=== PATIENT | female | born 1970 | race Caucasian/White ===

== ENCOUNTER 2019-05-13 21:41 | Observation (INO) ==
--- NOTE | 2019-05-13 21:49 | Emergency Department Note ---
ED Disposition Clinical Impression: Pneumonia, Community acquired pneumonia, Sepsis, COPD exacerbation Disposition: Admitted As Inpatient Condition on Discharge: Good Referrals: Darion Rehman MD [Primary Care Provider] - Time of Disposition: 22:55 - Critical Care Critical Care Time: No Attestation: On , the high probability of a clinically significant, sudden or life thr eatening deterioration of the following system(s) required my full and direct attention, intervention and personal management. The time I documented below is in addition to time spent performing reported procedures but includes the following listed in this critical care notation. Medical Decision Making - Medical Records Medical records reviewed: Yes: I reviewed the patient's medical records. - Jose Inquiry Pt receiving controlled substance: No Jose was queried for this patient: No Vital Signs: 05/13/19 21:54 05/13/19 22:26 05/13/19 22:47 Temperature 101.9 F H Temperature Source Oral Pulse Rate 115 H Pulse Rate [Right Radial] 119 H 105 H Respiratory Rate 20 20 Blood Pressure [Right Arm] 98/49 L 125/62 Blood Pressure Mean [Right Arm] 65 83 Blood Pressure Source [Right Arm] Automatic Cuff Blood Pressure Position [Right Arm] Sitting 02 Sat by Pulse Oximetry 87 L 88 L Oxygen Delivery Method Room Air Room Air - Lab Data Lab results reviewed: Yes: I reviewed the patient's lab results. Lab Results 05/13/19 20:10: WBC 12.0 H, RBC 4.49, Hgb 13.2, Hct 39.7, MCV 88.4, MCH 29.4, MCHC 33.2, RDW 12.0, Plt Count 312, MPV 7.0 L, Neut % (Auto) 76.7, Lymph % (Auto) 14.4, [place] % (Auto) 6.9, Eos % (Auto) 1.7, Baso % (Auto) 0.3, Neut # (Auto) 9.2 H, Lymph # (Auto) 1.7, [place] # (Auto) 0.8, Eos # (Auto) 0.2, Baso # (Auto) 0.0 05/13/19 20:10: Sodium 134 L, Potassium 4.1, Chloride 97 L, Carbon Dioxide 25, Anion Gap 16.1 H, BUN 6 L, Creatinine 0.71, Estimated Creat Clear 117, Estimated GFR 87, Est GFR ( Amer) 106, Glucose 130 H, Calcium 8.8, Total Bilirubin 0.8, AST 10 L, ALT 16, Alkaline Phosphatase 116, Total Protein 7.8, Albumin 3.5, Globulin 4.3 H, Albumin/Globulin Ratio 0.8 L 05/13/19 20:10: Lactate 0.6 05/13/19 20:10: Influenza Type A Ag Negative, Influenza Type B Ag Negative 05/13/19 21:59: ABG pH 7.40 05/13/19 22:15: Urine Color Yellow, Urine Appearance Clear, Urine pH 6.0, Ur S pecific [place] <= 1.005, Urine Protein Negative, Urine Glucose (UA) Negative, Urine Ketones Negative, Urine Blood Negative, Urine Nitrate Negative, Urine Bilirubin Negative, Urine Urobilinogen 0.2, Ur Leukocyte Esterase Negative, Urine WBC 3-5, Ur Squamous Epith Cells 5-10, Urine Bacteria 1+ Result diagrams: 05/13/19 20:10 05/13/19 20:10 Orders (Tests/Meds): ED MEDICATIONS Generic Name Dose Route Start Last Admin Trade Name Freq PRN Reason Stop Dose Admin Sodium Chloride 1,000 mls @ 999 mls/hr 05/13/19 22:00 05/13/19 22:06 Sod Chlor 0.9% 1000ml Bag IV 05/13/19 23:00 999 mls/hr .Q1H1M JODIE Administration Levofloxacin/Dextrose 750 mg in 150 mls @ 100 mls/hr 05/13/19 22:30 05/13/19 22:21 Levofloxacin 750mg/150ml Premix IV 05/27/19 22:29 100 mls/hr Q24H JODIE Administration Protocol Discontinued Medications Generic Name Dose Route Start Last Admin Trade Name Freq PRN Reason Stop Dose Admin Acetaminophen 1,000 mg 05/13/19 21:59 05/13/19 22:05 Tylenol 500mg Tablet PO 05/13/19 22:00 1,000 mg ONCE ONE Administration Albuterol/Ipratropium 3 ml 05/13/19 21:59 05/13/19 22:45 Duoneb 3ml Neb IH 05/13/19 22:00 3 ml ONCE ONE Administration Ketorolac Tromethamine 30 mg 05/13/19 21:59 05/13/19 22:05 Toradol 30mg/Ml Vial IV 05/13/19 22:00 30 mg ONCE ONE Administration Methylprednisolone Sodium Succinate 125 mg 05/13/19 21:59 05/13/19 22:06 Solu-Medrol 125mg/2ml Vial IV 05/13/19 22:00 125 mg ONCE ONE Administration ORDERS Category Date Time Status XR chest 2V Stat Exams 05/13/19 21:58 Taken Blood Culture Stat Micro 05/13/19 22:08 Received General Adult HPI - General Stated complaint: Sick Time Seen by Provider: 05/13/19 22:09 Mode of Arrival: Ambulatory Source of Information: Patient Limitations: No Limitations - History of Present Illness HPI narrative: bronchitis symptoms, but with high fever/chills - Related Data Home Medications Medication Instructions Recorded Confirmed Cyclobenzaprine HCl [Flexeril 10mg 10 mg PO TID 12/08/17 07/16/18 tablet] Gabapentin [Gabapentin 300mg Cap] 900 mg PO QID 12/08/17 07/16/18 Oxycodone HCl/Acetaminophen 1 tab PO DAILY 12/08/17 07/16/18 [Percocet 7.5/325mg tablet] meloxicam 15 mg tablet 15 mg PO ONCE PRN 30 Days tab 07/16/18 07/16/18 Previous Rx's Medication Instructions Recorded albuterol sulfate HFA 90 2 puff INHALATION Q4-6H PRN #1 inh 07/16/18 mcg/actuation aerosol inhaler fluticasone furoate 100 1 inh INHALATION DAILY 90 Days #90 11/02/18 mcg-vilanterol 25 mcg/dose each inhalation powder estradiol 1 mg tablet 1 mg PO DAILY #90 tab 01/17/19 fluticasone propionate 50 2 spray INTRANASAL DAILY #9.9 g 02/13/19 mcg/actuation nasal spray,suspension Allergies Allergy/AdvReac Type Severity Reaction Status Date / Time Sulfa (Sulfonamide Allergy Unknown I-RASH Verified 05/13/19 21:57 Antibiotics) [SULFA (SULFONAMIDE ANTIBIOTICS)] [facility] History - Hepatitis A Screen Attestation statement:: This patient has been screened for Hepatitis A risk factors. Medical History: Denies:: Diabetes Mellitus Type 1, Diabetes Mellitus Type 2, Hypertension Other Medical History: Reports: Other Other Surgeries: Yes: Other Amputation: No Fractures: No - Social History Smoking Status: Current every day smoker Tobacco Type: cigarettes Alcohol Intake: never Substance Use Type: denies use Family Hx:: Cancer, Hypertension ROS Obtained: Yes All systems reviewed & no additional complaints - Constitutional Constitutional: Reports fever(s), Reports lethargy - ENT Ears, Nose, Mouth, and Throat: Reports nasal obstruction, Denies nasal trauma, Reports sinus pressure - Cardiovascular Cardiovascular: Denies chest pain - Respiratory Respiratory: Yes chest congestion, Yes cough, No pain on inspiration, Yes wheezing - Musculoskeletal Musculoskeletal: Denies joint pain, Denies joint stiffness, Denies joint swelling - Integumentary/Breasts Skin/Breast: Denies rash, Denies skin pain - Neurologic Neurologic: Denies headache(s), Denies numbness, Denies tingling/numbness/burning sensations, Denies seizure-like activity Physical Exam - General General appearance: alert, in no apparent distress - Head Head exam: atraumatic, normocephalic, normal inspection - Eye Eye exam: Present: normal appearance, PERRL, EOMI - ENT ENT exam: Present: normal exam - Neck Neck exam: Present: normal inspection, full ROM, trachea midline. Absent: meningismus, lymphadenopathy - Chest Chest inspection: Present: normal inspection, symmetric chest wall rise. Absent: tenderness - Respiratory Respiratory exam: Present: wheezes. Absent: normal lung sounds bilaterally, respiratory distress - Cardiovascular Cardiovascular exam: Present: regular rate, normal rhythm. Absent: JVD - Abdominal Exam Abdominal exam: Present: soft, normal bowel sounds. Absent: distention, tenderness, guarding - Extremities Exam Extremities exam: Present: normal inspection, full ROM, normal capillary refill. Absent: calf tenderness - Back Exam Back exam: Present: normal inspection. Absent: tenderness - Neurological Exam Neurological exam: Present: alert, oriented X3 - Psychiatric Psychiatric exam: Present: normal affect, normal mood - Skin Skin exam: Present: warm, dry, intact, normal color
[2019-05-13 22:19] LABS: Microscopic, Urine URINE MICROSCOPIC (MICROSCOPIC)
[2019-05-13 22:22] LABS: Basophils % 0.3 % (0.1-2.0); Eosinophils # 0.2 K/mm3 (0.0-0.4); Eosinophils % 1.7 % (0.1-12.0); Hematocrit 39.7 % (37.0-47.0); Hemoglobin 13.2 g/dL (12.2-16.2); Lymphocytes # 1.7 K/mm3 (0.7-4.5); Lymphocytes % 14.4 % (10-50); Mean Corpuscular HGB Conc 33.2 g/dL (31.8-35.4); Mean Corpuscular Volume 88.4 fl (81-99); Monocytes # 0.8 K/mm3 (0.1-1.0); Monocytes % 6.9 % (1.7-9.3); Neutrophils # 9.2 K/mm3 (1.8-7.8); Neutrophils % 76.7 % (37.0-80.0); Platelet Count 312 K/mm3 (142-424); Red Blood Count 4.49 M/mm3 (4.20-5.40)
[2019-05-13 22:22] LABS: Appearance,Urine CLEAR (Clear); Bilirubin,Urine Negative (Negative); Blood, Urine Negative (Negative); Color,Urine YELLOW (Yellow); Glucose,Urine (UA) Negative (Negative); Ketones,Urine Negative (Negative); Leukocyte Esterase,Urine Negative (Negative); Protein,Urine Negative (Negative); Specific Gravity, Urine <= 1.005 (1.005-1.030); Urobilinogen,Urine 0.2 EU/dl (0.2)
[2019-05-13 22:29] LABS: Bacteria,Urine 1+ /lpf
[2019-05-13 22:31] LABS: Albumin Level 3.5 gm/dL (3.4-5.0); Albumin/Globulin Ratio 0.8 (1.1-1.8); Anion Gap 16.1 mEq/L (5-15); Bilirubin,Total 0.8 mg/dL (0.2-1.0); Calcium 8.8 mg/dL (8.5-10.1); Globulin 4.3 gm/dl (1.3-3.2); Total Protein,Serum 7.8 gm/dL (6.4-8.2)
[2019-05-14 06:45] LABS: Anion Gap 15.6 mEq/L (5-15); Calcium 8.7 mg/dL (8.5-10.1)
[2019-05-14 06:50] LABS: Basophils % 0.1 % (0.1-2.0); Eosinophils % 0.1 % (0.1-12.0); Hematocrit 39.4 % (37.0-47.0); Hemoglobin 12.7 g/dL (12.2-16.2); Lymphocytes # 0.7 K/mm3 (0.7-4.5); Lymphocytes % 9.3 % (10-50); Mean Corpuscular HGB Conc 32.2 g/dL (31.8-35.4); Mean Corpuscular Volume 89.5 fl (81-99); Mean Platelet Volume 7.1 fl (7.4-10.4); Monocytes # 0.2 K/mm3 (0.1-1.0); Neutrophils # 6.5 K/mm3 (1.8-7.8); Neutrophils % 88.5 % (37.0-80.0); Platelet Count 240 K/mm3 (142-424); Red Cell Distribution Width 11.9 % (11.5-17.5); White Blood Count 7.4 K/mm3 (4.8-10.8)
--- NOTE | 2019-05-14 07:10 | History & Physical Report ---
*Admission Date: 05/13/19 [facility] History Medical History: Denies:: Cancer, Diabetes Mellitus Type 1, Diabetes Mellitus Type 2, Hypertension, MRSA *Have you ever received a pneumonia vaccine?: No *Have you received a flu vaccine this season?: No Other Medical History: Reports: Other Laterality Cases: Bilateral: Tonsillectomy Other Surgeries: Yes: Cholecystectomy, Hysterectomy-Total, Other Amputation: No Fractures: No - *Social History Educational Level: Attended College Smoking Status: Former smoker Tobacco Type: cigarettes Smoking End Date: 01/26/2019 Alcohol Intake: never Substance Use Type: denies use *Occupational Status:: disabled Housing: apartment Household Members: none *Travel in the last 8 weeks: None Family Hx:: Cancer, Diabetes, Heart Attack, Hypertension Review of Systems - *Neurologic Denies headache(s), Denies numbness, Denies tingling/numbness/burning sensations, Denies seizure-like activity Meds Home Medications Medication Instructions Recorded Confirmed Type Cyclobenzaprine HCl [Flexeril 10mg 10 mg PO TID 12/08/17 05/14/19 History tablet] Gabapentin [Gabapentin 300mg Cap] 900 mg PO QID 12/08/17 05/14/19 History albuterol sulfate HFA 90 2 puff INHALATION Q4-6H PRN #1 inh 07/16/18 05/14/19 Rx mcg/actuation aerosol inhaler Estradiol 1 mg PO DAILY 05/14/19 05/14/19 History Oxycodone HCl/Acetaminophen 1 tab PO Q6H PRN 05/14/19 05/14/19 History [Percocet 10-325 mg Tablet] Allergies Allergy/AdvReac Type Severity Reaction Status Date / Time Sulfa (Sulfonamide Allergy Unknown I-RASH Verified 05/13/19 21:57 Antibiotics) [SULFA (SULFONAMIDE ANTIBIOTICS)] Exam Vital signs and Labs for Last 24 Hours: Temp Pulse Resp BP Pulse Ox 97.6 F 84 18 115/55 L 96 05/14/19 04:00 05/14/19 05:39 05/14/19 04:23 05/14/19 04:00 05/14/19 05:39 Laboratory Results - last 24 hr 05/13/19 20:10: WBC 12.0 H, RBC 4.49, Hgb 13.2, Hct 39.7, MCV 88.4, MCH 29.4, MCHC 33.2, RDW 12.0, Plt Count 312, MPV 7.0 L, Neut % (Auto) 76.7, Lymph % (Auto) 14.4, [place] % (Auto) 6.9, Eos % (Auto) 1.7, Baso % (Auto) 0.3, Neut # (Auto) 9.2 H, Lymph # (Auto) 1.7, [place] # (Auto) 0.8, Eos # (Auto) 0.2, Baso # (Auto) 0.0 05/13/19 20:10: Sodium 134 L, Potassium 4.1, Chloride 97 L, Carbon Dioxide 25, Anion Gap 16.1 H, BUN 6 L, Creatinine 0.71, Estimated Creat Clear 117, Estimated GFR 87, Est GFR ( Amer) 106, Glucose 130 H, Calcium 8.8, Total Bilirubin 0.8, AST 10 L, ALT 16, Alkaline Phosphatase 116, Total Protein 7.8, Albumin 3.5, Globulin 4.3 H, Albumin/Globulin Ratio 0.8 L 05/13/19 20:10: Lactate 0.6 05/13/19 20:10: Influenza Type A Ag Negative, Influenza Type B Ag Negative 05/13/19 21:59: ABG pH 7.40 05/13/19 22:15: Urine Color Yellow, Urine Appearance Clear, Urine pH 6.0, Ur Specific [place] <= 1.005, Urine Protein Negative, Urine Glucose (UA) Negative, Urine Ketones Negative, Urine Blood Negative, Urine Nitrate Negative, Urine Bilirubin Negative, Urine Urobilinogen 0.2, Ur Leukocyte Esterase Negative, Urine WBC 3-5, Ur Squamous Epith Cells 5-10, Urine Bacteria 1+ 05/14/19 06:12: WBC 7.4 D, RBC 4.40, Hgb 12.7, Hct 39.4, MCV 89.5, MCH 28.8, MCHC 32.2, RDW 11.9, Plt Count 240, MPV 7.1 L, Neut % (Auto) 88.5 H, Lymph % (Auto) 9.3 L, [place] % (Auto) 2.0, Eos % (Auto) 0.1, Baso % (Auto) 0.1, Neut # (Auto) 6.5, Lymph # (Auto) 0.7, [place] # (Auto) 0.2, Eos # (Auto) 0.0, Baso # (Auto) 0.0 I & O for Last 24 hours: Intake & Output 05/11/19 05/12/19 05/13/19 05/14/19 23:59 23:59 23:59 23:59 Intake Total 1150 / 1150 842 / 842 Output Total 1100 / 1100 Balance 1150 / 1150 -258 / -258 Weight 76.912 kg Microbiology Reports for the Last 24 Hours: Microbiology 05/14/19 00:18 Sputum - Expectorated Sputum Gram Stain - Final
--- NOTE | 2019-05-14 07:37 | Pharmacy Consult Notes ---
[facility] Pharmacy VTE Monitoring - Patient Demographics Admission date: 05/13/19 Report Date: 05/14/19 Time: 07:37 Allergies/Adverse Reactions: Patient Allergies Sulfa (Sulfonamide Antibiotics) [SULFA (SULFONAMIDE ANTIBIOTICS)] Allergy (Unknown, Verified 05/13/19 21:57) I-RASH Height: 1.6 m Weight: 76.912 kg Patient Problems: Current Active Problems COPD exacerbation (Acute) Pneumonia (Acute) Community acquired pneumonia (Acute) Sepsis (Acute) Sepsis with acute hypoxic respiratory failure (Acute) - VTE Risk Labs: VTE Related Lab Results Hgb 12.7 g/dL (12.2-16.2) 05/14/19 06:12 Hct 39.4 % (37.0-47.0) 05/14/19 06:12 Plt Count 240 K/mm3 (142-424) 05/14/19 06:12 BUN 8 mg/dL (7-18) D 05/14/19 06:12 Creatinine 0.75 mg/dL (0.55-1.02) 05/14/19 06:12 Estimated Creat Clear 110 mL/min (50-200) 05/14/19 06:12 Was VTE Risk Assessment Performed: Yes VTE Score: 3 VTE Risk Level: Low Risk - Prophylaxis VTE Prophylaxis Ordered?: Yes Types of VTE Prophylaxis: TEDS Knee High Location of Applied Device: Bilateral Lower Extremeties - VTE Diagnosis Confirmed Treatment or plan recommended: Continue Current Treatment
[2019-05-14 08:54] LABS: Lymphocytes % 10 % (10-50); Monocytes % 1 % (2-9); Neutrophils % 89 % (42-76); RBC Morphology Normal; Total Cells Counted 100
--- NOTE | 2019-05-14 09:29 | H&P/Discharge Summary ---
<Ender Casas - Last Filed: 05/14/19 09:39> General - General Admission date:: 05/13/19 Discharge date: 05/14/19 *Admission Date: 05/13/19 *Chief complaint: Sinus congestion, CARTER *History of present illness: 49-year-old female patient presents to the ED with complaints of increased shortness of air, tired, and congestion "feels like a truck is sitting on my head" for 2 days. She does report she quit smoking January 26 and has not smoked since. Denies fever This morning she is sitting up in bed respirations easy even, denies any needs or concerns at present. She is questioning when she can go home. She will be discharged home this morning, she is agreeable to this and will follow-up in the office in 1 to 2 weeks [facility] History Medical History: Denies:: Cancer, Diabetes Mellitus Type 1, Diabetes Mellitus Type 2, Hypertension, MRSA *Have you ever received a pneumonia vaccine?: No *Have you received a flu vaccine this season?: No Other Medical History: Reports: Other Laterality Cases: Bilateral: Tonsillectomy Other Surgeries: Yes: Cholecystectomy, Hysterectomy-Total, Other Amputation: No Fractures: No - *Social History Educational Level: Attended College Smoking Status: Former smoker Tobacco Type: cigarettes Smoking End Date: 01/26/2019 Alcohol Intake: never Substance Use Type: denies use *Occupational Status:: disabled Housing: apartment Household Members: none *Travel in the last 8 weeks: None Family Hx:: Cancer, Diabetes, Heart Attack, Hypertension Review of Systems - Review of Systems Review of systems:: pertinent systems reviewed and negative unless documented below - Constitutional Reports fatigue, Reports headache(s), Denies fever(s) - Eyes Denies blurry vision, Denies change in vision - ENT Reports headache(s), Reports nasal congestion - *Cardiovascular Reports shortness of breath, Denies chest pain, Denies radiating jaw, neck or arm pain, Denies fast heart rate - *Respiratory Reports cough, Reports shortness of breath, Denies chest congestion - *Gastrointestinal Denies abdominal pain, Denies bloating - *Musculoskeletal Denies joint pain, Denies neck pain - *Neurologic Denies headache(s), Denies numbness, Denies tingling/numbness/burning sensations, Denies seizure-like activity - Psychiatric Denies hearing things others do not hear, Denies thoughts of hurting/killing others, Denies thoughts of hurting/killing yourself - Endocrine Denies rapid, pounding, or irregular heartbeat, Denies increased urination - Hematologic/Lymphatic Denies easy bleeding, Denies easy bruising - Allergic/Immunologic Denies GI upset with certain foods, Denies tongue swelling Exam Vital signs and Labs for Last 24 Hours: Temp Pulse Resp BP Pulse Ox 97.9 F 92 H 18 112/60 93 L 05/14/19 08:00 05/14/19 09:20 05/14/19 08:00 05/14/19 08:00 05/14/19 08:00 Laboratory Results - last 24 hr 05/13/19 20:10: WBC 12.0 H, RBC 4.49, Hgb 13.2, Hct 39.7, MCV 88.4, MCH 29.4, MCHC 33.2, RDW 12.0, Plt Count 312, MPV 7.0 L, Neut % (Auto) 76.7, Lymph % (Auto) 14.4, [place] % (Auto) 6.9, Eos % (Auto) 1.7, Baso % (Auto) 0.3, Neut # (Auto) 9.2 H, Lymph # (Auto) 1.7, [place] # (Auto) 0.8, Eos # (Auto) 0.2, Baso # (Auto) 0.0 05/13/19 20:10: Sodium 134 L, Potassium 4.1, Chloride 97 L, Carbon Dioxide 25, Anion Gap 16.1 H, BUN 6 L, Creatinine 0.71, Estimated Creat Clear 117, Estimated GFR 87, Est GFR ( Amer) 106, Glucose 130 H, Calcium 8.8, Total Bilirubin 0.8, AST 10 L, ALT 16, Alkaline Phosphatase 116, Total Protein 7.8, Albumin 3.5, Globulin 4.3 H, Albumin/Globulin Ratio 0.8 L 05/13/19 20:10: Lactate 0.6 05/13/19 20:10: Influenza Type A Ag Negative, Influenza Type B Ag Negative 05/13/19 21:59: ABG pH 7.40 05/13/19 22:15: Urine Color Yellow, Urine Appearance Clear, Urine pH 6.0, Ur Specific [place] <= 1.005, Urine Protein Negative, Urine Glucose (UA) Negative, Urine Ketones Negative, Urine Blood Negative, Urine Nitrate Negative, Urine Bilirubin Negative, Urine Urobilinogen 0.2, Ur Leukocyte Esterase Negative, Urine WBC 3-5, Ur Squamous Epith Cells 5-10, Urine Bacteria 1+ 05/14/19 06:12: WBC 7.4 D, RBC 4.40, Hgb 12.7, Hct 39.4, MCV 89.5, MCH 28.8, MCHC 32.2, RDW 11.9, Plt Count 240, MPV 7.1 L, Neut % (Auto) 88.5 H, Lymph % (Auto) 9.3 L, [place] % (Auto) 2.0, Eos % (Auto) 0.1, Baso % (Auto) 0.1, Neut # (Auto) 6.5, Lymph # (Auto) 0.7, [place] # (Auto) 0.2, Eos # (Auto) 0.0, Baso # (Auto) 0.0, Total Counted 100, Neutrophils % (Manual) 89 H, Lymphocytes % (Manual) 10, Monocytes % (Manual) 1 L, Platelet Estimate Normal, RBC Morphology Normal 05/14/19 06:12: Sodium 139, Potassium 3.6, Chloride 103, Carbon Dioxide 24, Anion Gap 15.6 H, BUN 8 D, Creatinine 0.75, Estimated Creat Clear 110, Estimated GFR 82, Est GFR ( Amer) 99, Glucose 206 H D, Calcium 8.7 I & O for Last 24 hours: Intake & Output 05/11/19 05/12/19 05/13/19 05/14/19 23:59 23:59 23:59 23:59 Intake Total 1150 / 1150 962 / 962 Output Total 1100 / 1100 Balance 1150 / 1150 -138 / -138 Weight 169 lb 9 oz Microbiology Reports for the Last 24 Hours: Microbiology 05/14/19 00:18 Sputum - Expectorated Sputum Gram Stain - Final - Constitutional no acute distress - *Routine HEENT Exam Head: Present: normocephalic, atraumatic. Absent: tenderness of temporal artery Eye: Present: EOMI, PERRL, normal accommodation. Absent: conjunctival icterus, periorbital swelling ENT: Present: mucous membranes moist, sinus tenderness. Absent: septal deviation - *Routine Neck Exam Present: supple, full ROM, trachea midline. Absent: JVD, tracheal deviation - *Routine Respiratory Exam Present: CTA bilaterally. Absent: accessory muscle use - *Routine Cardiovascular Exam Present: RRR. Absent: murmur, irregular rhythm - *Routine Abdominal Exam Present: soft, normoactive bowel sounds. Absent: tenderness, firm - *Routine Extremities Exam Present: full ROM, pulses intact. Absent: cyanosis, calf tenderness - Routine Back/Spine/Pelvis Exam Back/Spine: Present: full ROM. Absent: CVA tenderness, pain with flexion - *Routine Skin Exam Present: intact, normal turgor. Absent: cyanosis, ecchymosis - *Routine Neurological Exam Present: alert, oriented X3, CN II-XII intact. Absent: pronator drift, altered mental status - Routine Psychiatric Exam Present: normal affect, normal thought process. Absent: suicidal ideation, homicidal ideation Hospital Course Hospital Course: 49-year-old female patient presents to the ED with complaints of increased shortness of air, tired, and congestion "feels like a truck is sitting on my head" for 2 days. She does report she quit smoking January 26 and has not smoked since. Denies fever. In the ED she received levofloxacin 750 mg per IV, breathing treatments, and IV fluids. 05/13/2019 CXR : Right lower lobe pneumonia. Recommend following to clear (Per Granda) This morning she is sitting up in bed reports she is feeling a lot better, decrease head congestion. Room air sats are 96%, she denies any shortness of breath chest pain or any other concerns at the present. She will be discharged home on Levaquin 750 mg p.o. for 6 days. She will follow-up in office in 1 to 2 weeks and will order PFT Results Labs on day of discharge: Labs from last 24 hours 05/14/19 05/14/19 05/13/19 06:12 06:12 22:15 WBC 7.4 D RBC 4.40 Hgb 12.7 Hct 39.4 MCV 89.5 MCH 28.8 MCHC 32.2 RDW 11.9 Plt Count 240 MPV 7.1 L Neut % (Auto) 88.5 H Lymph % (Auto) 9.3 L [place] % (Auto) 2.0 Eos % (Auto) 0.1 Baso % (Auto) 0.1 Neut # (Auto) 6.5 Lymph # (Auto) 0.7 [place] # (Auto) 0.2 Eos # (Auto) 0.0 Baso # (Auto) 0.0 Total Counted 100 Neutrophils % (Manual) 89 H Lymphocytes % (Manual) 10 Monocytes % (Manual) 1 L Platelet Estimate Normal RBC Morphology Normal ABG pH Sodium 139 Potassium 3.6 Chloride 103 Carbon Dioxide 24 Anion Gap 15.6 H BUN 8 D Creatinine 0.75 Estimated Creat Clear 110 Estimated GFR 82 Est GFR ( Amer) 99 Glucose 206 H D Lactate Calcium 8.7 Total Bilirubin AST ALT Alkaline Phosphatase Total Protein Albumin Globulin Albumin/Globulin Ratio Urine Color Yellow Urine Appearance Clear Urine pH 6.0 Ur Specific [place] <= 1.005 Urine Protein Negative Urine Glucose (UA) Negative Urine Ketones Negative Urine Blood Negative Urine Nitrate Negative Urine Bilirubin Negative Urine Urobilinogen 0.2 Ur Leukocyte Esterase Negative Urine WBC 3-5 Ur Squamous Epith Cells 5-10 Urine Bacteria 1+ Influenza Type A Ag Influenza Type B Ag 05/13/19 05/13/19 05/13/19 21:59 20:10 20:10 WBC RBC Hgb Hct MCV MCH MCHC RDW Plt Count MPV Neut % (Auto) Lymph % (Auto) [place] % (Auto) Eos % (Auto) Baso % (Auto) Neut # (Auto) Lymph # (Auto) [place] # (Auto) Eos # (Auto) Baso # (Auto) Total Counted Neutrophils % (Manual) Lymphocytes % (Manual) Monocytes % (Manual) Platelet Estimate RBC Morphology ABG pH 7.40 Sodium Potassium Chloride Carbon Dioxide Anion Gap BUN Creatinine Estimated Creat Clear Estimated GFR Est GFR ( Amer) Glucose Lactate 0.6 Calcium Total Bilirubin AST ALT Alkaline Phosphatase Total Protein Albumin Globulin Albumin/Globulin Ratio Urine Color Urine Appearance Urine pH Ur Specific [place] Urine Protein Urine Glucose (UA) Urine Ketones Urine Blood Urine Nitrate Urine Bilirubin Urine Urobilinogen Ur Leukocyte Esterase Urine WBC Ur Squamous Epith Cells Urine Bacteria Influenza Type A Ag Negative Influenza Type B Ag Negative 05/13/19 05/13/19 20:10 20:10 WBC 12.0 H RBC 4.49 Hgb 13.2 Hct 39.7 MCV 88.4 MCH 29.4 MCHC 33.2 RDW 12.0 Plt Count 312 MPV 7.0 L Neut % (Auto) 76.7 Lymph % (Auto) 14.4 [place] % (Auto) 6.9 Eos % (Auto) 1.7 Baso % (Auto) 0.3 Neut # (Auto) 9.2 H Lymph # (Auto) 1.7 [place] # (Auto) 0.8 Eos # (Auto) 0.2 Baso # (Auto) 0.0 Total Counted Neutrophils % (Manual) Lymphocytes % (Manual) Monocytes % (Manual) Platelet Estimate RBC Morphology ABG pH Sodium 134 L Potassium 4.1 Chloride 97 L Carbon Dioxide 25 Anion Gap 16.1 H BUN 6 L Creatinine 0.71 Estimated Creat Clear 117 Estimated GFR 87 Est GFR ( Amer) 106 Glucose 130 H Lactate Calcium 8.8 Total Bilirubin 0.8 AST 10 L ALT 16 Alkaline Phosphatase 116 Total Protein 7.8 Albumin 3.5 Globulin 4.3 H Albumin/Globulin Ratio 0.8 L Urine Color Urine Appearance Urine pH Ur Specific [place] Urine Protein Urine Glucose (UA) Urine Ketones Urine Blood Urine Nitrate Urine Bilirubin Urine Urobilinogen Ur Leukocyte Esterase Urine WBC Ur Squamous Epith Cells Urine Bacteria Influenza Type A Ag Influenza Type B Ag - Additional Comments Rounded with Dr. Lozano, all orders per Dr. Lozano. 1. Levaquin 750 mg p.o. daily x6 days 2. Will start Spiriva and give sample 3. Follow-up in office 1 to 2 weeks, schedule PFT DS: Diagnosis - Discharge Diagnosis (1) Pneumonia Status: Acute (2) Sepsis Status: Acute (3) COPD exacerbation Status: Acute Discharge Plan - Patient Discharge Instructions ACTIVITY: Continue current activity DIET: continue same diet Patient Instructions: Pneumonia-Adult, Chronic Obstructive Pulmonary Disease, Pneumococcal Vaccine, DI for Chronic Obstructive Pulmonary Disease, DI for Pneumonia -- Adult, DI for Sepsis -- Adult - Follow up Plan Follow up with: Ender Casas APRN [Nurse Practitioner] - 1 week Disposition: Home, Self-Detention Medications: Home Medications Medication Instructions Recorded Confirmed Type Cyclobenzaprine HCl [Flexeril 10mg 10 mg PO TID 12/08/17 05/14/19 History tablet] Gabapentin [Gabapentin 300mg Cap] 900 mg PO QID 12/08/17 05/14/19 History albuterol sulfate HFA 90 2 puff INHALATION Q4-6H PRN #1 inh 07/16/18 05/14/19 Rx mcg/actuation aerosol inhaler Estradiol 1 mg PO DAILY 05/14/19 05/14/19 History Oxycodone HCl/Acetaminophen 1 tab PO Q6H PRN 05/14/19 05/14/19 History [Percocet 10-325 mg Tablet] Tiotropium [place] [Spiriva 2 puffs IH DAILY 30 Days #1 05/14/19 Rx Respimat] mist.inhal levoFLOXacin [Levofloxacin 750MG 750 mg PO DAILY 6 Days #6 tab 05/14/19 Rx Tablet] Prescriptions/Medication Reconciliation: New Tiotropium [place] [Spiriva Respimat] 2 puffs IH DAILY 30 Days #1 mist.inhal levoFLOXacin [Levofloxacin 750MG Tablet] 750 mg PO DAILY 6 Days #6 tab Continued albuterol sulfate HFA 90 mcg/actuation aerosol inhaler 2 puff INHALATION Q4- 6H PRN #1 inh PRN Reason: Shortness Of Breath Or Wheezing Gabapentin [Gabapentin 300mg Cap] 900 mg PO QID Cyclobenzaprine HCl [Flexeril 10mg tablet] 10 mg PO TID Estradiol 1 mg PO DAILY Oxycodone HCl/Acetaminophen [Percocet 10-325 mg Tablet] 1 tab PO Q6H PRN PRN Reason: PAIN - Problem Reconciliation Problems Reviewed?: Yes <Ramon Lozano - Last Filed: 05/14/19 14:10> General - General Admission date:: 05/13/19 Exam Vital signs and Labs for Last 24 Hours: Temp Pulse Resp BP Pulse Ox 97.9 F 92 H 18 112/60 93 L 05/14/19 08:00 05/14/19 09:20 05/14/19 08:00 05/14/19 08:00 05/14/19 08:00 Laboratory Results - last 24 hr 05/13/19 20:10: WBC 12.0 H, RBC 4.49, Hgb 13.2, Hct 39.7, MCV 88.4, MCH 29.4, MCHC 33.2, RDW 12.0, Plt Count 312, MPV 7.0 L, Neut % (Auto) 76.7, Lymph % (Auto) 14.4, [place] % (Auto) 6.9, Eos % (Auto) 1.7, Baso % (Auto) 0.3, Neut # (Auto) 9.2 H, Lymph # (Auto) 1.7, [place] # (Auto) 0.8, Eos # (Auto) 0.2, Baso # (Auto) 0.0 05/13/19 20:10: Sodium 134 L, Potassium 4.1, Chloride 97 L, Carbon Dioxide 25, Anion Gap 16.1 H, BUN 6 L, Creatinine 0.71, Estimated Creat Clear 117, Estimated GFR 87, Est GFR ( Amer) 106, Glucose 130 H, Calcium 8.8, Total Bilirubin 0.8, AST 10 L, ALT 16, Alkaline Phosphatase 116, Total Protein 7.8, Albumin 3.5, Globulin 4.3 H, Albumin/Globulin Ratio 0.8 L 05/13/19 20:10: Lactate 0.6 05/13/19 20:10: Influenza Type A Ag Negative, Influenza Type B Ag Negative 05/13/19 21:59: ABG pH 7.40 05/13/19 22:15: Urine Color Yellow, Urine Appearance Clear, Urine pH 6.0, Ur Specific [place] <= 1.005, Urine Protein Negative, Urine Glucose (UA) Negative, Urine Ketones Negative, Urine Blood Negative, Urine Nitrate Negative, Urine Bilirubin Negative, Urine Urobilinogen 0.2, Ur Leukocyte Esterase Negative, Urine WBC 3-5, Ur Squamous Epith Cells 5-10, Urine Bacteria 1+ 05/14/19 06:12: WBC 7.4 D, RBC 4.40, Hgb 12.7, Hct 39.4, MCV 89.5, MCH 28.8, MCHC 32.2, RDW 11.9, Plt Count 240, MPV 7.1 L, Neut % (Auto) 88.5 H, Lymph % (Auto) 9.3 L, [place] % (Auto) 2.0, Eos % (Auto) 0.1, Baso % (Auto) 0.1, Neut # (A uto) 6.5, Lymph # (Auto) 0.7, [place] # (Auto) 0.2, Eos # (Auto) 0.0, Baso # (Auto) 0.0, Total Counted 100, Neutrophils % (Manual) 89 H, Lymphocytes % (Manual) 10, Monocytes % (Manual) 1 L, Platelet Estimate Normal, RBC Morphology Normal 05/14/19 06:12: Sodium 139, Potassium 3.6, Chloride 103, Carbon Dioxide 24, A nion Gap 15.6 H, BUN 8 D, Creatinine 0.75, Estimated Creat Clear 110, Estimated GFR 82, Est GFR ( Amer) 99, Glucose 206 H D, Calcium 8.7 I & O for Last 24 hours: Intake & Output 05/11/19 05/12/19 05/13/19 05/14/19 23:59 23:59 23:59 23:59 Intake Total 1150 / 1150 1420 / 1420 Output Total 1100 / 1100 Balance 1150 / 1150 320 / 320 Weight 76.912 kg Microbiology Reports for the Last 24 Hours: Microbiology 05/14/19 00:18 Sputum - Expectorated Sputum Gram Stain - Final Hospital Course Hospital Course: Rounded with nurse practitioner. Agree with exam findings and care plan as documented. Results Labs on day of discharge: Labs from last 24 hours 05/14/19 05/14/19 05/13/19 06:12 06:12 22:15 WBC 7.4 D RBC 4.40 Hgb 12.7 Hct 39.4 MCV 89.5 MCH 28.8 MCHC 32.2 RDW 11.9 Plt Count 240 MPV 7.1 L Neut % (Auto) 88.5 H Lymph % (Auto) 9.3 L [place] % (Auto) 2.0 Eos % (Auto) 0.1 Baso % (Auto) 0.1 Neut # (Auto) 6.5 Lymph # (Auto) 0.7 [place] # (Auto) 0.2 Eos # (Auto) 0.0 Baso # (Auto) 0.0 Total Counted 100 Neutrophils % (Manual) 89 H Lymphocytes % (Manual) 10 Monocytes % (Manual) 1 L Platelet Estimate Normal RBC Morphology Normal ABG pH Sodium 139 Potassium 3.6 Chloride 103 Carbon Dioxide 24 Anion Gap 15.6 H BUN 8 D Creatinine 0.75 Estimated Creat Clear 110 Estimated GFR 82 Est GFR ( Amer) 99 Glucose 206 H D Lactate Calcium 8.7 Total Bilirubin AST ALT Alkaline Phosphatase Total Protein Albumin Globulin Albumin/Globulin Ratio Urine Color Yellow Urine Appearance Clear Urine pH 6.0 Ur Specific [place] <= 1.005 Urine Protein Negative Urine Glucose (UA) Negative Urine Ketones Negative Urine Blood Negative Urine Nitrate Negative Urine Bilirubin Negative Urine Urobilinogen 0.2 Ur Leukocyte Esterase Negative Urine WBC 3-5 Ur Squamous Epith Cells 5-10 Urine Bacteria 1+ Influenza Type A Ag Influenza Type B Ag 05/13/19 05/13/19 05/13/19 21:59 20:10 20:10 WBC RBC Hgb Hct MCV MCH MCHC RDW Plt Count MPV Neut % (Auto) Lymph % (Auto) [place] % (Auto) Eos % (Auto) Baso % (Auto) Neut # (Auto) Lymph # (Auto) [place] # (Auto) Eos # (Auto) Baso # (Auto) Total Counted Neutrophils % (Manual) Lymphocytes % (Manual) Monocytes % (Manual) Platelet Estimate RBC Morphology ABG pH 7.40 Sodium Potassium Chloride Carbon Dioxide Anion Gap BUN Creatinine Estimated Creat Clear Estimated GFR Est GFR ( Amer) Glucose Lactate 0.6 Calcium Total Bilirubin AST ALT Alkaline Phosphatase Total Protein Albumin Globulin Albumin/Globulin Ratio Urine Color Urine Appearance Urine pH Ur Specific [place] Urine Protein Urine Glucose (UA) Urine Ketones Urine Blood Urine Nitrate Urine Bilirubin Urine Urobilinogen Ur Leukocyte Esterase Urine WBC Ur Squamous Epith Cells Urine Bacteria Influenza Type A Ag Negative Influenza Type B Ag Negative 05/13/19 05/13/19 20:10 20:10 WBC 12.0 H RBC 4.49 Hgb 13.2 Hct 39.7 MCV 88.4 MCH 29.4 MCHC 33.2 RDW 12.0 Plt Count 312 MPV 7.0 L Neut % (Auto) 76.7 Lymph % (Auto) 14.4 [place] % (Auto) 6.9 Eos % (Auto) 1.7 Baso % (Auto) 0.3 Neut # (Auto) 9.2 H Lymph # (Auto) 1.7 [place] # (Auto) 0.8 Eos # (Auto) 0.2 Baso # (Auto) 0.0 Total Counted Neutrophils % (Manual) Lymphocytes % (Manual) Monocytes % (Manual) Platelet Estimate RBC Morphology ABG pH Sodium 134 L Potassium 4.1 Chloride 97 L Carbon Dioxide 25 Anion Gap 16.1 H BUN 6 L Creatinine 0.71 Estimated Creat Clear 117 Estimated GFR 87 Est GFR ( Amer) 106 Glucose 130 H Lactate Calcium 8.8 Total Bilirubin 0.8 AST 10 L ALT 16 Alkaline Phosphatase 116 Total Protein 7.8 Albumin 3.5 Globulin 4.3 H Albumin/Globulin Ratio 0.8 L Urine Color Urine Appearance Urine pH Ur Specific [place] Urine Protein Urine Glucose (UA) Urine Ketones Urine Blood Urine Nitrate Urine Bilirubin Urine Urobilinogen Ur Leukocyte Esterase Urine WBC Ur Squamous Epith Cells Urine Bacteria Influenza Type A Ag Influenza Type B Ag DS: Diagnosis - Discharge Diagnosis (1) Pneumonia Status: Acute (2) Sepsis Status: Acute (3) COPD exacerbation Status: Acute Discharge Plan - Patient Discharge Instructions ACTIVITY: Continue current activity DIET: continue same diet - Problem Reconciliation Problems Reviewed?: Yes
== END 2019-05-14 11:15 | disposition home or self-care (01) ==
LOC: ER 21:41 → 2ND 22:57 → INTOOBSV 23:40 → 2ND 23:41
PROVIDERS: ADMIT Internal Medicine Adolescent Medicine; ATTEND Internal Medicine Adolescent Medicine
DX: J18.9 Pneumonia, unspecified organism
CPT/HCPCS: 36415; 71020; 71046; 80048; 80053; 81001; 83605; 85007; 85025; 87040; 87070; 87205; 87275; 87276; 94640; 94761; 96365; 96367; 96375; 99284; G0378; J1956

== ENCOUNTER → 2020-01-02 13:48 | Outpatient (CLI) | payer MEDICARE, MEDICAID, SELFPAY ==
[2020-01-02 14:14] LABS: Basophils # 0.1 K/mm3 (0-0.2); Basophils % 1.7 % (0.1-2.0); Eosinophils # 0.1 K/mm3 (0.0-0.4); Hematocrit 41.5 % (37.0-47.0); Hemoglobin 13.5 g/dL (12.2-16.2); Lymphocytes # 1.5 K/mm3 (0.7-4.5); Lymphocytes % 20.8 % (10-50); Mean Corpuscular HGB Conc 32.6 g/dL (31.8-35.4); Mean Platelet Volume 7.8 fl (7.4-10.4); Monocytes # 0.4 K/mm3 (0.1-1.0); Monocytes % 5.9 % (1.7-9.3); Neutrophils # 5.1 K/mm3 (1.8-7.8); Neutrophils % 69.6 % (37.0-80.0); Platelet Count 420 K/mm3 (142-424); Red Blood Count 4.67 M/mm3 (4.20-5.40); White Blood Count 7.4 K/mm3 (4.8-10.8)
[2020-01-02 14:45] LABS: Alanine Aminotransferase 13 U/L (12-78); Albumin Level 4.3 g/dl (3.5-5.0); Albumin/Globulin Ratio 1.4 (1.1-1.8); Alkaline Phosphatase 107 U/L (38-126); Anion Gap 9.1 mEq/L (5-15); Aspartate Amino Transferase 19 U/L (14-36); Bilirubin,Total 0.3 mg/dl (0.2-1.3); Blood Urea Nitrogen 7 mg/dl (7-17); Calcium 9.5 mg/dl (8.4-10.2); Carbon Dioxide 29 mmol/L (22.0-30.0); Chloride 103 mmol/L (98-107); Chol/HDL Ratio 2.8 (1-3.5); Cholesterol 162 mg/dl (140-200); Estimated Glomerular Filt Rate 131 ml/min (>60); GFR (African American) 159 ML/MIN (>60); Globulin 3.1 g/dL (1.3-3.2); Glucose 100 mg/dl (74-100); HDL Cholesterol 57 mg/dl (40-60); Potassium 4.1 mmoL/L (3.5-5.1); Sodium 137 mmol/L (136-145); Total Protein,Serum 7.4 g/dl (6.3-8.2); Triglycerides 133 mg/dl (30-150); VLDL Cholesterol 27 mg/dL (0-40)
[2020-01-02 14:57] LABS: Direct LDL Cholesterol 99.95 mg/dL (100-129)
[2020-01-02 15:03] LABS: T4 (Thyroxine) 13.2 ug/dl (5.53-11.0)
[2020-01-02 15:16] LABS: Thyroid Stimulating Hormone 1.77 uIU/mL (0.465-4.68)
[2020-01-03 11:21] LABS: Vitamin D 25 Hydroxy 48.6 ng/mL (30.0-100.0)
== END ==
PROVIDERS: Visit Provider Nurse Practitioner Family
DX: E03.9 Hypothyroidism, unspecified (principal)
CPT/HCPCS: 80053; 80061; 82652; 84436; 84443; 85025

== ENCOUNTER → 2020-09-08 16:28 | Outpatient (CLI) | payer MEDICARE, MEDICAID, SELFPAY ==
[2020-09-10 11:41] LABS: Covid-19 Nasal PCR Sendout P&C NEGATIVE
== END ==
PROVIDERS: PCP Physician Assistant; Visit Provider Physician Assistant
DX: Z11.52 Encounter for screening for COVID-19 (principal)
CPT/HCPCS: U0004

== ENCOUNTER → 2020-10-16 13:21 | Outpatient (CLI) | payer MEDICARE, MEDICAID, SELFPAY ==
--- NOTE | 2020-10-16 13:26 | XR_ITS ---
PROCEDURE: XR FOOT WT BEARING LT 3V CLINICAL INDICATION: L Foot pain COMPARISON: No exams were available for comparison FINDINGS: There is no fracture or dislocation. There is a sclerotic appearance of the 1st metatarsal phalangeal sesamoid bones which could indicate degenerative change. Small inferior calcaneal spur. Incidentally noted distal tibial bone island. There is decreased calcaneal pitch consistent with pes planus. IMPRESSION: Pes planus. Possible sesamoid bone degenerative change. Dictated by: Hyun Chatman MD 10/16/2020 13:54 Hyun Chatman MD in [place] 10/16/2020 13:54
== END ==
PROVIDERS: PCP Nurse Practitioner Family; Visit Provider Nurse Practitioner Family
DX: M79.672 Pain in left foot (principal)
CPT/HCPCS: 73630

== ENCOUNTER → 2020-12-01 11:29 | Outpatient (CLI) | payer MEDICARE, MEDICAID, SELFPAY ==
--- NOTE | 2020-12-01 11:48 | XR_ITS ---
PROCEDURE: XR HAND LT MIN 3V CLINICAL INDICATION: XR LT hand- carpal tunnel Pain COMPARISON: CR XR WRIST LT MIN 3V from 12/01/2020 FINDINGS: No fracture or dislocation. No lytic or blastic change. There is normal mineralization. There are hypertrophic changes involving the distal and ulnar aspect of the trapezium. There is mild lateral subluxation of the 1st metacarpal. Mild osteoarthritic changes are present at the 1st metacarpal-carpal junction small cystic areas present within the scaphoid distally measuring 5 mm. Other findings:None. IMPRESSION: Hypertrophic change of the trapezium distally and ulnarly with mild lateral subluxation of the 1st metacarpal with osteoarthritic change of the 1st metacarpal-carpal junction Benign-appearing cystic lesion of the scaphoid Dictated by: Greg Granda MD 12/01/2020 12:33 Greg Granda MD in [facility] 12/01/2020 12:33
--- NOTE | 2020-12-01 12:16 | XR_ITS ---
PROCEDURE: XR HAND RT MIN 3V CLINICAL INDICATION: XR RT hand- carpal tunnel Pain COMPARISON: CR XR WRIST RT MIN 3V from 12/01/2020 FINDINGS: No fracture or dislocation. No lytic or blastic change. There is normal mineralization. There are osteoarthritic changes at the 1st metacarpal-carpal joint. There is mild lateral subluxation at the base of the 1st metacarpal. There is a prominent area of bony exostosis involving the ulnar aspect of the trapezium distally which may be leading to the some slight subluxation of the 1st metacarpal. Mild periarticular calcification present at the 1st metacarpal-carpal joint laterally. Other findings:None. IMPRESSION: Degenerative changes 1st metacarpal-carpal joint the Dictated by: Greg Granda MD 12/01/2020 12:31 Greg Granda MD in [facility] 12/01/2020 12:31
[2020-12-01 12:45] LABS: Coronavirus 19 IgG Antibody Negative (Negative); Coronavirus 19 IgM Antibody Negative (Negative)
== END ==
PROVIDERS: Surgery; PCP Emergency Medicine; Visit Provider Orthopaedic Surgery
DX: M25.532 Pain in left wrist (principal); G56.00 Carpal tunnel syndrome, unspecified upper limb; Z01.84 Encounter for antibody response examination
CPT/HCPCS: 36415; 73110; 73130; 86328

== ENCOUNTER 2020-12-04 14:46 | Outpatient (RCR) | payer MEDICARE, MEDICAID, SELFPAY | END 2020-12-04 15:10 | disposition home or self-care (01) | LOC: OT 14:46 | PROVIDERS: Visit Provider Orthopaedic Surgery | DX: M18.10 Unilateral primary osteoarthritis of first carpometacarpal joint, unspecified hand (principal); G56.02 Carpal tunnel syndrome, left upper limb | CPT/HCPCS: 97763 ==

== ENCOUNTER → 2020-12-29 11:16 | Outpatient (CLI) | payer MEDICARE, MEDICAID, SELFPAY ==
--- NOTE | 2020-12-29 11:18 | US_ITS ---
APPROVED REPORT Exam Type: Lower Extremity Segmental Pressures Exercise Manager: Cheyanne Wright RVT Indications Claudication: Bilaterally Rest Pain: Bilaterally History of Smoking COLD FEET Risk Factors History of Smoking Pressures/Indices Right Indices Left Indices Brachial 130.00 mmHg Brachial 139.00 mmHg Low Thigh 131.00 mmHg 0.94 Low Thigh 117.00 mmHg 0.84 Calf 125.00 mmHg 0.90 Calf 123.00 mmHg 0.88 Ankle(PT) 146.00 mmHg 1.05 Ankle(PT) 117.00 mmHg 0.84 Ankle(DP) 125.00 mmHg 0.90 Ankle(DP) 127.00 mmHg 0.91 Digit 151.00 mmHg 1.09 Digit 121.00 mmHg 0.87 Findings RT AIME:1.05 LT AIME:0.91 RT TBI:1.09 LT TBI:0.87 NORMAL PULSES BILATERAL DAMPANED WAVEFORMS LT THIGH AND ANKLE Conclusion RT AIME:1.05 LT AIME:0.91 RT TBI:1.09 LT TBI:0.87 NORMAL PULSES BILATERAL DAMPANED WAVEFORMS LT THIGH AND ANKLE Normal appearing resting noninvasive lower extremity arterial study. Electronically signed by : Greg Granda MD 12/29/2020 17:29:36
== END ==
PROVIDERS: PCP Emergency Medicine; Visit Provider Podiatrist
DX: R09.89 Other specified symptoms and signs involving the circulatory and respiratory systems (principal)
CPT/HCPCS: 93923

== ENCOUNTER → 2021-01-06 15:33 | Outpatient (CLI) | payer MEDICARE, MEDICAID, SELFPAY | DX: Z20.822 Contact with and (suspected) exposure to COVID-19 (principal) | CPT/HCPCS: U0003 ==

== ENCOUNTER 2021-01-06 16:17 | Emergency (ER) | payer MEDICARE, MEDICAID, SELFPAY ==
[2021-01-06 16:22] VITALS: BP 125/85; PULSE 91; RESP 20; TEMP 37; O2SAT 98; BMI 33.0
--- NOTE | 2021-01-06 16:28 | XR_ITS ---
PROCEDURE INFORMATION: Exam: XR Left Foot Exam date and time: 01/06/2021 4:28 PM Age: 50 years old Clinical indication: Foot; Left; Patient HX: Fall a few days ago---. Pain/bruising at 4th phalanx; Additional info: Hit pinky toe TECHNIQUE: Imaging protocol: XR Left foot. Views: 3 or more views. COMPARISON: CR XR FOOT WT BEARING LT 3V 10/16/2020 1:32 PM FINDINGS: Bones/joints: Moderate plantar calcaneal spur. No fracture or subluxation. Soft tissues: Normal. IMPRESSION: No fracture or subluxation.
[2021-01-06 16:32] VITALS: BP 125/85; PULSE 91; RESP 20; TEMP 37; O2SAT 98
--- NOTE | 2021-01-06 17:04 | HMH.EDUTC ---
[facility] [place] Clinical Impression: Left foot pain Contusion of left foot Qualifiers: Encounter type: initial encounter Qualified Code(s): S90.32XA - Contusion of left foot, initial encounter Disposition: Home, Self-Care Condition on Discharge: Good Instructions: DI for Foot Pain Additional Instructions: Rest the extremity, apply ice for 15 minutes as tolerated three or four times per day, Elevate the extremity as tolerated while you are resting. Take ibuprofen for pain. Follow up with Dr. Davis (podiatry). Sometimes there can be fractures that don't show up well on the first set of x-rays. So, you should follow up if you continue to have symptoms. I put in a referral but you need to call her office and schedule an appointment. Follow up with your regular doctor. GO TO THE ER FOR ANY WORSENING SYMPTOMS Referrals: Darion Rehman MD [Primary Care Provider] - Winsome Davis DPM [Staff Physician] - Time of Disposition: 17:23 Medical Decision Making - Medical Records Medical records reviewed: No: I reviewed the patient's medical records. - Jose Inquiry Pt receiving controlled substance: No Vital Signs: 01/06/21 16:22 01/06/21 16:32 Temperature 98.6 F 98.6 F Temperature Source Oral Pulse Rate 91 H Pulse Rate [Left] 91 H Respiratory Rate 20 20 Blood Pressure 125/85 Blood Pressure [Right Arm] 125/85 Blood Pressure Mean [Right Arm] 98 02 Sat by Pulse Oximetry 98 Oxygen Delivery Method Room Air - Radiology Data #1 Image(s): Foot/Toes Image Reviewed: Yes I reviewed the patient's radiology image, Yes I have reviewed radiologist's interpretation Preliminary Findings: Normal/NAD PROCEDURE INFORMATION: Exam: XR Left Foot Exam date and time: 01/06/2021 4:28 PM Age: 50 years old Clinical indication: Foot; Left; Patient HX: Fall a few days ago---. Pain/bruising at 4th phalanx; Additional info: Hit pinky toe TECHNIQUE: Imaging protocol: XR Left foot. Views: 3 or more views. COMPARISON: CR XR FOOT WT BEARING LT 3V 10/16/2020 1:32 PM FINDINGS: Bones/joints: Moderate plantar calcaneal spur. No fracture or subluxation. Soft tissues: Normal. IMPRESSION: No fracture or subluxation. [facility] [place] - General Stated complaint: [id number] injured L Toe Time Seen by Provider: 01/06/21 17:06 Mode of Arrival: Ambulatory Source of Information: Patient Limitations: No Limitations Description of Symptoms (Recalled from Triage Doc. by RN): left 4th digit injury HEENT Symptoms (Recalled from RN notes): No Resp Symptoms (Recalled from RN notes): No Skin Symptoms (Recalled from RN notes): No MS Symptoms (Recalled from RN notes): Yes Functional Status (Recalled from RN notes): wl - History of Present Illness Provider Complaint: She states that last night she bumper her foot in her shower. She is having pain of the 3 and 4th toe on that foot. - Related Data Home Medications Medication Instructions Recorded Confirmed Gabapentin [Gabapentin 300mg Cap] 900 mg PO QID 12/08/17 12/04/20 Oxycodone HCl/Acetaminophen 10 mg PO Q6H PRN 05/14/19 12/04/20 [Percocet 10-325 mg Tablet] Cyclobenzaprine HCl [Flexeril 10mg 10 mg PO BID PRN 11/12/20 12/04/20 tablet] Albuterol Sulfate [Albuterol 2 applic IH NEEDED PRN 11/27/20 12/04/20 Sulfate Hfa] Previous Rx's Medication Instructions Recorded estradiol 1 mg tablet See Rx Instructions .ROUTE 12/09/20 .COMPLEX #90 tab cetirizine 10 mg tablet See Rx Instructions .ROUTE 01/07/21 .COMPLEX #30 tab fluticasone propionate 50 See Rx Instructions .ROUTE 01/07/21 mcg/actuation nasal .COMPLEX #16 gram spray,suspension Allergies Allergy/AdvReac Type Severity Reaction Status Date / Time baclofen Allergy Intermediate Verified 01/06/21 16:32 Sulfa (Sulfonamide Allergy Unknown I-RASH Verified 01/06/21 16:32 Antibiotics) [SULFA
== END 2021-01-06 17:34 | disposition home or self-care (01) ==
PROVIDERS: Emergency Provider Nurse Practitioner Family; PCP Emergency Medicine
DX: S90.822A Blister (nonthermal), left foot, initial encounter (principal); W18.2XXA Fall in (into) shower or empty bathtub, initial encounter; Y92.019 Unspecified place in single-family (private) house as the place of occurrence of the external cause; J44.9 Chronic obstructive pulmonary disease, unspecified; K21.9 Gastro-esophageal reflux disease without esophagitis; I10 Essential (primary) hypertension; Z20.822 Contact with and (suspected) exposure to COVID-19
CPT/HCPCS: 29515; G0463; 73630; 99202; U0003

== ENCOUNTER → 2021-01-19 16:23 | Outpatient (CLI) | payer MEDICARE, MEDICAID, SELFPAY | PROVIDERS: Visit Provider Plastic Surgery | DX: Z01.812 Encounter for preprocedural laboratory examination (principal); Z20.822 Contact with and (suspected) exposure to COVID-19; M25.539 Pain in unspecified wrist | CPT/HCPCS: U0003 ==

== ENCOUNTER → 2021-02-27 11:13 | Outpatient (CLI) | payer MEDICARE, SELFPAY | PROVIDERS: Visit Provider Pain Medicine Interventional Pain Medicine | DX: Z01.812 Encounter for preprocedural laboratory examination (principal); Z11.52 Encounter for screening for COVID-19 | CPT/HCPCS: U0003 ==

== ENCOUNTER → 2021-04-07 10:00 | Outpatient (CLI) | payer MEDICARE, MEDICAID, SELFPAY | PROVIDERS: PCP Nurse Practitioner Family; Visit Provider Emergency Medicine | DX: Z20.822 Contact with and (suspected) exposure to COVID-19 (principal); U07.1 COVID-19 | CPT/HCPCS: U0003 ==

== ENCOUNTER → 2021-05-18 18:10 | Outpatient (CLI) | payer MEDICARE, MEDICAID, SELFPAY ==
[2021-05-18 18:57] LABS: Basophils % 0.7 % (0.1-2.0); Eosinophils # 0.4 K/mm3 (0.0-0.4); Eosinophils % 5.8 % (0.1-12.0); Hematocrit 40.4 % (37.0-47.0); Hemoglobin 13.1 g/dL (12.2-16.2); Lymphocytes # 1.8 K/mm3 (0.7-4.5); Lymphocytes % 29.2 % (10-50); Mean Corpuscular HGB Conc 32.4 g/dL (31.8-35.4); Mean Corpuscular Hemoglobin 29.2 pg (27.0-31.2); Mean Corpuscular Volume 90.2 fl (81-99); Mean Platelet Volume 9.4 fl (7.4-10.4); Monocytes # 0.5 K/mm3 (0.1-1.0); Monocytes % 7.9 % (1.7-9.3); Neutrophils # 3.5 K/mm3 (1.8-7.8); Neutrophils % 56.4 % (37.0-80.0); Platelet Count 320 K/mm3 (142-424); Red Blood Count 4.48 M/mm3 (4.20-5.40); Red Cell Distribution Width 13.3 % (11.5-17.5); White Blood Count 6.2 K/mm3 (4.8-10.8)
[2021-05-18 19:48] LABS: Alanine Aminotransferase 12 U/L (12-78); Albumin/Globulin Ratio 1.3 (1.1-1.8); Alkaline Phosphatase 104 U/L (38-126); Anion Gap 14.4 mEq/L (5-15); Aspartate Amino Transferase 20 U/L (14-36); Bilirubin,Total 0.5 mg/dl (0.2-1.3); Blood Urea Nitrogen 8 mg/dl (7-17); Calcium 8.8 mg/dl (8.4-10.2); Carbon Dioxide 26 mmol/L (22.0-30.0); Chloride 102 mmol/L (98-107); Cholesterol 214 mg/dl (140-200); Estimated Glomerular Filt Rate 130 ml/min (>60); GFR (African American) 157 ML/MIN (>60); Globulin 3.1 g/dL (1.3-3.2); Glucose 89 mg/dl (74-100); HDL Cholesterol 53 mg/dl (40-60); Potassium 4.4 mmoL/L (3.5-5.1); Sodium 138 mmol/L (136-145); Total Protein,Serum 7.1 g/dl (6.3-8.2); Triglycerides 189 mg/dl (30-150); VLDL Cholesterol 38 mg/dL (0-40)
[2021-05-18 19:59] LABS: Direct LDL Cholesterol 122.96 mg/dL (100-129)
[2021-05-18 20:03] LABS: Hemoglobin A1C 5.9 % (4.0-6.0)
[2021-05-18 20:05] LABS: T4 (Thyroxine) 9.8 ug/dl (5.53-11.0)
[2021-05-18 20:06] LABS: 25-OH Vitamin D, Total 22.4 ng/mL (30-100)
[2021-05-18 20:18] LABS: Thyroid Stimulating Hormone 1.28 uIU/mL (0.465-4.68)
== END ==
PROVIDERS: Visit Provider Nurse Practitioner Family
DX: R53.81 Other malaise (principal); R53.83 Other fatigue; E11.9 Type 2 diabetes mellitus without complications; E66.9 Obesity, unspecified; E55.9 Vitamin D deficiency, unspecified; Z68.33 Body mass index [BMI] 33.0-33.9, adult
CPT/HCPCS: 80053; 80061; 82306; 83036; 84436; 84443; 85025

== ENCOUNTER → 2021-07-15 12:28 | Outpatient (CLI) | payer MEDICARE, MEDICAID, SELFPAY | PROVIDERS: Visit Provider Pain Medicine Interventional Pain Medicine | DX: Z01.812 Encounter for preprocedural laboratory examination (principal); Z11.52 Encounter for screening for COVID-19 | CPT/HCPCS: C9803; U0003; U0005 ==

== ENCOUNTER 2022-02-09 16:00 | Emergency (ER) | payer MEDICARE, MEDICAID, SELFPAY ==
[2022-02-09 17:22] VITALS: BP 0/0; PULSE 0; RESP 0; TEMP -17.7; TEMP 0
== END 2022-02-09 17:25 | disposition left against medical advice (07) ==
LOC: UTC 16:06
PROVIDERS: Emergency Provider Nurse Practitioner; PCP Emergency Medicine
DX: Z53.21 Procedure and treatment not carried out due to patient leaving prior to being seen by health care provider (principal)

== ENCOUNTER 2022-06-03 18:41 | Emergency (ER) | payer MEDICARE, MEDICAID, SELFPAY ==
[2022-06-03 19:41] VITALS: BP 145/84; PULSE 75; RESP 18; TEMP 37.1; O2SAT 96; BMI 34.0
--- NOTE | 2022-06-03 19:41 | EXP.UTC ---
Discharge Plan Disposition Patient Disposition: Home, Self-Care Condition: Good Prescriptions Prescriptions: New amoxicillin [amoxicillin] 875 mg tablet 875 mg PO Q12H Qty: 20 0RF benzonatate [benzonatate] 100 mg capsule 100 mg PO TIDP PRN (Reason: Cough) Qty: 30 0RF prednisone 10 mg tablet 10 mg PO BID 3 Days Qty: 6 0RF No Action gentamicin 0.3 % drops 1 drp OPHTHALMIC Q4H 7 Days Qty: 5 0RF Rx Instructions: to rt eye meloxicam 7.5 mg tablet 7.5 mg PO DAILY 30 Days Qty: 30 2RF Breo Ellipta 100-25 mcg/dose blister with device See Rx Instructions .ROUTE .COMPLEX Qty: 60 3RF Dose Instruction: INHALE 1 PUFF BY MOUTH ONCE A DAY DIRECTED Rx Instructions: INHALE 1 PUFF BY MOUTH ONCE A DAY DIRECTED cholecalciferol (vitamin D3) 1,250 mcg (50,000 unit) capsule See Rx Instructions .ROUTE .COMPLEX Qty: 4 0RF Dose Instruction: TAKE ONE CAPSULE BY MOUTH EVERY WEEK Rx Instructions: TAKE ONE CAPSULE BY MOUTH EVERY WEEK cholecalciferol (vitamin D3) 50 mcg (2,000 unit) capsule See Rx Instructions .ROUTE .COMPLEX Qty: 30 0RF Dose Instruction: TAKE ONE CAPSULE BY MOUTH ONCE A DAY Rx Instructions: TAKE ONE CAPSULE BY MOUTH ONCE A DAY estradiol 1 mg tablet See Rx Instructions .ROUTE .COMPLEX Qty: 90 3RF Dose Instruction: TAKE ONE TABLET BY MOUTH ONCE A DAY FOR HORMONE Rx Instructions: TAKE ONE TABLET BY MOUTH ONCE A DAY FOR HORMONE albuterol sulfate [ProAir HFA] 90 mcg/actuation HFA aerosol inhaler See Rx Instructions .ROUTE .COMPLEX Qty: 8.5 12RF Dose Instruction: INHALE 2 PUFFS BY MOUTH EVERY 4 TO 6 HOURS NEEDED FOR SHORTNESS OF BREATH OR WHEEZING Rx Instructions: INHALE 2 PUFFS BY MOUTH EVERY 4 TO 6 HOURS NEEDED FOR SHORTNESS OF BREATH OR WHEEZING cetirizine 10 mg tablet See Rx Instructions .ROUTE .COMPLEX Qty: 90 3RF Dose Instruction: TAKE ONE TABLET BY MOUTH ONCE A DAY NEEDED FOR ALLERGY SYMPTOMS Rx Instructions: TAKE ONE TABLET BY MOUTH ONCE A DAY NEEDED FOR ALLERGY SYMPTOMS fluticasone propionate 50 mcg/actuation spray,suspension See Rx Instructions .ROUTE .COMPLEX Qty: 16 3RF Dose Instruction: USE 2 SPRAYS INTO EACH NOSTRIL ONCE A DAY NEEDED FOR ALLERGY SYMPTOMS Rx Instructions: USE 2 SPRAYS INTO EACH NOSTRIL ONCE A DAY NEEDED FOR ALLERGY SYMPTOMS gabapentin 300 capsule 900 mg PO QID Label Comments: cyclobenzaprine 10 MG tablet 10 mg PO BID PRN (Reason: muscle spasms) oxycodone-acetaminophen 1 EACH tablet 10 mg PO Q6H PRN (Reason: PAIN) Referrals Follow up/Referrals: Darion Rehman MD [Primary Care Provider] - See instructions Activity Restrictions/Add. Instructions Additional Instructions/Restrictions: Drink plenty of fluids. Take tylenol or ibuprofen for pain or fever. Take the medications as directed. Follow up with your regular doctor. GO TO THE ER FOR ANY WORSENING SYMPTOMS Throw your tooth brush away and get a new one. Clinical Impressions Clinical Impression: Pharyngitis Instructions Patient Instructions: Strep Throat, DI for Strep Throat Discharge ED Provider: Ramon Pradhan [facility] General Stated complaint: strep test Time Seen by Provider: 06/03/22 19:41 History of Present Illness Provider Complaint: She c/o sore throat and a dry cough for the past 2 days. Related Data Home Medications Medication Instructions Recorded Confirmed gabapentin 300 mg capsule 900 mg PO QID Pain 12/08/17 07/28/21 oxycodone-acetaminophen 10 mg-325 10 mg PO Q6H PRN PAIN 05/14/19 07/28/21 mg tablet cyclobenzaprine 10 mg tablet 10 mg PO BID PRN muscle spasms 11/12/20 07/28/21 Previous Rx's Medication Instructions Recorded meloxicam 7.5 mg tablet 7.5 mg PO DAILY pain 30 days #30 03/29/21 tabs fluticasone furoate 100 See Rx Instructions .Route 06/03/21 mcg-vilanterol 25 mc
[2022-06-03 19:53] LABS: UTC Strep Screen (Rapid) Negative (Negative)
[2022-06-03 20:07] VITALS: BP 145/84; PULSE 75; RESP 18; TEMP 37.1
== END 2022-06-03 20:08 | disposition home or self-care (01) ==
PROVIDERS: Emergency Provider Nurse Practitioner Family; PCP Emergency Medicine
DX: J02.9 Acute pharyngitis, unspecified (principal)
CPT/HCPCS: 87880; 99212; G0463

== ENCOUNTER 2023-03-15 16:15 | Emergency (ER) | payer MEDICARE, MEDICAID, SELFPAY ==
[2023-03-15 16:16] VITALS: BP 139/103; PULSE 94; RESP 18; TEMP 36.8; O2SAT 95; BMI 34.2
--- NOTE | 2023-03-15 16:32 | XR_ITS ---
PROCEDURE INFORMATION: Exam: XR Chest Exam date and time: 03/15/2023 4:29 PM Age: 53 years old Clinical indication: Shortness of breath; Patient HX: Patient refused to raise arms for lateral view of chest due to prior neck surgery. ; Additional info: SOA TECHNIQUE: Imaging protocol: Radiologic exam of the chest. Views: 2 views. COMPARISON: CR XR CHEST 2V 05/13/2019 10:02 PM FINDINGS: Lungs: Central opacities with peribronchial cuffing, seen to advantage on the lateral chest radiograph suggest viral process versus reactive airways without convincing consolidation. Pleural spaces: Unremarkable. No pleural effusion. No pneumothorax. Heart/Mediastinum: Unremarkable. No cardiomegaly. Bones/joints: Spinal fusion hardware at the upper end of collimation. IMPRESSION: Central opacities with peribronchial cuffing, seen to advantage on the lateral chest radiograph suggest viral process versus reactive airways without convincing consolidation.
--- NOTE | 2023-03-15 16:37 | EXP.UTC ---
Discharge Plan Disposition Patient Disposition: Home, Self-Care Condition: Good Prescriptions Prescriptions: New benzonatate [benzonatate] 100 mg capsule 100 mg PO TIDP PRN (Reason: Cough) Qty: 30 0RF methylprednisolone 4 mg Tablets,Dose Pack 4 mg PO DIRECTED Qty: 21 0RF amoxicillin-pot clavulanate 875-125 mg Tablet 1 tab PO Q12H Qty: 20 0RF No Action gentamicin 0.3 % drops 1 drp OPHTHALMIC Q4H 7 Days Qty: 5 0RF Rx Instructions: to rt eye meloxicam 7.5 mg tablet 7.5 mg PO DAILY 30 Days Qty: 30 2RF Breo Ellipta 100-25 mcg/dose blister with device See Rx Instructions .ROUTE .COMPLEX Qty: 60 3RF Dose Instruction: INHALE 1 PUFF BY MOUTH ONCE A DAY DIRECTED Rx Instructions: INHALE 1 PUFF BY MOUTH ONCE A DAY DIRECTED cholecalciferol (vitamin D3) 1,250 mcg (50,000 unit) capsule See Rx Instructions .ROUTE .COMPLEX Qty: 4 0RF Dose Instruction: TAKE ONE CAPSULE BY MOUTH EVERY WEEK Rx Instructions: TAKE ONE CAPSULE BY MOUTH EVERY WEEK cholecalciferol (vitamin D3) 50 mcg (2,000 unit) capsule See Rx Instructions .ROUTE .COMPLEX Qty: 30 0RF Dose Instruction: TAKE ONE CAPSULE BY MOUTH ONCE A DAY Rx Instructions: TAKE ONE CAPSULE BY MOUTH ONCE A DAY estradiol 1 mg tablet See Rx Instructions .ROUTE .COMPLEX Qty: 90 3RF Dose Instruction: TAKE ONE TABLET BY MOUTH ONCE A DAY FOR HORMONE Rx Instructions: TAKE ONE TABLET BY MOUTH ONCE A DAY FOR HORMONE albuterol sulfate [ProAir HFA] 90 mcg/actuation HFA aerosol inhaler See Rx Instructions .ROUTE .COMPLEX Qty: 8.5 12RF Dose Instruction: INHALE 2 PUFFS BY MOUTH EVERY 4 TO 6 HOURS NEEDED FOR SHORTNESS OF BREATH OR WHEEZING Rx Instructions: INHALE 2 PUFFS BY MOUTH EVERY 4 TO 6 HOURS NEEDED FOR SHORTNESS OF BREATH OR WHEEZING cetirizine 10 mg tablet See Rx Instructions .ROUTE .COMPLEX Qty: 90 3RF Dose Instruction: TAKE ONE TABLET BY MOUTH ONCE A DAY NEEDED FOR ALLERGY SYMPTOMS Rx Instructions: TAKE ONE TABLET BY MOUTH ONCE A DAY NEEDED FOR ALLERGY SYMPTOMS fluticasone propionate 50 mcg/actuation spray,suspension See Rx Instructions .ROUTE .COMPLEX Qty: 16 12RF Dose Instruction: USE 2 SPRAYS INTO EACH NOSTRIL ONCE A DAY NEEDED FOR ALLERGY SYMPTOMS Rx Instructions: USE 2 SPRAYS INTO EACH NOSTRIL ONCE A DAY NEEDED FOR ALLERGY SYMPTOMS gabapentin 300 capsule 900 mg PO QID Patient Comments: cyclobenzaprine 10 MG tablet 10 mg PO BID PRN (Reason: muscle spasms) amoxicillin [amoxicillin] 875 mg tablet 875 mg PO Q12H Qty: 20 0RF benzonatate [benzonatate] 100 mg capsule 100 mg PO TIDP PRN (Reason: Cough) Qty: 30 0RF prednisone 10 mg tablet 10 mg PO BID 3 Days Qty: 6 0RF oxycodone-acetaminophen 1 EACH tablet 10 mg PO Q6H PRN (Reason: PAIN) Referrals Follow up/Referrals: Darion Rehman MD [Primary Care Provider] - See instructions Activity Restrictions/Add. Instructions Additional Instructions/Restrictions: Drink plenty of fluids. Take tylenol or ibuprofen for pain or fever. Take the medications as directed. Follow up with your regular doctor. GO TO THE ER FOR ANY WORSENING SYMPTOMS Clinical Impressions Clinical Impression: COPD exacerbation, Bronchitis Instructions Patient Instructions: DI for Chronic Obstructive Pulmonary Disease Discharge ED Provider: Ramon Pradhan [facility] General Stated complaint: headache,trouble eating Time Seen by Provider: 03/15/23 16:36 History of Present Illness Provider Complaint: She states that for the past 5 days she has had chest congestion, malaise, and poor appetite. Related Data Home Medications Medication Instructions Recorded Confirmed gabapentin 300 mg capsule 900 mg PO QID Pain 12/08/17 07/28/21 oxycodone-acetaminophen 10 mg-325 10 mg PO Q6H PRN PAIN 05/14/19 07/28/21 mg tablet cyclobe
[2023-03-15 17:34] VITALS: BP 139/103; PULSE 94; RESP 18; TEMP 36.8; O2SAT 95
== END 2023-03-15 17:36 | disposition home or self-care (01) ==
PROVIDERS: Emergency Provider Nurse Practitioner Family; PCP Emergency Medicine
DX: J44.1 Chronic obstructive pulmonary disease with (acute) exacerbation (principal); J20.9 Acute bronchitis, unspecified; R53.81 Other malaise; Z87.891 Personal history of nicotine dependence
CPT/HCPCS: 71046; 99212; 99214; G0463

== ENCOUNTER → 2023-04-13 16:27 | Outpatient (CLI) | payer MEDICARE, MEDICAID, SELFPAY ==
[2023-04-13 12:45] LABS: Alanine Aminotransferase 30 U/L (12-78); Albumin Level 3.7 g/dl (3.5-5.0); Albumin/Globulin Ratio 1.4 (1.1-1.8); Alkaline Phosphatase 84 U/L (38-126); Aspartate Amino Transferase 30 U/L (14-36); Basophils % 0.6 % (0.1-2.0); Bilirubin,Total 0.4 mg/dl (0.2-1.3); Blood Urea Nitrogen 9 mg/dl (7-17); Calcium 8.8 mg/dl (8.4-10.2); Carbon Dioxide 26 mmol/L (22.0-30.0); Chloride 101 mmol/L (98-107); Chol/HDL Ratio 3.8 (1-3.5); Cholesterol 173 mg/dl (140-200); Eosinophils # 0.3 K/mm3 (0.0-0.4); Eosinophils % 5.7 % (0.1-12.0); Estimated Glomerular Filt Rate 105 ml/min (>60); GFR (African American) 127 ML/MIN (>60); Globulin 2.6 g/dL (1.3-3.2); Glucose 129 mg/dl (74-100); HDL Cholesterol 45 mg/dl (40-60); Hematocrit 40.9 % (37.0-47.0); Hemoglobin 13.5 g/dL (12.2-16.2); Lymphocytes # 1.6 K/mm3 (0.7-4.5); Lymphocytes % 30.6 % (10-50); Mean Corpuscular HGB Conc 33.1 g/dL (31.8-35.4); Mean Corpuscular Hemoglobin 28.6 pg (27.0-31.2); Mean Corpuscular Volume 86.4 fl (81-99); Mean Platelet Volume 8.2 fl (7.4-10.4); Monocytes # 0.4 K/mm3 (0.1-1.0); Monocytes % 8.1 % (1.7-9.3); Neutrophils # 2.9 K/mm3 (1.8-7.8); Neutrophils % 54.9 % (37.0-80.0); Platelet Count 260 K/mm3 (142-424); Red Blood Count 4.73 M/mm3 (4.20-5.40); Sodium 138 mmol/L (136-145); Total Protein,Serum 6.3 g/dl (6.3-8.2); Triglycerides 216 mg/dl (30-150); VLDL Cholesterol 43 mg/dL (0-40); White Blood Count 5.3 K/mm3 (4.8-10.8)
[2023-04-13 12:56] LABS: Direct LDL Cholesterol 100.07 mg/dL (100-129)
[2023-04-13 13:04] LABS: 25-OH Vitamin D, Total 30.2 ng/mL (30-100)
[2023-04-13 13:17] LABS: Thyroid Stimulating Hormone 2.52 uIU/mL (0.465-4.68)
[2023-04-13 18:21] LABS: Hemoglobin A1C 5.9 % (4.0-6.0)
== END ==
PROVIDERS: PCP Nurse Practitioner Family; Visit Provider Nurse Practitioner Family
DX: G62.9 Polyneuropathy, unspecified (principal); E66.9 Obesity, unspecified; R09.89 Other specified symptoms and signs involving the circulatory and respiratory systems; E55.9 Vitamin D deficiency, unspecified; J44.1 Chronic obstructive pulmonary disease with (acute) exacerbation; Z68.35 Body mass index [BMI] 35.0-35.9, adult; Z79.899 Other long term (current) drug therapy
CPT/HCPCS: 80053; 80061; 82306; 83036; 84443; 85025

== ENCOUNTER → 2023-04-20 12:35 | Outpatient (CLI) | payer MEDICARE, MEDICAID, SELFPAY ==
--- NOTE | 2023-04-20 12:47 | MR_ITS ---
PROCEDURE INFORMATION: Exam: MR Lumbar Spine Without Contrast Exam date and time: 04/20/2023 1:03 PM Age: 53 years old Clinical indication: Low back pain; Prior surgery; Surgery date: 6+ months; Surgery type: Back surgery; Additional info: Lumbosacral radiculopathy. HX back surgery 2015. Bilateral leg pain, numbness and tingling TECHNIQUE: Imaging protocol: Magnetic resonance imaging of the lumbar spine without contrast. COMPARISON: No relevant prior studies available. FINDINGS: Bones/joints: Multilevel lumbar spondylosis is noted with disc bulging, facet arthropathy and ligamentous thickening. At L4-L5 there is a broad-based disc bulge with ligamentous thickening and facet arthropathy causing moderate canal narrowing and moderate to severe left neural foraminal narrowing. Spinal cord: Visualized cord, conus medullaris and cauda equina are unremarkable without compression. L1-L2: No significant disc bulge or herniation. No severe spinal canal stenosis. No significant neural foraminal narrowing. L2-L3: At L2-L3 there is a broad-based disc bulge with facet arthropathy causing minor canal narrowing and moderate left neural foraminal narrowing. L3-L4: At L3-L4 there is a broad-based disc bulge with facet arthropathy causing mild canal narrowing. L4-L5: There is a 3 mm grade 1 L4-L5 spondylolisthesis. Vertebral body heights are preserved. Endplate changes are noted. L5-S1: At L5-S1 there is a broad-based disc bulge with a tiny central protrusion superimposed facet arthropathy causing mild canal narrowing. There is a small amount epidural fluid along the posterior right canal probably synovial. There is severe right neural foraminal. Soft tissues: Unremarkable. IMPRESSION: Lumbar spondylosis as described. Grade 1 L4-L5 spondylolisthesis.
== END ==
PROVIDERS: PCP Nurse Practitioner Family; Visit Provider Registered Nurse
DX: M54.17 Radiculopathy, lumbosacral region (principal)
CPT/HCPCS: 72148; 76376

== ENCOUNTER → 2023-04-25 17:18 | Outpatient (CLI) | payer MEDICARE, MEDICAID, SELFPAY ==
--- NOTE | 2023-04-25 16:00 | PC.NURSE ---
RESPIRATORY CARE NOTE: PT UNABLE TO DO SIX MINUTE WALK TEST DUE TO PAIN FROM NECK ALL THE WAY DOWN. STATED SHE WAS IN A LOT OF PAIN AND WOULD BE UNABLE TO COMPLETE THIS TEST AT THIS TIME.
--- NOTE | 2023-05-04 13:38 | PC.NURSE ---
Have been unable to reach patient about a HST. Have left message.
== END ==
LOC: RT 17:19
PROVIDERS: PCP Nurse Practitioner Family; Visit Provider Nurse Practitioner Family
DX: R06.02 Shortness of breath (principal)
CPT/HCPCS: 94060; 94640; 94727; 94729

== ENCOUNTER → 2023-06-01 14:29 | Outpatient (CLI) | payer MEDICARE, MEDICAID, SELFPAY ==
[2023-06-01 16:24] LABS: Basophils % 0.4 % (0.1-2.0); Eosinophils # 0.1 K/mm3 (0.0-0.4); Eosinophils % 2.5 % (0.1-12.0); Hemoglobin 13.1 g/dL (12.2-16.2); Lymphocytes # 1.4 K/mm3 (0.7-4.5); Lymphocytes % 24.5 % (10-50); Mean Corpuscular HGB Conc 32.7 g/dL (31.8-35.4); Mean Corpuscular Hemoglobin 28.6 pg (27.0-31.2); Mean Corpuscular Volume 87.6 fl (81-99); Mean Platelet Volume 8.2 fl (7.4-10.4); Monocytes # 0.6 K/mm3 (0.1-1.0); Neutrophils # 3.6 K/mm3 (1.8-7.8); Neutrophils % 62.6 % (37.0-80.0); Platelet Count 250 K/mm3 (142-424); Red Blood Count 4.57 M/mm3 (4.20-5.40); Red Cell Distribution Width 13.1 % (11.5-17.5); White Blood Count 5.8 K/mm3 (4.8-10.8)
[2023-06-07 06:12] LABS: D001-IgE D pteronyssinus <0.10 kU/L (Class 0); D002-IgE D farinae <0.10 kU/L (Class 0); E001-IgE Cat Dander <0.10 kU/L (Class 0); E005-IgE Dog Dander <0.10 kU/L (Class 0); E072-IgE Mouse Urine <0.10 kU/L (Class 0); G002-IgE Bermuda Grass <0.10 kU/L (Class 0); G006-IgE Timothy Grass <0.10 kU/L (Class 0); I006-IgE Cockroach, German <0.10 kU/L (Class 0); Immunoglobulin E, Total 45 IU/mL (6-495); M001-IgE Penicillium chrysogen <0.10 kU/L (Class 0); M002-IgE Cladosporium herbarum <0.10 kU/L (Class 0); M003-IgE Aspergillus fumigatus <0.10 kU/L (Class 0); M006-IgE Alternaria alternata <0.10 kU/L (Class 0); T001-IgE Maple/Box Elder <0.10 kU/L (Class 0); T003-IgE Common Silver Birch <0.10 kU/L (Class 0); T006-IgE Cedar, Mountain <0.10 kU/L (Class 0); T007-IgE Oak, White <0.10 kU/L (Class 0); T008-IgE Elm, American <0.10 kU/L (Class 0); T010-IgE Walnut <0.10 kU/L (Class 0); T011-IgE Maple Leaf Sycamore <0.10 kU/L (Class 0); T014-IgE Cottonwood <0.10 kU/L (Class 0); T015-IgE Ash, White <0.10 kU/L (Class 0); T022-IgE Pecan, Hickory <0.10 kU/L (Class 0); T070-IgE White Mulberry <0.10 kU/L (Class 0); W001-IgE Ragweed, Short <0.10 kU/L (Class 0); W011-IgE Thistle, Russian <0.10 kU/L (Class 0); W014-IgE Pigweed, Common <0.10 kU/L (Class 0); W018-IgE Sheep Sorrel <0.10 kU/L (Class 0)
[2023-06-09 16:14] LABS: Alpha-1-Antitrypsin 172 mg/dL (101-187); Phenotype (PI) MS (.)
== END ==
PROVIDERS: PCP Nurse Practitioner Family; Visit Provider Internal Medicine Pulmonary Disease
DX: J45.909 Unspecified asthma, uncomplicated (principal); J44.9 Chronic obstructive pulmonary disease, unspecified
CPT/HCPCS: 36415; 82103; 82104; 82785; 85025; 86003

== ENCOUNTER → 2023-06-19 13:57 | Outpatient (CLI) | payer MEDICARE, MEDICAID, SELFPAY ==
--- NOTE | 2023-06-19 14:08 | CA_ITS ---
APPROVED REPORT EXAM: Comprehensive 2D, Doppler, and color-flow Echocardiogram Assistant Guest Services Manager: Meaghan Bhakta RDCS Ht: 5 ft 3 in Wt: 201lbs BSA: 1.94 BP: 130/84 mmHg Indications: COPD SOA ARAGON 2D Dimensions LVOT 1.81 cm (M/F) 1.5-2.5 M-Mode Dimensions RVDd 1.99 cm (0.9-2.6) LA Diam 3.30 cm (1.9-4.0) LVDd 4.23 cm (3.5-5.7) Ao Diam 3.48 cm (2.0-3.7) LVDs 3.31 cm (3.5-5.7) IVSd 0.72 cm (0.6-1.1) PWd 0.82 cm (0.6-1.1) EF (Teich) 44.30% FS 21.70% EDV (Teich) 79.90 mL TAPSE 2.44 (<1.7) ESV (Teich) 44.50 mL LV Diastology E Decel Time 157.00 (160-240 msec) E/A Ratio 1.1 MED E' 10.00 (< 7 cm/sec) E'/MED E' Ratio 9.15 (>14) LAT E' 12.30 (<10 cm/sec) E/LAT E' Ratio 7.44 (>14) Mitral Valve MV E Max Terrance. 91.00 (40-130 cm/s) MV A Velocity 82.00 (40-130 cm/s) E/A Ratio 1.11 MV Decel. Time 157.00 (160-240 ms) MV PHT 46.00 ms Left Ventricle The left ventricle is normal size. The left ventricular systolic function is low-normal. There is normal left ventricular septal wall thickness. There is borderline global hypokinesis. The left ventricular diastolic function is normal. There is possibly increased apical wall thickness (vs. papillary muscle prominance at the LV apex). LVEF is 50%. Right Ventricle The right ventricle is normal size. The right ventricular systolic function is normal. There is increased RV wall thickness. Atria The left atrium size is normal. The right atrium size is normal. Aortic Valve The aortic valve opens well. There is no aortic valvular stenosis. Trace aortic regurgitation. Mitral Valve The mitral valve is normal in structure. No evidence of mitral valve stenosis. Trace mitral regurgitation. Tricuspid Valve The tricuspid valve leaflets are thin and pliable. Trace tricuspid regurgitation. There is insufficient TR jet to estimate RVSP. Pulmonic Valve The pulmonary valve is normal in structure. Trace pulmonic regurgitation. Great Vessels The aortic root is normal in size. The ascending aorta is not well visualized. IVC is normal in size and collapses >50% with inspiration. Pericardium There is no pericardial effusion. Other Information Study Quality: Fair Conclusion Low normal LV systolic function. The left ventricular diastolic function is normal. There is possibly increased apical wall thickness (vs. papillary muscle prominance at the LV apex). No significant valvular stenosis or regurgitation. Further evaluation for the increased apical LV wall thickness is recommended with cardiac MRI (HCM protocol) to rule out apical HCM. Electronically signed by : Gabriella Machado MD 06/19/2023 22:27:48
== END ==
PROVIDERS: PCP Nurse Practitioner Family; Visit Provider Nurse Practitioner Family
DX: R06.09 Other forms of dyspnea (principal)
CPT/HCPCS: 93306

== ENCOUNTER → 2023-07-06 10:45 | Outpatient (CLI) | payer MEDICARE, MEDICAID, SELFPAY ==
[2023-07-06 22:00] LABS: Blood Urea Nitrogen 10 mg/dl (7-17); Estimated Glomerular Filt Rate 88 ml/min (>60); GFR (African American) 106 ML/MIN (>60)
== END ==
PROVIDERS: Nurse Practitioner Family; PCP Emergency Medicine; Visit Provider Nurse Practitioner
DX: R06.09 Other forms of dyspnea; R42 Dizziness and giddiness; R94.31 Abnormal electrocardiogram [ECG] [EKG]; Z82.49 Family history of ischemic heart disease and other diseases of the circulatory system; Z87.891 Personal history of nicotine dependence
CPT/HCPCS: 82565; 84520; 93270

== ENCOUNTER → 2023-07-06 23:54 | Outpatient (CLI) | payer MEDICARE, MEDICAID, SELFPAY | PROVIDERS: PCP Nurse Practitioner Family; Visit Provider Nurse Practitioner Family | DX: R06.09 Other forms of dyspnea (principal) ==

== ENCOUNTER → 2023-07-12 12:16 | Outpatient (CLI) | payer MEDICARE, MEDICAID, SELFPAY | PROVIDERS: PCP Nurse Practitioner Family; Visit Provider Nurse Practitioner | DX: R06.09 Other forms of dyspnea (principal) ==

== ENCOUNTER 2023-07-19 10:53 | Emergency (ER) | payer MEDICARE, MEDICAID, SELFPAY ==
[2023-07-19 10:54] VITALS: BP 130/53; PULSE 83; RESP 18; TEMP 36.8; O2SAT 89; BMI 34.3
--- NOTE | 2023-07-19 11:09 | XR_ITS ---
FINAL REPORT CLINICAL HISTORY: sob, smoker COMPARISON: 05/13/2019 FINDINGS: TWO-VIEW CHEST The heart size is normal. The mediastinum is normal. There is improved aeration in the right lung. There are mild areas of presumed scarring. Postoperative changes are seen in the lumbar spine. There is no pneumothorax. IMPRESSION: Improved aeration in the right lung. Reviewed, Interpreted and Dictated by Rex Soler III, MD Transcribed by Marta Rodriguez Authenticated and [facility]
--- NOTE | 2023-07-19 11:10 | PC.NURSE ---
pt oxygen at rest on RA was 88-87. Provider notifie, duoneb and steroid order.
--- NOTE | 2023-07-19 11:12 | EXP.UTC ---
Discharge Plan Disposition Patient Disposition: Home, Self-Care Condition: Good Prescriptions Prescriptions: New prednisone 10 mg tablet 10 mg PO DIRECTED 9 Days Qty: 21 0RF Rx Instructions: Take 4 tablets daily for 3 days, then take 2 tablets daily for 3 days, then take 1 tablet daily for 3 days, then stop. benzonatate [benzonatate] 100 mg capsule 100 mg PO TIDP PRN (Reason: Cough) Qty: 30 0RF amoxicillin-pot clavulanate 875-125 mg Tablet 1 tab PO Q12H Qty: 20 0RF No Action diclofenac sodium 1 % gel 2 g topical QID Rx Instructions: apply to single elbow, wrist or hand; for hand includes palm/fingers/back of hand Stiolto Respimat 2.5-2.5 mcg/actuation mist 2 puff inhalation DAILY 90 Days Qty: 4 2RF ipratropium-albuterol 0.5 mg-3 mg(2.5 mg base)/3 mL solution for nebulization 3 ml inhalation QID PRN (Reason: shortness of breath or wheezing) 90 Days Qty: 270 3RF oxycodone 10 mg tablet 10 mg PO Q6H PRN bisoprolol fumarate 5 mg tablet 5 mg PO .at bedtime 30 Days Qty: 30 11RF fluticasone propionate 50 mcg/actuation spray,suspension See Rx Instructions .ROUTE .COMPLEX Qty: 16 12RF Dose Instruction: USE 2 SPRAYS INTO EACH NOSTRIL ONCE A DAY NEEDED FOR ALLERGY SYMPTOMS Rx Instructions: USE 2 SPRAYS INTO EACH NOSTRIL ONCE A DAY NEEDED FOR ALLERGY SYMPTOMS estradiol 1 mg tablet See Rx Instructions .ROUTE .COMPLEX Qty: 30 2RF Dose Instruction: TAKE ONE TABLET BY MOUTH ONCE A DAY FOR HORMONE Rx Instructions: TAKE ONE TABLET BY MOUTH ONCE A DAY FOR HORMONE cetirizine 10 mg tablet See Rx Instructions .ROUTE .COMPLEX Qty: 30 2RF Dose Instruction: TAKE ONE TABLET BY MOUTH ONCE A DAY NEEDED FOR ALLERGY SYMPTOMS Rx Instructions: TAKE ONE TABLET BY MOUTH ONCE A DAY NEEDED FOR ALLERGY SYMPTOMS albuterol sulfate 90 mcg/actuation HFA aerosol inhaler See Rx Instructions .ROUTE .COMPLEX Qty: 8.5 0RF Dose Instruction: INHALE 2 PUFFS BY MOUTH EVERY 4 TO 6 HOURS NEEDED FOR SHORTNESS OF BREATH OR WHEEZING Rx Instructions: INHALE 2 PUFFS BY MOUTH EVERY 4 TO 6 HOURS NEEDED FOR SHORTNESS OF BREATH OR WHEEZING gabapentin 300 capsule 900 mg PO QID Patient Comments: cyclobenzaprine 10 MG tablet 10 mg PO BID PRN (Reason: muscle spasms) Referrals Follow up/Referrals: Ender Casas APRN [Primary Care Provider] - See instructions Activity Restrictions/Add. Instructions Additional Instructions/Restrictions: Drink plenty of fluids. Take tylenol or ibuprofen for pain or fever. Take the medications as directed. Follow up with your regular doctor. GO TO THE ER FOR ANY WORSENING SYMPTOMS Don't start the oral steroids until tomorrow, since you had the shot here today. Clinical Impressions Clinical Impression: Bronchitis Instructions Patient Instructions: Acute Bronchitis, DI for Acute Bronchitis Discharge ED Provider: Ramon Pradhan [facility] General Stated complaint: POSSIBLE COVID Mode of Arrival: Ambulatory Source of Information: Patient Limitations: No Limitations Time Seen by Provider: 07/19/23 11:12 Description of Symptoms (Recalled from Triage Doc. 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 covid/rsv exposure on Monday HEENT Symptoms (Recalled from RN notes): Yes Resp Symptoms (Recalled from RN notes): Yes Skin Symptoms (Recalled from RN notes): No MS Symptoms (Recalled from RN notes): No Functional Status (Recalled from RN notes): wnl History of Present Illness Provider Complaint: She states that for the past 2 days she has had worsening shortness of breath, chest congestion, sinus congestion and malaise. Related Data Home Medications Medication Instructions Recorded Confirmed gabapentin 300 mg capsule 900 mg PO QID Pain 12/08/17 07/06/23 cyclobenzaprine 10 mg tablet 10 mg PO BID PRN muscle spasms 11/12/20 07/06/23 diclofenac sodium 1 % topical gel
[2023-07-19 11:15] LABS: Adenovirus,PCR Not Detected (NotDetected); Coronavirus 19, PCR Not Detected (NotDetected); Coronavirus 229E Not Detected (NotDetected); Coronavirus NL63 Not Detected (NotDetected); Coronavirus OC43 Not Detected (NotDetected); Coronovirus HKU1,PCR Not Detected (NotDetected); Human Metapneumovirus Not Detected (NotDetected); Influenza A, PCR Not Detected (NotDetected); Influenza AH1, 2009 Not Detected (NotDetected); Influenza AH1, PCR Not Detected (NotDetected); Influenza AH3,PCR Not Detected (NotDetected); Influenza B, PCR Not Detected (NotDetected); Parainfluenza 1, PCR Not Detected (NotDetected); Parainfluenza 2, PCR Not Detected (NotDetected); Parainfluenza 3, PCR Not Detected (NotDetected); Parainfluenza 4, PCR Not Detected (NotDetected); Respiratory Syncytial Virus Not Detected (NotDetected); Rhinovirus/Enterovirus Not Detected (NotDetected)
[2023-07-19 12:25] VITALS: BP 130/53; PULSE 83; RESP 18; TEMP 36.8; O2SAT 89
== END 2023-07-19 12:26 | disposition home or self-care (01) ==
PROVIDERS: Emergency Provider Nurse Practitioner Family; PCP Nurse Practitioner Family
DX: J20.9 Acute bronchitis, unspecified (principal); R06.02 Shortness of breath; R09.89 Other specified symptoms and signs involving the circulatory and respiratory systems; R09.81 Nasal congestion; R53.81 Other malaise; R51.9 Headache, unspecified; R42 Dizziness and giddiness; J44.9 Chronic obstructive pulmonary disease, unspecified; Z87.891 Personal history of nicotine dependence; Z20.822 Contact with and (suspected) exposure to COVID-19
CPT/HCPCS: 71046; 87632; 87635; 96372; 99212; 99214; G0463

== ENCOUNTER → 2023-07-21 12:28 | Outpatient (CLI) | payer MEDICARE, MEDICAID, SELFPAY ==
--- NOTE | 2023-07-21 12:37 | CT_ITS ---
FINAL REPORT CLINICAL HISTORY: Shortness of breath, dizziness, abnormal ECG, former smoker COMPARISON: None FINDINGS: Thin section axial CT images of the chest were obtained with contrast. 3D reformatted images were also obtained. This study was performed with techniques to keep radiation doses as low as reasonably achievable (ALARA). Individualized dose reduction techniques using automated exposure control or adjustment of mA and/or kV according to the patient's size were employed. There is no evidence of pulmonary embolism. There is no evidence of thoracic aortic aneurysm or dissection. There are multiple mildly enlarged mediastinal nodes which are likely reactive. There is mild peripheral scarring/fibrosis, greatest in the lateral left upper lobe. There are numerous small nodules, most numerous in the right upper lobe. These are likely inflammatory but recommend follow-up CT in 6 months. Limited images of the upper abdomen are unremarkable. Postcholecystectomy. IMPRESSION: No evidence of pulmonary embolism. Multiple mildly enlarged mediastinal nodes, likely reactive. Numerous small nodules are likely inflammatory, but recommend follow-up chest CT in 6 months. Reviewed, Interpreted and Dictated by Rex Soler III, MD Transcribed by Jennifer Shultz Authenticated and [facility]
--- NOTE | 2023-07-21 12:38 | US_ITS ---
FINAL REPORT CLINICAL HISTORY: claudication, cold extremities, previous smoker, bilateral rest pain. COMPARISON: None FINDINGS: ANKLE-BRACHIAL PRESSURE INDICES Pressure indices are as follows: RIGHT LOWER EXTREMITY: Ankle-brachial pressure index: 1.0 Comments: Normal LEFT LOWER EXTREMITY: Ankle-brachial pressure index: 0.8 Comments: Mild vascular disease IMPRESSION: No evidence of significant obstructive peripheral vascular disease of the right lower extremity with mild vascular disease on the left. Reviewed, Interpreted and Dictated by Rex Soler III, MD Transcribed by Jennifer Shultz Authenticated and [facility]
--- NOTE | 2023-07-21 12:40 | XR_ITS ---
FINAL REPORT CLINICAL HISTORY: S/P LT HAND SURGERY IN PAST,LT HAND PAIN COMPARISON: 12/01/2020 FINDINGS: LEFT WRIST Three views demonstrate no acute fracture or dislocation. There are interval postoperative changes from resection of the trapezium. There is proximal displacement of the first metacarpal. There is mild degenerative change. The soft tissues are unremarkable. IMPRESSION: Postoperative and degenerative change without acute bony abnormality. Reviewed, Interpreted and Dictated by Rex Soler III, MD Transcribed by Jennifer Shultz Authenticated and [facility]
--- NOTE | 2023-07-21 12:40 | XR_ITS ---
FINAL REPORT CLINICAL HISTORY: RT HAND PAIN,S/P RT HAND SURGERY IN THE PAST COMPARISON: 12/01/2020 FINDINGS: RIGHT WRIST Three views demonstrate no acute fracture or dislocation. There are interval postoperative changes from resection of the trapezium. There is proximal displacement of the first metacarpal. There is mild degenerative change. The soft tissues are unremarkable. IMPRESSION: Postoperative and degenerative change without acute bony abnormality. Reviewed, Interpreted and Dictated by Rex Soler III, MD Transcribed by Jennifer Shultz Authenticated and [facility]
== END ==
LOC: RAD 12:30
PROVIDERS: PCP Nurse Practitioner Family; Visit Provider Nurse Practitioner
DX: I73.9 Peripheral vascular disease, unspecified (principal); R06.09 Other forms of dyspnea; R09.89 Other specified symptoms and signs involving the circulatory and respiratory systems; R20.9 Unspecified disturbances of skin sensation; R42 Dizziness and giddiness; R94.31 Abnormal electrocardiogram [ECG] [EKG]; J44.9 Chronic obstructive pulmonary disease, unspecified; Z82.49 Family history of ischemic heart disease and other diseases of the circulatory system; Z87.891 Personal history of nicotine dependence; M25.531 Pain in right wrist; M25.532 Pain in left wrist
CPT/HCPCS: 71275; 73110; 93923; Q9967

== ENCOUNTER → 2023-07-28 12:51 | Outpatient (CLI) | payer MEDICARE, MEDICAID, SELFPAY | PROVIDERS: PCP Nurse Practitioner Family; Visit Provider Nurse Practitioner Family | DX: R06.09 Other forms of dyspnea (principal) ==

== ENCOUNTER → 2023-08-04 14:42 | Outpatient (CLI) | payer MEDICARE, MEDICAID, SELFPAY ==
--- NOTE | 2023-08-04 14:43 | CT_ITS ---
FINAL REPORT TECHNIQUE: Axial images were obtained from the lung apex to the mid abdomen by computed tomography. This study was performed with techniques to keep radiation doses as low as reasonably achievable (ALARA). Individualized dose reduction techniques using automated exposure control or adjustment of mA and/or kV according to the patient's size were employed. CLINICAL HISTORY: lung cancer screening former smoker, quit 4 yrs ago 1/ ppd x 34 yrs COMPARISON: 07/21/2023 FINDINGS: CHEST CT LOW DOSE CTDI vol (mGy): 2.90 DLP (mGy-cm): 99.51 There is no axillary adenopathy. Multiple mildly enlarged mediastinal nodes are again identified, stable. The heart is normal in size. There is no pericardial or pleural effusion. There is mild emphysema. There is diffuse bronchial wall thickening. Mild scarring is identified. Numerous small pulmonary nodules are again identified, not significantly changed from prior. There are postoperative changes in the lower cervical spine. Limited images of the upper abdomen are unremarkable. IMPRESSION: Small bilateral pulmonary nodules. Diffuse bronchial wall thickening. Lung RADS category 0. Recommend 3 month follow-up low-dose chest CT. Reviewed, Interpreted and Dictated by Rex Soler III, MD Transcribed by Marta Rodriguez Authenticated and [facility]
== END ==
PROVIDERS: PCP Nurse Practitioner Family; Visit Provider Internal Medicine Pulmonary Disease
DX: F17.210 Nicotine dependence, cigarettes, uncomplicated (principal)
CPT/HCPCS: 71271

== ENCOUNTER → 2023-08-17 11:15 | Outpatient (CLI) | payer MEDICARE, MEDICAID, SELFPAY ==
[2023-08-17 12:29] LABS: Erythrocyte Sedimentation Rate 31 mm/hr (0-30)
[2023-08-17 13:02] LABS: Lactate Dehydrogenase 130 U/L (313-618); Uric Acid 6.1 mg/dl (2.5-6.2)
[2023-08-18 05:16] LABS: RA Latex Turbid. <10.0 IU/mL (<14.0)
[2023-08-18 12:10] LABS: Angiotensin Converting Enzyme 46 U/L (14-82)
[2023-08-18 15:17] LABS: Antinuclear Antibodies, IFA Negative (.)
[2023-08-22 15:23] LABS: Antinuclear Antibodies (ANA) Negative
== END ==
LOC: LAB 11:17
PROVIDERS: PCP Nurse Practitioner Family; Visit Provider Internal Medicine Pulmonary Disease
DX: R06.09 Other forms of dyspnea (principal); J90 Pleural effusion, not elsewhere classified; J84.9 Interstitial pulmonary disease, unspecified
CPT/HCPCS: 36415; 82164; 83615; 84550; 85651; 86038; 86140; 86225; 86235; 86431

== ENCOUNTER 2023-09-19 11:10 | Outpatient (CLI) | payer MEDICARE, MEDICAID, SELFPAY ==
--- NOTE | 2023-09-19 11:16 | NM_ITS ---
APPROVED REPORT Exam: Nuclear Stress Test Indication: SOB, HTN, Family history Patient Location: Outpatient Stress Tech: Tawanna Mills [place] Tech:Oksana Wang, ARRT, RT (R)(N) Ht: 5 ft 3 in Wt: 195 lbs Bra Size: B HR: 60 bpm BP: 116/59 mmHg BSA: 1.91 m2 TID: 1.13 BMI: 34.5 History: SOB, HTN, Family history Procedure: Patient received 0.4 mg of intravenous Lexiscan, resting heart rate 60 bpm, resting blood pressure 116/59 mmHg, with Lexiscan maximum heart rate achieved was 74 bpm which is % of the maximum predicted heart rate and blood pressure was 125/74 mmHg. With Lexiscan, patient denied any complaint of chest pain. Cardiac Stress and Resting SPECT Images: Cardiac Stress and Resting SPECT images were obtained using technetium 99m Myoview 32.8 mCi stress and 10.61 mCi at rest. The patient was unable to lie on her abdomen. Therefore, prone stress imaging could not be performed. This may affect the diagnostic interpretation of the study findings. Resting and stress imaging in supine position demonstrate no evidence of fixed or reversible perfusion defects. Gated imaging demonstrates normal global and regional LV systolic function. LVEF is calculated at 59%. Conclusion: No evidence of fixed or reversible perfusion defects. Gated imaging demonstrates normal global and regional LV systolic function. LVEF is calculated at 59%. Electronically signed by : Gabriella Machado MD 09/20/2023 12:42:41
[2023-09-19] MEDS: ISOTOPE MYOVIEW (PER STUDY) 1 DOSE IV (12:41)
[2023-09-19] MEDS: SODIUM CHLORIDE 0.9% 10ML SYR (RAD ONLY) 10 ML IV ×2 (12:41)
[2023-09-19] MEDS: REGADENOSON 0.4MG/5ML SYRINGE 0.400000000000000022 MG IV (12:41)
--- NOTE | 2023-09-19 13:38 | CA_ITS ---
APPROVED REPORT Exam: Pharmacologic Technologist: Tawanna Martinez, Ht: 5 ft 3 in Wt: 190 lbs BSA: 1.89 m2 HR: 62 bpm BP: 116/59 mmHg Rhythm: NSR Medical History Medications: Gabapentin,,,,, Flonase,,,,, Albuterol,,,,, Estradiol,,,,, OxYCODONE,,,,, BenzONATATE,,,,, Cyclobenzaprine,,,,, Diclofenac Sodium,,,,, Trelegy Ellipta,,,,, BisOPROLOL Fumarte,,,,, CetItizine,,,,, Stress Test Details Test: Juan R Reason for pharmacologic stress test: physical limitation. HR Resting HR: 60 bpm Max Heart Rate (APMHR): 167 bpm Max HR Achieved: 74 bpm Target HR (85% APMHR): 142 bpm % of APMHR: 44 Recovery HR: 68 bpm BP Resting BP: 116.0/59.0 mmHg Max BP: 125.0/74.0 mmHg Recovery BP: 124.0/74.0 mmHg ECG Resting ECG: SR Stress ECG: No significant ST changes Arrhythmia: Occasional PVCs Clinical Exercise duration: 04:02 min Highest Stage Achieved: Exercise capacity: 1.0 METs Stress ECG Conclusion Symptoms: Dyspnea, headache Arrhythmias/Ectopy: PVC ST-T Changes: No significant ST changes. Conclusion: EKG unremarkable dur to Lexiscan infusion. Myoview images reported separately. Test Summary REST . . . . . . . Resting REST 02:08 0.0 0.0 60 . 116/ 59 . . Stage 1 . . . . . . . Myoview Injected Stage 1 01:00 10.0 0.0 68 . . . . Stage 1 02:00 10.0 0.0 71 . 104/ 65 . . Stage 1 03:00 10.0 0.0 68 . 104/ 65 . . Stage 2 01:00 12.0 0.0 67 . 119/ 62 . . Stage 2 01:02 12.0 0.0 67 . 119/ 62 . Stop exercise at 04:02 RECOVERY 01:00 0.0 0.0 68 . . . . RECOVERY 02:00 0.0 0.0 69 . 124/ 70 . . RECOVERY 02:51 0.0 0.0 68 . 125/ 74 . . Electronically signed by : Gabriella Machado MD 09/20/2023 12:41:17
== END 2023-09-19 23:59 ==
LOC: RAD 11:11
PROVIDERS: PCP Nurse Practitioner Family; Visit Provider Physician Assistant
DX: I73.9 Peripheral vascular disease, unspecified (principal); J44.9 Chronic obstructive pulmonary disease, unspecified; R06.09 Other forms of dyspnea; R20.9 Unspecified disturbances of skin sensation; R42 Dizziness and giddiness; R94.31 Abnormal electrocardiogram [ECG] [EKG]; Z82.49 Family history of ischemic heart disease and other diseases of the circulatory system; Z87.891 Personal history of nicotine dependence
CPT/HCPCS: 78452; 93017; 93018; A9502; J2785

== ENCOUNTER 2023-11-03 07:18 | Outpatient (CLI) | payer MEDICARE, MEDICAID, SELFPAY ==
--- NOTE | 2023-11-03 07:25 | CT_ITS ---
FINAL REPORT CLINICAL HISTORY: interstitial lung disease COMPARISON: Low-dose chest CT dated 08/04/2023 FINDINGS: CT CHEST HIGH RESOLUTION 1.[address] axial slices were performed through the chest at 10 mm intervals utilizing high-resolution protocol. Supine inspiration and expiration and prone inspiration high-resolution CT images were obtained.Coronal reformatted images were submitted. This study was performed with techniques to keep radiation doses as low as reasonably achievable (ALARA). Individualized dose reduction techniques using automated exposure control or adjustment of mA and/or kV according to the patient's size were employed. There is no axillary adenopathy. Borderline mediastinal nodes are stable. Heart size is normal. There is no pericardial or pleural effusion. There is mild emphysema. Multiple small pulmonary nodules are stable. There is no new mass or nodule. There is partial improvement in diffuse bronchial wall thickening. There is localized fibrosis/scarring in the anterior lateral left upper lobe which is stable. There is mild peripheral interstitial fibrosis, greatest in the lung apices. There is no evidence of bronchiectasis. There is no evidence of air trapping. Limited images of the upper abdomen demonstrate postoperative changes from cholecystectomy.. IMPRESSION: Localized fibrosis/scarring in the anterior lateral left upper lobe, stable. Mild peripheral interstitial fibrosis greatest in the upper lobes, stable. Partially improved bronchial wall thickening. Stable small multiple pulmonary nodules. Follow-up chest CT is recommended in 6 months. Reviewed, Interpreted and Dictated by Rex Soler III, MD Transcribed by Darcy Manuel Authenticated and . [facility]
== END 2023-11-03 23:59 ==
LOC: RAD 07:19
PROVIDERS: PCP Nurse Practitioner Family; Visit Provider Internal Medicine Pulmonary Disease
DX: J84.9 Interstitial pulmonary disease, unspecified (principal)
CPT/HCPCS: 71250

== ENCOUNTER 2023-12-29 13:28 | Outpatient (CLI) | payer MEDICARE, MEDICAID, SELFPAY ==
[2023-12-29 13:59] LABS: Basophils % 0.6 % (0.1-2.0); Eosinophils # 0.3 K/mm3 (0.0-0.4); Eosinophils % 4.4 % (0.1-12.0); Hemoglobin 12.6 g/dL (12.2-16.2); Lymphocytes # 1.6 K/mm3 (0.7-4.5); Lymphocytes % 27.1 % (10-50); Mean Corpuscular Hemoglobin 29.8 pg (27.0-31.2); Mean Corpuscular Volume 90.2 fl (81-99); Mean Platelet Volume 7.6 fl (7.4-10.4); Monocytes # 0.3 K/mm3 (0.1-1.0); Monocytes % 5.5 % (1.7-9.3); Neutrophils # 3.8 K/mm3 (1.8-7.8); Neutrophils % 62.4 % (37.0-80.0); Platelet Count 264 K/mm3 (142-424); Red Blood Count 4.21 M/mm3 (4.20-5.40); Red Cell Distribution Width 12.8 % (11.5-17.5)
[2023-12-29 14:24] LABS: Alanine Aminotransferase 18 U/L (12-78); Albumin Level 3.9 g/dl (3.5-5.0); Albumin/Globulin Ratio 1.6 (1.1-1.8); Alkaline Phosphatase 81 U/L (38-126); Anion Gap 6.5 mEq/L (5-15); Aspartate Amino Transferase 19 U/L (14-36); Bilirubin,Total 0.4 mg/dl (0.2-1.3); Blood Urea Nitrogen 16 mg/dl (7-17); Calcium 9.5 mg/dl (8.4-10.2); Carbon Dioxide 34 mmol/L (22.0-30.0); Chloride 102 mmol/L (98-107); Chol/HDL Ratio 2.8 (1-3.5); Cholesterol 204 mg/dl (140-200); Estimated Glomerular Filt Rate 105 ml/min (>60); GFR (African American) 127 ML/MIN (>60); Globulin 2.5 g/dL (1.3-3.2); Glucose 136 mg/dl (74-100); HDL Cholesterol 72 mg/dl (40-60); Potassium 4.5 mmoL/L (3.5-5.1); Sodium 138 mmol/L (136-145); Total Protein,Serum 6.4 g/dl (6.3-8.2); Triglycerides 236 mg/dl (30-150); VLDL Cholesterol 47 mg/dL (0-40)
[2023-12-29 14:35] LABS: Direct LDL Cholesterol 115.87 mg/dL (100-129)
[2023-12-29 14:44] LABS: 25-OH Vitamin D, Total 26.1 ng/mL (30-100)
[2023-12-29 14:57] LABS: Thyroid Stimulating Hormone 1.66 uIU/mL (0.465-4.68)
== END 2023-12-29 23:59 | disposition home or self-care (01) ==
LOC: LAB 13:29
PROVIDERS: PCP Nurse Practitioner Family; Visit Provider Nurse Practitioner Family
DX: R53.83 Other fatigue (principal); E78.5 Hyperlipidemia, unspecified; E55.9 Vitamin D deficiency, unspecified; E66.01 Morbid (severe) obesity due to excess calories; Z68.35 Body mass index [BMI] 35.0-35.9, adult
CPT/HCPCS: 36415; 80053; 80061; 82306; 84443; 85025

== ENCOUNTER 2024-05-04 14:44 | Inpatient (IN) | payer MEDICARE, MEDICAID, SELFPAY ==
[2024-05-04] VITALS (12 sets, daily range): BP systolic 81–146; BP diastolic 53–77; PULSE 89–140; RESP 16–30; TEMP 37.1–38.7; O2SAT 85–99; BMI 35.5; BMI 34.7
--- NOTE | 2024-05-04 14:48 | ECG_ITS ---
APPROVED REPORT Exam: Resting ECG HR:140 bpm ECG Measurements Heart Rate 140 AXES CO 141 P 71 QRSd 95 QRS 37 QT 306 T 63 QTc 388 Conclusion SINUS TACHYCARDIA INDETERMINATE AXIS ABNORMAL RHYTHM ECG Electronically signed by : MAXX ZIMMER, 05/04/2024 23:38:49
--- NOTE | 2024-05-04 14:50 | CT_ITS ---
PROCEDURE INFORMATION: Exam: CT Head Without Contrast Exam date and time: 05/04/2024 3:56 PM Age: 54 years old Clinical indication: Injury or trauma; Fall; Additional info: Fall, head trauma, od TECHNIQUE: Imaging protocol: Computed tomography of the head without contrast. Radiation optimization: All CT scans at this facility use at least one of these dose optimization techniques: automated exposure control; mA and/or kV adjustment per patient size (includes targeted exams where dose is matched to clinical indication); or iterative reconstruction. COMPARISON: No relevant prior studies available. FINDINGS: Brain: Normal. No hemorrhage. Unremarkable white matter. No mass effect. Cerebral ventricles: No ventriculomegaly. Paranasal sinuses: Visualized sinuses are unremarkable. No fluid levels. Mastoid air cells: Visualized mastoid air cells are well aerated. Bones: Unremarkable. No acute fracture. Soft tissues: Unremarkable. IMPRESSION: No acute intracranial abnormality.
--- NOTE | 2024-05-04 14:50 | CT_ITS ---
PROCEDURE INFORMATION: Exam: CTA Chest With Contrast Exam date and time: 05/04/2024 3:59 PM Age: 54 years old Clinical indication: Other: AMS, syncope TECHNIQUE: Imaging protocol: Computed tomographic angiography of the chest with contrast. Exam focused on the arteries. 3D rendering (Not supervised by radiologist): MIP and/or 3D reconstructed images were created by the technologist. Radiation optimization: All CT scans at this facility use at least one of these dose optimization techniques: automated exposure control; mA and/or kV adjustment per patient size (includes targeted exams where dose is matched to clinical indication); or iterative reconstruction. Contrast material: ISOVUE 370; Contrast volume: 80 ml; Contrast route: INTRAVENOUS (IV); COMPARISON: CT ANGIO CHEST 05/04/2024 3:59 PM FINDINGS: Pulmonary arteries: Normal. No pulmonary emboli. Aorta: Mild atherosclerotic changes are seen within the thoracic aorta without evidence of aneurysm. No dissection. Lungs: Dense consolidation in the right upper lobe. Pleural spaces: Unremarkable. No pneumothorax. No pleural effusion. Heart: Unremarkable. No cardiomegaly. No pericardial effusion. Lymph nodes: Mediastinal lymphadenopathy, the largest lymph node measuring 1.9 cm in short axis diameter in the right paratracheal region. Bones/joints: Unremarkable. No acute fracture. Soft tissues: Unremarkable. IMPRESSION: Right upper lobe pneumonia with reactive mediastinal lymphadenopathy.
--- NOTE | 2024-05-04 14:51 | CT_ITS ---
PROCEDURE INFORMATION: Exam: CTA Abdomen and Pelvis With Contrast Exam date and time: 05/04/2024 3:59 PM Age: 54 years old Clinical indication: Other: AMS, syncope TECHNIQUE: Imaging protocol: Computed tomographic angiography of the abdomen and pelvis with contrast. Exam focused on the arteries. 3D rendering (Not supervised by radiologist): MIP and/or 3D reconstructed images were created by the technologist. Radiation optimization: All CT scans at this facility use at least one of these dose optimization techniques: automated exposure control; mA and/or kV adjustment per patient size (includes targeted exams where dose is matched to clinical indication); or iterative reconstruction. Contrast material: ISOVUE 370; Contrast volume: 80 ml; Contrast route: INTRAVENOUS (IV); COMPARISON: CT ANGIO CHEST 05/04/2024 3:59 PM FINDINGS: Aorta: No aortic aneurysm. No aortic dissection. Mild atherosclerotic changes. Celiac trunk and mesenteric arteries: No occlusion or significant stenosis. Renal arteries: No occlusion or significant stenosis. Right iliac arteries: No occlusion or significant stenosis. Mild atherosclerotic changes. Left iliac arteries: 50% stenosis at the origin of the left common iliac artery. Mild atherosclerotic changes. Liver: No mass. Gallbladder and biliary ducts: Cholecystectomy. Pancreas: Unremarkable. No mass. No ductal dilation. Spleen: Unremarkable. No splenomegaly. Adrenal glands: Unremarkable. No mass. Kidneys and ureters: Unremarkable. No solid mass. No hydronephrosis. Stomach and bowel: Unremarkable. No obstruction. No mucosal thickening. Appendix: No evidence of appendicitis. Intraperitoneal space: Unremarkable. No free air. No significant fluid collection. Lymph nodes: Unremarkable. No enlarged lymph nodes. Urinary bladder: Unremarkable. No mass. Reproductive: Hysterectomy. Bones/joints: No acute fracture. Soft tissues: Unremarkable. IMPRESSION: Atherosclerotic changes with 50% stenosis at the origin of the left common iliac artery.
[2024-05-04 15:08] LABS: Albumin Level 3.8 g/dl (3.5-5.0); Basophils # 0.1 K/mm3 (0-0.2); Basophils % 0.2 % (0.1-2.0); Chloride 97 mmol/L (98-107); Eosinophils % 0.1 % (0.1-12.0); Hematocrit 38.1 % (37.0-47.0); Hemoglobin 12.3 g/dL (12.2-16.2); Lymphocytes % 4.9 % (10-50); Mean Corpuscular HGB Conc 32.2 g/dL (31.8-35.4); Mean Corpuscular Hemoglobin 29.5 pg (27.0-31.2); Mean Corpuscular Volume 91.4 fl (81-99); Mean Platelet Volume 8.8 fl (7.4-10.4); Monocytes # 0.7 K/mm3 (0.1-1.0); Monocytes % 3.5 % (1.7-9.3); Neutrophils % 91.2 % (37.0-80.0); Platelet Count 261 K/mm3 (142-424); Red Blood Count 4.17 M/mm3 (4.20-5.40); White Blood Count 20.8 K/mm3 (4.8-10.8)
[2024-05-04 15:09] LABS: Potassium 3.8 mmoL/L (3.5-5.1); Sodium 131 mmol/L (136-145)
[2024-05-04 15:11] LABS: Alanine Aminotransferase 31 U/L (12-78); Anion Gap 13.8 mEq/L (5-15); Aspartate Amino Transferase 39 U/L (14-36); Blood Urea Nitrogen 30 mg/dl (7-17); Carbon Dioxide 24 mmol/L (22.0-30.0); Estimated Glomerular Filt Rate 43 ml/min (>60); GFR (African American) 52 ML/MIN (>60)
[2024-05-04] MEDS: ASPIRIN 81MG CHEWABLE TABLET 324 MG PO (15:11)
[2024-05-04 15:12] LABS: Albumin/Globulin Ratio 1.2 (1.1-1.8); Alkaline Phosphatase 134 U/L (38-126); Bilirubin,Total 1.1 mg/dl (0.2-1.3); Globulin 3.3 g/dL (1.3-3.2); Glucose 155 mg/dl (74-100); Lipase 23 U/L (23-300); Total Protein,Serum 7.1 g/dl (6.3-8.2)
[2024-05-04] MEDS: LACTATED RINGERS 1000ML 1,000 ML 999 ML IV ×2 (15:12→16:31)
--- NOTE | 2024-05-04 15:15 | ED_ITS ---
Discharge Plan Disposition Patient Disposition: Admitted Clinical Impressions Clinical Impression: Acute and chronic respiratory failure, Sepsis due to pneumonia, Non-ST elevation OH (NSTEMI), Opiate overdose, DANDRE (acute kidney injury) Discharge ED Provider: Mery Canseco General Adult HPI <Aj Ramirez MD - Last Filed: 05/04/24 15:20> General Chief complaint: Shortness of Breath/Dyspnea Stated complaint: Possible OD Time Seen by Provider: 05/04/24 14:45 History of Present Illness HPI narrative: Please note that above description of symptoms, in this electronic medical record under categorization of recalled from ER triage doctor by RN are reflective of an initial nursing assessment, however, is not reflective of my full history and physical exam that was personally taken and clarified. Consequentially, this preceding description of symptoms, which may include the patient's categorized chief complaint in the EMR, do not reflect my personal clinical impression, and the ultimate description of history of present illness and patient stated complaints should be deferred to this section of the note. Unless stated otherwise or congruent with this section of the note, additional signs, symptoms, or incongruence should be interpreted as inaccurate with my clinical impression. Related Data Home Medications ?Medication ?Instructions ?Recorded ?Confirmed gabapentin 300 mg capsule 900 mg PO QID Pain 12/08/17 04/15/24 cyclobenzaprine 10 mg tablet 10 mg PO BID PRN muscle spasms 11/12/20 04/15/24 diclofenac sodium 1 % topical gel 2 g topical QID 06/01/23 04/15/24 oxycodone 10 mg tablet mg PO 12/28/23 04/15/24 Previous Rx's ?Medication ?Instructions ?Recorded bisoprolol fumarate 5 mg tablet 2.5 mg (1/2 x 5 mg) PO .at bedtime 09/21/23 #30 tabs albuterol sulfate 90 mcg/actuation See Rx Instructions .Route 05/01/24 aerosol inhaler .COMPLEX #8.5 grams cetirizine 10 mg tablet See Rx Instructions .Route 05/01/24 .COMPLEX #30 tabs estradiol 1 mg tablet See Rx Instructions .Route 05/01/24 .COMPLEX #30 tabs fluticasone fur. 100 mcg-umeclid See Rx Instructions .Route 05/01/24 62.5 mcg-vilant 25 mcg .COMPLEX #60 blisters inhalat.powder (Trelegy Ellipta) fluticasone propionate 50 See Rx Instructions .Route 05/01/24 mcg/actuation nasal .COMPLEX #16 grams spray,suspension ipratropium 0.5 mg-albuterol 3 mg See Rx Instructions .Route 05/01/24 (2.5 mg base)/3 mL nebulization .COMPLEX #360 mL soln Allergies Allergy/AdvReac Type Severity Reaction Status Date / Time baclofen Allergy Intermediate Verified 04/15/24 13:10 mold Allergy Intermediate Verified 04/15/24 13:10 Sulfa (Sulfonamide Allergy Unknown I-RASH Verified 04/15/24 13:10 Antibiotics) [SULFA (SULFONAMIDE ANTIBIOTICS)] sulfamethoxazole Allergy Verified 04/15/24 13:10 [From Bactrim] trimethoprim [From Bactrim] Allergy Verified 04/15/24 13:10 meloxicam AdvReac Unknown Verified 04/15/24 13:10 PFSH <Aj Ramirez MD - Last Filed: 05/04/24 15:20> PFS Disclaimer: The information contained in this section may have been updated after the patient was seen, as this information can be updated by other users. Medical History Chronic respiratory failure with hypoxia ILD (interstitial lung disease) Multiple lung nodules on CT Mediastinal lymphadenopathy Dizziness Family history of coronary artery disease Abnormal ECG Encounter for screening for malignant neoplasm of lung History of smoking 30 or more pack years COPD mixed type Surgical History History of cervical spinal surgery History of lumbar surgery History of cholecystectomy History of hysterectomy History of tonsillectomy Family History Other Asthma Cancer Diabetes Heart attack Stroke Social History Smoking Status: Former smoker tobacco type: cigarettes packs per day: 0 second hand exposure: No alcohol intake: never substance use type: denies use current occupational status: other Travel in the last 8 weeks: None household members: none housing: house current occupational exposures/hazards: No caffeine: Yes <Aj Ramirez MD - Last Filed: 05/04/24 15:20> ROS Obtained: Yes All systems reviewed & no additional complaints except as documented Physical Exam <Aj Ramirez MD - Last Filed: 05/04/24 15:20> General General appearance: alert and obese Head Head exam: atraumatic and normocephalic Eye Eye exam: Present normal appearance, PERRL and EOMI Neck Neck exam: Present normal inspection, full ROM and trachea midline Respiratory Respiratory exam: Present wheezes (Bilateral wheezing, right greater than left); Absent respiratory distress, stridor, accessory muscle use or prolonged expiratory phase Cardiovascular Cardiovascular exam: Present normal rhythm, tachycardia and other (Pulses equal symmetric in upper and lower extremities) Abdominal Exam Abdominal exam: Present soft; Absent distention, tenderness or pulsatile mass Extremities Exam Extremities exam: Absent edema Neurological Exam Neurological exam: Present alert, oriented X3 and CN II-XII intact; Absent motor sensory deficit Skin Skin exam: Present warm, dry, diaphoresis and pallor; Absent erythema Medical Decision Making <Aj Ramirez MD - Last Filed: 05/04/24 15:20> Medical Records Medical records reviewed: Yes I reviewed the patient's medical records. Jose Inquiry Pt receiving controlled substance: No Jose was queried for this patient: No Vital Signs: 05/04/24 14:44 05/04/24 15:00 05/04/24 16:59 Temperature 99.4 F 99.0 F Temperature Source Axillary Oral Pulse Rate 137 H 125 H Pulse Rate [Right Radial] 140 H Respiratory Rate 30 H 20 26 H Blood Pressure 146/70 H 96/69 L Blood Pressure [Right Arm] 146/70 H Blood Pressure Mean [Right Arm] 95 02 Sat by Pulse Oximetry 90 L 89 L Oxygen Delivery Method Nasal Cannula Nasal Cannula Oxygen Flow Rate (LPM) 4 4 Lab Data Lab Results 05/04/24 14:40: WBC 20.8 H*, RBC 4.17 L, Hgb 12.3, Hct 38.1, MCV 91.4, MCH 29.5, MCHC 32.2, RDW 13.0, Plt Count 261, MPV 8.8, Neut % (Auto) 91.2 H, Lymph % (Auto) 4.9 L, Power % (Auto) 3.5, Eos % (Auto) 0.1, Baso % (Auto) 0.2, Neut # (Auto) 19.0 H, Lymph # (Auto) 1.0, Power # (Auto) 0.7, Eos # (Auto) 0.0, Baso # (Auto) 0.1, Total Counted 100, Neutrophils % (Manual) 90 H, Lymphocytes % (Manual) 7 L, Monocytes % (Manual) 2, Eosinophils % (Manual) 1, Platelet Estimate Normal, Polychromasia 1+, Laura Cells 1+, Sodium 131 L, Potassium 3.8, C hloride 97 L, Carbon Dioxide 24, Anion Gap 13.8, BUN 30 H, Creatinine 1.30 H, Estimated Creat Clear 73, Estimated GFR 43 L, Est GFR ( Amer) 52 L, G lucose 155 H, Calcium 8.0 L, Total Bilirubin 1.1, AST 39 H, ALT 31, Alkaline Phosphatase 134 H, Troponin I 1.33 H, NT-Pro-B Natriuret Pep 2270 H, Total Protein 7.1, Albumin 3.8, Globulin 3.3 H, Albumin/Globulin Ratio 1.2, Lipase 23, TSH 0.68, Thyroxine (T4) 7.4, Salicylates < 1.0 L, Acetaminophen < 10 L, Plasma/Serum Alcohol < 10 05/04/24 14:50: Lactate 2.0 05/04/24 15:00: SARS-CoV-2 (PCR) Not detected, Influenza A Untype (PCR) Not detected, Influenza Type B (PCR) Not detected 05/04/24 15:21: VBG pH 7.39, VBG pCO2 33.1 L, VBG pO2 186.8 H, VBG HCO3 19.4 L, VBG Total CO2 20.4 L, VBG O2 Saturation 99.4 H, VBG Base Excess -5.6 L, VBG Lactic Acid 3.6 H 05/04/24 14:40 05/04/24 14:40 Orders (Tests/Meds): ED MEDICATIONS Generic Name Dose Route Start Last Admin Trade Name Freq PRN Reason Stop Dose Admin Vancomycin HCl 2,250 mg/ 250 mls @ 125 mls/hr 05/04/24 15:30 05/04/24 16:31 Sodium Chloride IV 05/04/24 17:29 125 mls/hr ONCE ONE Administration Miscellaneous 1 each 05/04/24 15:30 05/04/24 15:55 Vancomycin Consult Request NOTAPPLIC 06/03/24 15:29 1 each CONSULT PHARMACY JODIE Administration Discontinued Medications Generic Name Dose Route Start Last Admin Trade Name César PRN Reason Stop Dose Admin Albuterol/Ipratropium 3 ml 05/04/24 15:27 05/04/24 15:33 Ipratropium/Albuterol 3 Ml Neb IH 05/04/24 15:28 3 ml ONCE ONE Administration Aspirin 324 mg 05/04/24 14:50 05/04/24 15:11 Aspirin 81mg Chewable Tablet PO 05/04/24 14:51 324 mg ONCE ONE Administration Lactated Ringer's 1,000 mls @ 999 mls/hr 05/04/24 14:50 05/04/24 15:12 Lactated Ringer's 1000 Ml Bag IV 05/04/24 15:50 999 mls/hr .Q1H1M ONE Administration Cefepime HCl 2 gm/ Sodium 100 mls @ 200 mls/hr 05/04/24 15:18 05/04/24 15:34 Chloride IV 05/04/24 15:47 200 mls/hr ONCE ONE Administration Lactated Ringer's 1,000 mls @ 999 mls/hr 05/04/24 15:18 05/04/24 16:31 Lactated Ringer's 1000 Ml Bag IV 05/04/24 16:18 999 mls/hr .Q1H1M ONE Administration Iopamidol 80 ml 05/04/24 15:54 05/04/24 15:57 Iopamidol-370 (76%);100ml Bottle IV 05/04/24 15:55 80 ml ONCE ONE Administration Sodium Chloride 10 ml 05/04/24 15:54 05/04/24 15:57 Sodium Chloride 0.9% 10ml Syr (Rad Only) IV 05/04/24 15:55 10 ml ONCE ONE Administration Sodium Chloride 50 ml 05/04/24 15:54 05/04/24 15:57 0.9 % Sodium Chloride 50 Ml Vial IV 05/04/24 15:55 50 ml ONCE ONE Administration ORDERS Category Date Time Status CT angio abdomen pelvis Stat Cat Scan 05/04/24 14:[address] head/brain wo con Stat Cat Scan 05/04/24 14:50 Completed CTA Chest [CT angio chest - dissection] Stat Cat Scan 05/04/24 14:50 Completed CXR --portable [XR chest portable] Stat Exams 05/04/24 15:26 Completed Acetaminophen Stat Lab 05/04/24 14:40 Completed CBC w/Auto Diff [Complete Blood Count Auto Diff] Stat Lab 05/04/24 14:40 Completed CRP [C-Reactive Protein] Stat Lab 05/04/24 16:32 Ordered Comprehensive Metabolic Panel Stat Lab 05/04/24 14:40 Completed Ethyl Alcohol Stat Lab 05/04/24 14:40 Completed Lactic Acid Stat Lab 05/04/24 14:50 Completed Lipase Stat Lab 05/04/24 14:40 Completed NT Pro Brain Natriuretic Pep. Stat Lab 05/04/24 14:40 Completed Procalcitonin Stat Lab 05/04/24 16:32 Ordered Rapid PCR Covid and Flu A/B Stat Lab 05/04/24 15:00 Completed Salicylate Stat Lab 05/04/24 14:40 Completed T4 (Thyroxine) Stat Lab 05/04/24 14:40 Completed TSH [Thyroid Stimulating Hormone] Stat Lab 05/04/24 14:40 Completed Troponin I Q3H Lab 05/04/24 21:00 Ordered Troponin I Stat Lab 05/04/24 14:40 Completed UDS [Drug Screen,Urine] Stat Lab 05/04/24 15:18 Ordered Urinalysis and Microscopic Stat Lab 05/04/24 14:52 Ordered Blood Culture Stat Micro 05/04/24 16:32 Ordered VBG [Venous Blood Gas] Stat RT 05/04/24 15:21 Completed Medical Decision Narrative: 54-year-old female history of interstitial lung disease, chronic abdominal and back/other pain currently on opiate maintenance therapy, presenting is being found down. Patient was found down by family just prior to arrival. EMS was called. On EMS arrival, patient was pale, perioral cyanosis, unresponsive with pinpoint pupils. IV was obtained, 2 mg Narcan were given with improvement in mental status. Patient agitated shortly thereafter. Brought to the emergency department. Glucose 166 just prior to arrival with EMS. On arrival, patient pale, diaphoretic, hypoxemic. Tachycardic. Looks acutely ill. Bilateral diffuse wheezes, right greater than left. Tachycardic without murmurs gallops rubs. No lower extremity edema. Patient is alert and oriented, agitated. Pupils are 3 mm and reactive bilaterally. Neurologically intact without focal deficit. Differential includes PE, dissection, ACS, OH, pneumothorax, pneumonia, among others. Patient given 2 L fluid, vancomycin, cefepime, 324 mg aspirin, for symptomatic management and prophylaxis for potential sepsis. 4 L nasal cannula placed for patient to saturate in the lower 90s. Prior to results of workup, care handed off to oncoming physician. Ammonia Still Operator disclaimer Much of this encounter note is an electronic excel specialist spoken language to printed text. Electronic excel specialist of the spoken language may permit errors. Although I have reviewed the note, some errors may still exist. <Mery Canseco, DO - Last Filed: 05/04/24 17:20> Vital Signs: 05/04/24 14:44 05/04/24 15:00 05/04/24 16:59 Temperature 99.4 F 99.0 F Temperature Source Axillary Oral Pulse Rate 137 H 125 H Pulse Rate [Right Radial] 140 H Respiratory Rate 30 H 20 26 H Blood Pressure 146/70 H 96/69 L Blood Pressure [Right Arm] 146/70 H Blood Pressure Mean [Right Arm] 95 02 Sat by Pulse Oximetry 90 L 89 L Oxygen Delivery Method Nasal Cannula Nasal Cannula Oxygen Flow Rate (LPM) 4 4 Lab Data Lab Results 05/04/24 14:40: WBC 20.8 H*, RBC 4.17 L, Hgb 12.3, Hct 38.1, MCV 91.4, MCH 29.5, MCHC 32.2, RDW 13.0, Plt Count 261, MPV 8.8, Neut % (Auto) 91.2 H, Lymph % (Auto) 4.9 L, Power % (Auto) 3.5, Eos % (Auto) 0.1, Baso % (Auto) 0.2, Neut # (Auto) 19.0 H, Lymph # (Auto) 1.0, Power # (Auto) 0.7, Eos # (Auto) 0.0, Baso # (Auto) 0.1, Total Counted 100, Neutrophils % (Manual) 90 H, Lymphocytes % (Manual) 7 L, Monocytes % (Manual) 2, Eosinophils % (Manual) 1, Platelet Estimate Normal, Polychromasia 1+, [place] Cells 1+, Sodium 131 L, Potassium 3.8, C hloride 97 L, Carbon Dioxide 24, Anion Gap 13.8, BUN 30 H, Creatinine 1.30 H, Estimated Creat Clear 73, Estimated GFR 43 L, Est GFR ( Amer) 52 L, G lucose 155 H, Calcium 8.0 L, Total Bilirubin 1.1, AST 39 H, ALT 31, Alkaline Phosphatase 134 H, Troponin I 1.33 H, NT-Pro-B Natriuret Pep 2270 H, Total Protein 7.1, Albumin 3.8, Globulin 3.3 H, Albumin/Globulin Ratio 1.2, Lipase 23, TSH 0.68, Thyroxine (T4) 7.4, Salicylates < 1.0 L, Acetaminophen < 10 L, Plasma/Serum Alcohol < 10 05/04/24 14:50: Lactate 2.0 05/04/24 15:00: SARS-CoV-2 (PCR) Not detected, Influenza A Untype (PCR) Not detected, Influenza Type B (PCR) Not detected 05/04/24 15:21: VBG pH 7.39, VBG pCO2 33.1 L, VBG pO2 186.8 H, VBG HCO3 19.4 L, VBG Total CO2 20.4 L, VBG O2 Saturation 99.4 H, VBG Base Excess -5.6 L, VBG Lactic Acid 3.6 H Orders (Tests/Meds): ED MEDICATIONS Generic Name Dose Route Start Last Admin Trade Name Freq PRN Reason Stop Dose Admin Vancomycin HCl 2,250 mg/ 250 mls @ 125 mls/hr 05/04/24 15:30 05/04/24 16:31 Sodium Chloride IV 05/04/24 17:29 125 mls/hr ONCE ONE Administration Miscellaneous 1 each 05/04/24 15:30 05/04/24 15:55 Vancomycin Consult Request NOTAPPLIC 06/03/24 15:29 1 each CONSULT PHARMACY JODIE Administration Discontinued Medications Generic Name Dose Route Start Last Admin Trade Name Freq PRN Reason Stop Dose Admin Albuterol/Ipratropium 3 ml 05/04/24 15:27 05/04/24 15:33 Ipratropium/Albuterol 3 Ml Neb IH 05/04/24 15:28 3 ml ONCE ONE Administration Aspirin 324 mg 05/04/24 14:50 05/04/24 15:11 Aspirin 81mg Chewable Tablet PO 05/04/24 14:51 324 mg ONCE ONE Administration Lactated Ringer's 1,000 mls @ 999 mls/hr 05/04/24 14:50 05/04/24 15:12 Lactated Ringer's 1000 Ml Bag IV 05/04/24 15:50 999 mls/hr .Q1H1M ONE Administration Cefepime HCl 2 gm/ Sodium 100 mls @ 200 mls/hr 05/04/24 15:18 05/04/24 15:34 Chloride IV 05/04/24 15:47 200 mls/hr ONCE ONE Administration Lactated Ringer's 1,000 mls @ 999 mls/hr 05/04/24 15:18 05/04/24 16:31 Lactated Ringer's 1000 Ml Bag IV 05/04/24 16:18 999 mls/hr .Q1H1M ONE Administration Iopamidol 80 ml 05/04/24 15:54 05/04/24 15:57 Iopamidol-370 (76%);100ml Bottle IV 05/04/24 15:55 80 ml ONCE ONE Administration Sodium Chloride 10 ml 05/04/24 15:54 05/04/24 15:57 Sodium Chloride 0.9% 10ml Syr (Rad Only) IV 05/04/24 15:55 10 ml ONCE ONE Administration Sodium Chloride 50 ml 05/04/24 15:54 05/04/24 15:57 0.9 % Sodium Chloride 50 Ml Vial IV 05/04/24 15:55 50 ml ONCE ONE Administration ORDERS Category Date Time Status CT angio abdomen pelvis Stat Cat Scan 05/04/24 14:[address] head/brain wo con Stat Cat Scan 05/04/24 14:50 Completed CTA Chest [CT angio chest - dissection] Stat Cat Scan 05/04/24 14:50 Completed CXR --portable [XR chest portable] Stat Exams 05/04/24 15:26 Completed Acetaminophen Stat Lab 05/04/24 14:40 Completed CBC w/Auto Diff [Complete Blood Count Auto Diff] Stat Lab 05/04/24 14:40 Completed CRP [C-Reactive Protein] Stat Lab 05/04/24 16:32 Ordered Comprehensive Metabolic Panel Stat Lab 05/04/24 14:40 Completed Ethyl Alcohol Stat Lab 05/04/24 14:40 Completed Lactic Acid Stat Lab 05/04/24 14:50 Completed Lipase Stat Lab 05/04/24 14:40 Completed NT Pro Brain Natriuretic Pep. Stat Lab 05/04/24 14:40 Completed Procalcitonin Stat Lab 05/04/24 16:32 Ordered Rapid PCR Covid and Flu A/B Stat Lab 05/04/24 15:00 Completed Salicylate Stat Lab 05/04/24 14:40 Completed T4 (Thyroxine) Stat Lab 05/04/24 14:40 Completed TSH [Thyroid Stimulating Hormone] Stat Lab 05/04/24 14:40 Completed Troponin I Q3H Lab 05/04/24 21:00 Ordered Troponin I Stat Lab 05/04/24 14:40 Completed UDS [Drug Screen,Urine] Stat Lab 05/04/24 15:18 Ordered Urinalysis and Microscopic Stat Lab 05/04/24 14:52 Ordered Blood Culture Stat Micro 05/04/24 16:32 Ordered VBG [Venous Blood Gas] Stat RT 05/04/24 15:21 Completed Medical Decision Narrative: 54-year-old female history of interstitial lung disease, chronic abdominal and back/other pain currently on opiate maintenance therapy, presenting is being found down. Patient was found down by family just prior to arrival. EMS was called. On EMS arrival, patient was pale, perioral cyanosis, unresponsive with pinpoint pupils. IV was obtained, 2 mg Narcan were given with improvement in mental status. Patient agitated shortly thereafter. Brought to the emergency department. Glucose 166 just prior to arrival with EMS. On arrival, patient pale, diaphoretic, hypoxemic. Tachycardic. Looks acutely ill. Bilateral diffuse wheezes, right greater than left. Tachycardic without murmurs gallops rubs. No lower extremity edema. Patient is alert and oriented, agitated. Pupils are 3 mm and reactive bilaterally. Neurologically intact without focal deficit. Differential includes PE, dissection, ACS, OH, pneumothorax, pneumonia, among others. Patient given 2 L fluid, vancomycin, cefepime, 324 mg aspirin, for symptomatic management and prophylaxis for potential sepsis. 4 L nasal cannula placed for patient to saturate in the lower 90s. Prior to results of workup, care handed off to oncoming physician. Ammonia Still Operator disclaimer Much of this encounter note is an electronic excel specialist spoken language to printed text. Electronic excel specialist of the spoken language may permit errors. Although I have reviewed the note, some errors may still exist. DO Ajith: I assumed care of the patient at 1500. On my assessment, she is alert, oriented, and conversational, however she was hypoxic on her home 2 L nasal cannula requiring increased to 4 L nasal cannula. I independently interpreted CT scans prior to radiology read and noted to concern for significant pneumonia. Please see radiology read for final interpretation. She also has a leukocytosis, DANDRE, elevated troponin. Given her leukocytosis and vital sign abnormalities, patient meets sepsis criteria in the setting of pneumonia. She received sepsis bolus and was placed on broad-spectrum antibiotics. She was given a DuoNeb given wheezing noted. She had some improvement in her heart rate after administration of fluids. EKG is nonischemic despite elevated troponin. She has no chest pain on my assessment. Ultimately given her sepsis secondary to pneumonia, acute on chronic respiratory failure, DANDRE, and NSTEMI I feel she would benefit from admission for continued monitoring. I had an interactive discussion with the hospitalist to admit the patient for further evaluation and management Critical Care <Aj Ramirez MD - Last Filed: 05/04/24 15:20> Critical Care Time Critical Care Time: Yes (respiratory) Attestation: On 05/04/24, the high probability of a clinically significant, sudden or life threatening deterioration of the following system(s) required my full and direct attention, intervention and personal management. The time I documented below is in addition to time spent performing reported procedures but includes the following listed in this critical care notation. Total Time Total Critical Care Time: 35
[2024-05-04 15:22] LABS: NT Pro Brain Natriuretic Pep. 2270 pg/mL (0-125)
[2024-05-04 15:23] LABS: Creatinine Clearance Estimated 73 mL/min (50-200); Salicylate < 1.0 mg/dL (2.0-20.0)
--- NOTE | 2024-05-04 15:26 | XR_ITS ---
PROCEDURE INFORMATION: Exam: XR Chest Exam date and time: 05/04/2024 3:58 PM Age: 54 years old Clinical indication: Shortness of breath; Additional info: SOA TECHNIQUE: Imaging protocol: Radiologic exam of the chest. Views: 1 view. COMPARISON: CT HR CHEST X3 11/03/2023 7:29 AM FINDINGS: Lungs: Right upper lobe consolidation. Pleural spaces: Unremarkable. No pleural effusion. No pneumothorax. Heart/Mediastinum: Unremarkable. No cardiomegaly. Bones/joints: Unremarkable. IMPRESSION: Right upper lobe pneumonia.
[2024-05-04 15:27] LABS: MANUAL DIFFERENTIAL MANUAL DIFFERENTIAL (MANUAL DIFF)
[2024-05-04 15:29] LABS: T4 (Thyroxine) 7.4 ug/dl (5.53-11.0)
[2024-05-04 15:31] LABS: VBG Base Excess -5.6 mmol/L (-2.4-2.3); VBG HCO3 19.4 mmol/L (23-30); VBG Oxygen Saturation 99.4 % (50-70); VBG PCO2 33.1 mmol/L (35-51); VBG PH 7.39 mmol/L (7.31-7.41); VBG PO2 186.8 mmol/L (28-40); VBG Total CO2 20.4 mmol/L (23-27)
[2024-05-04 15:32] LABS: Lactate Venous 3.6 mmol/L (0.4-2.0)
[2024-05-04 15:33] LABS: Coronavirus 19, PCR Not Detected (NotDetected); Influenza A, PCR Not Detected (NotDetected); Influenza B, PCR Not Detected (NotDetected)
[2024-05-04] MEDS: IPRATROPIUM/ALBUTEROL 3 ML NEB IH ×2 (15:33→23:10)
--- NOTE | 2024-05-04 15:33 | PC.NURSE ---
Notified Dr. Canseco of troponin of 1.33.
[2024-05-04 15:34] LABS: Troponin I 1.33 ng/ml (0.00-0.034)
[2024-05-04] MEDS: CEFEPIME HCL 2 GM in 0.9 % SODIUM CHLORIDE 100 ML IV (15:34)
[2024-05-04 15:43] LABS: Thyroid Stimulating Hormone 0.68 uIU/mL (0.465-4.68)
--- NOTE | 2024-05-04 15:44 | PC.NURSE ---
pt to rad
[2024-05-04] MEDS: VANCOMYCIN CONSULT REQUEST 1 EACH NOTAPPLIC (15:55)
[2024-05-04 15:57] LABS: Eosinophils % 1 % (0-3); Lymphocytes % 7 % (10-50); Monocytes % 2 % (2-9); Neutrophils % 90 % (42-76); Platelet Estimate Normal; Total Cells Counted 100
[2024-05-04] MEDS: 0.9 % SODIUM CHLORIDE 50 ML VIAL IV (15:57)
[2024-05-04] MEDS: SODIUM CHLORIDE 0.9% 10ML SYR (RAD ONLY) 10 ML IV (15:57)
[2024-05-04] MEDS: IOPAMIDOL-370 (76%);100ML BOTTLE 80 ML IV (15:57)
[2024-05-04 15:58] LABS: Burr Cells 1+; Polychromasia 1+
--- NOTE | 2024-05-04 16:04 | PC.NURSE ---
PT RETURNED FROM CT
--- NOTE | 2024-05-04 16:30 | PC.NURSE ---
DR ZIMMER SPEAKING WITH HOSPITALIST
[2024-05-04] MEDS: VANCOMYCIN HCL 2,250 MG in 0.9 % SODIUM CHLORIDE 250 ML 125 MG IV (16:31)
--- NOTE | 2024-05-04 16:34 | PC.NURSE ---
[employer]ORED [employer]HICLE OFFICER NOTIFIED OF ADMISSION
[2024-05-04 16:44] LABS: Acetaminophen < 10 ug/ml (10-30); Ethyl Alcohol < 10 mg/dl (0-10)
--- NOTE | 2024-05-04 16:49 | PC.NURSE ---
called report to michaelle alaniz on 2nd floor and answered questions
--- NOTE | 2024-05-04 17:02 | PC.NURSE ---
pt being transported to bed
[2024-05-04 17:27] LABS: Microscopic, Urine URINE MICROSCOPIC (MICROSCOPIC)
[2024-05-04 17:29] LABS: Appearance,Urine CLEAR (Clear); Blood, Urine 2+ (Negative); Color,Urine YELLOW (Yellow); Glucose,Urine (UA) Negative (Negative); Ketones,Urine 2+ (Negative); Leukocyte Esterase,Urine Negative (Negative); Nitrate,Urine Negative (Negative); Protein,Urine 2+ (Negative); Specific Gravity, Urine 1.015 (1.005-1.030); Urobilinogen,Urine 0.2 EU/dl (0.2)
[2024-05-04 17:31] LABS: Bilirubin,Urine 1+ (Negative)
[2024-05-04 17:41] LABS: Amphetamine/Metha Screen,Urine Negative ng/ml (<1000)
[2024-05-04 17:42] LABS: Bacteria,Urine 3+ /lpf; Barbiturates Screen,Urine Negative ng/ml (<200); Squamous Epithelial Cell,Urine 20-50 #/hpf (0-5)
[2024-05-04 17:43] LABS: Benzodiazepines Screen,Urine Negative ng/ml (<200)
[2024-05-04 17:44] LABS: Cannabinoid Screen,Urine Negative ng/ml (<50); Cocaine Screen,Urine Negative ng/ml (<300)
[2024-05-04 17:45] LABS: Methadone Screen,Urine Negative ng/ml (<300); Opiate Screen,Urine Positive ng/ml (<300)
[2024-05-04 17:46] LABS: Phencyclidine Screen,Urine Negative ng/ml (<25)
--- NOTE | 2024-05-04 17:50 | PC.NURSE ---
PT ALERT TO NAME, PLACE AND BIRTHDAY, UNAWARE OF THE DATE. PATIENT APPEARS VERY SLEEPY/LETHARGIC. SLOW TO ANSWER QUESTIONS. CURRENTLY ON 4LNC. NORMALLY WEARS 2L AT HOME WHILE SITTING. PT C/O GENERALIZED PAIN SPECIFICALLY IN HER BACK. HOME MEDICATIONS RECONCILED. PATIENT STATES SHE HAS FALLEN AT HOME MULTIPLE TIMES RECENTLY. FALL PREVENTION IN PLACE. PT PLACED ON CONTINUOUS PULSE OX. EATING DINNER NOW, NO OTHER NEEDS OR C/O THUS FAR. VSS.
[2024-05-04 18:00] LABS: C-Reactive Protein 397.1 mg/L (0-4); Procalcitonin 28.8 ng/mL (0.0-2.0)
[2024-05-04 18:49] LABS: Troponin I 2.26 ng/ml (0.00-0.034)
--- NOTE | 2024-05-04 19:05 | EXP.HP ---
History of Present Illness *Admission Date: 05/04/24 *Reason for visit:: Altered mental status *History of present illness: This is a 54-year-old female who presents to [facility] ED for evaluation of altered mental status, dyspnea and concerns with opioid use disorder. She was found down by family prior to arrival. EMS administered Narcan with improvement in mental status. They identified agitation. In the ED she was diaphoretic and hypoxemic with tachycardia. The patient reports a history of chronic opioid prescriptions and chronic hypoxic respiratory failure with recent pulmonology outpatient evaluation 04/15/2024. She reports that she is feeling better from her ED presentation. She denies associated retrosternal chest pain, palpitations or persistent confusion. She reports no associated headaches, visual disturbances or acute loss of motor or sensory experience. In the ED she met sepsis criteria and imaging identified right upper lobe infiltrate. She denies history of dysphagia, trouble swallowing food or coughing with food. Her initial troponin came back elevated. Her ECG identified sinus tachycardia with QTc 388 MS. PFSH PFS Medical History Chronic respiratory failure with hypoxia ILD (interstitial lung disease) Multiple lung nodules on CT Mediastinal lymphadenopathy Dizziness Family history of coronary artery disease Abnormal ECG Encounter for screening for malignant neoplasm of lung History of smoking 30 or more pack years COPD mixed type Surgical History History of cervical spinal surgery History of lumbar surgery History of cholecystectomy History of hysterectomy History of tonsillectomy Family History Other Asthma Cancer Diabetes Heart attack Stroke Social History Smoking Status: Former smoker tobacco type: cigarettes packs per day: 0 second hand exposure: No alcohol intake: never substance use type: denies use current occupational status: other Travel in the last 8 weeks: None household members: none housing: house current occupational exposures/hazards: No caffeine: Yes Review of Systems Review of Systems Review of systems:: pertinent systems reviewed and negative unless documented below Meds Home Medications and Allergies Home Medications ?Medication ?Instructions ?Recorded ?Confirmed ?Type gabapentin 300 mg capsule 900 mg PO QID Pain 12/08/17 05/04/24 History cyclobenzaprine 10 mg tablet 10 mg PO TID PRN muscle spasms 11/12/20 05/04/24 History diclofenac sodium 1 % topical gel 2 g topical QID 06/01/23 05/04/24 History bisoprolol fumarate 5 mg tablet 2.5 mg (1/2 x 5 mg) PO .at bedtime 09/21/23 05/04/24 Rx #30 tabs oxycodone 10 mg tablet 10 mg PO QID PRN Pain (Scale Score 12/28/23 05/04/24 History 4-6) albuterol sulfate 90 mcg/actuation See Rx Instructions .Route 05/01/24 05/04/24 Rx aerosol inhaler .COMPLEX #8.5 grams cetirizine 10 mg tablet See Rx Instructions .Route 05/01/24 05/04/24 Rx .COMPLEX #30 tabs estradiol 1 mg tablet See Rx Instructions .Route 05/01/24 05/04/24 Rx .COMPLEX #30 tabs fluticasone fur. 100 mcg-umeclid See Rx Instructions .Route 05/01/24 05/04/24 Rx 62.5 mcg-vilant 25 mcg .COMPLEX #60 blisters inhalat.powder (Trelegy Ellipta) fluticasone propionate 50 See Rx Instructions .Route 05/01/24 05/04/24 Rx mcg/actuation nasal .COMPLEX #16 grams spray,suspension ipratropium 0.5 mg-albuterol 3 mg See Rx Instructions .Route 05/01/24 05/04/24 Rx (2.5 mg base)/3 mL nebulization .COMPLEX #360 mL soln New Prescriptions to Start Prescriptions: Allergies Allergy/AdvReac Type Severity Reaction Status Date / Time baclofen Allergy Intermediate Verified 04/15/24 13:10 mold Allergy Intermediate Verified 04/15/24 13:10 Sulfa (Sulfonamide Allergy Unknown I-RASH Verified 04/15/24 13:10 Antibiotics) [SULFA (SULFONAMIDE ANTIBIOTICS)] sulfamethoxazole Allergy Verified 04/15/24 13:10 [From Bactrim] trimethoprim [From Bactrim] Allergy Verified 04/15/24 13:10 meloxicam AdvReac Unknown Verified 04/15/24 13:10 Exam Data for Last 24 hours Vital signs and Labs for Last 24 Hours: Temp Pulse Resp BP Pulse Ox O2 Del Method O2 Flow Rate 98.9 F 127 H 20 96/69 L 98 Nasal Cannula 4 05/04/24 17:05 05/04/24 17:05 05/04/24 17:05 05/04/24 17:05 05/04/24 17:05 05/04/24 18:32 05/04/24 18:32 Laboratory Results - last 24 hr 05/04/24 14:00: C-Reactive Protein 397.1 H, Procalcitonin 28.8 H 05/04/24 14:40: WBC 20.8 H*, RBC 4.17 L, Hgb 12.3, Hct 38.1, MCV 91.4, MCH 29.5, MCHC 32.2, RDW 13.0, Plt Count 261, MPV 8.8, Neut % (Auto) 91.2 H, Lymph % (Auto) 4.9 L, [place] % (Auto) 3.5, Eos % (Auto) 0.1, Baso % (Auto) 0.2, Neut # (Auto) 19.0 H, Lymph # (Auto) 1.0, [place] # (Auto) 0.7, Eos # (Auto) 0.0, Baso # (Auto) 0.1, Total Counted 100, Neutrophils % (Manual) 90 H, Lymphocytes % (Manual) 7 L, Monocytes % (Manual) 2, Eosinophils % (Manual) 1, Platelet Estimate Normal, Polychromasia 1+, [place] Cells 1+, Sodium 131 L, Potassium 3.8, Chloride 97 L, Carbon Dioxide 24, Anion Gap 13.8, BUN 30 H, Creatinine 1.30 H, Estimated Creat Clear 73, Estimated GFR 43 L, Est GFR ( Amer) 52 L, Glucose 155 H, Calcium 8.0 L, Total Bilirubin 1.1, AST 39 H, ALT 31, Alkaline Phosphatase 134 H, Troponin I 1.33 H, NT-Pro-B Natriuret Pep 2270 H, Total Protein 7.1, Albumin 3.8, Globulin 3.3 H, Albumin/Globulin Ratio 1.2, Lipase 23, TSH 0.68, Thyroxine (T4) 7.4, Salicylates < 1.0 L, Acetaminophen < 10 L, Plasma/Serum Alcohol < 10 05/04/24 14:50: Lactate 2.0 05/04/24 15:00: SARS-CoV-2 (PCR) Not detected, Influenza A Untype (PCR) Not detected, Influenza Type B (PCR) Not detected 05/04/24 15:21: VBG pH 7.39, VBG pCO2 33.1 L, VBG pO2 186.8 H, VBG HCO3 19.4 L, VBG Total CO2 20.4 L, VBG O2 Saturation 99.4 H, VBG Base Excess -5.6 L, VBG Lactic Acid 3.6 H 05/04/24 17:02: Urine Color Yellow, Urine Appearance Clear, Urine pH 6.0, Ur Specific [place] 1.015, Urine Protein 2+ A, Urine Glucose (UA) Negative, Urine Ketones 2+, Urine Blood 2+ A, Urine Nitrate Negative, Urine Bilirubin 1+ A, Urine Urobilinogen 0.2, Ur Leukocyte Esterase Negative, Urine RBC 5-10, Urine WBC 10-20, Ur Squamous Epith Cells 20-50, Urine Bacteria 3+, Urine Opiates Screen Positive H, Urine Methadone Screen Negative, Ur Barbituates Screen Negative, Ur Phencyclidine Scrn Negative, Ur Amphetamines Screen Negative, U Benzodiazepines Scrn Negative, Urine Cocaine Screen Negative, U Marijuana (THC) Screen Negative 05/04/24 18:00: Troponin I 2.26 H I & O for Last 24 hours: Intake & Output 05/01/24 05/02/24 05/03/24 05/04/24 23:59 23:59 23:59 23:59 Weight 92.221 kg Constitutional Constitutional: no acute distress, morbidly obese, chronically ill appearing, disheveled and cooperative *Routine HEENT Exam Head: Present normocephalic and atraumatic Eye: Present EOMI and PERRL ENT: Present mucous membranes moist *Routine Neck Exam Neck: Present trachea midline; Absent JVD or lymphadenopathy *Routine Respiratory Exam Respiratory: Present rhonchi, wheezes, crackles, normal respiratory effort and symmetric chest movement; Absent respiratory distress *Routine Cardiovascular Exam Cardiovascular: Present tachycardia *Routine Abdominal Exam Abdominal: Present soft and normoactive bowel sounds; Absent tenderness *Routine Rectal Exam Rectal:: deferred *Routine Genitalia Exam Genitalia:: deferred *Routine Extremities Exam Extremities: Present full ROM, pulses intact and normal capillary refill; Absent edema *Routine Skin Exam Skin: Present warm; Absent rash *Routine Neurological Exam Neurological: Present alert, oriented X3, moving all extremities, vision grossly intact, hearing grossly intact and normal speech; Absent sensory deficit or motor deficit Routine Psychiatric Exam Psychiatric: Present normal affect, normal thought process and cooperative Assessment and Plan *Assessment and plan (1) Severe sepsis: Status: Acute Category: Medical Code(s): A41.9 - Sepsis, unspecified organism; R65.20 - Severe sepsis without septic shock (2) Bacterial pneumonia: Status: Acute Category: Medical Code(s): J15.9 - Unspecified bacterial pneumonia (3) Acute on chronic hypoxic respiratory failure: Status: Acute Category: Medical Code(s): J96.21 - Acute and chronic respiratory failure with hypoxia (4) Tobacco dependence in remission: Status: Acute Category: Medical Code(s): F17.201 - Nicotine dependence, unspecified, in remission (5) Chronic, continuous use of opioids: Status: Acute Category: Medical Code(s): F11.90 - Opioid use, unspecified, uncomplicated (6) Opiate overdose: Status: Acute Category: Medical Code(s): T40.601A - Poisoning by unspecified narcotics, accidental (unintentional), initial encounter (7) DANDRE (acute kidney injury): Status: Acute Category: Medical Code(s): N17.9 - Acute kidney failure, unspecified (8) ILD (interstitial lung disease): Status: Acute Category: Medical Code(s): J84.9 - Interstitial pulmonary disease, unspecified (9) Multiple lung nodules on CT: Status: Acute Category: Medical Code(s): R91.8 - Other nonspecific abnormal finding of lung field (10) Non-ST elevation [place] (NSTEMI): Status: Acute Category: Medical Code(s): I21.4 - Non-ST elevation (NSTEMI) myocardial infarction (11) Peripheral vascular disease: Status: Acute Category: Medical Code(s): I73.9 - Peripheral vascular disease, unspecified Plan This is a 54-year-old female with COPD stage III/interstitial lung disease/tobacco dependence in remission on chronic opioid therapy who presents with concerns of opioid overdose, respiratory distress and concerns for aspiration pneumonia. Her troponin is elevated and she meets severe sepsis criteria. Problems addressed as follows: Severe sepsis, present on admission Tachypnea, tachycardia, leukocytosis, lactic acidosis, source on imaging IV fluid resuscitation with follow-up lactic acid Blood cultures pending Urine cultures pending COVID-19 negative Trending labs and inflammatory markers IV antibiotic therapy Acute on chronic hypoxic respiratory failure Bacterial pneumonia Concerns for aspiration Tobacco dependence in remission Pulmonary nodules Interstitial lung disease Stage III COPD Pulse oximetry monitoring Oxygen therapy to maintain appropriate oxygen saturations Currently requiring 4 L via NC (home O2 requirement 2 L) Pulmonology consult Chest x-ray reviewed with right upper lobe consolidation CTA chest: No PE, right upper lobe consolidation Trending labs and inflammatory markers Raine/Kayleigh inhalation therapy ICS therapy IV cefepime IV vancomycin Drug therapy requiring intensive monitoring for toxicity Routine peak and trough NSTEMI Peripheral vascular disease Telemetry monitoring Troponin trend upward ECG with sinus tach and no acute ST-T changes Cardiology consultation Echocardiogram ordered CTA A/P: Left common iliac artery 50% Aspirin 81 mg daily High-dose statin therapy P2Y12 inhibitor therapy Beta-cely therapy ARB therapy IV heparin therapy Drug therapy work on intensive monitoring for toxicity Routine PTT NTG as needed Parenterally administered controlled substance for comfort care Chronic opioid therapy Acute toxic encephalopathy resolved with Narcan administration Concerns for opioid use disorder Routine nursing interaction Benzodiazepine therapy Pharmacy assisting with dispense/fill rates Aspiration precautions Seizure precautions The length of stay for this patient will be 2 midnights or greater due to above diagnoses.
[2024-05-04 19:32] LABS: Reflex Lactic Add Lactic Reflex
[2024-05-04 19:50] LABS: PTT Heparin (inpatient only) 30.5 Seconds (50-75)
[2024-05-04] MEDS: 0.9 % SODIUM CHLORIDE 1000ML 1,000 ML 100 ML IV (20:19)
[2024-05-04] MEDS: CLOPIDOGREL 75MG TAB 75 MG PO (20:21)
[2024-05-04] MEDS: BISOPROLOL 5MG TABLET 2.5 MG PO (20:22)
[2024-05-04] MEDS: ATORVASTATIN 40MG TABLET 80 MG PO (20:23)
[2024-05-04] MEDS: HEPARIN SODIUM 5,000 UNIT/ML VIAL 4000 UNIT IV (20:23)
[2024-05-04] MEDS: HEPARIN SODIUM,PORCINE/D5W 500 ML 20 UNIT IV (20:33)
--- NOTE | 2024-05-04 21:05 | PC.NURSE ---
Ricki Cook APRN contacted at this time for possible reaction to medications given approx 2029. Pt presents with fever of 101.7, red face and skin hot to the touch, pt sweating and is SOB. New orders for Benadryl 25mg IV obtained, orders to monitor vitals and pt condition. Pt vitals obtained [id number], and tylenol given for fever.
[2024-05-04] MEDS: diphenhydrAMINE 50MG/ML VIAL 25 MG IV (21:13)
[2024-05-04] MEDS: ACETAMINOPHEN 325MG TAB 1000 MG PO (21:17)
[2024-05-04 21:39] LABS: Basophils % 0.1 % (0.1-2.0); Eosinophils # 0.1 K/mm3 (0.0-0.4); Eosinophils % 0.5 % (0.1-12.0); Hematocrit 28.4 % (37.0-47.0); Lymphocytes # 0.9 K/mm3 (0.7-4.5); Lymphocytes % 5.3 % (10-50); Mean Corpuscular HGB Conc 32.3 g/dL (31.8-35.4); Mean Corpuscular Hemoglobin 29.6 pg (27.0-31.2); Mean Corpuscular Volume 91.6 fl (81-99); Mean Platelet Volume 9.1 fl (7.4-10.4); Monocytes # 0.5 K/mm3 (0.1-1.0); Monocytes % 2.9 % (1.7-9.3); Neutrophils # 16.1 K/mm3 (1.8-7.8); Neutrophils % 91.2 % (37.0-80.0); Platelet Count 182 K/mm3 (142-424); Red Cell Distribution Width 12.9 % (11.5-17.5); White Blood Count 17.6 K/mm3 (4.8-10.8)
[2024-05-04 21:42] LABS: Alanine Aminotransferase 18 U/L (12-78); Albumin Level 3.2 g/dl (3.5-5.0); Alkaline Phosphatase 128 U/L (38-126); Anion Gap 10.4 mEq/L (5-15); Aspartate Amino Transferase 37 U/L (14-36); Bilirubin,Total 0.8 mg/dl (0.2-1.3); Blood Urea Nitrogen 23 mg/dl (7-17); Calcium 7.9 mg/dl (8.4-10.2); Carbon Dioxide 21 mmol/L (22.0-30.0); Chloride 102 mmol/L (98-107); Creatinine Clearance Estimated 94 mL/min (50-200); Estimated Glomerular Filt Rate 58 ml/min (>60); GFR (African American) 70 ML/MIN (>60); Globulin 3.3 g/dL (1.3-3.2); Glucose 146 mg/dl (74-100); Potassium 3.4 mmoL/L (3.5-5.1); Sodium 130 mmol/L (136-145); Total Protein,Serum 6.5 g/dl (6.3-8.2)
[2024-05-04 21:51] LABS: Hemoglobin 9.2 g/dL (12.2-16.2)
[2024-05-04 21:53] LABS: Troponin I 1.54 ng/ml (0.00-0.034)
[2024-05-04 22:22] LABS: Basophils # 0.1 K/mm3 (0-0.2); Basophils % 0.2 % (0.1-2.0); Eosinophils # 0.1 K/mm3 (0.0-0.4); Eosinophils % 0.2 % (0.1-12.0); Hematocrit 36.5 % (37.0-47.0); Lymphocytes # 1.3 K/mm3 (0.7-4.5); Lymphocytes % 5.3 % (10-50); Mean Corpuscular HGB Conc 32.5 g/dL (31.8-35.4); Mean Corpuscular Hemoglobin 30.3 pg (27.0-31.2); Mean Corpuscular Volume 93.3 fl (81-99); Mean Platelet Volume 9.2 fl (7.4-10.4); Monocytes # 0.8 K/mm3 (0.1-1.0); Monocytes % 3.3 % (1.7-9.3); Neutrophils # 22.8 K/mm3 (1.8-7.8); Neutrophils % 90.9 % (37.0-80.0); Platelet Count 223 K/mm3 (142-424); Red Blood Count 3.91 M/mm3 (4.20-5.40); Red Cell Distribution Width 12.8 % (11.5-17.5)
[2024-05-04 22:45] LABS: Hemoglobin 11.9 g/dL (12.2-16.2)
[2024-05-05] VITALS (12 sets, daily range): BP systolic 96–118; BP diastolic 54–70; PULSE 80–100; RESP 16–20; TEMP 36.4–36.9; O2SAT 89–100; BMI 35.9
[2024-05-05] MEDS: MORPHINE 2MG/ML SYRINGE 2 MG IV ×5 (00:50→20:49)
--- NOTE | 2024-05-05 04:42 | PC.NURSE ---
Pt is alert and oriented x4 and currently tolerating 3LNC and sating in mid to high 90s. At the beginning of this shift the pt was lethargic. Pt heparin bolus and heparin drip was started approx @ 2030 and this nurse noticed a reaction approx @ 2100,(see previous note), pt was treated per MAR. Pt has sweated profusely during this shift but states this is normal for her that she frequently has night sweats. Pt c/o of lower back pain this shift that she claims is from multiple surgeries, pt was treated per OCT. Pt denies needs and admits to feeling much better at this time.
[2024-05-05] MEDS: BUDESONIDE 0.5MG/2ML NEB 0.5 MG IH ×2 (06:24→18:19)
[2024-05-05] MEDS: IPRATROPIUM/ALBUTEROL 3 ML NEB IH ×4 (06:24→23:25)
--- NOTE | 2024-05-05 07:06 | EXP.EVENT.NO ---
Patient has started IV continuous heparin therapy for non-STEMI, along with the dual antiplatelet treatments. I was called by nurse at bedside concerned about anaphylactic reaction to the heparin. Patient seen and evaluated at bedside. Noted erythema on her face, high-grade fever, tachycardia. Heparin infusion was immediately stopped. Performed the 4T's score for estimating the pretest probability of heparin-induced thrombocytopenia. Platelet count dropped 30 to 50%, patient is core 4, resulting intermediate probability approximately 10%. Heparin antibody sent. Cardiac continuous vital sign monitoring. CBC every 4h, watch for platelets. Consulted with the on-call MD for alternative anticoagulation therapy. Lovenox full dose was initiated. 25 mg IV push Benadryl given. Patient improved symptoms Normalized vital signs and temperature
[2024-05-05 07:56] LABS: Basophils % 0.1 % (0.1-2.0); Eosinophils % 0.1 % (0.1-12.0); Hematocrit 32.5 % (37.0-47.0); Lymphocytes % 5.9 % (10-50); Mean Corpuscular HGB Conc 31.9 g/dL (31.8-35.4); Mean Corpuscular Hemoglobin 29.2 pg (27.0-31.2); Mean Corpuscular Volume 91.4 fl (81-99); Mean Platelet Volume 8.7 fl (7.4-10.4); Monocytes # 0.8 K/mm3 (0.1-1.0); Monocytes % 4.7 % (1.7-9.3); Neutrophils # 15.3 K/mm3 (1.8-7.8); Neutrophils % 89.2 % (37.0-80.0); Platelet Count 210 K/mm3 (142-424); Red Blood Count 3.56 M/mm3 (4.20-5.40); Red Cell Distribution Width 13.2 % (11.5-17.5); White Blood Count 17.1 K/mm3 (4.8-10.8)
[2024-05-05 08:01] LABS: Anion Gap 7.2 mEq/L (5-15); Blood Urea Nitrogen 21 mg/dl (7-17); Calcium 7.7 mg/dl (8.4-10.2); Carbon Dioxide 27 mmol/L (22.0-30.0); Chloride 105 mmol/L (98-107); Creatinine Clearance Estimated 121 mL/min (50-200); Estimated Glomerular Filt Rate 75 ml/min (>60); GFR (African American) 90 ML/MIN (>60); Glucose 131 mg/dl (74-100); Magnesium 2.6 mg/dl (1.6-2.3); Potassium 3.2 mmoL/L (3.5-5.1); Sodium 136 mmol/L (136-145)
[2024-05-05 08:06] LABS: Hemoglobin 10.4 g/dL (12.2-16.2)
[2024-05-05 08:07] LABS: MANUAL DIFFERENTIAL MANUAL DIFFERENTIAL (MANUAL DIFF)
--- NOTE | 2024-05-05 08:26 | P.PN_ITS ---
Subjective *Date: 05/05/24 *Time: 12:53 Interval history: The patient is seen and evaluated at bedside today. I am accompanied by nursing staff today (Eloy). Nursing staff report that she remains afebrile with stable vital signs and saturating appropriately on 2 L of oxygen via nasal cannula. The patient reports skin changes after starting IV heparin last evening. The pharmacy resource tech identified a HIT= 3 score to account for skin changes and sepsis presentation. Her platelet count dropped by~30%. Her heparin therapy was discontinued and she was started on Lovenox. Morning labs identified improved leukocytoses and normal creatinine. Echocardiogram is pending and cardiology is due to see the patient. She continues on IV antibiotic therapy. Her renal function has improved. And her leukocytosis is downward trending. Exam Data for Last 24 hours Vital signs and Labs for Last 24 Hours: Temp Pulse Resp BP Pulse Ox O2 Del Method O2 Flow Rate 97.8 F 84 16 118/61 98 Nasal Cannula 2 05/05/24 04:00 05/05/24 06:24 05/05/24 04:00 05/05/24 04:00 05/05/24 06:24 05/05/24 06:51 05/05/24 06:51 FiO2 36 05/04/24 23:50 Laboratory Results - last 24 hr 05/04/24 14:00: C-Reactive Protein 397.1 H, Procalcitonin 28.8 H 05/04/24 14:40: WBC 20.8 H*, RBC 4.17 L, Hgb 12.3, Hct 38.1, MCV 91.4, MCH 29.5, MCHC 32.2, RDW 13.0, Plt Count 261, MPV 8.8, Neut % (Auto) 91.2 H, Lymph % (Auto) 4.9 L, [place] % (Auto) 3.5, Eos % (Auto) 0.1, Baso % (Auto) 0.2, Neut # (Auto) 19.0 H, Lymph # (Auto) 1.0, [place] # (Auto) 0.7, Eos # (Auto) 0.0, Baso # (Auto) 0.1, Total Counted 100, Neutrophils % (Manual) 90 H, Lymphocytes % (Manual) 7 L, Monocytes % (Manual) 2, Eosinophils % (Manual) 1, Platelet Estimate Normal, Polychromasia 1+, [place] Cells 1+, Sodium 131 L, Potassium 3.8, Chloride 97 L, Carbon Dioxide 24, Anion Gap 13.8, BUN 30 H, Creatinine 1.30 H, Estimated Creat Clear 73, Estimated GFR 43 L, Est GFR ( Amer) 52 L, Glucose 155 H, Calcium 8.0 L, Total Bilirubin 1.1, AST 39 H, ALT 31, Alkaline Phosphatase 134 H, Troponin I 1.33 H, NT-Pro-B Natriuret Pep 2270 H, Total Protein 7.1, Albumin 3.8, Globulin 3.3 H, Albumin/Globulin Ratio 1.2, Lipase 23, TSH 0.68, Thyroxine (T4) 7.4, Salicylates < 1.0 L, Acetaminophen < 10 L, Plasma/Serum Alcohol < 10 05/04/24 14:50: Lactate 2.0 05/04/24 15:00: SARS-CoV-2 (PCR) Not detected, Influenza A Untype (PCR) Not detected, Influenza Type B (PCR) Not detected 05/04/24 15:21: VBG pH 7.39, VBG pCO2 33.1 L, VBG pO2 186.8 H, VBG HCO3 19.4 L, VBG Total CO2 20.4 L, VBG O2 Saturation 99.4 H, VBG Base Excess -5.6 L, VBG Lactic Acid 3.6 H 05/04/24 17:02: Urine Color Yellow, Urine Appearance Clear, Urine pH 6.0, Ur Specific [place] 1.015, Urine Protein 2+ A, Urine Glucose (UA) Negative, Urine Ketones 2+, Urine Blood 2+ A, Urine Nitrate Negative, Urine Bilirubin 1+ A, Urine Urobilinogen 0.2, Ur Leukocyte Esterase Negative, Urine RBC 5-10, Urine WBC 10-20, Ur Squamous Epith Cells 20-50, Urine Bacteria 3+, Urine Opiates Screen Positive H, Urine Methadone Screen Negative, Ur Barbituates Screen Negative, Ur Phencyclidine Scrn Negative, Ur Amphetamines Screen Negative, U Benzodiazepines Scrn Negative, Urine Cocaine Screen Negative, U Marijuana (THC) Screen Negative 05/04/24 17:53: Lactate 2.0 05/04/24 18:00: Troponin I 2.26 H 05/04/24 19:30: APTT 30.5 L 05/04/24 21:15: Sodium 130 L, Potassium 3.4 L, Chloride 102, Carbon Dioxide 21 L , Anion Gap 10.4, BUN 23 H, Creatinine 1.00 D, Estimated Creat Clear 94, Estimated GFR 58 L, Est GFR ( Amer) 70 D, Glucose 146 H, Calcium 7.9 L, Total Bilirubin 0.8, AST 37 H, ALT 18 D, Alkaline Phosphatase 128 H, Troponin I 1.54 H, Total Protein 6.5, Albumin 3.2 L D, Globulin 3.3 H, Albumin/Globulin Ratio 1.0 L 05/04/24 21:30: WBC 17.6 H, RBC 3.10 L D, Hgb 9.2 L D, Hct 28.4 L, MCV 91.6, MCH 29.6, MCHC 32.3, RDW 12.9, Plt Count 182 D, MPV 9.1, Neut % (Auto) 91.2 H, Lymph % (Auto) 5.3 L, [place] % (Auto) 2.9, Eos % (Auto) 0.5, Baso % (Auto) 0.1, Neut # (Auto) 16.1 H, Lymph # (Auto) 0.9, [place] # (Auto) 0.5, Eos # (Auto) 0.1, Baso # (Auto) 0.0 05/04/24 22:15: WBC 25.0 H* D, RBC 3.91 L D, Hgb 11.9 L D, Hct 36.5 L, MCV 93.3, MCH 30.3, MCHC 32.5, RDW 12.8, Plt Count 223, MPV 9.2, Neut % (Auto) 90.9 H, Lymph % (Auto) 5.3 L, [place] % (Auto) 3.3, Eos % (Auto) 0.2, Baso % (Auto) 0.2, Neut # (Auto) 22.8 H, Lymph # (Auto) 1.3, [place] # (Auto) 0.8, Eos # (Auto) 0.1, Baso # (Auto) 0.1 05/05/24 07:15: WBC 17.1 H D, RBC 3.56 L, Hgb 10.4 L D, Hct 32.5 L, MCV 91.4, MCH 29.2, MCHC 31.9, RDW 13.2, Plt Count 210, MPV 8.7, Neut % (Auto) 89.2 H, Lymph % (Auto) 5.9 L, [place] % (Auto) 4.7, Eos % (Auto) 0.1, Baso % (Auto) 0.1, Neut # (Auto) 15.3 H, Lymph # (Auto) 1.0, [place] # (Auto) 0.8, Eos # (Auto) 0.0, Baso # (Auto) 0.0, Sodium 136, Potassium 3.2 L, Chloride 105, Carbon Dioxide 27, Anion Gap 7.2, BUN 21 H, Creatinine 0.80, Estimated Creat Clear 121, Estimated GFR 75, Est GFR ( Amer) 90 D, Glucose 131 H, Calcium 7.7 L, Magnesium 2.6 H I & O for Last 24 hours: Intake & Output 05/02/24 05/03/24 05/04/24 05/05/24 23:59 23:59 23:59 23:59 Intake Total 880 / 880 Balance 880 / 880 Weight 92.221 kg 95.617 kg Constitutional Constitutional: no acute distress, morbidly obese, chronically ill appearing, disheveled and cooperative *Routine HEENT Exam Head: Present normocephalic and atraumatic Eye: Present EOMI and PERRL ENT: Present mucous membranes moist *Routine Neck Exam Neck: Present trachea midline; Absent JVD or lymphadenopathy *Routine Respiratory Exam Respiratory: Present rhonchi, normal respiratory effort and symmetric chest movement; Absent respiratory distress *Routine Cardiovascular Exam Cardiovascular: Present RRR; Absent murmur *Routine Abdominal Exam Abdominal: Present soft and normoactive bowel sounds; Absent tenderness *Routine Extremities Exam Extremities: Present full ROM, pulses intact and normal capillary refill; Absent edema *Routine Skin Exam Skin: Present dry and warm; Absent urticaria or rash *Routine Neurological Exam Neurological: Present alert, oriented X3, moving all extremities, vision grossly intact, hearing grossly intact and normal speech; Absent sensory deficit or motor deficit Routine Psychiatric Exam Psychiatric: Present normal affect, normal thought process and cooperative Assessment and Plan *Assessment and plan (1) Severe sepsis: Status: Acute Category: Medical Code(s): A41.9 - Sepsis, unspecified organism; R65.20 - Severe sepsis without septic shock (2) Bacterial pneumonia: Status: Acute Category: Medical Code(s): J15.9 - Unspecified bacterial pneumonia (3) Acute on chronic hypoxic respiratory failure: Status: Acute Category: Medical Code(s): J96.21 - Acute and chronic respiratory failure with hypoxia (4) Tobacco dependence in remission: Status: Acute Category: Medical Code(s): F17.201 - Nicotine dependence, unspecified, in remission (5) Chronic, continuous use of opioids: Status: Acute Category: Medical Code(s): F11.90 - Opioid use, unspecified, uncomplicated (6) Opiate overdose: Status: Acute Category: Medical Code(s): T40.601A - Poisoning by unspecified narcotics, accidental (unintentional), initial encounter (7) DANDRE (acute kidney injury): Status: Acute Category: Medical Code(s): N17.9 - Acute kidney failure, unspecified (8) ILD (interstitial lung disease): Status: Acute Category: Medical Code(s): J84.9 - Interstitial pulmonary disease, unspecified (9) Multiple lung nodules on CT: Status: Acute Category: Medical Code(s): R91.8 - Other nonspecific abnormal finding of lung field (10) Non-ST elevation [place] (NSTEMI): Status: Acute Category: Medical Code(s): I21.4 - Non-ST elevation (NSTEMI) myocardial infarction (11) Peripheral vascular disease: Status: Acute Category: Medical Code(s): I73.9 - Peripheral vascular disease, unspecified Plan This is a 54-year-old female with COPD stage III/interstitial lung disease/tobacco dependence in remission on chronic opioid therapy who presents with concerns of opioid overdose, respiratory distress and concerns for aspiration pneumonia. Her troponin is elevated and she meets severe sepsis criteria. Problems addressed as follows: Severe sepsis, present on admission Tachypnea, tachycardia, leukocytosis, lactic acidosis, source on imaging IV fluid resuscitation with follow-up lactic acid 2.0 Blood cultures pending Urine cultures pending COVID-19 negative Trending labs and inflammatory markers IV antibiotic therapy Acute on chronic hypoxic respiratory failure Bacterial pneumonia Concerns for aspiration Tobacco dependence in remission Pulmonary nodules Interstitial lung disease Stage III COPD Pulse oximetry monitoring Oxygen therapy to maintain appropriate oxygen saturations Currently requiring 2 L via [place] (home O2 requirement 2 L) Pulmonology consult Chest x-ray reviewed with right upper lobe consolidation CTA chest: No PE, right upper lobe consolidation Trending labs and inflammatory markers Raine/Akyleigh inhalation therapy ICS therapy IV cefepime IV vancomycin Drug therapy requiring intensive monitoring for toxicity Routine peak and trough NSTEMI Peripheral vascular disease Telemetry monitoring Troponin trend downward ECG with sinus tach and no acute ST-T changes Cardiology consultation Echocardiogram ordered CTA A/P: Left common iliac artery 50% Aspirin 81 mg daily High-dose statin therapy P2Y12 inhibitor therapy Beta-cely therapy ARB therapy Lovenox 1 mg/kg every 12 Avoiding heparin therapy with HIT=3 NTG as needed Parenterally administered controlled substance for comfort care Acute kidney injury-resolved Baseline creatinine 0.7 Trending electrolytes and creatinine Fluid resuscitation Avoiding NSAIDs Chronic opioid therapy Acute toxic encephalopathy resolved with Narcan administration Concerns for opioid use disorder Routine nursing interaction Benzodiazepine therapy Pharmacy assisting with dispense/fill rates Aspiration precautions Seizure precautions Case management consult for counseling and resources The patient is hospitalized day 1 with above diagnoses complicated by her opioid use disorder. We appreciate pre owned sales consultant evaluations and recommendations. Case management is assisting with discharge planning. Barriers to discharge currently include pre owned sales consultant recommendations and anticipated procedural intervention. Expected day of discharge cannot be determined at present time.
[2024-05-05 08:31] LABS: Eosinophils % 1 % (0-3); Lymphocytes % 6 % (10-50); Monocytes % 4 % (2-9); Neutrophils % 89 % (42-76); Platelet Estimate Normal; RBC Morphology Normal; Total Cells Counted 100
--- NOTE | 2024-05-05 08:35 | P.CONPHA_ITS ---
Pharmacy Consult Date: 05/05/24 Time: 08:36 Referring provider: DR. DAMON Reason for Consult:: VANCOMYCIN DOSING Allergies Allergy/AdvReac Type Severity Reaction Status Date / Time baclofen Allergy Intermediate Verified 04/15/24 13:10 mold Allergy Intermediate Verified 04/15/24 13:10 Sulfa (Sulfonamide Allergy Unknown I-RASH Verified 04/15/24 13:10 Antibiotics) [SULFA (SULFONAMIDE ANTIBIOTICS)] sulfamethoxazole Allergy Verified 04/15/24 13:10 [From Bactrim] trimethoprim [From Bactrim] Allergy Verified 04/15/24 13:10 meloxicam AdvReac Unknown Verified 04/15/24 13:10 Home Medications ?Medication ?Instructions ?Recorded ?Confirmed ?Type gabapentin 300 mg capsule 900 mg PO QID Pain 12/08/17 05/04/24 History cyclobenzaprine 10 mg tablet 10 mg PO TID PRN muscle spasms 11/12/20 05/04/24 History diclofenac sodium 1 % topical gel 2 g topical QID 06/01/23 05/04/24 History bisoprolol fumarate 5 mg tablet 2.5 mg (1/2 x 5 mg) PO .at bedtime 09/21/23 05/04/24 Rx #30 tabs oxycodone 10 mg tablet 10 mg PO QID PRN Pain (Scale Score 12/28/23 05/04/24 History 4-6) albuterol sulfate 90 mcg/actuation See Rx Instructions .Route 05/01/24 05/04/24 Rx aerosol inhaler .COMPLEX #8.5 grams cetirizine 10 mg tablet See Rx Instructions .Route 05/01/24 05/04/24 Rx .COMPLEX #30 tabs estradiol 1 mg tablet See Rx Instructions .Route 05/01/24 05/04/24 Rx .COMPLEX #30 tabs fluticasone fur. 100 mcg-umeclid See Rx Instructions .Route 05/01/24 05/04/24 Rx 62.5 mcg-vilant 25 mcg .COMPLEX #60 blisters inhalat.powder (Trelegy Ellipta) fluticasone propionate 50 See Rx Instructions .Route 05/01/24 05/04/24 Rx mcg/actuation nasal .COMPLEX #16 grams spray,suspension ipratropium 0.5 mg-albuterol 3 mg See Rx Instructions .Route 05/01/24 05/04/24 Rx (2.5 mg base)/3 mL nebulization .COMPLEX #360 mL soln New Prescriptions to Start Prescriptions: Height: 1.63 m Weight: 95.617 kg Laboratory Results:: Laboratory Results - last 24 hr 05/04/24 14:00: C-Reactive Protein 397.1 H, Procalcitonin 28.8 H 05/04/24 14:40: WBC 20.8 H*, RBC 4.17 L, Hgb 12.3, Hct 38.1, MCV 91.4, MCH 29.5, MCHC 32.2, RDW 13.0, Plt Count 261, MPV 8.8, Neut % (Auto) 91.2 H, Lymph % (Auto) 4.9 L, Walker % (Auto) 3.5, Eos % (Auto) 0.1, Baso % (Auto) 0.2, Neut # (Auto) 19.0 H, Lymph # (Auto) 1.0, Walker # (Auto) 0.7, Eos # (Auto) 0.0, Baso # (Auto) 0.1, Total Counted 100, Neutrophils % (Manual) 90 H, Lymphocytes % (Manual) 7 L, Monocytes % (Manual) 2, Eosinophils % (Manual) 1, Platelet Estimate Normal, Polychromasia 1+, Laura Cells 1+, Sodium 131 L, Potassium 3.8, Chloride 97 L, Carbon Dioxide 24, Anion Gap 13.8, BUN 30 H, Creatinine 1.30 H, Estimated Creat Clear 73, Estimated GFR 43 L, Est GFR ( Amer) 52 L, Glucose 155 H, Calcium 8.0 L, Total Bilirubin 1.1, AST 39 H, ALT 31, Alkaline Phosphatase 134 H, Troponin I 1.33 H, NT-Pro-B Natriuret Pep 2270 H, Total Pro tein 7.1, Albumin 3.8, Globulin 3.3 H, Albumin/Globulin Ratio 1.2, Lipase 23, TSH 0.68, Thyroxine (T4) 7.4, Salicylates < 1.0 L, Acetaminophen < 10 L, Plasma/Serum Alcohol < 10 05/04/24 14:50: Lactate 2.0 05/04/24 15:00: SARS-CoV-2 (PCR) Not detected, Influenza A Untype (PCR) Not dete cted, Influenza Type B (PCR) Not detected 05/04/24 15:21: VBG pH 7.39, VBG pCO2 33.1 L, VBG pO2 186.8 H, VBG HCO3 19.4 L, VBG Total CO2 20.4 L, VBG O2 Saturation 99.4 H, VBG Base Excess -5.6 L, VBG Lactic Acid 3.6 H 05/04/24 17:02: Urine Color Yellow, Urine Appearance Clear, Urine pH 6.0, Ur Specific [place] 1.015, Urine Protein 2+ A, Urine Glucose (UA) Negative, Urine Ketones 2+, Urine Blood 2+ A, Urine Nitrate Negative, Urine Bilirubin 1+ A, Urine Urobilinogen 0.2, Ur Leukocyte Esterase Negative, Urine RBC 5-10, Urine WBC 10-20, Ur Squamous Epith Cells 20-50, Urine Bacteria 3+, Urine Opiates Screen Positive H, Urine Methadone Screen Negative, Ur Barbituates Screen Negative, Ur Phencyclidine Scrn Negative, Ur Amphetamines Screen Negative, U Benzodiazepines Scrn Negative, Urine Cocaine Screen Negative, U Marijuana (THC) Screen Negative 05/04/24 17:53: Lactate 2.0 05/04/24 18:00: Troponin I 2.26 H 05/04/24 19:30: APTT 30.5 L 05/04/24 21:15: Sodium 130 L, Potassium 3.4 L, Chloride 102, Carbon Dioxide 21 L , Anion Gap 10.4, BUN 23 H, Creatinine 1.00 D, Estimated Creat Clear 94, Estimated GFR 58 L, Est GFR ( Amer) 70 D, Glucose 146 H, Calcium 7.9 L, Total Bilirubin 0.8, AST 37 H, ALT 18 D, Alkaline Phosphatase 128 H, Troponin I 1.54 H, Total Protein 6.5, Albumin 3.2 L D, Globulin 3.3 H, Albumin/Globulin Ratio 1.0 L 05/04/24 21:30: WBC 17.6 H, RBC 3.10 L D, Hgb 9.2 L D, Hct 28.4 L, MCV 91.6, MCH 29.6, MCHC 32.3, RDW 12.9, Plt Count 182 D, MPV 9.1, Neut % (Auto) 91.2 H, Lymph % (Auto) 5.3 L, Walker % (Auto) 2.9, Eos % (Auto) 0.5, Baso % (Auto) 0.1, Neut # (Auto) 16.1 H, Lymph # (Auto) 0.9, Walker # (Auto) 0.5, Eos # (Auto) 0.1, Baso # (Auto) 0.0 05/04/24 22:15: WBC 25.0 H* D, RBC 3.91 L D, Hgb 11.9 L D, Hct 36.5 L, MCV 93.3, MCH 30.3, MCHC 32.5, RDW 12.8, Plt Count 223, MPV 9.2, Neut % (Auto) 90.9 H, Lymph % (Auto) 5.3 L, Walker % (Auto) 3.3, Eos % (Auto) 0.2, Baso % (Auto) 0.2, Neut # (Auto) 22.8 H, Lymph # (Auto) 1.3, Walker # (Auto) 0.8, Eos # (Auto) 0.1, Baso # (Auto) 0.1 05/05/24 07:15: WBC 17.1 H D, RBC 3.56 L, Hgb 10.4 L D, Hct 32.5 L, MCV 91.4, MCH 29.2, MCHC 31.9, RDW 13.2, Plt Count 210, MPV 8.7, Neut % (Auto) 89.2 H, Lymph % (Auto) 5.9 L, Walker % (Auto) 4.7, Eos % (Auto) 0.1, Baso % (Auto) 0.1, Neut # (Auto) 15.3 H, Lymph # (Auto) 1.0, Walker # (Auto) 0.8, Eos # (Auto) 0.0, Baso # (Auto) 0.0, Total Counted 100, Neutrophils % (Manual) 89 H, Lymphocytes % (Manual) 6 L, Monocytes % (Manual) 4, Eosinophils % (Manual) 1, Platelet Estimate Normal, RBC Morphology Normal, Sodium 136, Potassium 3.2 L, Chloride 105, Carbon Dioxide 27, Anion Gap 7.2, BUN 21 H, Creatinine 0.80, Estimated Creat Clear 121, Estimated GFR 75, Est GFR ( Amer) 90 D, Glucose 131 H, Calcium 7.7 L, Magnesium 2.6 H Medical History: Medical History (Updated 05/04/24 @ 19:14 by Cachorro Damon MD) Chronic respiratory failure with hypoxia ILD (interstitial lung disease) Multiple lung nodules on CT Mediastinal lymphadenopathy Dizziness Family history of coronary artery disease Abnormal ECG Encounter for screening for malignant neoplasm of lung History of smoking 30 or more pack years COPD mixed type Assessment and Plan Assessment and plan all Dx Assessment and Plan for all problems:: Pharmacokinetic dosing service Objective: Patient: Floor: Age: 54 yo Serum creatinine: 0.80 mg/dL Height: 64.2 Inches Weight (kg): 95.6 Assessment: IBW (kg): 55.16 Dosing wt(kg): 95.6 Estimated Creatinine clearance (ml/min): 70.0 CRCL method: Cockcroft and Gault using ibw(default). Drug selected: Vancomycin Loading dose (mg): Vd (liters): 76.5 (factor used: 0.8 L/kg) Mickey (hr-1): 0.062 Half life (hrs): 11.18 CLvanco=?? 4.743 L/hr Recommended dose: 2000 mg Interval: 18 hrs Infusion time (hrs): 2.0 Predicted peak (mcg/mL): 36.6 Predicted trough (mcg/mL): 13.57 Total body weight is being used for vancomycin dosing. Recommendations: Give Vancomycin 2000 mg q 18 hrs with an expected Cpeak of 36.6 mcg/ml and an expected Ctrough of 13.57 mcg/ml AUC 0-24 /SOPHY Data: SOPHY 0.5 mcg/mL:?? AUC/SOPHY:? 1124.5 SOPHY 1.0 mcg/mL:?? AUC/SOPHY:? 562.2 --------- SOPHY 1.5 mcg/mL:?? AUC/SOPHY:? 374.8 SOPHY 2.0 mcg/mL:?? AUC/SOPHY:? 281.1 Thank you for the consult, will continue to follow. -GERMAN BERNARDO, KILOD
[2024-05-05] MEDS: ENOXAPARIN 100MG/ML SYRINGE 95 MG SQ ×2 (08:46→20:49)
[2024-05-05] MEDS: CLOPIDOGREL 75MG TAB 75 MG PO (08:46)
[2024-05-05] MEDS: ASPIRIN EC 81MG TABLET 81 MG PO (08:46)
[2024-05-05] MEDS: DOCUSATE SODIUM 100 MG CAPSULE PO (08:46)
[2024-05-05] MEDS: PANTOPRAZOLE 40MG TABLET 40 MG PO (08:46)
[2024-05-05] MEDS: 0.9 % SODIUM CHLORIDE 1000ML 1,000 ML 100 ML IV ×2 (08:50→23:29)
--- NOTE | 2024-05-05 08:50 | HMH.PHAINT1 ---
Pharmacy Intervention Comments: MEDICATION RECONCILIATION COMPLETED ON PATIENT USING EXTERNAL FILL HISTORY FROM PHARMACY AND LIST FROM CARDIOLOGY OFFICE. -GERMAN BERNARDO, KILOD
[2024-05-05] MEDS: BISOPROLOL 5MG TABLET 2.5 MG PO (08:55)
[2024-05-05] MEDS: IRBESARTAN 75MG TABLET 75 MG PO (08:55)
[2024-05-05] MEDS: CALCIUM CARB + VIT D 500MG TAB 500 MG PO ×2 (08:56→20:49)
[2024-05-05] MEDS: POTASSIUM CHLORIDE 20MEQ TAB 40 MEQ PO ×2 (08:57→20:49)
[2024-05-05] MEDS: VANCOMYCIN HCL 2,000 MG in 0.9 % SODIUM CHLORIDE 250 ML 125 MG IV (10:55)
[2024-05-05 12:06] LABS: Adenovirus F 40/41, stool Not Detected (NotDetected); Astrovirus Not Detected (NotDetected); Campylobacter Not Detected (NotDetected); Clostridium Difficile A/B, PCR Not Detected (NotDetected); Cryptosporidium Not Detected (NotDetected); Cyclospora Cayetanesis Not Detected (NotDetected); Entamoeba histolytica Not Detected (NotDetected); Enteroaggregative E coli Not Detected (NotDetected); Enteropathogenic E coli Not Detected (NotDetected); Enterotoxigenic E coli Not Detected (NotDetected); Giardia lamblia Not Detected (NotDetected); Norovirus Not Detected (NotDetected); Plesimonas Shigalloides, PCR Not Detected (NotDetected); Rotavirus A Not Detected (NotDetected); Salmonella, PCR Not Detected (NotDetected); Sapovirus Not Detected (NotDetected); Shiga-like toxin E coli Not Detected (NotDetected); Shigella Enterovasive E coli Not Detected (NotDetected); Vibrio Cholerae Not Detected (NotDetected); Vibrio, PCR Not Detected (NotDetected); Yersinia Entercolitica, PCR Not Detected (NotDetected)
[2024-05-05] MEDS: CEFEPIME HCL 2 GM in 0.9 % SODIUM CHLORIDE 100 ML IV ×2 (13:37→17:51)
--- NOTE | 2024-05-05 17:42 | PC.NURSE ---
A&OX4. TOLERATING 1 LNC WELL AT THIS TIME. PATIENT HAS SLEPT MAJORITY OF SHIFT. IS AMBULATORY TO THE BATHROOM WITH X1 ASSIST. PATIENT HAS C/O INTERMITTENT BACK PAIN, TX PER OCT. EFFECTIVENESS NOTED. PT STATES THAT SHE JUST DOESN'T FEEL GOOD, BUT DOES FEEL BETTER THAN YESTERDAY. HAS HAD MULTIPLE EPISODES OF DIARRHEA, STOOL SAMPLE COLLECTED AND SENT, CAME BACK NEGATIVE. HAS NO OTHER NEEDS OR C/O THUS FAR THIS SHIFT. VSS.
[2024-05-05] MEDS: ATORVASTATIN 40MG TABLET 80 MG PO (20:49)
[2024-05-05] MEDS: OXAZEPAM 10 MG CAPSULE PO (23:30)
[2024-05-05] MEDS: OXYCODONE 5MG IMMEDIATE RELEASE TABLET 5 MG PO (23:30)
--- NOTE | 2024-05-05 23:39 | PC.NURSE ---
Pt presents with anxiety and severe pain rating pain 10/10, pt treated per OCT.
[2024-05-06] VITALS (13 sets, daily range): BP systolic 103–135; BP diastolic 58–78; PULSE 77–100; RESP 16–18; TEMP 36.6–37.2; O2SAT 96–99; BMI 36.7
[2024-05-06] MEDS: CEFEPIME HCL 2 GM in 0.9 % SODIUM CHLORIDE 100 ML IV ×3 (02:25→17:34)
[2024-05-06] MEDS: VANCOMYCIN HCL 2,000 MG in 0.9 % SODIUM CHLORIDE 250 ML 125 MG IV (03:55)
--- NOTE | 2024-05-06 05:18 | PC.NURSE ---
Pt is alert and oriented x4 and currently tolerating 1L of O2 well. Pt has c/o pain this shift and presented with restlessness and anxiety pt was treated per MAR. Pt denies pain and needs at this time and has had no other acute changes to note this shift
[2024-05-06] MEDS: BUDESONIDE 0.5MG/2ML NEB 0.5 MG IH (05:57)
[2024-05-06] MEDS: IPRATROPIUM/ALBUTEROL 3 ML NEB IH ×3 (05:57→21:20)
[2024-05-06] MEDS: SODIUM CHLORIDE 3% 15ML NEB 3 ML IH (05:57)
[2024-05-06] MEDS: OXYCODONE 5MG IMMEDIATE RELEASE TABLET 5 MG PO ×3 (06:46→20:42)
--- NOTE | 2024-05-06 08:12 | P.PN_ITS ---
Subjective *Date: 05/06/24 *Time: 15:44 Interval history: The patient is seen and examined at bedside today. I am accompanied by her nurse Priscilla. Nursing staff report that she remains afebrile with stable vital signs and saturating appropriately on 1 L of oxygen via nasal cannula. Pb ford continues to tolerate her antibiotic therapy with no adverse events. Cardiology has evaluated the patient and has recommended a nonprocedural/interventional course. Pulmonology has evaluated the patient and is recommended de-escalating antibiotic coverage. The patient is inquiring about discharge home. Exam Data for Last 24 hours Vital signs and Labs for Last 24 Hours: Temp Pulse Resp BP Pulse Ox O2 Del Method O2 Flow Rate 98.1 F 82 16 103/70 L 96 Nasal Cannula 1 05/06/24 04:00 05/06/24 06:56 05/06/24 04:00 05/06/24 04:00 05/06/24 06:00 05/06/24 07:00 05/06/24 07:00 FiO2 28 05/05/24 18:49 Laboratory Results - last 24 hr 05/05/24 07:15: Total Counted 100, Neutrophils % (Manual) 89 H, Lymphocytes % (Manual) 6 L, Monocytes % (Manual) 4, Eosinophils % (Manual) 1, Platelet Estimate Normal, RBC Morphology Normal 05/05/24 11:43: Stl Aeromonas (PCR) Not detected, Stl C. cayetanensis PCR Not detected, Stool Rotavirus (PCR) Not detected, Stl Adenov F 40/41 PCR Not detected, Stool Astrovirus (PCR) Not detected, Stool Campylobacter PCR Not detected, Stl C.difficile Tox PCR Not detected, Stool Cryptosporidium PCR Not d etected, Stl E.coli Shiga Tox PCR Not detected, Stool E coli O157 PCR Not detected, Stl Enterotoxigenic E PCR Not detected, Stool EPEC (PCR) Not detected, Stool EAEC (PCR) Not detected, Stl E. histolytica PCR Not detected, Stool Giardia Lamblia PCR Not detected, Stool Salmonella PCR Not detected, Stool Sapovirus (PCR) Not detected, Stl P. shigelloides PCR Not detected, Stl Shigella/EIEC PCR Not detected, St Y.enterocolitica PCR Not detected, Stool Vibrio (PCR) Not detected, Stl Vibrio cholerae PCR Not detected, Stl Norovirus GI/GII PCR Not detected I & O for Last 24 hours: Intake & Output 05/03/24 05/04/24 05/05/24 05/06/24 23:59 23:59 23:59 23:59 Intake Total 2099 Output Total 0 / 0 0 / 0 Balance 2099 0 / 0 Weight 92.221 kg 95.617 kg 97.568 kg Microbiology Reports for the Last 24 Hours: Microbiology 05/04/24 17:02 Urine,Clean Catch Urine Culture - Final 05/04/24 18:10 Blood Blood Culture - Preliminary NO GROWTH AFTER 24 HOURS 05/04/24 18:00 Blood Blood Culture - Preliminary NO GROWTH AFTER 24 HOURS Constitutional Constitutional: no acute distress, morbidly obese, chronically ill appearing, disheveled and cooperative *Routine HEENT Exam Head: Present normocephalic and atraumatic Eye: Present EOMI and PERRL ENT: Present mucous membranes moist *Routine Neck Exam Neck: Present trachea midline; Absent JVD or lymphadenopathy *Routine Respiratory Exam Respiratory: Present rhonchi, normal respiratory effort and symmetric chest movement; Absent respiratory distress *Routine Cardiovascular Exam Cardiovascular: Present RRR; Absent murmur *Routine Abdominal Exam Abdominal: Present soft and normoactive bowel sounds; Absent tenderness *Routine Extremities Exam Extremities: Present full ROM, pulses intact and normal capillary refill; Absent edema *Routine Skin Exam Skin: Present dry and warm; Absent urticaria or rash *Routine Neurological Exam Neurological: Present alert, oriented X3, moving all extremities, vision grossly intact, hearing grossly intact and normal speech; Absent sensory deficit or motor deficit Routine Psychiatric Exam Psychiatric: Present normal affect, normal thought process and cooperative Assessment and Plan *Assessment and plan (1) Severe sepsis: Status: Acute Category: Medical Code(s): A41.9 - Sepsis, unspecified organism; R65.20 - Severe sepsis without septic shock (2) Bacterial pneumonia: Status: Acute Category: Medical Code(s): J15.9 - Unspecified bacterial pneumonia (3) Acute on chronic hypoxic respiratory failure: Status: Acute Category: Medical Code(s): J96.21 - Acute and chronic respiratory failure with hypoxia (4) Tobacco dependence in remission: Status: Acute Category: Medical Code(s): F17.201 - Nicotine dependence, unspecified, in remission (5) Chronic, continuous use of opioids: Status: Acute Category: Medical Code(s): F11.90 - Opioid use, unspecified, uncomplicated (6) Opiate overdose: Status: Acute Category: Medical Code(s): T40.601A - Poisoning by unspecified narcotics, accidental (unintentional), initial encounter (7) DANDRE (acute kidney injury): Status: Acute Category: Medical Code(s): N17.9 - Acute kidney failure, unspecified (8) ILD (interstitial lung disease): Status: Acute Category: Medical Code(s): J84.9 - Interstitial pulmonary disease, unspecified (9) Multiple lung nodules on CT: Status: Acute Category: Medical Code(s): R91.8 - Other nonspecific abnormal finding of lung field (10) Non-ST elevation [place] (NSTEMI): Status: Acute Category: Medical Code(s): I21.4 - Non-ST elevation (NSTEMI) myocardial infarction (11) Peripheral vascular disease: Status: Acute Category: Medical Code(s): I73.9 - Peripheral vascular disease, unspecified Plan This is a 54-year-old female with COPD stage III/interstitial lung disease/tobacco dependence in remission on chronic opioid therapy who presents with concerns of opioid overdose, respiratory distress and concerns for aspiration pneumonia. Her troponin is elevated and she meets severe sepsis criteria. Problems addressed as follows: Severe sepsis, present on admission Tachypnea, tachycardia, leukocytosis, lactic acidosis, source on imaging IV fluid resuscitation with follow-up lactic acid 2.0 Blood cultures no growth to date Urine cultures no growth to date COVID-19 negative Trending labs and inflammatory markers IV antibiotic therapy Acute on chronic hypoxic respiratory failure Bacterial pneumonia Concerns for aspiration Tobacco dependence in remission Pulmonary nodules Interstitial lung disease Stage III COPD Pulse oximetry monitoring Oxygen therapy to maintain appropriate oxygen saturations Currently requiring 1 L via NC (home O2 requirement 2 L) Pulmonology consult reviewed Chest x-ray reviewed with right upper lobe consolidation CTA chest: No PE, right upper lobe consolidation Trending labs and inflammatory markers with leukocytoses resolved Raine/Kayleigh inhalation therapy ICS therapy IV cefepime day 3 NSTEMI Peripheral vascular disease Telemetry monitoring Troponin trend downward ECG with sinus tach and no acute ST-T changes Cardiology consultation reviewed with nonprocedural approach recommended Echo: EF 50%, MR, PI, LV wall thickness at apex CTA A/P: Left common iliac artery 50% Aspirin 81 mg daily High-dose statin therapy P2Y12 inhibitor therapy Beta-cely therapy ARB therapy Lovenox 1 mg/kg every 12 de-escalated to VTE prophylaxis Avoiding heparin therapy with HIT=3 NTG as needed Parenterally administered controlled substance for comfort care Acute kidney injury-resolved Baseline creatinine 0.7 Trending electrolytes and creatinine Fluid resuscitation Avoiding NSAIDs Chronic opioid therapy Acute toxic encephalopathy resolved with Narcan administration Concerns for opioid use disorder Routine nursing interaction Benzodiazepine therapy Pharmacy assisting with dispense/fill rates Aspiration precautions Seizure precautions Case management consult for counseling and resources VTE prophylaxis: Lovenox CODE STATUS: Full code The patient is hospitalized day 2 with above diagnoses complicated by her opioid use disorder. We appreciate professional employer consultant evaluations and recommendations. Case management is assisting with discharge planning. Barriers to discharge currently include professional employer consultant recommendations and IV antibiotic therapy. Expected day of discharge May 07, 2024.
[2024-05-06] MEDS: BISOPROLOL 5MG TABLET 2.5 MG PO (08:18)
[2024-05-06] MEDS: PANTOPRAZOLE 40MG TABLET 40 MG PO (08:18)
[2024-05-06] MEDS: IRBESARTAN 75MG TABLET 75 MG PO (08:18)
[2024-05-06] MEDS: ASPIRIN EC 81MG TABLET 81 MG PO (08:18)
[2024-05-06] MEDS: CALCIUM CARB + VIT D 500MG TAB 500 MG PO ×2 (08:18→20:37)
[2024-05-06] MEDS: CLOPIDOGREL 75MG TAB 75 MG PO (08:18)
[2024-05-06] MEDS: DOCUSATE SODIUM 100 MG CAPSULE PO (08:18)
[2024-05-06] MEDS: ENOXAPARIN 100MG/ML SYRINGE 95 MG SQ (08:19)
[2024-05-06 09:04] LABS: Chloride 110 mmol/L (98-107); Potassium 3.7 mmoL/L (3.5-5.1); Sodium 135 mmol/L (136-145)
[2024-05-06 09:07] LABS: Anion Gap 7.7 mEq/L (5-15); Blood Urea Nitrogen 14 mg/dl (7-17); Calcium 7.5 mg/dl (8.4-10.2); Carbon Dioxide 21 mmol/L (22.0-30.0); Creatinine Clearance Estimated 124 mL/min (50-200); Estimated Glomerular Filt Rate 75 ml/min (>60); GFR (African American) 90 ML/MIN (>60); Glucose 137 mg/dl (74-100)
[2024-05-06 09:15] LABS: Basophils % 0.3 % (0.1-2.0); Eosinophils # 0.1 K/mm3 (0.0-0.4); Eosinophils % 1.3 % (0.1-12.0); Hematocrit 28.2 % (37.0-47.0); Hemoglobin 8.8 g/dL (12.2-16.2); Lymphocytes # 0.9 K/mm3 (0.7-4.5); Lymphocytes % 8.4 % (10-50); Mean Corpuscular HGB Conc 31.2 g/dL (31.8-35.4); Mean Corpuscular Hemoglobin 29.5 pg (27.0-31.2); Mean Corpuscular Volume 94.7 fl (81-99); Mean Platelet Volume 8.5 fl (7.4-10.4); Monocytes # 0.6 K/mm3 (0.1-1.0); Monocytes % 6.2 % (1.7-9.3); Neutrophils # 8.5 K/mm3 (1.8-7.8); Neutrophils % 83.8 % (37.0-80.0); Platelet Count 187 K/mm3 (142-424); Red Blood Count 2.98 M/mm3 (4.20-5.40); Red Cell Distribution Width 13.2 % (11.5-17.5); White Blood Count 10.1 K/mm3 (4.8-10.8)
--- NOTE | 2024-05-06 09:41 | EXP.PULM.CON ---
History of Present Illness History of present illness: Ms. Gordillo is a 54-year-old female greater than [id number] smoking history prior smoker severe COPD with FEV1 and 46% predicted, lung nodules lymphadenopathy interstitial lung disease, chronic hypoxic respiratory failure at baseline 2 L nasal cannula oxygen supplementation presented with worsening respiratory distress tachycardia and was admitted for further evaluation and management. Patient admits worsening respiratory's along with cough and productive phlegm 3 to 4 days prior to hospital admission. Patient was found altered/unresponsive needing Narcan upon admission. Concerning for aspiration pneumonia component. [facility] Disclaimer: The information contained in this section may have been updated after the patient was seen, as this information can be updated by other users. Medical History Chronic respiratory failure with hypoxia ILD (interstitial lung disease) Multiple lung nodules on CT Mediastinal lymphadenopathy Dizziness Family history of coronary artery disease Abnormal ECG Encounter for screening for malignant neoplasm of lung History of smoking 30 or more pack years COPD mixed type Surgical History History of cervical spinal surgery History of lumbar surgery History of cholecystectomy History of hysterectomy History of tonsillectomy Family History Other Asthma Cancer Diabetes Heart attack Stroke Social History Smoking Status: Former smoker tobacco type: cigarettes packs per day: 0 second hand exposure: No alcohol intake: never substance use type: denies use current occupational status: other Travel in the last 8 weeks: None household members: none housing: house current occupational exposures/hazards: No caffeine: Yes Review of Systems Constitutional Constitutional: Reports anorexia, Reports body ache(s) and Reports fatigue Eyes Eyes: Denies eye discharge, Denies dry eyes, Denies irritation and Denies itchy eyes ENT Ears, Nose, Mouth, and Throat: Denies epistaxis, Denies facial pain, Denies lip swelling and Denies throat swelling *Cardiovascular Cardiovascular: Reports dyspnea and Reports dyspnea on exertion *Respiratory Respiratory: Reports change in phlegm color, Reports chest congestion, Reports cough, Reports dyspnea, Reports dyspnea on exertion, Reports excessive phlegm production and Reports wheezing *Gastrointestinal Gastrointestinal: Denies abdominal pain, Denies belching and Denies cramping *Musculoskeletal Musculoskeletal: Reports back pain, Reports myalgias and Reports other (No small joint swelling or Pain) Psychiatric Psychiatric: Denies homicidal ideation and Denies suicidal ideation Endocrine Endocrine: Reports fatigue and Denies heat intolerance Hematologic/Lymphatic Hematologic/Lymphatic: Denies easy bleeding and Denies lymphadenopathy Allergic/Immunologic Allergic/Immunologic: Denies itchy eyes, Denies lip swelling, Denies throat swelling and Reports wheezing Pulmonology Exam Inpatient Vital signs and Labs for Last 24 Hours: Temp Pulse Resp BP Pulse Ox O2 Del Method O2 Flow Rate 98.5 F 93 H 18 103/58 L 97 Nasal Cannula 1 05/06/24 08:00 05/06/24 08:00 05/06/24 08:00 05/06/24 08:00 05/06/24 08:00 05/06/24 09:00 05/06/24 09:00 FiO2 28 05/05/24 18:49 Laboratory Results - last 24 hr 05/05/24 11:43: Stl Aeromonas (PCR) Not detected, Stl C. cayetanensis PCR Not detected, Stool Rotavirus (PCR) Not detected, Stl Adenov F 40/41 PCR Not detected, Stool Astrovirus (PCR) Not detected, Stool Campylobacter PCR Not detected, Stl C.difficile Tox PCR Not detected, Stool Cryptosporidium PCR Not detected, Stl E.coli Shiga Tox PCR Not detected, Stool E coli O157 PCR Not detected, Stl Enterotoxigenic E PCR Not detected, Stool EPEC (PCR) Not detected, Stool EAEC (PCR) Not detected, Stl E. histolytica PCR Not detected, Stool Giardia Lamblia PCR Not detected, Stool Salmonella PCR Not detected, Stool Sapovirus (PCR) Not detected, Stl P. shigelloides PCR Not detected, Stl Shigella/EIEC PCR Not detected, St Y.enterocolitica PCR Not detected, Stool Vibrio (PCR) Not detected, Stl Vibrio cholerae PCR Not detected, Stl Norovirus GI/GII PCR Not detected 05/06/24 08:23: WBC 10.1 D, RBC 2.98 L, Hgb 8.8 L, Hct 28.2 L, MCV 94.7, MCH 29.5, MCHC 31.2 L, RDW 13.2, Plt Count 187, MPV 8.5, Neut % (Auto) 83.8 H, Lymph % (Auto) 8.4 L, [place] % (Auto) 6.2, Eos % (Auto) 1.3, Baso % (Auto) 0.3, Neut # (Auto) 8.5 H, Lymph # (Auto) 0.9, [place] # (Auto) 0.6, Eos # (Auto) 0.1, Baso # (Auto) 0.0, Sodium 135 L, Potassium 3.7, Chloride 110 H, Carbon Dioxide 21 L, Anion Gap 7.7, BUN 14 D, Creatinine 0.80, Estimated Creat Clear 124, Estimated GFR 75, Est GFR ( Amer) 90, Glucose 137 H, Calcium 7.5 L I & O for Labs for Last 24 Hours: Intake & Output 05/03/24 05/04/24 05/05/24 05/06/24 23:59 23:59 23:59 23:59 Intake Total 2099 300 / 300 Output Total 0 / 0 0 / 0 Balance 2099 300 / 300 Weight 203 lb 5 oz 210 lb 12.8 oz 215 lb 1.6 oz Microbiology Reports for the Last 24 Hours: Microbiology 05/04/24 17:02 Urine,Clean Catch Urine Culture - Final 05/04/24 18:10 Blood Blood Culture - Preliminary NO GROWTH AFTER 24 HOURS 05/04/24 18:00 Blood Blood Culture - Preliminary NO GROWTH AFTER 24 HOURS Constitutional: Present moderate distress Head: Present normocephalic and atraumatic ENT: Present normal exam, normal oropharynx and mucous membranes moist Neck: Present normal inspection and full ROM Respiratory: Present respiratory distress, rhonchi and able to speak in complete sentences; Absent wheezes Cardiac: Present S1/S2, Tachycardia and radial pulses present GI: Present soft and distention; Absent tenderness or guarding Rectal (female): Present deferred (female): Present deferred Skin: Present intact; Absent cyanosis or jaundice Neuro: Present alert, awake and oriented x 3 Extremities: Present normal inspection; Absent clubbing or cyanosis Psychiatric: Present normal affect and cooperative Meds Home Medications and Allergies Home Medications ?Medication ?Instructions ?Recorded ?Confirmed ?Type gabapentin 300 mg capsule 900 mg PO QID 12/08/17 05/04/24 History cyclobenzaprine 10 mg tablet 10 mg PO TIDP PRN muscle spasms 11/12/20 05/05/24 History diclofenac sodium 1 % topical gel 1 ea topical QID 06/01/23 05/05/24 History oxycodone 10 mg tablet 10 mg PO QIDP PRN Moderate Pain 12/28/23 05/05/24 History (Scale Score 5-6) albuterol sulfate 90 mcg/actuation 2 puff inhalation Q4HP PRN 05/05/24 05/05/24 History aerosol inhaler Shortness Of Breath Or Wheezing bisoprolol fumarate 5 mg tablet 2.5 mg PO HS 05/05/24 05/05/24 History cetirizine 10 mg tablet 10 mg PO DAILY 05/05/24 05/05/24 History estradiol 1 mg tablet 1 mg PO DAILY 05/05/24 05/05/24 History fluticasone fur. 100 mcg-umeclid 1 inh inhalation DAILY 05/05/24 05/05/24 History 62.5 mcg-vilant 25 mcg inhalat.powder (Trelegy Ellipta) fluticasone propionate 50 2 spray intranasal DAILYP PRN 05/05/24 05/05/24 History mcg/actuation nasal Allergy Symptoms spray,suspension ipratropium 0.5 mg-albuterol 3 mg 3 ml inhalation QIDP PRN Shortness 05/05/24 05/05/24 History (2.5 mg base)/3 mL nebulization Of Breath Or Wheezing soln New Prescriptions to Start Prescriptions: Allergies Allergy/AdvReac Type Severity Reaction Status Date / Time baclofen Allergy Intermediate Verified 04/15/24 13:10 mold Allergy Intermediate Verified 04/15/24 13:10 Sulfa (Sulfonamide Allergy Unknown I-RASH Verified 04/15/24 13:10 Antibiotics) [SULFA (SULFONAMIDE ANTIBIOTICS)] sulfamethoxazole Allergy Verified 04/15/24 13:10 [From Bactrim] trimethoprim [From Bactrim] Allergy Verified 04/15/24 13:10 meloxicam AdvReac Unknown Verified 04/15/24 13:10 Results Laboratory Findings 05/06/24 08:23 05/06/24 08:23 Abnormal lab findings: Abnormal Labs 05/04/24 05/04/24 05/04/24 14:00 14:40 15:21 WBC 20.8 H* RBC 4.17 L Hgb Hct MCHC Neut % (Auto) 91.2 H Lymph % (Auto) 4.9 L Neut # (Auto) 19.0 H Neutrophils % (Manual) 90 H Lymphocytes % (Manual) 7 L APTT VBG pCO2 33.1 L VBG pO2 186.8 H VBG HCO3 19.4 L VBG Total CO2 20.4 L VBG O2 Saturation 99.4 H VBG Base Excess -5.6 L VBG Lactic Acid 3.6 H Sodium 131 L Potassium Chloride 97 L Carbon Dioxide BUN 30 H Creatinine 1.30 H Estimated GFR 43 L Est GFR ( Amer) 52 L Glucose 155 H Calcium 8.0 L Magnesium AST 39 H Alkaline Phosphatase 134 H Troponin I 1.33 H C-Reactive Protein 397.1 H NT-Pro-B Natriuret Pep 2270 H Albumin Globulin 3.3 H Albumin/Globulin Ratio Procalcitonin 28.8 H Urine Protein Urine Blood Urine Bilirubin Salicylates < 1.0 L Urine Opiates Screen Acetaminophen < 10 L 05/04/24 05/04/24 05/04/24 17:02 18:00 19:30 WBC RBC Hgb Hct MCHC Neut % (Auto) Lymph % (Auto) Neut # (Auto) Neutrophils % (Manual) Lymphocytes % (Manual) APTT 30.5 L VBG pCO2 VBG pO2 VBG HCO3 VBG Total CO2 VBG O2 Saturation VBG Base Excess VBG Lactic Acid Sodium Potassium Chloride Carbon Dioxide BUN Creatinine Estimated GFR Est GFR ( Amer) Glucose Calcium Magnesium AST Alkaline Phosphatase Troponin I 2.26 H C-Reactive Protein NT-Pro-B Natriuret Pep Albumin Globulin Albumin/Globulin Ratio Procalcitonin Urine Protein 2+ A Urine Blood 2+ A Urine Bilirubin 1+ A Salicylates Urine Opiates Screen Positive H Acetaminophen 05/04/24 05/04/24 05/04/24 21:15 21:30 22:15 WBC 17.6 H 25.0 H* D RBC 3.10 L D 3.91 L D Hgb 9.2 L D 11.9 L D Hct 28.4 L 36.5 L MCHC Neut % (Auto) 91.2 H 90.9 H Lymph % (Auto) 5.3 L 5.3 L Neut # (Auto) 16.1 H 22.8 H Neutrophils % (Manual) Lymphocytes % (Manual) APTT VBG pCO2 VBG pO2 VBG HCO3 VBG Total CO2 VBG O2 Saturation VBG Base Excess VBG Lactic Acid Sodium 130 L Potassium 3.4 L Chloride Carbon Dioxide 21 L BUN 23 H Creatinine Estimated GFR 58 L Est GFR ( Amer) Glucose 146 H Calcium 7.9 L Magnesium AST 37 H Alkaline Phosphatase 128 H Troponin I 1.54 H C-Reactive Protein NT-Pro-B Natriuret Pep Albumin 3.2 L D Globulin 3.3 H Albumin/Globulin Ratio 1.0 L Procalcitonin Urine Protein Urine Blood Urine Bilirubin Salicylates Urine Opiates Screen Acetaminophen 05/05/24 05/06/24 07:15 08:23 WBC 17.1 H D RBC 3.56 L 2.98 L Hgb 10.4 L D 8.8 L Hct 32.5 L 28.2 L MCHC 31.2 L Neut % (Auto) 89.2 H 83.8 H Lymph % (Auto) 5.9 L 8.4 L Neut # (Auto) 15.3 H 8.5 H Neutrophils % (Manual) 89 H Lymphocytes % (Manual) 6 L APTT VBG pCO2 VBG pO2 VBG HCO3 VBG Total CO2 VBG O2 Saturation VBG Base Excess VBG Lactic Acid Sodium 135 L Potassium 3.2 L Chloride 110 H Carbon Dioxide 21 L BUN 21 H Creatinine Estimated GFR Est GFR ( Amer) Glucose 131 H 137 H Calcium 7.7 L 7.5 L Magnesium 2.6 H AST Alkaline Phosphatase Troponin I C-Reactive Protein NT-Pro-B Natriuret Pep Albumin Globulin Albumin/Globulin Ratio Procalcitonin Urine Protein Urine Blood Urine Bilirubin Salicylates Urine Opiates Screen Acetaminophen Assessment and Plan *Assessment and plan (1) Pneumonia: Status: Acute Qualifiers: Laterality: right Lung location: lower lobe of lung Pneumonia type: due to unspecified organism Qualified Code(s): J18.1 - Lobar pneumonia, unspecified organism Category: Medical Code(s): J18.9 - Pneumonia, unspecified organism (2) Acute on chronic hypoxic respiratory failure: Status: Acute Category: Medical Code(s): J96.21 - Acute and chronic respiratory failure with hypoxia Plan Ms. Gordillo is a 54-year-old female greater than [id number] smoking history prior smoker severe COPD with FEV1 and 46% predicted, lung nodules lymphadenopathy interstitial lung disease, chronic hypoxic respiratory failure at baseline 2 L nasal cannula oxygen supplementation presented with worsening respiratory distress tachycardia and was admitted for further evaluation and management. Patient admits worsening respiratory's along with cough and productive phlegm 3 to 4 days prior to hospital admission. Patient was found altered/unresponsive needing Narcan upon admission. Concerning for aspiration pneumonia component. Febrile upon admission at 101.7. Hemodynamically stable. Neutrophilic predominant leukocytosis. ABG upon admission did not show any evidence of hypoxic/hypercarbic respiratory failure. CTA upon admission evidence of pulmonary embolism. Dense consolidative changes/lobar pneumonia in right upper lobe. Patient was initiated on vancomycin and cefepime upon admission. Sputum cultures not available for review. Blood cultures no growth 24 hours. COVID-19 and flu PCR panel negative. Nasal MRSA PCR pending. She is currently receiving vancomycin and cefepime. Plan: Follow-up with sputum culture results and MRSA screen Vancomycin can be discontinued from pulmonary standpoint. Continue cefepime pending culture results Continue oxygen supplementation to maintain O2 saturation goal of 90 to 95% Continue Trelegy 100 inhaler along with DuoNebs every 6 hours PRN Activity as tolerted # Thank you for involving pulmonary in this patient care. Will continue to follow
[2024-05-06 10:47] LABS: Iron 34 ug/dL (37-170)
[2024-05-06 10:57] LABS: Total Iron Binding Capacity 225 ug/dL (265-497)
[2024-05-06] MEDS: MORPHINE 2MG/ML SYRINGE 2 MG IV (11:30)
[2024-05-06] MEDS: GABAPENTIN 400MG CAPSULE 400 MG PO ×2 (12:24→20:37)
--- NOTE | 2024-05-06 13:57 | P.CONCA_ITS ---
History of Present Illness History of Present Illness Consult date: 05/06/24 Requesting physician: Cachorro Richardson Chief complaint: NSTEMI Additional Medical History:: 1. COPD A. Former smoker, [id number] history B. Chest CTA, 06/2023, no PE. Multiple mildly enlarged mediastinal nodes, likely reactive. Numerous small nodes likely inflammatory. Follow-up CT in 6 months recommended. C. Chest CTA, 05/04/2024, right upper lobe pneumonia with reactive mediastinal lymphadenopathy. 2. Strong family history of coronary artery disease in mother and father A. Lexiscan Myoview, 08/2023, no fixed or reversible defects. EF 59%. 3. Hyperlipidemia A. Echocardiogram, 05/06/2024, low normal EF at 50%. Increased LV wall thickness towards the apex, possibly representing papillary muscle thickness versus apical wall thickness. Mild MR/PI 4. Hypertension A. Echocardiogram, 05/2023, EF 50%, possible increased apical wall thickness 5. History of SVT on radiation monitor, 07/2020 6. Claudication symptoms, 06/2023 A. AIME normal, 06/2023 B. Abdominal/pelvic CTA, 05/04/2024, atherosclerotic changes with 50% stenosis at the origin of the left common iliac artery. 7. Altered mental status, felt secondary to opioids, 04/[address], 05/04/2024, no acute intracranial abnormality. 8. Right upper lobe pneumonia, 05/04/2024, chest x-ray History of present illness: This is a 54-year-old female who presents to [facility] ED for evaluation of altered mental status, dyspnea and concerns with opioid use disorder. She was found down by family prior to arrival. EMS administered Narcan with improvement in mental status. They identified agitation. In the ED she was diaphoretic and hypoxemic with tachycardia. The patient reports a history of chronic opioid prescriptions and chronic hypoxic respiratory failure with recent pulmonology outpatient evaluation 04/15/2024. She reports that she is feeling better from her ED presentation. She denies associated retrosternal chest pain, palpitations or persistent confusion. She reports no associated headaches, visual disturbances or acute loss of motor or sensory experience. In the ED she met sepsis criteria and imaging identified right upper lobe infiltrate. She denies history of dysphagia, trouble swallowing food or coughing with food. Her initial troponin came back elevated. Her ECG identified sinus tachycardia with QTc 388 MS. The above per Dr. Richardson Patient events as noted above confirmed with the patient. Discussed results of troponins and echocardiogram with patient. In light of acute on chronic pulmonary issues would recommend waiting to proceed with coronary CTA as an outpatient when patient is able to lie flat without feeling short of breath or coughing. Recent stress test earlier this year showed no evidence of ischemia. [facility] Disclaimer: The information contained in this section may have been updated after the patient was seen, as this information can be updated by other users. Medical History Chronic respiratory failure with hypoxia ILD (interstitial lung disease) Multiple lung nodules on CT Mediastinal lymphadenopathy Dizziness Family history of coronary artery disease Abnormal ECG Encounter for screening for malignant neoplasm of lung History of smoking 30 or more pack years COPD mixed type Surgical History History of cervical spinal surgery History of lumbar surgery History of cholecystectomy History of hysterectomy History of tonsillectomy Family History Other Asthma Cancer Diabetes Heart attack Stroke Social History Smoking Status: Former smoker tobacco type: cigarettes packs per day: 0 second hand exposure: No alcohol intake: never substance use type: denies use current occupational status: other Travel in the last 8 weeks: None household members: none housing: house current occupational exposures/hazards: No caffeine: Yes Review of Systems Review of Systems Review of systems:: pertinent systems reviewed and negative unless documented below Exam Data for Last 24 hours Vital signs and Labs for Last 24 Hours: Temp Pulse Resp BP Pulse Ox O2 Del Method O2 Flow Rate 98.5 F 77 18 103/58 L 97 Nasal Cannula 1 05/06/24 08:00 05/06/24 12:32 05/06/24 08:00 05/06/24 08:00 05/06/24 08:00 05/06/24 13:00 05/06/24 13:00 FiO2 28 05/05/24 18:49 Laboratory Results - last 24 hr 05/05/24 11:43: Stl Aeromonas (PCR) Not detected, Stl C. cayetanensis PCR Not detected, Stool Rotavirus (PCR) Not detected, Stl Adenov F 40/41 PCR Not detected, Stool Astrovirus (PCR) Not detected, Stool Campylobacter PCR Not detected, Stl C.difficile Tox PCR Not detected, Stool Cryptosporidium PCR Not detected, Stl E.coli Shiga Tox PCR Not detected, Stool E coli O157 PCR Not detected, Stl Enterotoxigenic E PCR Not detected, Stool EPEC (PCR) Not detected, Stool EAEC (PCR) Not detected, Stl E. histolytica PCR Not detected, Stool Giardia Lamblia PCR Not detected, Stool Salmonella PCR Not detected, Stool Sapovirus (PCR) Not detected, Stl P. shigelloides PCR Not detected, Stl Shigella/EIEC PCR Not detected, St Y.enterocolitica PCR Not detected, Stool Vibrio (PCR) Not detected, Stl Vibrio cholerae PCR Not detected, Stl Norovirus GI/GII PCR Not detected 05/06/24 08:23: WBC 10.1 D, RBC 2.98 L, Hgb 8.8 L, Hct 28.2 L, MCV 94.7, MCH 29.5, MCHC 31.2 L, RDW 13.2, Plt Count 187, MPV 8.5, Neut % (Auto) 83.8 H, Lymph % (Auto) 8.4 L, [place] % (Auto) 6.2, Eos % (Auto) 1.3, Baso % (Auto) 0.3, Neut # (Auto) 8.5 H, Lymph # (Auto) 0.9, [place] # (Auto) 0.6, Eos # (Auto) 0.1, Baso # (Auto) 0.0, Sodium 135 L, Potassium 3.7, Chloride 110 H, Carbon Dioxide 21 L, Anion Gap 7.7, BUN 14 D, Creatinine 0.80, Estimated Creat Clear 124, Estimated GFR 75, Est GFR ( Amer) 90, Glucose 137 H, Calcium 7.5 L, Iron 34 L, TIBC 225 L, Iron Saturation 15.76011 I & O for Last 24 hours: Intake & Output 05/04/24 05/05/24 05/06/24 05/07/24 11:59 11:59 11:59 11:59 Intake Total 1879 Output Total 0 / 0 0 / 0 Balance 1879 Weight 210 lb 12.8 oz 215 lb 1.6 oz Microbiology Reports for the Last 24 Hours: Microbiology 05/04/24 17:02 Urine,Clean Catch Urine Culture - Final 05/04/24 18:10 Blood Blood Culture - Preliminary NO GROWTH AFTER 24 HOURS 05/04/24 18:00 Blood Blood Culture - Preliminary NO GROWTH AFTER 24 HOURS Constitutional Constitutional: mild distress *Routine Respiratory Exam Respiratory: Present decreased breath sounds; Absent rhonchi or wheezes *Routine Cardiovascular Exam Cardiovascular: Present RRR; Absent murmur, gallop or rubs *Routine Extremities Exam Extremities: Absent edema *Routine Neurological Exam Neurological: Present alert, oriented X3 and CN II-XII intact Meds Home Medications and Allergies Home Medications ?Medication ?Instructions ?Recorded ?Confirmed ?Type gabapentin 300 mg capsule 900 mg PO QID 12/08/17 05/04/24 History cyclobenzaprine 10 mg tablet 10 mg PO TIDP PRN muscle spasms 11/12/20 05/05/24 History diclofenac sodium 1 % topical gel 1 ea topical QID 06/01/23 05/05/24 History oxycodone 10 mg tablet 10 mg PO QIDP PRN Moderate Pain 12/28/23 05/05/24 History (Scale Score 5-6) albuterol sulfate 90 mcg/actuation 2 puff inhalation Q4HP PRN 05/05/24 05/05/24 History aerosol inhaler Shortness Of Breath Or Wheezing bisoprolol fumarate 5 mg tablet 2.5 mg PO HS 05/05/24 05/05/24 History cetirizine 10 mg tablet 10 mg PO DAILY 05/05/24 05/05/24 History estradiol 1 mg tablet 1 mg PO DAILY 05/05/24 05/05/24 History fluticasone fur. 100 mcg-umeclid 1 inh inhalation DAILY 05/05/24 05/05/24 History 62.5 mcg-vilant 25 mcg inhalat.powder (Trelegy Ellipta) fluticasone propionate 50 2 spray intranasal DAILYP PRN 05/05/24 05/05/24 History mcg/actuation nasal Allergy Symptoms spray,suspension ipratropium 0.5 mg-albuterol 3 mg 3 ml inhalation QIDP PRN Shortness 05/05/24 05/05/24 History (2.5 mg base)/3 mL nebulization Of Breath Or Wheezing soln New Prescriptions to Start Prescriptions: Allergies Allergy/AdvReac Type Severity Reaction Status Date / Time baclofen Allergy Intermediate Verified 04/15/24 13:10 mold Allergy Intermediate Verified 04/15/24 13:10 Sulfa (Sulfonamide Allergy Unknown I-RASH Verified 04/15/24 13:10 Antibiotics) [SULFA (SULFONAMIDE ANTIBIOTICS)] sulfamethoxazole Allergy Verified 04/15/24 13:10 [From Bactrim] trimethoprim [From Bactrim] Allergy Verified 04/15/24 13:10 meloxicam AdvReac Unknown Verified 04/15/24 13:10 Assessment and Plan *Assessment and plan (1) Acute on chronic hypoxic respiratory failure: Status: Acute Category: Medical Code(s): J96.21 - Acute and chronic respiratory failure with hypoxia (2) Bacterial pneumonia: Status: Acute Category: Medical Code(s): J15.9 - Unspecified bacterial pneumonia (3) Severe sepsis: Status: Acute Category: Medical Code(s): A41.9 - Sepsis, unspecified organism; R65.20 - Severe sepsis without septic shock (4) Non-ST elevation NH (NSTEMI): Status: Acute Category: Medical Code(s): I21.4 - Non-ST elevation (NSTEMI) myocardial infarction (5) ILD (interstitial lung disease): Status: Acute Category: Medical Code(s): J84.9 - Interstitial pulmonary disease, unspecified (6) Tobacco abuse: Status: Acute Category: Medical Code(s): Z72.0 - Tobacco use Plan 1. Bacterial pneumonia with sepsis -Antibiotics per pulmonary and hospitalist 2. Acute on chronic hypoxic respiratory failure -Managed by pulmonary 3. Elevated troponin consistent with non-STEMI secondary to above pulmonary disease in setting of sepsis -Patient is on DAPT with aspirin and Plavix -Echocardiogram this admission shows preserved ejection fraction consistent with echocardiogram in May 2023 -No plans for invasive procedure at this time -Will consider outpatient cardiac CTA once patient has recovered from pulmonary issues 4. History of tobacco use 5. History of interstitial lung disease 6. Chronic opioid use 7. Anemia with hemoglobin down from 11.9 to 8.8 after hydration/IV fluids per sepsis protocol -Baseline hemoglobin around 12-13 -Mild low iron at 34, TIBC 225, normal iron saturation of 15.11 8. Hypokalemia, resolved 9. Elevated NT proBNP at 2270 -No chest x-ray evidence of CHF No plans for cardiac procedures this admission Anticipate proceeding with coronary CTA as an outpatient once pulmonary status improved. Continue aspirin, Plavix and Toprol therapy along with addition of Avapro and Lipitor.
[2024-05-06] MEDS: 0.9 % SODIUM CHLORIDE 1000ML 1,000 ML 100 ML IV (15:46)
--- NOTE | 2024-05-06 18:21 | PC.NURSE ---
Pt is alert and oriented x4 and currently tolerating 1L of O2 well. Pt has c/o pain this shift and has been treated per MAR. Pt has been complaining of the IV burning, but refuses to have another placed. IV site has no signs of infiltration and flushes appropriately. pt has been asleep majority of the shift and has not been eating. pt has not had any diarrhea this shift. pt ambulates independently and tolerates well. call light within reach.
--- NOTE | 2024-05-06 19:01 | PC.NURSE ---
RESP CARE NOTE: Pt SpO2 99% on 2LNC. Pt placed on room air and did not drop below 93%. Pt was persistent on need for 2LNC as she stated that is what she wears at home. I tried to explain to the Pt that her SpO2 was good on room air but she insisted on using the 2LNC. Pt placed on 2LNC at this time.
--- NOTE | 2024-05-06 19:21 | CA_ITS ---
APPROVED REPORT EXAM: Comprehensive 2D, Doppler, and color-flow Echocardiogram Air Route Controller: Meaghan Bhakta RDCS Ht: 5 ft 4 in Wt: 203lbs BSA: 1.97 BP: 96/69 mmHg Indications: SEPSIS,COPD,SOA,HOME O2 TDS 2D Dimensions Left Atrium 3.35 cm F: 2.7 - 3.8 LVOT 1.75 cm (M/F) 1.5-2.5 M-Mode Dimensions RVDd 1.83 cm (0.9-2.6) LVDd 4.65 cm (3.5-5.7) Ao Diam 3.24 cm (2.0-3.7) LVDs 3.28 cm (3.5-5.7) IVSd 1.03 cm (0.6-1.1) PWd 1.14 cm (0.6-1.1) EF (Teich) 56.40% FS 29.50% EDV (Teich) 99.80 mL ESV (Teich) 43.50 mL LV Diastology E Decel Time 192 (160-240 msec) E/A Ratio 1.2 MED E' 10.7 (>= 7 cm/sec) E'/MED E' Ratio 9.88 (<= 14) LAT E' 13.9 (>= 10 cm/sec) E/LAT E' Ratio 7.60 (<= 14) Mitral Valve MV E Max Terrance. 106.0 (40-130 cm/s) MV A Velocity 90.0 (40-130 cm/s) E/A Ratio 1.17 MV Decel. Time 192 (160-240 ms) Left Ventricle The left ventricle is normal size. The left ventricular systolic function is low normal. There is normal left ventricular wall thickness. There is increased LV wall thickness towards the apex, which possibly represents papillary muscle thickness but cannot rule out true increase in LV apical wall thickness. There is normal LV segmental wall motion. The left ventricular diastolic function is normal. LVEF is 50%. Right Ventricle The right ventricle is normal size. The right ventricular systolic function is normal. Atria The left atrium size is normal. The right atrium size is normal. There is no Doppler evidence of interatrial shunt. Aortic Valve Aortic valve is mildly thickened. There is no aortic valvular stenosis. No aortic regurgitation is present. Mitral Valve The mitral valve leaflets are mildly thickened. No evidence of mitral valve stenosis. Mild mitral regurgitation. Tricuspid Valve The tricuspid valve leaflets are thin and pliable. Trace tricuspid regurgitation. There is insufficient TR jet to estimate RVSP. Pulmonic Valve The pulmonary valve is normal in structure. Mild pulmonic regurgitation. Great Vessels The aortic root is normal in size. The ascending aorta is not well-visualized. IVC is normal in size and collapses >50% with inspiration. Pericardium There is no pericardial effusion. Other Information Study Quality: Fair Conclusion Low normal LV systolic function (LVEF 50%). Increased LV wall thickness towards the apex, which possibly represents papillary muscle thickness but cannot rule out true increase in LV apical wall thickness. Mild MR, mild PI. Electronically signed by : Gabriella Machado MD 05/06/2024 10:33:36
[2024-05-06] MEDS: ATORVASTATIN 40MG TABLET 80 MG PO (20:37)
--- NOTE | 2024-05-06 21:15 | PC.NURSE ---
Addendum entered by Tiffanie Salvador RN 05/06/24 21:47: Patient was placed back onto 2 L of oxygen via nasal cannula after conclusion of breathing treatment. Original Note: Entered patient's room to check on her. She stated that she could not breathe very well and was having a hard time. Patient appeared drowsy and fatigued; some audible wheezing could be heard. Patient was offered a breathing treatment option, patient stated that they do help and that it would be a good idea. Respiratory was paged at this time.
[2024-05-07] VITALS: BP 124/74; PULSE 80; PULSE 89; RESP 16; TEMP 36.6; O2SAT 100
[2024-05-07] MEDS: 0.9 % SODIUM CHLORIDE 1000ML 1,000 ML 100 ML IV (02:06)
[2024-05-07] MEDS: CEFEPIME HCL 2 GM in 0.9 % SODIUM CHLORIDE 100 ML IV ×2 (02:07→09:34)
[2024-05-07] MEDS: MORPHINE 2MG/ML SYRINGE 2 MG IV (02:17)
[2024-05-07] MEDS: ACETAMINOPHEN 500MG TAB 1000 MG PO (03:03)
[2024-05-07 03:21] LABS: Vancomycin,Peak 11.9 ug/ml (11-39)
[2024-05-07 04:00] VITALS: BP 133/69; PULSE 89; PULSE 90; RESP 16; TEMP 36.4; O2SAT 97; BMI 37.8
--- NOTE | 2024-05-07 05:40 | PC.NURSE ---
Patient is alert and oriented x4. Patient stated that she feels worse [this shift] than when she [was first admitted] got here. She was observed to have eyes closed, respirations even, and no apparent distress intermittently through the night. Patient has consistently complained of a headache and pain in the right side of her chest this shift. Patient was medicated per MAR with oxycodone, Tylenol, and morphine. Patient stated that the morphine did not help her at all; the other medications given for her pain appeared to have better effects and allowed her to rest. Patient also requested for a breathing treatment once this shift (see prior note). Her oxygen saturations have remained within the upper 90s to 100% on 2 L of oxygen via nasal cannula throughout the shift. Patient also received her scheduled medications per OCT and currently has normal saline 0.9% running at 100 mL/hr. She has been running normal sinus on telemetry this shift. Upon auscultation of her lungs this shift, crackles were heard more so on the right side of her chest; the left lobe was clear. Wheezing could also be heard. Patient has been ambulating to the bathroom on her own to void this shift and tolerates it fairly,with occasional audible wheezing afterwards. Her respirations become mildly labored after exertion. A sputum sample has not been collected this shift; patient reports that she has been trying to cough up some sputum throughout the night but has not had any results thus far. Patient refused to use her incentive spirometer for the night. At this time, patient is currently resting supine in bed. Call light within reach.
[2024-05-07 06:15] LABS: Basophils % 0.3 % (0.1-2.0); Eosinophils # 0.1 K/mm3 (0.0-0.4); Eosinophils % 1.8 % (0.1-12.0); Hematocrit 29.8 % (37.0-47.0); Hemoglobin 9.3 g/dL (12.2-16.2); Lymphocytes % 11.8 % (10-50); Mean Corpuscular HGB Conc 31.1 g/dL (31.8-35.4); Mean Corpuscular Hemoglobin 28.9 pg (27.0-31.2); Mean Platelet Volume 8.8 fl (7.4-10.4); Monocytes # 0.7 K/mm3 (0.1-1.0); Monocytes % 8.5 % (1.7-9.3); Neutrophils # 6.2 K/mm3 (1.8-7.8); Neutrophils % 77.6 % (37.0-80.0); Platelet Count 218 K/mm3 (142-424); Red Cell Distribution Width 13.5 % (11.5-17.5)
[2024-05-07 06:20] LABS: Anion Gap 6.6 mEq/L (5-15); Blood Urea Nitrogen 9 mg/dl (7-17); Calcium 8.2 mg/dl (8.4-10.2); Carbon Dioxide 25 mmol/L (22.0-30.0); Chloride 110 mmol/L (98-107); Creatinine Clearance Estimated 146 mL/min (50-200); Estimated Glomerular Filt Rate 87 ml/min (>60); GFR (African American) 106 ML/MIN (>60); Glucose 103 mg/dl (74-100); Potassium 3.6 mmoL/L (3.5-5.1); Sodium 138 mmol/L (136-145)
[2024-05-07 07:38] VITALS: BP 168/97; PULSE 90; RESP 20; TEMP 36.4; O2SAT 98
[2024-05-07 08:00] VITALS: PULSE 90
--- NOTE | 2024-05-07 08:04 | EXP.CARD.PN ---
Subjective Subjective Date: 05/07/24 Time: 08:16 Principal diagnosis: Pneumonia, NSTEMI type 2 Interval history: 54-year-old white female sitting at bedside in no acute distress. Patient relates some chest discomfort with breathing or coughing. Continues to be on oxygen at 2 L/min which is consistent with her home usage. Exam Data for Last 24 hours Vital signs and Labs for Last 24 Hours: Temp Pulse Resp BP Pulse Ox O2 Del Method O2 Flow Rate 97.5 F L 90 20 168/97 H 98 Nasal Cannula 2 05/07/24 07:38 05/07/24 07:38 05/07/24 07:38 05/07/24 07:38 05/07/24 07:38 05/07/24 07:38 05/07/24 07:38 FiO2 28 05/05/24 18:49 Laboratory Results - last 24 hr 05/06/24 08:23: WBC 10.1 D, RBC 2.98 L, Hgb 8.8 L, Hct 28.2 L, MCV 94.7, MCH 29.5, MCHC 31.2 L, RDW 13.2, Plt Count 187, MPV 8.5, Neut % (Auto) 83.8 H, Lymph % (Auto) 8.4 L, [place] % (Auto) 6.2, Eos % (Auto) 1.3, Baso % (Auto) 0.3, Neut # (Auto) 8.5 H, Lymph # (Auto) 0.9, [place] # (Auto) 0.6, Eos # (Auto) 0.1, Baso # (Auto) 0.0, Sodium 135 L, Potassium 3.7, Chloride 110 H, Carbon Dioxide 21 L, Anion Gap 7.7, BUN 14 D, Creatinine 0.80, Estimated Creat Clear 124, Estimated GFR 75, Est GFR ( Amer) 90, Glucose 137 H, Calcium 7.5 L, Iron 34 L, TIBC 225 L, Iron Saturation [id number] 05/06/24 21:15: Vancomycin Trough 15.0 H 05/07/24 02:45: Vancomycin Peak 11.9 05/07/24 05:57: WBC 8.0, RBC 3.20 L, Hgb 9.3 L, Hct 29.8 L, MCV 93.0, MCH 28.9, MCHC 31.1 L, RDW 13.5, Plt Count 218, MPV 8.8, Neut % (Auto) 77.6, Lymph % (Auto) 11.8, [place] % (Auto) 8.5, Eos % (Auto) 1.8, Baso % (Auto) 0.3, Neut # (Auto) 6.2, Lymph # (Auto) 1.0, [place] # (Auto) 0.7, Eos # (Auto) 0.1, Baso # (Auto) 0.0, Sodium 138, Potassium 3.6, Chloride 110 H, Carbon Dioxide 25, Anion Gap 6.6, BUN 9 D, Creatinine 0.70, Estimated Creat Clear 146, Estimated GFR 87, Est GFR ( Amer) 106, Glucose 103 H D, Calcium 8.2 L I & O for Last 24 hours: Intake & Output 05/04/24 05/05/24 05/06/24 05/07/24 11:59 11:59 11:59 11:59 Intake Total 880 / 880 1880 / 1880 1311 / 1311 Output Total 0 / 0 0 / 0 0 / 0 Balance 880 / 880 1880 / 1880 1311 / 1311 Weight 210 lb 12.8 oz 215 lb 1.6 oz 221 lb 9 oz Microbiology Reports for the Last 24 Hours: Microbiology 05/04/24 18:00 Blood Blood Culture - Preliminary NO GROWTH AFTER 48 HOURS 05/04/24 18:10 Blood Blood Culture - Preliminary NO GROWTH AFTER 48 HOURS 05/04/24 17:02 Urine,Clean Catch Urine Culture - Final Constitutional Constitutional: no acute distress *Routine Respiratory Exam Respiratory: Present rhonchi and diminished air movement; Absent wheezes *Routine Cardiovascular Exam Cardiovascular: Present RRR *Routine Neurological Exam Neurological: Present alert, oriented X3 and CN II-XII intact Progress Note: A&P Assessment and plan (1) Severe sepsis: Status: Acute (2) Bacterial pneumonia: Status: Acute (3) Acute on chronic hypoxic respiratory failure: Status: Acute (4) Tobacco dependence in remission: Status: Acute (5) Chronic, continuous use of opioids: Status: Acute (6) Opiate overdose: Status: Acute (7) DANDRE (acute kidney injury): Status: Acute (8) ILD (interstitial lung disease): Status: Acute (9) Multiple lung nodules on CT: Status: Acute (10) Non-ST elevation DE (NSTEMI): Status: Acute (11) Peripheral vascular disease: Status: Acute Assessment and Plan Assessment and Plan for All Diagnoses:: 1. Bacterial pneumonia with sepsis -Antibiotics per pulmonary and hospitalist 2. Acute on chronic hypoxic respiratory failure -Managed by pulmonary 3. Elevated troponin consistent with non-STEMI secondary to above pulmonary disease in setting of sepsis -Patient is on DAPT with aspirin and Plavix -Echocardiogram this admission shows preserved ejection fraction consistent with echocardiogram in May 2023 -No plans for invasive procedure at this time -Will consider outpatient cardiac CTA once patient has recovered from pulmonary issues 4. History of tobacco use 5. History of interstitial lung disease 6. Chronic opioid use 7. Anemia with hemoglobin down from 11.9 to 8.8 then up to 9.3 today after hydration/IV fluids per sepsis protocol -Baseline hemoglobin around 12-13 -Mild low iron at 34, TIBC 225, normal iron saturation of 15.11 8. Hypokalemia, resolved 9. Elevated NT proBNP at 2270 -No chest x-ray evidence of CHF Stable from cardiac standpoint. Home medication recommendations: Aspirin 81 mg daily Plavix 75 mg daily Bisoprolol 2.5 mg daily Irbesartan 75 mg daily Lipitor 80 mg daily Follow-up in our office in 1 to 2 weeks with plans to proceed with coronary CTA.
[2024-05-07] MEDS: CALCIUM CARB + VIT D 500MG TAB 500 MG PO (08:10)
[2024-05-07] MEDS: IRBESARTAN 75MG TABLET 75 MG PO (08:10)
[2024-05-07] MEDS: BISOPROLOL 5MG TABLET 2.5 MG PO (08:10)
[2024-05-07] MEDS: GABAPENTIN 400MG CAPSULE 400 MG PO (08:10)
[2024-05-07] MEDS: PANTOPRAZOLE 40MG TABLET 40 MG PO (08:10)
[2024-05-07] MEDS: CLOPIDOGREL 75MG TAB 75 MG PO (08:10)
[2024-05-07] MEDS: ASPIRIN EC 81MG TABLET 81 MG PO (08:10)
[2024-05-07] MEDS: ENOXAPARIN 40MG/0.4ML SYRINGE 40 MG SQ (08:11)
--- NOTE | 2024-05-07 09:26 | P.PN_ITS ---
Subjective *Date: 05/07/24 *Time: 10:48 Interval history: No acute respiratory events overnight. She denies any new respiratory complaints. Pulmonology Exam Inpatient Vital signs and Labs for Last 24 Hours: Temp Pulse Resp BP Pulse Ox O2 Del Method O2 Flow Rate 97.5 F L 90 20 168/97 H 98 Nasal Cannula 2 05/07/24 07:38 05/07/24 08:00 05/07/24 07:38 05/07/24 07:38 05/07/24 07:38 05/07/24 09:00 05/07/24 09:00 FiO2 28 05/05/24 18:49 Laboratory Results - last 24 hr 05/06/24 08:23: WBC 10.1 D, RBC 2.98 L, Hgb 8.8 L, Hct 28.2 L, MCV 94.7, MCH 29.5, MCHC 31.2 L, RDW 13.2, Plt Count 187, MPV 8.5, Neut % (Auto) 83.8 H, Lymph % (Auto) 8.4 L, [place] % (Auto) 6.2, Eos % (Auto) 1.3, Baso % (Auto) 0.3, Neut # (Auto) 8.5 H, Lymph # (Auto) 0.9, [place] # (Auto) 0.6, Eos # (Auto) 0.1, Baso # (Auto) 0.0, Iron 34 L, TIBC 225 L, Iron Saturation [id number] 05/06/24 21:15: Vancomycin Trough 15.0 H 05/07/24 02:45: Vancomycin Peak 11.9 05/07/24 05:57: WBC 8.0, RBC 3.20 L, Hgb 9.3 L, Hct 29.8 L, MCV 93.0, MCH 28.9, MCHC 31.1 L, RDW 13.5, Plt Count 218, MPV 8.8, Neut % (Auto) 77.6, Lymph % (Auto) 11.8, [place] % (Auto) 8.5, Eos % (Auto) 1.8, Baso % (Auto) 0.3, Neut # (Auto) 6.2, Lymph # (Auto) 1.0, [place] # (Auto) 0.7, Eos # (Auto) 0.1, Baso # (Auto) 0.0, Sodium 138, Potassium 3.6, Chloride 110 H, Carbon Dioxide 25, Anion Gap 6.6, BUN 9 D, Creatinine 0.70, Estimated Creat Clear 146, Estimated GFR 87, Est GFR ( Amer) 106, Glucose 103 H D, Calcium 8.2 L Temp Pulse Resp BP Pulse Ox O2 Del Method O2 Flow Rate 98.5 F 93 H 18 103/58 L 97 Nasal Cannula 1 05/06/24 08:00 05/06/24 08:00 05/06/24 08:00 05/06/24 08:00 05/06/24 08:00 05/06/24 09:00 05/06/24 09:00 FiO2 28 05/05/24 18:49 Laboratory Results - last 24 hr 05/05/24 11:43: Stl Aeromonas (PCR) Not detected, Stl C. cayetanensis PCR Not detected, Stool Rotavirus (PCR) Not detected, Stl Adenov F 40/41 PCR Not detected, Stool Astrovirus (PCR) Not detected, Stool Campylobacter PCR Not detected, Stl C.difficile Tox PCR Not detected, Stool Cryptosporidium PCR Not detected, Stl E.coli Shiga Tox PCR Not detected, Stool E coli O157 PCR Not detected, Stl Enterotoxigenic E PCR Not detected, Stool EPEC (PCR) Not detected, Stool EAEC (PCR) Not detected, Stl E. histolytica PCR Not detected, Stool Giardia Lamblia PCR Not detected, Stool Salmonella PCR Not detected, Stool Sapovirus (PCR) Not detected, Stl P. shigelloides PCR Not detected, Stl Shigella/EIEC PCR Not detected, St Y.enterocolitica PCR Not detected, Stool Vibrio (PCR) Not detected, Stl Vibrio cholerae PCR Not detected, Stl Norovirus GI/GII PCR Not detected 05/06/24 08:23: WBC 10.1 D, RBC 2.98 L, Hgb 8.8 L, Hct 28.2 L, MCV 94.7, MCH 29.5, MCHC 31.2 L, RDW 13.2, Plt Count 187, MPV 8.5, Neut % (Auto) 83.8 H, Lymph % (Auto) 8.4 L, [place] % (Auto) 6.2, Eos % (Auto) 1.3, Baso % (Auto) 0.3, Neut # (Auto) 8.5 H, Lymph # (Auto) 0.9, [place] # (Auto) 0.6, Eos # (Auto) 0.1, Baso # (Auto) 0.0, Sodium 135 L, Potassium 3.7, Chloride 110 H, Carbon Dioxide 21 L, Anion Gap 7.7, BUN 14 D, Creatinine 0.80, Estimated Creat Clear 124, Estimated GFR 75, Est GFR ( Amer) 90, Glucose 137 H, Calcium 7.5 L I & O for Labs for Last 24 Hours: Intake & Output 05/04/24 05/05/24 05/06/24 05/07/24 23:59 23:59 23:59 23:59 Intake Total 2099 1371 / 1371 Output Total 0 / 0 0 / 0 0 / 0 Balance 2099 1371 / 1371 Weight 203 lb 5 oz 210 lb 12.8 oz 215 lb 1.6 oz 221 lb 9 oz Intake & Output 05/03/24 05/04/24 05/05/24 05/06/24 23:59 23:59 23:59 23:59 Intake Total 2099 300 / 300 Output Total 0 / 0 0 / 0 Balance 2099 300 / 300 Weight 203 lb 5 oz 210 lb 12.8 oz 215 lb 1.6 oz Microbiology Reports for the Last 24 Hours: Microbiology 05/04/24 18:00 Blood Blood Culture - Preliminary NO GROWTH AFTER 48 HOURS 05/04/24 18:10 Blood Blood Culture - Preliminary NO GROWTH AFTER 48 HOURS 05/04/24 17:02 Urine,Clean Catch Urine Culture - Final Microbiology 05/04/24 17:02 Urine,Clean Catch Urine Culture - Final 05/04/24 18:10 Blood Blood Culture - Preliminary NO GROWTH AFTER 24 HOURS 05/04/24 18:00 Blood Blood Culture - Preliminary NO GROWTH AFTER 24 HOURS Constitutional: Present moderate distress Head: Present normocephalic and atraumatic ENT: Present normal exam, normal oropharynx and mucous membranes moist Neck: Present normal inspection and full ROM Respiratory: Present respiratory distress, rhonchi and able to speak in complete sentences; Absent wheezes Cardiac: Present S1/S2, Tachycardia and radial pulses present GI: Present soft and distention; Absent tenderness or guarding Rectal (female): Present deferred (female): Present deferred Skin: Present intact; Absent cyanosis or jaundice Neuro: Present alert, awake and oriented x 3 Extremities: Present normal inspection; Absent clubbing or cyanosis Psychiatric: Present normal affect and cooperative Assessment and Plan *Assessment and plan (1) Pneumonia: Status: Acute Qualifiers: Laterality: right Lung location: lower lobe of lung Pneumonia type: due to unspecified organism Qualified Code(s): J18.1 - Lobar pneumonia, unspecified organism Category: Medical Code(s): J18.9 - Pneumonia, unspecified organism (2) Acute on chronic hypoxic respiratory failure: Status: Acute Category: Medical Code(s): J96.21 - Acute and chronic respiratory failure with hypoxia Plan Ms. Gordillo is a 54-year-old female greater than [id number] smoking history prior smoker severe COPD with FEV1 and 46% predicted, lung nodules lymphadenopathy interstitial lung disease, chronic hypoxic respiratory failure at baseline 2 L nasal cannula oxygen supplementation presented with worsening respiratory distress tachycardia and was admitted for further evaluation and management. Patient admits worsening respiratory's along with cough and productive phlegm 3 to 4 days prior to hospital admission. Patient was found altered/unresponsive needing Narcan upon admission. Concerning for aspiration pneumonia component. Febrile upon admission at 101.7. Hemodynamically stable. Neutrophilic predominant leukocytosis. ABG upon admission did not show any evidence of hypoxic/hypercarbic respiratory failure. CTA upon admission evidence of pulmonary embolism. Dense consolidat talat changes/lobar pneumonia in right upper lobe. Patient was initiated on vancomycin and cefepime upon admission. Sputum cultures not available for review. Blood cultures no growth 24 hours. COVID-19 and flu PCR panel negative. Nasal MRSA PCR pending. Upon admission she was initiated on vancomycin and cefepime. Interval update: Vancomycin was discontinued yesterday. Continue to receive cefepime. Nasal MRSA PCR and sputum cultures pending. Improving leukocytosis. Stable ox requirements. Chest x-ray from this morning stable/slight worsening of the concerning right upper lobe pneumonia. Plan: Follow-up with sputum culture results and MRSA screen Antibiotics can be weaned to levofloxacin to complete a total of 10-day course. Vancomycin can be discontinued from pulmonary standpoint. Continue cefepime pending culture results Continue oxygen supplementation to maintain O2 saturation goal of 90 to 95% Continue Trelegy 100 inhaler along with DuoNebs every 6 hours PRN Activity as tolerted # Thank you for involving pulmonary in this patient care. Will follow the patient in pulmonary clinic 5 to 10 days post discharge with a chest x-ray PA lateral prior to clinic visit
--- NOTE | 2024-05-07 09:26 | XR_ITS ---
FINAL REPORT CLINICAL HISTORY: PNM COMPARISON: 05/04/2024 FINDINGS: A single portable view of the chest was obtained. Cardiomegaly is present. There is mild but worsening pulmonary vascular congestion. The mediastinum is within normal limits. There is a persistent right upper lobe opacity, consistent with pneumonia. There is new right base atelectasis versus pneumonia. There is evidence of a cervical fusion in the lower cervical spine. IMPRESSION: Mild but worsening pulmonary vascular congestion. Persistent right upper lobe opacity, consistent with pneumonia. New right base atelectasis versus pneumonia. Reviewed, Interpreted and Dictated by Rex Soler III, MD Transcribed by Rachelle Lind Authenticated and [facility]
--- NOTE | 2024-05-07 09:41 | EXP.DC.SUM ---
General Admission date:: 05/04/24 Discharge date: 05/07/24 HPI HPI HPI: This is a 54-year-old female who presents to [facility] ED for evaluation of altered mental status, dyspnea and concerns with opioid use disorder. She was found down by family prior to arrival. EMS administered Narcan with improvement in mental status. They identified agitation. In the ED she was diaphoretic and hypoxemic with tachycardia. The patient reports a history of chronic opioid prescriptions and chronic hypoxic respiratory failure with recent pulmonology outpatient evaluation 04/15/2024. She reports that she is feeling better from her ED presentation. She denies associated retrosternal chest pain, palpitations or persistent confusion. She reports no associated headaches, visual disturbances or acute loss of motor or sensory experience. In the ED she met sepsis criteria and imaging identified right upper lobe infiltrate. She denies history of dysphagia, trouble swallowing food or coughing with food. Her initial troponin came back elevated. Her ECG identified sinus tachycardia with QTc 388 MS. Hospital Course Hospital Course Hospital Course: The patient was admitted to the telemetry unit with cardiology and pulmonology consultations. Imaging, labs, cultures and inflammatory markers were assessed and trended. She tolerated her IV antibiotic therapy and voiced improvement. Problems addressed as follows: Severe sepsis, present on admission-resolved Tachypnea, tachycardia, leukocytosis, lactic acidosis, source on imaging IV fluid resuscitation with follow-up lactic acid 2.0 Blood cultures no growth to date Urine cultures no growth to date COVID-19 negative Trending labs and inflammatory markers with improvement noted IV antibiotic therapy Acute on chronic hypoxic respiratory failure Bacterial pneumonia Concerns for aspiration Tobacco dependence in remission Pulmonary nodules Interstitial lung disease Stage III COPD (FEV1=46%) Pulse oximetry monitoring Oxygen therapy to maintain appropriate oxygen saturations Currently requiring 1-2 L via NC (home O2 requirement 2 L) Pulmonology consult reviewed Chest x-ray reviewed with right upper lobe consolidation CTA chest: No PE, right upper lobe consolidation MRSA screen Trending labs and inflammatory markers with leukocytoses resolved Raine/Kayleigh inhalation therapy ICS therapy Initial IV Vancomycin therapy discontinued IV cefepime day 4 Transitioning to PO Levaquin 750mg daily x 7 days Outpatient follow up imaging discussed Outpatient Pulmonology follow up appointment scheduled NSTEMI Peripheral vascular disease Telemetry monitoring Troponin trend downward ECG with sinus tach and no acute ST-T changes Cardiology consultation reviewed with nonprocedural approach recommended Echo: EF 50%, MR, PI, LV wall thickness at apex CTA A/P: Left common iliac artery 50% Aspirin 81 mg daily High-dose statin therapy P2Y12 inhibitor therapy Beta-cely therapy ARB therapy Lovenox 1 mg/kg every 12 de-escalated to VTE prophylaxis Avoiding heparin therapy with HIT=3 NTG as needed Parenterally administered controlled substance for comfort care Outpatient follow up appointment with cardiology scheduled Acute kidney injury-resolved Baseline creatinine 0.7 Trending electrolytes and creatinine Oral Fluid resuscitation Avoiding NSAIDs Chronic opioid therapy Acute toxic encephalopathy resolved with Narcan administration Concerns for opioid use disorder Chronic low back pain reported Routine nursing interaction Benzodiazepine therapy prn Pharmacy assisting with identifying outpatient dispense/fill rates Aspiration precautions Seizure precautions Case management consult for counseling and resources The patient was hospitalized 3 days with above diagnoses complicated by her chronic narcotic therapy. She identified improvement and requested to be discharged home. 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 I spent 35 minutes in [id number] time with the patient and nursing staff (Dayanna) concerning the discharge process. We discussed the admitting diagnoses and hospital course. We discussed identified improvement and the patient's desire to be discharged. We reviewed inpatient studies and imaging. The patient voiced understanding on the importance of follow-up with her primary care provider and specialist(s). The patient plans to be compliant with the medication regimen prescribed and follow-up appointments. She understands that she can return to the emergency department with any sudden changes or concerns. Exam Data for Last 24 hours Vital signs and Labs for Last 24 Hours: Temp Pulse Resp BP Pulse Ox O2 Del Method O2 Flow Rate 97.5 F L 90 20 168/97 H 98 Nasal Cannula 2 05/07/24 07:38 05/07/24 08:00 05/07/24 07:38 05/07/24 07:38 05/07/24 07:38 05/07/24 09:00 05/07/24 09:00 FiO2 28 05/05/24 18:49 Laboratory Results - last 24 hr 05/06/24 08:23: Iron 34 L, TIBC 225 L, Iron Saturation 15.85311 05/06/24 21:15: Vancomycin Trough 15.0 H 05/07/24 02:45: Vancomycin Peak 11.9 05/07/24 05:57: WBC 8.0, RBC 3.20 L, Hgb 9.3 L, Hct 29.8 L, MCV 93.0, MCH 28.9, MCHC 31.1 L, RDW 13.5, Plt Count 218, MPV 8.8, Neut % (Auto) 77.6, Lymph % (Auto) 11.8, Greenlee % (Auto) 8.5, Eos % (Auto) 1.8, Baso % (Auto) 0.3, Neut # (Auto) 6.2, Lymph # (Auto) 1.0, Greenlee # (Auto) 0.7, Eos # (Auto) 0.1, Baso # (Auto) 0.0, Sodium 138, Potassium 3.6, Chloride 110 H, Carbon Dioxide 25, Anion Gap 6.6, BUN 9 D, Creatinine 0.70, Estimated Creat Clear 146, Estimated GFR 87, Est GFR ( Amer) 106, Glucose 103 H D, Calcium 8.2 L I & O for Last 24 hours: Intake & Output 05/04/24 05/05/24 05/06/24 05/07/24 23:59 23:59 23:59 23:59 Intake Total 2099 961970 1371 / 1371 Output Total 0 / 0 0 / 0 0 / 0 Balance 2099 1371 / 1371 Weight 92.221 kg 95.617 kg 97.568 kg 100.499 kg Microbiology Reports for the Last 24 Hours: Microbiology 05/04/24 18:00 Blood Blood Culture - Preliminary NO GROWTH AFTER 48 HOURS 05/04/24 18:10 Blood Blood Culture - Preliminary NO GROWTH AFTER 48 HOURS 05/04/24 17:02 Urine,Clean Catch Urine Culture - Final Constitutional Constitutional: no acute distress *Routine Respiratory Exam Respiratory: Present rhonchi and diminished air movement; Absent wheezes *Routine Cardiovascular Exam Cardiovascular: Present RRR *Routine Neurological Exam Neurological: Present alert, oriented X3 and CN II-XII intact Results Data Completed and Pending Labs on day of discharge: Labs from last 24 hours 05/07/24 05/07/24 05/06/24 05:57 02:45 21:15 WBC 8.0 RBC 3.20 L Hgb 9.3 L Hct 29.8 L MCV 93.0 MCH 28.9 MCHC 31.1 L RDW 13.5 Plt Count 218 MPV 8.8 Neut % (Auto) 77.6 Lymph % (Auto) 11.8 Greenlee % (Auto) 8.5 Eos % (Auto) 1.8 Baso % (Auto) 0.3 Neut # (Auto) 6.2 Lymph # (Auto) 1.0 Greenlee # (Auto) 0.7 Eos # (Auto) 0.1 Baso # (Auto) 0.0 Sodium 138 Potassium 3.6 Chloride 110 H Carbon Dioxide 25 Anion Gap 6.6 BUN 9 D Creatinine 0.70 Estimated Creat Clear 146 Estimated GFR 87 Est GFR ( Amer) 106 Glucose 103 H D Calcium 8.2 L Iron TIBC Iron Saturation Vancomycin Peak 11.9 Vancomycin Trough 15.0 H 05/06/24 08:23 WBC RBC Hgb Hct MCV MCH MCHC RDW Plt Count MPV Neut % (Auto) Lymph % (Auto) Greenlee % (Auto) Eos % (Auto) Baso % (Auto) Neut # (Auto) Lymph # (Auto) Greenlee # (Auto) Eos # (Auto) Baso # (Auto) Sodium Potassium Chloride Carbon Dioxide Anion Gap BUN Creatinine Estimated Creat Clear Estimated GFR Est GFR ( Amer) Glucose Calcium Iron 34 L TIBC 225 L Iron Saturation 15.62636 Vancomycin Peak Vancomycin Trough Preliminary micro results at discharge 05/04/24 18:00 Blood Culture - Preliminary Blood NO GROWTH AFTER 48 HOURS 05/04/24 18:10 Blood Culture - Preliminary Blood NO GROWTH AFTER 48 HOURS DS: Diagnosis Discharge Diagnosis (1) Pneumonia: Status: Acute Code(s): J18.9 - Pneumonia, unspecified organism Qualifiers: Laterality: right Lung location: lower lobe of lung Pneumonia type: due to unspecified organism Qualified Code(s): J18.1 - Lobar pneumonia, unspecified organism (2) Acute on chronic hypoxic respiratory failure: Status: Acute Code(s): J96.21 - Acute and chronic respiratory failure with hypoxia Meds Home Medications and Allergies Home Medications ?Medication ?Instructions ?Recorded ?Confirmed ?Type gabapentin 300 mg capsule 900 mg PO QID 12/08/17 05/04/24 History cyclobenzaprine 10 mg tablet 10 mg PO TIDP PRN muscle spasms 11/12/20 05/05/24 History diclofenac sodium 1 % topical gel 1 ea topical QID 06/01/23 05/05/24 History oxycodone 10 mg tablet 10 mg PO QIDP PRN Moderate Pain 12/28/23 05/05/24 History (Scale Score 5-6) albuterol sulfate 90 mcg/actuation 2 puff inhalation Q4HP PRN 05/05/24 05/05/24 History aerosol inhaler Shortness Of Breath Or Wheezing bisoprolol fumarate 5 mg tablet 2.5 mg PO HS 05/05/24 05/05/24 History cetirizine 10 mg tablet 10 mg PO DAILY 05/05/24 05/05/24 History estradiol 1 mg tablet 1 mg PO DAILY 05/05/24 05/05/24 History fluticasone fur. 100 mcg-umeclid 1 inh inhalation DAILY 05/05/24 05/05/24 History 62.5 mcg-vilant 25 mcg inhalat.powder (Trelegy Ellipta) fluticasone propionate 50 2 spray intranasal DAILYP PRN 05/05/24 05/05/24 History mcg/actuation nasal Allergy Symptoms spray,suspension ipratropium 0.5 mg-albuterol 3 mg 3 ml inhalation QIDP PRN Shortness 05/05/24 05/05/24 History (2.5 mg base)/3 mL nebulization Of Breath Or Wheezing soln aspirin 81 mg tablet,delayed 81 mg PO DAILY #30 tabs 05/07/24 Rx release atorvastatin 40 mg tablet 80 mg (2 x 40 mg) PO HS #30 tabs 05/07/24 Rx calcium carbonate 500 mg-vitamin 1 tab PO BID #60 tabs 05/07/24 Rx D3 5 mcg (200 unit) tablet (Oyster Shell Calcium-Vitamin D3) clopidogrel 75 mg tablet 75 mg PO DAILY #30 tabs 05/07/24 Rx irbesartan 75 mg tablet 75 mg PO DAILY #30 tabs 05/07/24 Rx levofloxacin 750 mg tablet 750 mg PO DAILY 7 days #7 tabs 05/07/24 Rx pantoprazole 40 mg tablet,delayed 40 mg PO DAILY #30 tabs 05/07/24 Rx release New Prescriptions to Start Prescriptions: aspirin Emeric,Cachorro atorvastatin Emeric,Cachorro calcium carbonate-vitamin D3 [Oyster Shell Calcium-Vit D3] Emeric,Cachorro clopidogrel Emeric,Cachorro irbesartan Emeric,Cachorro levofloxacin Emeric,Cachorro pantoprazole Emeric,Cachorro Allergies Allergy/AdvReac Type Severity Reaction Status Date / Time baclofen Allergy Intermediate Verified 04/15/24 13:10 mold Allergy Intermediate Verified 04/15/24 13:10 Sulfa (Sulfonamide Allergy Unknown I-RASH Verified 04/15/24 13:10 Antibiotics) [SULFA (SULFONAMIDE ANTIBIOTICS)] sulfamethoxazole Allergy Verified 04/15/24 13:10 [From Bactrim] trimethoprim [From Bactrim] Allergy Verified 04/15/24 13:10 meloxicam AdvReac Unknown Verified 04/15/24 13:10 Discharge Plan Disposition Patient Disposition: Home, Self-Care Condition: Fair Discharge Order Discharge Orders: Discharge Order (Routine); Ordered 05/07/24 Ordered By: Cachorro Richardson Follow up Plan Follow up with: Ender Casas APRN [Primary Care Provider] - 05/14/24 9:30 am Williams Martínez PA [Physician Framework Developer] - 05/21/24 2:15 pm Antoni Scruggs MD [Physician] - 06/06/24 1:00 pm Prescriptions/Medication Reconciliation: New aspirin 81 mg Tablet,Delayed Release (Dr/Ec) 81 mg PO DAILY Qty: 30 0RF atorvastatin 40 mg Tablet 80 mg PO HS Qty: 30 0RF calcium carbonate-vitamin D3 [Oyster Shell Calcium-Vit D3] 500 mg-5 mcg (200 unit) Tablet 1 tab PO BID Qty: 60 0RF clopidogrel 75 mg Tablet 75 mg PO DAILY Qty: 30 0RF pantoprazole 40 mg Tablet,Delayed Release (Dr/Ec) 40 mg PO DAILY Qty: 30 0RF irbesartan 75 mg Tablet 75 mg PO DAILY Qty: 30 0RF levofloxacin 750 mg tablet 750 mg PO DAILY 7 Days Qty: 7 0RF Continued diclofenac sodium 1 % gel 1 ea topical QID Rx Instructions: apply to single elbow, wrist or hand; for hand includes palm/fingers/back of hand oxycodone 10 mg tablet 10 mg PO QIDP PRN (Reason: Moderate Pain (Scale Score 5-6)) gabapentin 300 capsule 900 mg PO QID Patient Comments: cyclobenzaprine 10 MG tablet 10 mg PO TIDP PRN (Reason: muscle spasms) ipratropium-albuterol 0.5 mg-3 mg(2.5 mg base)/3 mL solution for nebulization 3 ml inhalation QIDP PRN (Reason: Shortness Of Breath Or Wheezing) cetirizine 10 mg tablet 10 mg PO DAILY bisoprolol fumarate 5 mg tablet 2.5 mg PO HS estradiol 1 mg tablet 1 mg PO DAILY albuterol sulfate 90 mcg/actuation HFA aerosol inhaler 2 puff inhalation Q4HP PRN (Reason: Shortness Of Breath Or Wheezing) fluticasone propionate 50 mcg/actuation spray,suspension 2 spray intranasal DAILYP PRN (Reason: Allergy Symptoms) Trelegy Ellipta 100-62.5-25 mcg blister with device 1 inh inhalation DAILY Problem Reconciliation Problems Reviewed?: Yes Patient Discharge Instructions ACTIVITY: Ambulate as tolerated DIET: low fat, low cholesterol, low salt diet and cardiac Patient Instructions: DI for Heart Attack, DI for Pneumonia -- Adult, DI for Sepsis -- Adult, DI for Acute Kidney Injury Print Language: Czech Providers Primary Care Provider: Ender Casas Admit Provider: Cachorro Richardson Attending Provider: Cachorro Richardson
[2024-05-07] MEDS: OXYCODONE 5MG IMMEDIATE RELEASE TABLET 5 MG PO (10:34)
[2024-05-07 12:00] VITALS: PULSE 80
[2024-05-08 11:40] LABS: Heparin Anti-Xa <0.10 IU/mL (.)
--- NOTE | 2024-05-09 12:53 | CARE MANAGER ---
Contacted patient related to hospital discharge. She states she feels about the same, but no worse. She is taking all her medications an dpicked up her prescriptions. She is aware of follow up appointments and denies questions or concerns. PILAR Crawford
== END 2024-05-07 12:44 | disposition home or self-care (01) | DRG 871 ==
LOC: ER 15:02 → 2ND 16:45
PROVIDERS: Emergency Medicine; Nurse Practitioner Family; Admitting Provider Family Medicine; Emergency Provider Emergency Medicine; PCP Nurse Practitioner Family; Visit Provider Family Medicine
DX: A41.9 Sepsis, unspecified organism (principal); G92.9 Unspecified toxic encephalopathy; J15.9 Unspecified bacterial pneumonia; J96.21 Acute and chronic respiratory failure with hypoxia; N17.9 Acute kidney failure, unspecified; J84.9 Interstitial pulmonary disease, unspecified; R65.20 Severe sepsis without septic shock; T40.601A Poisoning by unspecified narcotics, accidental (unintentional), initial encounter; I73.9 Peripheral vascular disease, unspecified; F17.211 Nicotine dependence, cigarettes, in remission; D64.9 Anemia, unspecified; E87.6 Hypokalemia
CPT/HCPCS: 36415; 70450; 71045; 71275; 74174; 80048; 80053; 80202; 80307; 80320; 80329; 81001; 82803; 83540; 83550; 83605; 83690; 83735; 83880; 84145; 84436; 84443; 84484; 85007; 85025; 85027; 85270; 85520; 85730; 86140; 87040; 87081; 87086; 87506; 87636; 93005; 93306; 94640; 94760; 94761; 99291; G0480; J1200; J1644; J1650; J2270; J3370; J7030; J7120; J7620; Q9967

== ENCOUNTER 2024-05-13 12:03 | Outpatient (CLI) | payer MEDICARE, MEDICAID, SELFPAY ==
--- NOTE | 2024-05-13 12:08 | XR_ITS ---
FINAL REPORT CLINICAL HISTORY: Pneumonia COMPARISON: 05/07/2024 FINDINGS: 2 views of the chest were obtained . The heart is normal in size. The mediastinum is within normal limits. Right upper lobe consolidation has not significantly changed. Linear opacity at the left upper lobe is likely related to scarring. There is a stable, small right pleural effusion. There is no pneumothorax. Osseous structures are unremarkable. IMPRESSION: No significant interval change. Reviewed, Interpreted and Dictated by Antonietta Schaffer MD Transcribed by Rafaela Myers Authenticated and [facility]
== END 2024-05-13 23:59 | disposition home or self-care (01) ==
LOC: RAD 12:05
PROVIDERS: PCP Nurse Practitioner Family; Visit Provider Internal Medicine Pulmonary Disease
DX: J15.9 Unspecified bacterial pneumonia (principal)
CPT/HCPCS: 71046

== ENCOUNTER 2024-05-14 08:00 | Outpatient (CLI) | payer MEDICARE, MEDICAID, SELFPAY | END 2024-05-14 23:59 | disposition home or self-care (01) | PROVIDERS: Visit Provider Internal Medicine Pulmonary Disease | DX: J84.9 Interstitial pulmonary disease, unspecified (principal); J44.9 Chronic obstructive pulmonary disease, unspecified; Z87.891 Personal history of nicotine dependence; Z12.2 Encounter for screening for malignant neoplasm of respiratory organs; R59.0 Localized enlarged lymph nodes; R91.8 Other nonspecific abnormal finding of lung field; J96.11 Chronic respiratory failure with hypoxia | CPT/HCPCS: 87070; 87106; 87205 ==

== ENCOUNTER 2024-05-20 10:30 | Day surgery (SDC) | payer MEDICARE, MEDICAID, SELFPAY ==
--- NOTE | 2024-05-16 13:11 | SUR.PREOP ---
Reviewing pt history for preop for Bronchoscopy on 05-20-24. TC to Catherine in Cardiology to inquire about clearance for the procedure. Catherine to contact a provider and get back to pre-op.
[2024-05-16 13:17] VITALS: BMI 35.4
[2024-05-20] MEDS: LACTATED RINGERS 1000ML 1,000 ML 25 ML IV (10:46)
[2024-05-20 10:53] VITALS: BP 152/93; PULSE 75; RESP 18; TEMP 36.8; O2SAT 95
[2024-05-20 11:13] LABS: Basophils # 0.1 K/mm3 (0-0.2); Basophils % 1.6 % (0.1-2.0); Eosinophils # 0.2 K/mm3 (0.0-0.4); Hematocrit 39.1 % (37.0-47.0); Hemoglobin 12.8 g/dL (12.2-16.2); Lymphocytes # 1.6 K/mm3 (0.7-4.5); Lymphocytes % 29.5 % (10-50); Mean Corpuscular HGB Conc 32.8 g/dL (31.8-35.4); Mean Corpuscular Hemoglobin 29.7 pg (27.0-31.2); Mean Corpuscular Volume 90.6 fl (81-99); Mean Platelet Volume 8.2 fl (7.4-10.4); Monocytes # 0.4 K/mm3 (0.1-1.0); Neutrophils # 3.2 K/mm3 (1.8-7.8); Neutrophils % 57.9 % (37.0-80.0); Platelet Count 497 K/mm3 (142-424); Red Blood Count 4.31 M/mm3 (4.20-5.40); Red Cell Distribution Width 13.6 % (11.5-17.5); White Blood Count 5.5 K/mm3 (4.8-10.8)
[2024-05-20 11:35] LABS: Blood Urea Nitrogen 11 mg/dl (7-17); Calcium 10.3 mg/dl (8.4-10.2); Carbon Dioxide 33 mmol/L (22.0-30.0); Chloride 100 mmol/L (98-107); Creatinine Clearance Estimated 115 mL/min (50-200); Estimated Glomerular Filt Rate 75 ml/min (>60); GFR (African American) 90 ML/MIN (>60); Glucose 129 mg/dl (74-100); Sodium 136 mmol/L (136-145)
[2024-05-20 11:39] LABS: Anion Gap 7.7 mEq/L (5-15); Potassium 4.7 mmoL/L (3.5-5.1)
--- NOTE | 2024-05-20 14:35 | SUR.PREOP ---
1130 - D/t pt not stopping blood thinner, case was cancelled by Dr. Scruggs and to be rescheduled at a later time.
== END 2024-05-20 11:30 | disposition home or self-care (01) ==
LOC: OR 10:32
PROVIDERS: PCP Nurse Practitioner Family; Visit Provider Internal Medicine Pulmonary Disease
DX: J18.9 Pneumonia, unspecified organism (principal); Z53.8 Procedure and treatment not carried out for other reasons
CPT/HCPCS: 80048; 85025; J7120

== ENCOUNTER 2024-05-24 08:09 | Day surgery (SDC) | payer MEDICARE, MEDICAID, SELFPAY ==
[2024-05-22 16:32] VITALS: BMI 33.3
[2024-05-24] VITALS (9 sets, daily range): BP systolic 94–133; BP diastolic 54–77; PULSE 65–85; RESP 15–18; TEMP 36.1–36.6; O2SAT 94–100
[2024-05-24] MEDS: LACTATED RINGERS 1000ML 1,000 ML 25 ML IV (08:39)
[2024-05-24 08:44] LABS: Chloride 101 mmol/L (98-107); Sodium 137 mmol/L (136-145)
[2024-05-24 08:45] LABS: Potassium 4.2 mmoL/L (3.5-5.1)
[2024-05-24 08:47] LABS: Blood Urea Nitrogen 13 mg/dl (7-17); Creatinine Clearance Estimated 102 mL/min (50-200); Estimated Glomerular Filt Rate 65 ml/min (>60); GFR (African American) 79 ML/MIN (>60)
[2024-05-24 08:48] LABS: Anion Gap 8.2 mEq/L (5-15); Calcium 9.4 mg/dl (8.4-10.2); Carbon Dioxide 32 mmol/L (22.0-30.0); Glucose 126 mg/dl (74-100)
[2024-05-24 08:49] LABS: Basophils # 0.1 K/mm3 (0-0.2); Eosinophils # 0.2 K/mm3 (0.0-0.4); Eosinophils % 3.3 % (0.1-12.0); Hematocrit 35.6 % (37.0-47.0); Hemoglobin 11.4 g/dL (12.2-16.2); Lymphocytes # 1.9 K/mm3 (0.7-4.5); Lymphocytes % 31.9 % (10-50); Mean Corpuscular Hemoglobin 29.2 pg (27.0-31.2); Mean Corpuscular Volume 91.4 fl (81-99); Mean Platelet Volume 8.6 fl (7.4-10.4); Monocytes # 0.4 K/mm3 (0.1-1.0); Monocytes % 6.2 % (1.7-9.3); Neutrophils # 3.5 K/mm3 (1.8-7.8); Neutrophils % 57.5 % (37.0-80.0); Platelet Count 410 K/mm3 (142-424); Red Blood Count 3.89 M/mm3 (4.20-5.40); Red Cell Distribution Width 13.9 % (11.5-17.5)
--- NOTE | 2024-05-24 08:50 | EXP.ANES.CKL ---
[facility] Disclaimer: The information contained in this section may have been updated after the patient was seen, as this information can be updated by other users. Medical History Chronic respiratory failure with hypoxia ILD (interstitial lung disease) Multiple lung nodules on CT Mediastinal lymphadenopathy Dizziness Family history of coronary artery disease Abnormal ECG Encounter for screening for malignant neoplasm of lung History of smoking 30 or more pack years COPD mixed type Surgical History History of cervical spinal surgery History of lumbar surgery History of cholecystectomy History of hysterectomy History of tonsillectomy Family History Other Asthma Cancer Diabetes Heart attack Stroke Social History Smoking Status: Former smoker tobacco type: cigarettes packs per day: 0 second hand exposure: No alcohol intake: former substance use type: denies use current occupational status: disabled Travel in the last 8 weeks: None household members: none housing: house current occupational exposures/hazards: No caffeine: No [facility] Anesthesia Checklist Patient Identification Patient Identification: Arm Band and Verbal (Name & ) Structural Data Admitted From: Home Planned Operative Procedure/s: Bronchoscopy Consent for Planned Operative Procedure(s) Verified: Yes Verified Documents: Surgical Consent and History and Physical NPO Status Verified Time NPO: 00:00 Chart Verification Results Verified: CBC and BMP Additional verifications Anesthesia Reactions: No Airway Assessment Mallampati Score:: Class IV C-Spine Mobility Assessed: Yes TMJ Mobility Assessed: Yes Dentition: Good Dentition Neurological Assessment Level of Consciousness: Awake Hx Seizures: No Numbness or tingling in extremities: No Anesthesia Plan Anesthesia Risk discussed: Yes Anesthesia Plan: Verified ASA Class: III Anesthesia Type: General
--- NOTE | 2024-05-24 10:35 | XR_ITS ---
FINAL REPORT CLINICAL HISTORY: BRONCH IN OR ft: 2:55 FINDINGS: 1 view of the chest was obtained intraoperatively. This is a limited view showing forceps projecting over the right thorax during proctoscopic procedure. Forceps are noted in 2 separate locations. Study is inadequate to assess for pneumothorax. IMPRESSION: Limited imaging right chest obtained during bronchoscopy procedure. Authenticated and [facility]N
--- NOTE | 2024-05-24 10:35 | EXP.ANES.I ---
[facility] Anesthesia Record Part I Anesthesia Record I Intake, IV Amount: 1,000 Hydration: Adequate Estimated blood loss (mL): 0 Urine output (mL): 0 Blood Pressure: 94/60 SaO2: 98 Pulse Rate: 83 Airway Patency: Patent Respiratory Rate: 16 Temperature: 97.9 F Patient is:: Drowsy Stable to PACU at:: 10:35
--- NOTE | 2024-05-24 11:16 | XR_ITS ---
FINAL REPORT CLINICAL HISTORY: post bronch, abnormal chest radiograph FINDINGS: PORTABLE CHEST, One view COMPARISON: None FINDINGS: Portable view of the chest demonstrates right upper lobe opacity compatible with collapse. Underlying mass is not excluded. Left lung is clear. There is no evidence of effusion, pneumothorax or other significant pleural disease. The mediastinum is unremarkable. The heart size is normal. IMPRESSION: Right upper lobe density. Mass not excluded. No pneumothorax. Authenticated and [facility]
--- NOTE | 2024-05-24 11:40 | EXP.BRONCH.N ---
Procedure: Date: 05/24/24 Patient Date of :: 1970 Procedure Performed:: Bronchoscopy airway examination bronchoalveolar lavage and transbronchial lung biopsy Indications:: Nonresolving pneumonia Performing Provider:: Antoni Scruggs MD Referring Provider:: Ender Casas APRN Sedation:: General anesthesia Procedure:: Bronchoscopy airway examination, bronchoalveolar lavage and transbronchial lung biopsy: A clean DIAGNOSTIC bronchoscopy was advanced through the ET tube and airways were examined up to subsegmental bronchi. Airways appeared grossly normal, no evidence of mucoid secretions, mucous plugging active bleeding/old blood clots noted. No concerning evidence of mucoid secretions/airway obstruction noted. Bronchoalveolar lavage was performed in the RIGHT UPPER LOBE with instillation of 60 cc normal saline with return of 30 cc back. BAL fluid was sent for cell count and differential along with bacterial fungal and AFB stain and cultures. Transbronchial biopsy was performed in the RIGHT UPPER LOBE with a total of 7 biopsies performed, 5 biopsy specimens were sent in formalin for cytopathologic examination. The other 2 biopsy samples, were sent one each in two separate normal saline specimen cups for bacterial fungal and AFB stain cultures. Special request was also made for the pathologist to evaluate for AFB and fungal organisms on the cytopathologic examination. Patient tolerated the procedure with no immediate acute complications. We will follow the patient in pulmonary clinic in 7 to 10 days. Findings:: Please see the procedure note Recommendations:: Postoperative bronchoscopy instructions Follow in pulmonary clinic in 5 to 7 days postprocedure Complications:: No acute immediate complications Estimated blood obtained (mL): 10
--- NOTE | 2024-05-24 13:41 | P.PNANES_ITS ---
[facility] Anesthesia Record Part II Anesthesia Record Part II Discharge Time: 11:05 Destination: Surgical Day Care (OP Surgery) PACU nurse assessment reviewed?: Yes Patient Condition:: Good Anesthesia Complications:: None Swallowing reflex intact?: Yes Airway Patency: Patent Cyanosis?: No Blood Pressure: 113/77 SaO2: 100 Respiratory Rate: 16 Pulse Rate: 85 Temperature: 97.7 F Mental Status: Alert & Oriented Pain level:: 0 Nausea and/or vomitting:: None Intake, IV Amount: 0 Hydration: Adequate
== END 2024-05-24 11:35 | disposition home or self-care (01) ==
PROVIDERS: PCP Nurse Practitioner Family; Visit Provider Internal Medicine Pulmonary Disease
PROC: (CPT 31624; principal; 2024-05-24 09:00)
DX: J18.9 Pneumonia, unspecified organism (principal)
CPT/HCPCS: 31624; 31628; 71045; 76000; 80048; 85025; 87070; 87102; 87116; 87186; 87205; 87206; 88112; 88305; 89051; J3490; J1100; J2250; J2405; J3010; J7120

== ENCOUNTER 2024-05-24 16:58 | Outpatient (CLI) | payer MEDICARE, MEDICAID, SELFPAY | END 2024-05-24 23:59 | disposition home or self-care (01) | LOC: LAB.DROPOF 17:01 | PROVIDERS: PCP Nurse Practitioner Family; Visit Provider Nurse Practitioner Family | DX: Z02.9 Encounter for administrative examinations, unspecified (principal) ==

== ENCOUNTER 2024-05-31 11:37 | Outpatient (CLI) | payer MEDICARE, MEDICAID, SELFPAY ==
--- NOTE | 2024-05-31 11:41 | XR_ITS ---
FINAL REPORT TECHNIQUE: Chest PA & Lateral CLINICAL HISTORY: right upper lobe density COMPARISON: 05/24/2024 FINDINGS: 2 views of the chest were performed. The heart size is normal. The mediastinum is within normal limits. There is improved dense airspace opacity in the right upper lobe, probably due to acute pneumonia. The left lung is clear. There are no pleural effusions. There is no pneumothorax. The bony thorax appears intact. IMPRESSION: Dense right upper lobe airspace infiltrate, improving from previous exam. Reviewed, Interpreted and Dictated by Jony Isaac MD Transcribed by Nohemy Lee Authenticated and . [facility]
== END 2024-05-31 23:59 | disposition home or self-care (01) ==
LOC: RAD 11:38
PROVIDERS: PCP Nurse Practitioner Family; Visit Provider Internal Medicine Pulmonary Disease
DX: R06.02 Shortness of breath (principal)
CPT/HCPCS: 71046

== ENCOUNTER 2024-06-21 14:37 | Outpatient (CLI) | payer MEDICARE, MEDICAID, SELFPAY ==
--- NOTE | 2024-06-21 14:41 | XR_ITS ---
PROCEDURE INFORMATION: Exam: XR Chest Exam date and time: 06/21/2024 2:43 PM Age: 54 years old Clinical indication: Shortness of breath; Additional info: Pnm TECHNIQUE: Imaging protocol: Radiologic exam of the chest. Views: 2 views. COMPARISON: CR XR CHEST 2V 05/31/2024 11:43 AM FINDINGS: Lungs: Stable opacities in the right upper lobe are worrisome for neoplasm. Differential includes recurrent pneumonia. Recommend further evaluation. PET scan may be helpful.. Pleural spaces: Unremarkable. No pleural effusion. No pneumothorax. Heart/Mediastinum: Unremarkable. No cardiomegaly. Bones/joints: Anterior cervical fusion IMPRESSION: Stable opacities in the right upper lobe are worrisome for neoplasm. Differential includes recurrent pneumonia. Recommend further evaluation. PET scan may be helpful..
== END 2024-06-21 23:59 | disposition home or self-care (01) ==
LOC: RAD 14:38
PROVIDERS: PCP Nurse Practitioner Family; Visit Provider Internal Medicine Pulmonary Disease
DX: R06.02 Shortness of breath (principal); J18.1 Lobar pneumonia, unspecified organism; J44.9 Chronic obstructive pulmonary disease, unspecified; Z87.891 Personal history of nicotine dependence; R06.09 Other forms of dyspnea; Z12.2 Encounter for screening for malignant neoplasm of respiratory organs; R59.0 Localized enlarged lymph nodes; R91.8 Other nonspecific abnormal finding of lung field
CPT/HCPCS: 71046

== ENCOUNTER 2024-07-05 11:24 | Outpatient (CLI) | payer MEDICARE, MEDICAID, SELFPAY ==
--- NOTE | 2024-07-05 11:27 | XR_ITS ---
FINAL REPORT CLINICAL HISTORY: RUL Pneumonia COMPARISON: 05/31/2024 FINDINGS: Two views of the chest were obtained. The heart size and pulmonary vascularity are within normal limits. The mediastinum is normal. There is partial improvement in the right upper lobe opacity noted on the prior exam of May consistent with improving pneumonia. There is no pneumothorax. Postoperative changes are noted in the lower cervical spine. IMPRESSION: Partial improvement in the right upper lobe opacity seen on the prior exam of May, consistent with improving pneumonia. Reviewed, Interpreted and Dictated by Rex Soler III, MD Transcribed by Rachelle Lind Authenticated and . [facility]
== END 2024-07-05 23:59 | disposition home or self-care (01) ==
LOC: RAD 11:25
PROVIDERS: PCP Nurse Practitioner Family; Visit Provider Physician Assistant
DX: R06.02 Shortness of breath (principal)
CPT/HCPCS: 71046

== ENCOUNTER 2024-07-17 09:25 | Outpatient (CLI) | payer MEDICARE, MEDICAID, SELFPAY ==
--- NOTE | 2024-07-17 09:26 | CT_ITS ---
FINAL REPORT TECHNIQUE: Axial images through the chest were performed by computed tomography. This study was performed with techniques to keep radiation doses as low as reasonably achievable, (ALARA). Individualized dose reduction techniques using automated exposure control or adjustment of mA and/or kV according to the patient's size were employed. CLINICAL HISTORY: SOB COMPARISON: 11/03/2023 FINDINGS: CT CHEST: Streak artifact is noted from posterior cervical fusion hardware. There are multiple mediastinal nodes present, the largest in the right paratracheal region measuring 1.8 cm in diameter, stable when compared to the prior CT of October. There is a left upper lobe linear opacity, consistent with scar or fibrosis. There is a new opacity in the right upper lobe that extends to the pleural margin, best seen on images #19 through 34 of series 2. This may represent post inflammatory change. The small nodules mentioned in the previous report appear stable. No pleural or pericardial fluid is identified. Images through the upper portion of the abdomen are unremarkable other than evidence of a prior cholecystectomy. IMPRESSION: Multiple mediastinal nodes are present, the largest in the right paratracheal region measuring 1.8 cm in diameter, stable when compared to the prior CT. There is a new opacity in the right upper lobe that extends to the pleural margin, not seen on the prior exam. This may represent post inflammatory change. Continued follow-up is recommended. Reviewed, Interpreted and Dictated by Jony Isaac MD Transcribed by Rachelle Lind Authenticated and . [facility]
[2024-07-17 10:16] LABS: Blood Urea Nitrogen 9 mg/dl (7-17); Calcium 9.2 mg/dl (8.4-10.2); Carbon Dioxide 30 mmol/L (22.0-30.0); Chloride 101 mmol/L (98-107); Estimated Glomerular Filt Rate 87 ml/min (>60); GFR (African American) 106 ML/MIN (>60); Glucose 144 mg/dl (74-100); Potassium 3.9 mmoL/L (3.5-5.1)
[2024-07-17 10:20] LABS: Anion Gap 10.9 mEq/L (5-15); Sodium 138 mmol/L (136-145)
[2024-07-17 10:25] VITALS: PULSE 94; PULSE 98
[2024-07-17] MEDS: ALBUTEROL 0.083% 2.5 MG/3 ML NEB IH (10:25)
== END 2024-07-17 23:59 | disposition home or self-care (01) ==
PROVIDERS: Physician Assistant; PCP Nurse Practitioner Family; Visit Provider Internal Medicine Pulmonary Disease
DX: R06.09 Other forms of dyspnea (principal); R91.8 Other nonspecific abnormal finding of lung field; I20.89 Other forms of angina pectoris; I73.9 Peripheral vascular disease, unspecified; R42 Dizziness and giddiness; R40.0 Somnolence
CPT/HCPCS: 36415; 71250; 80048; 94060; 94640; 94726; 94729; J7613

== ENCOUNTER 2024-08-12 20:09 | Emergency (ER) | payer MEDICARE, MEDICAID, SELFPAY ==
--- NOTE | 2024-08-12 20:07 | ECG_ITS ---
APPROVED REPORT Exam: Resting ECG HR:95 bpm ECG Measurements Heart Rate 95 AXES WV 142 P 64 QRSd 87 QRS 65 QT 347 T 72 QTc 400 Conclusion SINUS RHYTHM NORMAL ECG UNCONFIRMED REPORT Electronically signed by : PAOLA MCCARTY, 08/12/2024 23:20:15
[2024-08-12 20:09] VITALS: BP 152/97; PULSE 93; RESP 20; TEMP 37.1; O2SAT 96; BMI 35.7
[2024-08-12 20:30] VITALS: PULSE 87
[2024-08-12 20:36] VITALS: BP 145/67; PULSE 82; RESP 14; O2SAT 97
[2024-08-12] MEDS: ASPIRIN 81MG CHEWABLE TABLET 324 MG PO (20:36)
--- NOTE | 2024-08-12 20:47 | XR_ITS ---
PROCEDURE INFORMATION: Exam: XR Chest Exam date and time: 08/12/2024 8:55 PM Age: 54 years old Clinical indication: Cough; Additional info: Cough copd TECHNIQUE: Imaging protocol: Radiologic exam of the chest. Views: 2 views. COMPARISON: CT CHEST WO CON 07/17/2024 9:37 AM FINDINGS: Lungs: Chronic interstitial scarring in the bilateral upper lobes. No focal consolidation. Pleural spaces: Unremarkable. No pleural effusion. No pneumothorax. Heart/Mediastinum: Unremarkable. No cardiomegaly. Bones/joints: Cervical fusion hardware present. IMPRESSION: No acute disease.
--- NOTE | 2024-08-12 20:55 | ED_ITS ---
Discharge Plan Disposition Patient Disposition: Home, Self-Care Prescriptions Prescriptions: New prednisone 50 mg tablet 50 mg PO DAILY 5 Days Qty: 5 0RF azithromycin 250 mg tablet See Rx Instructions .ROUTE .COMPLEX Qty: 6 0RF Rx Instructions: For 250 mg dose pack: take 500 mg today (day 1), then 250 mg for 4 days (days 2-5) No Action diclofenac sodium 1 % gel 1 ea topical QID Rx Instructions: apply to single elbow, wrist or hand; for hand includes palm/fingers/back of hand bisoprolol fumarate 5 mg tablet 5 mg PO DAILY Qty: 30 5RF oxycodone 10 mg tablet 10 mg PO QIDP PRN (Reason: Moderate Pain (Scale Score 5-6)) pantoprazole 40 mg tablet,delayed release (DR/EC) 40 mg PO DAILY Qty: 90 3RF metoprolol succinate 25 mg tablet extended release 24 hr 25 mg PO DAILY Qty: 30 2RF ipratropium-albuterol 0.5 mg-3 mg(2.5 mg base)/3 mL solution for nebulization See Rx Instructions .ROUTE .COMPLEX Qty: 360 1RF Dose Instruction: INHALE CONTENTS OF 1 VIAL VIA NEBULIZER 4 TIMES A DAY NEEDED FOR SHORTNESS OF BREATH OR WHEEZING Rx Instructions: INHALE CONTENTS OF 1 VIAL VIA NEBULIZER 4 TIMES A DAY NEEDED FOR SHORTNESS OF BREATH OR WHEEZING fluticasone propionate 50 mcg/actuation spray,suspension See Rx Instructions .ROUTE .COMPLEX Qty: 16 0RF Dose Instruction: USE 2 SPRAYS INTO EACH NOSTRIL ONCE A DAY NEEDED FOR ALLERGY SYMPTOMS Rx Instructions: USE 2 SPRAYS INTO EACH NOSTRIL ONCE A DAY NEEDED FOR ALLERGY SYMPTOMS Trelegy Ellipta 100-62.5-25 mcg blister with device See Rx Instructions .ROUTE .COMPLEX Qty: 60 0RF Dose Instruction: INHALE 1 PUFF BY MOUTH ONCE A DAY Rx Instructions: INHALE 1 PUFF BY MOUTH ONCE A DAY cetirizine 10 mg tablet See Rx Instructions .ROUTE .COMPLEX Qty: 90 0RF Dose Instruction: TAKE ONE TABLET BY MOUTH ONCE A DAY NEEDED FOR ALLERGY SYMPTOMS Rx Instructions: TAKE ONE TABLET BY MOUTH ONCE A DAY NEEDED FOR ALLERGY SYMPTOMS estradiol 1 mg tablet See Rx Instructions .ROUTE .COMPLEX Qty: 90 0RF Dose Instruction: TAKE ONE TABLET BY MOUTH ONCE A DAY FOR HORMONE Rx Instructions: TAKE ONE TABLET BY MOUTH ONCE A DAY FOR HORMONE gabapentin 300 capsule 900 mg PO QID Patient Comments: cyclobenzaprine 10 MG tablet 10 mg PO TIDP PRN (Reason: muscle spasms) ipratropium-albuterol 0.5 mg-3 mg(2.5 mg base)/3 mL solution for nebulization 3 ml inhalation QIDP PRN (Reason: Shortness Of Breath Or Wheezing) albuterol sulfate 90 mcg/actuation HFA aerosol inhaler 2 puff inhalation Q4HP PRN (Reason: Shortness Of Breath Or Wheezing) Trelegy Ellipta 100-62.5-25 mcg blister with device 1 inh inhalation DAILY aspirin 81 mg Tablet,Delayed Release (Dr/Ec) 81 mg PO DAILY Qty: 30 0RF atorvastatin 40 mg Tablet 80 mg PO HS Qty: 30 0RF calcium carbonate-vitamin D3 [Oyster Shell Calcium-Vit D3] 500 mg-5 mcg (200 unit) Tablet 1 tab PO BID Qty: 60 0RF clopidogrel 75 mg Tablet 75 mg PO DAILY Qty: 30 0RF Referrals Follow up/Referrals: Ender Casas APRN [Primary Care Provider] - See instructions Activity Restrictions/Add. Instructions Additional Instructions/Restrictions: Please take the steroids and z pack as prescribed. Please follow-up with your primary care provider. Please return to the emergency department if you develop any new or worsening symptoms or become concerned for your health. Clinical Impressions Clinical Impression: COPD exacerbation, Chest pain Print Language Print Language: Hungarian Discharge ED Provider: Adam Maciel HPI <Salu Amaro MD - Last Filed: 08/12/24 23:06> General Chief Complaint: Chest Pain Stated Complaint: chest pain Time Seen by Provider: 08/12/24 20:12 Mode of Arrival: Ambulatory Source of Information: Patient Limitations: No Limitations Description of Symptoms (Recalled from ER Triage Doc. by RN): Pt to ED with c/o substernal, aching, 5/10 chest pain that started this morning. Pt reports she has had diarrhea, sweating, and nausea since yesterday. Pt is on 2L NC at home. History of Present Illness HPI narrative: Patient is a 54-year-old female with past medical history of COPD interstitial lung disease chronic respiratory failure on 2 L nasal cannula who presents emergency department for evaluation of cough and chest pain. Patient has had cough, nonbloody diarrhea since yesterday, chest pain was substernal and felt as if somebody punched her is persistent and has been going on all day, does not radiate through to her back. She has sick contacts at home. Due to persistent symptoms she presents here for continued evaluation. Related Data Home Medications ?Medication ?Instructions ?Recorded ?Confirmed gabapentin 300 mg capsule 900 mg PO QID 12/08/17 07/17/24 cyclobenzaprine 10 mg tablet 10 mg PO TIDP PRN muscle spasms 11/12/20 07/17/24 diclofenac sodium 1 % topical gel 1 ea topical QID 06/01/23 07/17/24 oxycodone 10 mg tablet 10 mg PO QIDP PRN Moderate Pain 12/28/23 07/17/24 (Scale Score 5-6) albuterol sulfate 90 mcg/actuation 2 puff inhalation Q4HP PRN 05/05/24 07/17/24 aerosol inhaler Shortness Of Breath Or Wheezing fluticasone fur. 100 mcg-umeclid 1 inh inhalation DAILY 05/05/24 07/17/24 62.5 mcg-vilant 25 mcg inhalat.powder (Trelegy Ellipta) ipratropium 0.5 mg-albuterol 3 mg 3 ml inhalation QIDP PRN Shortness 05/05/24 07/17/24 (2.5 mg base)/3 mL nebulization Of Breath Or Wheezing soln Previous Rx's ?Medication ?Instructions ?Recorded aspirin 81 mg tablet,delayed 81 mg PO DAILY #30 tabs 05/07/24 release atorvastatin 40 mg tablet 80 mg (2 x 40 mg) PO HS #30 tabs 05/07/24 calcium 500 mg (as 1 tab PO BID #60 tabs 05/07/24 carbonate)-vitamin D3 5 mcg (200 unit) tablet (Oyster Shell Calcium-Vitamin D3) clopidogrel 75 mg tablet 75 mg PO DAILY #30 tabs 05/07/24 fluticasone propionate 50 See Rx Instructions .Route 06/03/24 mcg/actuation nasal .COMPLEX #16 grams spray,suspension ipratropium 0.5 mg-albuterol 3 mg See Rx Instructions .Route 06/03/24 (2.5 mg base)/3 mL nebulization .COMPLEX #360 mL soln metoprolol succinate 25 mg 25 mg PO DAILY #30 tabs 06/24/24 tablet,extended release 24 hr pantoprazole 40 mg tablet,delayed 40 mg PO DAILY #90 tabs 06/24/24 release fluticasone fur. 100 mcg-umeclid See Rx Instructions .Route 07/02/24 62.5 mcg-vilant 25 mcg .COMPLEX #60 blisters inhalat.powder (Trelegy Ellipta) bisoprolol fumarate 5 mg tablet 5 mg PO DAILY #30 tabs 07/15/24 cetirizine 10 mg tablet See Rx Instructions .Route 07/29/24 .COMPLEX #90 tabs estradiol 1 mg tablet See Rx Instructions .Route 07/29/24 .COMPLEX #90 tabs azithromycin 250 mg tablet See Rx Instructions PO .COMPLEX #6 08/13/24 tabs prednisone 50 mg tablet 50 mg PO DAILY 5 days #5 tabs 08/13/24 Allergies Allergy/AdvReac Type Severity Reaction Status Date / Time baclofen Allergy Intermediate Rash Verified 07/17/24 11:33 mold Allergy Intermediate Rash Verified 07/17/24 11:33 Sulfa (Sulfonamide Allergy Unknown I-RASH Verified 07/17/24 11:33 Antibiotics) (SULFA (SULFONAMIDE ANTIBIOTICS)) sulfamethoxazole (From Allergy Rash Verified 07/17/24 11:33 Bactrim) trimethoprim (From Bactrim) Allergy Rash Verified 07/17/24 11:33 meloxicam AdvReac Unknown Rash Verified 07/17/24 11:33 heparin AdvReac Redness of Verified 07/17/24 11:33 Skin [facility] <Saul Amaro MD - Last Filed: 08/12/24 23:06> [facility] Disclaimer: The information contained in this section may have been updated after the patient was seen, as this information can be updated by other users. Medical History Dyspnea Atypical angina Chronic respiratory failure with hypoxia ILD (interstitial lung disease) Multiple lung nodules on CT Mediastinal lymphadenopathy Dizziness Family history of coronary artery disease Abnormal ECG Encounter for screening for malignant neoplasm of lung History of smoking 30 or more pack years COPD mixed type Surgical History History of cervical spinal surgery History of lumbar surgery History of cholecystectomy History of hysterectomy History of tonsillectomy Family History Other Asthma Cancer Diabetes Heart attack Stroke Social History (Updated 07/18/24 @ 16:30 by Antoni Scruggs MD) Smoking Status: Never smoker smoking status stop date: 01/26/2019 second hand exposure: No alcohol intake: former substance use type: denies use current occupational status: disabled Travel in the last 8 weeks: None household members: none housing: house current occupational exposures/hazards: No caffeine: No Have you lived/traveled outside [place] in past 30 days?: No Contact w/someone who lives/traveled outside [place] past 30 days?: No Exposure to someone with infectious disease in past 14 days?: No Do you have a fever (greater than 100.4 F or 38 C)?: No Have you tested positive for COVID-19: No Exposed to someone with COVID-19 in past 14 days?: No Do you have a sore throat?: No Do you have a cough?: No Do you have any weakness?: No Do you have any diarrhea?: No Are you experiencing any unusual bleeding?: No Do you have any muscle aches/pain?: No Do you have any abdominal pain?: No Are you experiencing loss of taste or smell?: No Other Medical History Have you received the Flu Vaccine for this season: No Have you received the Pneumonia Vaccine: No <aSul Amaro MD - Last Filed: 08/12/24 23:06> ROS Obtained: Yes Systems reviewed as appropriate & no additional complaints except as documented Physical Exam <Saul Amaro MD - Last Filed: 08/12/24 23:06> General General appearance: alert and in no apparent distress Head Head exam: atraumatic and normocephalic Eye Eye exam: Present PERRL and EOMI ENT ENT exam: Present mucous membranes moist Neck Neck exam: Present normal inspection Chest Chest inspection: Present normal inspection and symmetric chest wall rise Respiratory Respiratory exam: Present wheezes (Expiratory phase wheezing throughout that is scant, good air movement); Absent respiratory distress Cardiovascular Cardiovascular exam: Present regular rate and normal rhythm Abdominal Exam Abdominal exam: Present soft; Absent tenderness Extremities Exam Extremities exam: Present normal inspection Neurological Exam Neurological exam: Present alert Psychiatric Psychiatric exam: Present normal affect Skin Skin exam: Present warm and dry HEART Score <Saul Amaro MD - Last Filed: 08/12/24 23:06> HEART Score HEART Score assessment performed?: Yes History (anamnesis): Moderately suspicious ECG: Normal Age: 45-65 years Risk factors: 3 or more risk factors Troponin: </= normal limit HEART Score: 4 <Adam Maciel MD - Last Filed: 08/13/24 00:34> HEART Score HEART Score: 4 Critical Care <Saul Amaro MD - Last Filed: 08/12/24 23:06> Critical Care Time Critical Care Time: No Medical Decision Making <Saul Amaro MD - Last Filed: 08/12/24 23:06> Jose Inquiry Pt receiving controlled substance: No Vital Signs Vital Signs: 08/12/24 20:09 08/12/24 20:30 08/12/24 20:36 Temperature 98.7 F Temperature Source Oral Pulse Rate 87 82 Pulse Rate [Left Radial] 93 H Respiratory Rate 20 14 Blood Pressure 145/67 H Blood Pressure [Right Arm] 152/97 H Blood Pressure Mean [Right Arm] 115 Blood Pressure Source [Right Arm] Automatic Cuff Blood Pressure Position [Right Arm] Sitting 02 Sat by Pulse Oximetry 96 97 Oxygen Delivery Method Nasal Cannula Oxygen Flow Rate (LPM) 2 08/12/24 21:00 Temperature Temperature Source Pulse Rate 84 Pulse Rate [Left Radial] Respiratory Rate 12 Blood Pressure 142/82 H Blood Pressure [Right Arm] Blood Pressure Mean [Right Arm] Blood Pressure Source [Right Arm] Blood Pressure Position [Right Arm] 02 Sat by Pulse Oximetry 95 Oxygen Delivery Method Oxygen Flow Rate (LPM) Lab Data Labs: Lab Results 08/12/24 20:47: VBG pH 7.40, VBG pCO2 45.3, VBG pO2 55.5 H, VBG HCO3 27.3, VBG Total CO2 28.7 H, VBG O2 Saturation 91.7 H, VBG Base Excess 2.5 H, VBG Lactic Acid 2.1 H 08/12/24 21:17: SARS-CoV-2 (PCR) Not detected, Influenza A Untype (PCR) Not detected, Influenza Type B (PCR) Not detected 08/12/24 21:28: WBC 8.8, RBC 4.13 L, Hgb 12.0 L, Hct 35.7 L, MCV 86.5, MCH 29.0, MCHC 33.6, RDW 13.7, Plt Count 218, MPV 7.9, Neut % (Auto) 54.1, Lymph % (Auto) 30.6, Price % (Auto) 6.6, Eos % (Auto) 7.8, Baso % (Auto) 0.8, Neut # (Auto) 4.8, Lymph # (Auto) 2.7, Price # (Auto) 0.6, Eos # (Auto) 0.7 H, Baso # (Auto) 0.1, S odium 129 L, Potassium 3.5, Chloride 102, Carbon Dioxide 28, Anion Gap 2.5 L, BUN 9, Creatinine 0.70, Estimated Creat Clear 133, Estimated GFR 87, Est GFR ( Amer) 106, Glucose 166 H, Calcium 8.6, Total Bilirubin 0.6, AST 21, ALT 20, Alkaline Phosphatase 75, Troponin I < 0.01, Total Protein 6.2 L, Albumin 3.8, Globulin 2.4, Albumin/Globulin Ratio 1.6 08/12/24 23:41: Troponin I < 0.01 08/12/24 21:28 08/12/24 21:28 Response Orders (Tests/Meds): ED MEDICATIONS Discontinued Medications Generic Name Dose Route Start Last Admin Trade Name Freq PRN Reason Stop Dose Admin Albuterol/Ipratropium 6 ml 08/12/24 20:47 08/12/24 21:17 Ipratropium/Albuterol 3 Ml Neb IH 08/12/24 20:48 6 ml ONCE ONE Administration Aspirin 324 mg 08/12/24 20:32 08/12/24 20:36 Aspirin 81mg Chewable Tablet PO 08/12/24 20:33 324 mg ONCE ONE Administration Azithromycin 500 mg 08/12/24 20:49 08/12/24 21:05 Azithromycin 250mg Tablet PO 08/12/24 20:50 500 mg ONCE ONE Administration Methylprednisolone Sodium Succinate 125 mg 08/12/24 20:49 08/12/24 21:05 Methylprednisolone Sod Succ 125mg Vial IV 08/12/24 20:50 125 mg ONCE ONE Administration ORDERS Category Date Time Status CXR 2 view (NOT portable) [XR chest 2V] Stat Exams 08/12/24 20:47 Completed CBC w/Auto Diff [Complete Blood Count Auto Diff] Stat Lab 08/12/24 21:28 Completed CMP [Comprehensive Metabolic Panel] Stat Lab 08/12/24 21:28 Completed HIV (1&2) Antibody Rapid Stat Lab 08/12/24 20:53 Received Hep C Ab with Reflex to RNA Stat Lab 08/12/24 20:53 Received Rapid PCR Covid and Flu A/B Stat Lab 08/12/24 21:17 Completed Trop I [Troponin I] Stat Lab 08/12/24 21:28 Completed Troponin I Q3H Lab 08/12/24 23:41 Completed Troponin I Q3H Lab 08/13/24 02:49 Ordered VBG [Venous Blood Gas] Stat RT 08/12/24 20:47 Completed ECG Data Tracing #1: ECG Narrative: Independently interpreted by me rate is 95, rhythm is regular, axis is normal, no ST elevation in anatomical contiguous leads, QTc 400 MDM Narrative Medical Decision Narrative: In summary patient is a 54-year-old female with past medical history described above who presents to the emergency department for evaluation of chest pain, cough, shortness of breath and multiple sick contacts at home. Patient is hemodynamically stable nontoxic-appearing upon arrival, afebrile. Patient has expiratory phase wheezing, good air movement however likely has COPD versus interstitial lung disease exacerbation and will benefit from resuscitation at this time as well as workup as differential includes COPD exacerbation, pneumonia, ACS, among others. Workup will be conducted with hematologic labs, chest x-ray, EKG, troponin, VBG, D-dimer. Initial inventions include DuoNebs x 3, methylprednisolone, azithromycin, aspirin. Initial workup reviewed by me, hematologic labs have no significant leukocytosis, stable anemia, compensated acid-base status. There is hyponatremia of undetermined significance however he has been at this level previously. Repeat evaluation pending at time of transfer of care to the oncoming physician, Dr. Maciel. <Adam Maciel MD - Last Filed: 08/13/24 00:34> Vital Signs Vital Signs: 08/12/24 20:09 08/12/24 20:30 08/12/24 20:36 Temperature 98.7 F Temperature Source Oral Pulse Rate 87 82 Pulse Rate [Left Radial] 93 H Respiratory Rate 20 14 Blood Pressure 145/67 H Blood Pressure [Right Arm] 152/97 H Blood Pressure Mean [Right Arm] 115 Blood Pressure Source [Right Arm] Automatic Cuff Blood Pressure Position [Right Arm] Sitting 02 Sat by Pulse Oximetry 96 97 Oxygen Delivery Method Nasal Cannula Oxygen Flow Rate (LPM) 2 08/12/24 21:00 Temperature Temperature Source Pulse Rate 84 Pulse Rate [Left Radial] Respiratory Rate 12 Blood Pressure 142/82 H Blood Pressure [Right Arm] Blood Pressure Mean [Right Arm] Blood Pressure Source [Right Arm] Blood Pressure Position [Right Arm] 02 Sat by Pulse Oximetry 95 Oxygen Delivery Method Oxygen Flow Rate (LPM) Lab Data Labs: Lab Results 08/12/24 20:47: VBG pH 7.40, VBG pCO2 45.3, VBG pO2 55.5 H, VBG HCO3 27.3, VBG Total CO2 28.7 H, VBG O2 Saturation 91.7 H, VBG Base Excess 2.5 H, VBG Lactic Acid 2.1 H 08/12/24 21:17: SARS-CoV-2 (PCR) Not detected, Influenza A Untype (PCR) Not detected, Influenza Type B (PCR) Not detected 08/12/24 21:28: WBC 8.8, RBC 4.13 L, Hgb 12.0 L, Hct 35.7 L, MCV 86.5, MCH 29.0, MCHC 33.6, RDW 13.7, Plt Count 218, MPV 7.9, Neut % (Auto) 54.1, Lymph % (Auto) 30.6, Price % (Auto) 6.6, Eos % (Auto) 7.8, Baso % (Auto) 0.8, Neut # (Auto) 4.8, Lymph # (Auto) 2.7, Price # (Auto) 0.6, Eos # (Auto) 0.7 H, Baso # (Auto) 0.1, S odium 129 L, Potassium 3.5, Chloride 102, Carbon Dioxide 28, Anion Gap 2.5 L, BUN 9, Creatinine 0.70, Estimated Creat Clear 133, Estimated GFR 87, Est GFR ( Amer) 106, Glucose 166 H, Calcium 8.6, Total Bilirubin 0.6, AST 21, ALT 20, Alkaline Phosphatase 75, Troponin I < 0.01, Total Protein 6.2 L, Albumin 3.8, Globulin 2.4, Albumin/Globulin Ratio 1.6 08/12/24 23:41: Troponin I < 0.01 Response Orders (Tests/Meds): ED MEDICATIONS Discontinued Medications Generic Name Dose Route Start Last Admin Trade Name César PRN Reason Stop Dose Admin Albuterol/Ipratropium 6 ml 08/12/24 20:47 08/12/24 21:17 Ipratropium/Albuterol 3 Ml Neb IH 08/12/24 20:48 6 ml ONCE ONE Administration Aspirin 324 mg 08/12/24 20:32 08/12/24 20:36 Aspirin 81mg Chewable Tablet PO 08/12/24 20:33 324 mg ONCE ONE Administration Azithromycin 500 mg 08/12/24 20:49 08/12/24 21:05 Azithromycin 250mg Tablet PO 08/12/24 20:50 500 mg ONCE ONE Administration Methylprednisolone Sodium Succinate 125 mg 08/12/24 20:49 08/12/24 21:05 Methylprednisolone Sod Succ 125mg Vial IV 08/12/24 20:50 125 mg ONCE ONE Administration ORDERS Category Date Time Status CXR 2 view (NOT portable) [XR chest 2V] Stat Exams 08/12/24 20:47 Completed CBC w/Auto Diff [Complete Blood Count Auto Diff] Stat Lab 08/12/24 21:28 Completed CMP [Comprehensive Metabolic Panel] Stat Lab 08/12/24 21:28 Completed HIV (1&2) Antibody Rapid Stat Lab 08/12/24 20:53 Received Hep C Ab with Reflex to RNA Stat Lab 08/12/24 20:53 Received Rapid PCR Covid and Flu A/B Stat Lab 08/12/24 21:17 Completed Trop I [Troponin I] Stat Lab 08/12/24 21:28 Completed Troponin I Q3H Lab 08/12/24 23:41 Completed Troponin I Q3H Lab 08/13/24 02:49 Ordered VBG [Venous Blood Gas] Stat RT 08/12/24 20:47 Completed MDM Narrative Medical Decision Narrative: In summary patient is a 54-year-old female with past medical history described above who presents to the emergency department for evaluation of chest pain, cough, shortness of breath and multiple sick contacts at home. Patient is hemodynamically stable nontoxic-appearing upon arrival, afebrile. Patient has expiratory phase wheezing, good air movement however likely has COPD versus interstitial lung disease exacerbation and will benefit from resuscitation at this time as well as workup as differential includes COPD exacerbation, pneumonia, ACS, among others. Workup will be conducted with hematologic labs, chest x-ray, EKG, troponin, VBG, D-dimer. Initial inventions include DuoNebs x 3, methylprednisolone, azithromycin, aspirin. Initial workup reviewed by me, hematologic labs have no significant leukocytosis, stable anemia, compensated acid-base status. There is hyponatremia of undetermined significance however he has been at this level previously. Repeat evaluation pending at time of transfer of care to the oncoming physician, Dr. Maciel. Raheem CASSIDY: I assumed care of the patient at the time of handoff from the prior provider. On reassessment patient reports symptomatic improvement. Satting appropriately on home oxygen requirements. Lungs with only faint wheezing on my evaluation. Repeat labs show negative troponin. Interact discussion was had with patient regarding her presentation. She is discharged in stable condition with steroids and azithromycin.
[2024-08-12 21:00] VITALS: BP 142/82; PULSE 84; RESP 12; O2SAT 95
[2024-08-12] MEDS: AZITHROMYCIN 250MG TABLET 500 MG PO (21:05)
[2024-08-12] MEDS: METHYLPREDNISOLONE SOD SUCC 125MG VIAL 125 MG IV (21:05)
[2024-08-12] MEDS: IPRATROPIUM/ALBUTEROL 3 ML NEB 6 ML IH (21:17)
[2024-08-12 21:20] LABS: Coronavirus 19, PCR Not Detected (NotDetected); Influenza A, PCR Not Detected (NotDetected); Influenza B, PCR Not Detected (NotDetected)
[2024-08-12 21:38] LABS: VBG Base Excess 2.5 mmol/L (-2.4-2.3); VBG HCO3 27.3 mmol/L (23-30); VBG Oxygen Saturation 91.7 % (50-70); VBG PCO2 45.3 mmol/L (35-51); VBG PO2 55.5 mmol/L (28-40); VBG Total CO2 28.7 mmol/L (23-27)
[2024-08-12 21:39] LABS: Lactate Venous 2.1 mmol/L (0.4-2.0)
[2024-08-12 21:44] LABS: Albumin Level 3.8 g/dl (3.5-5.0); Chloride 102 mmol/L (98-107); Potassium 3.5 mmoL/L (3.5-5.1); Sodium 129 mmol/L (136-145)
[2024-08-12 21:47] LABS: Alanine Aminotransferase 20 U/L (12-78); Albumin/Globulin Ratio 1.6 (1.1-1.8); Alkaline Phosphatase 75 U/L (38-126); Anion Gap 2.5 mEq/L (5-15); Aspartate Amino Transferase 21 U/L (14-36); Bilirubin,Total 0.6 mg/dl (0.2-1.3); Blood Urea Nitrogen 9 mg/dl (7-17); Calcium 8.6 mg/dl (8.4-10.2); Carbon Dioxide 28 mmol/L (22.0-30.0); Creatinine Clearance Estimated 133 mL/min (50-200); Estimated Glomerular Filt Rate 87 ml/min (>60); GFR (African American) 106 ML/MIN (>60); Globulin 2.4 g/dL (1.3-3.2); Glucose 166 mg/dl (74-100); Total Protein,Serum 6.2 g/dl (6.3-8.2)
[2024-08-12 22:12] LABS: Basophils # 0.1 K/mm3 (0-0.2); Basophils % 0.8 % (0.1-2.0); Eosinophils # 0.7 K/mm3 (0.0-0.4); Eosinophils % 7.8 % (0.1-12.0); Hematocrit 35.7 % (37.0-47.0); Lymphocytes # 2.7 K/mm3 (0.7-4.5); Lymphocytes % 30.6 % (10-50); Mean Corpuscular HGB Conc 33.6 g/dL (31.8-35.4); Mean Corpuscular Volume 86.5 fl (81-99); Mean Platelet Volume 7.9 fl (7.4-10.4); Monocytes # 0.6 K/mm3 (0.1-1.0); Monocytes % 6.6 % (1.7-9.3); Neutrophils # 4.8 K/mm3 (1.8-7.8); Neutrophils % 54.1 % (37.0-80.0); Platelet Count 218 K/mm3 (142-424); Red Blood Count 4.13 M/mm3 (4.20-5.40); Red Cell Distribution Width 13.7 % (11.5-17.5); White Blood Count 8.8 K/mm3 (4.8-10.8)
[2024-08-12 22:13] LABS: Troponin I < 0.01 ng/ml (0.00-0.034)
--- NOTE | 2024-08-12 22:17 | PC.NURSE ---
rounded on pt at this time. pt reports improved chest pain
[2024-08-13 00:08] LABS: Troponin I < 0.01 ng/ml (0.00-0.034)
[2024-08-13 00:37] VITALS: BP 150/81; PULSE 78; RESP 20; TEMP 36.6; O2SAT 96
[2024-08-13 10:58] LABS: HIV Combo NEGATIVE (Negative)
[2024-08-14 08:48] LABS: HCV Ab Non Reactive (Non Reactive)
== END 2024-08-13 00:39 | disposition home or self-care (01) ==
PROVIDERS: Emergency Medicine; Emergency Provider Emergency Medicine; PCP Nurse Practitioner Family
DX: J44.1 Chronic obstructive pulmonary disease with (acute) exacerbation (principal); R07.9 Chest pain, unspecified; R19.7 Diarrhea, unspecified; R61 Generalized hyperhidrosis; R11.0 Nausea; R05.9 Cough, unspecified; R06.02 Shortness of breath
CPT/HCPCS: 36415; 71046; 80053; 82803; 84484; 85025; 86803; 87389; 87636; 93005; 96374; 99284; J2919; J7620

== ENCOUNTER 2024-10-22 08:54 | Outpatient (CLI) | payer MEDICARE, MEDICAID, SELFPAY ==
--- NOTE | 2024-10-22 09:08 | CT_ITS ---
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 A noncontrast coronary calcium scan was performed. A CT attenuation threshold of 130 Hounsfield units (HU) was used for the detection of calcium in contiguous voxels of 1 sq mm in area to be counted as individual lesions. Bolus tracking in the ascending aorta with a threshold of 180 HU was performed. Immediately afterwards, ECG synchronized cardiac CT was then performed from the cardiac base to apex using retrospective gating with ECG tube current modulation. A total of 85 mL of Isovue 370 mg/mL contrast medium was administered at 5 mL/sec followed by a saline flush using a biphasic injection protocol. A tube voltage of 120 KVp was used. The patient received no medications prior to the cardiac CT. The average heart rate at the time of acquisition was 58 bpm and regular. Image Reconstruction Transaxial images were reconstructed at 0.67 mm slide thickness. Data was reviewed interactively on an advanced workstation capable of 2 and 3-dimensional displays in all conventional reconstruction formats, including multiplanar reformations, maximum intensity projections, curved multiplanar reformations, and volume rendered reconstructions. When applicable, selected routine images describing the relevant coronary anatomy and pathology were saved and sent to PACS. Complications None Technical Quality Overall image quality was fair due to blurring in motion artifact. Coronary artery opacification was adequate. Total DLP (Dose-Length Product) is 1786.5 mGy-cm. The reported value represents the total of one or more individual components during the CT acquisition of this date and at this time, and as such, the same value may appear in more than one CT report depending on the interpreting/reporting physicians. COMPARISON None FINDINGS CT Coronary Calcium Scoring LMA (Left Main Artery) = 0 LAD (Left Anterior Descending) = 14 LCX (Left Coronary Circumflex) = 0 RCA (Right Coronary Artery) = 0 Total Calcium Score = 14 using the AJ-130 method. The observed calcium score of 14 is at 85th percentile for subjects of the same age, sex, and race/ethnicity. The interpretation of the calcium heart score is based on the following continuum*: 0 = no calcified plaque detected (risk of coronary artery disease is very low ??? less than 5%) 1-10 = calcium detected in extremely minimal levels (risk of coronary diseases is still low ??? less than 10%) 11-100 = mild levels of plaque detected with certainty (mild or minimal narrowing of heart arteries is likely) 101-400 = definite,at least moderate levels of plaque detected (relatively high risk of a heart attack within 3-5 years) >401-999 = extensive levels of plaque detected (high risk of heart attack, high levels of vascular disease are present, high likelihood of at least one significant coronary narrowing) *The calcium heart score quantifies the burden of coronary calcification/plaque in the coronary arteries. The calcium heart score is not able to evaluate the presence or burden of non-calcified (i.e. soft) plaque. There is mild calcification in the aortic valve. Coronary CT Angiography The coronary arterial system is left dominant. Quantitative Stenosis Grading: Left Main (LM): The left main originates normally from the left sinus of Valsalva. The LM bifurcates into the left anterior descending artery and left circumflex artery. The LM is a short vessel with early bifurfaction. The LM is patent with no evidence of atherosclerosis. Left Anterior Descending (LAD) and Diagonal Branches: The LAD gives off 3 diagonal branch(es). There is mixed calcified/noncalcified plaque in the proximal LAD segment, with no evidence of luminal stenosis. There is no evidence of LAD-myocardial bridge. Left Circumflex (LCX) and Obtuse Marginals (OM): The LCX gives off 2 Obtuse Marginal (OM) branch(es). The LCX and its branches are patent with no evidence of atherosclerosis. Right Coronary Artery (RCA): The RCA originates normally from the right sinus of Valsalva. The RCA is a small caliber vessel. The RCA and its branches are patent with no evidence of atherosclerosis. Non-Coronary Cardiac Findings: Analysis of the left ventricular (LV) structure and function was performed after 3-D reconstruction of the LV from axial images, with user-corrected automatic contouring for assessment of LV volumes and user-defined reconstruction from oblique planes for measurement of 3-D cardiac structure and function. -The left ventricle systolic function is normal. -There is no left atrial appendage filling defect. Two right pulmonary veins and two left pulmonary veins drain normally into the left atrium. -No pericardial thickening or calcification. -Central and branch pulmonary arteries in the [id number] are unremarkable. -Thoracic aorta within the visualized thoracic aortic-branches in the [id number] is unremarkable. Extracardiac Structures Multiple mediastinal lymph nodes are present. IMPRESSION -Fair image quality due to blurring in motion artifact. May affect the diagnostic interpretation of the study findings. -Presence of coronary calcification with an Agatston score = 14 using the AJ-130 method. -The observed calcium score of 14 is at 85th percentile for subjects of the same age, sex, and race/ethnicity. -No obvious evidence of significant flow-limiting atherosclerosis of the coronary arteries. -CAD-RADS 1. Management recommendations per ACC/AHA guidelines*, as clinically appropriate. -Incidental finding of multiple mediastinal lymph nodes. Correlation with new or recent CT chest is suggested. *Recommendations: CAD RADS 0: Reassurance. Consider non-atherosclerotic causes of chest pain. CAD RADS 1: Consider non-atherosclerotic causes of chest pain. Consider preventive therapy and risk factor modification. CAD RADS 2: Consider non-atherosclerotic causes of chest pain. Consider preventive therapy and risk factor modification, particularly for patients with nonobstructive plaque in multiple segments. CAD RADS 3: Consider further functional testing. Consider symptom-guided anti-ischemic and preventive pharmacotherapy as well as risk factor modification per published guideline statements. CAD RADS 4A: Consider further functional testing or invasive coronary angiography with revascularization per published guideline statements. Consider symptom-guided anti-ischemic and preventive pharmacotherapy as well as risk factor modification per published guideline statements. CAD RADS 4B: Invasive coronary angiography recommended with revascularization per published guideline statements. Consider symptom-guided anti-ischemic and preventive pharmacotherapy as well as risk factor modification per published guideline statements. CAD RADS 5: Consider invasive angiography and/or viability assessment with revascularization per published guideline statements. Consider symptom-guided anti-ischemic and preventive pharmacotherapy as well as risk factor modification per published guideline statements. CRITICAL RESULT None COMMUNICATION Per this written report The coronary and cardiac findings of this CCTA were reviewed, reported, and signed by Ramirez Machado MD (Flooring Installer) Conclusion Electronically signed by : Gabriella Machado MD 10/23/2024 12:48:32
[2024-10-22 09:17] VITALS: BMI 35.4
[2024-10-22 09:53] LABS: Chloride 100 mmol/L (98-107); Potassium 4.1 mmoL/L (3.5-5.1); Sodium 138 mmol/L (136-145)
[2024-10-22 09:56] LABS: Anion Gap 10.1 mEq/L (5-15); Blood Urea Nitrogen 10 mg/dl (7-17); Calcium 8.5 mg/dl (8.4-10.2); Carbon Dioxide 32 mmol/L (22.0-30.0); Creatinine Clearance Estimated 132 mL/min (50-200); Estimated Glomerular Filt Rate 87 ml/min (>60); GFR (African American) 106 ML/MIN (>60); Glucose 124 mg/dl (74-100)
[2024-10-22 09:58] LABS: C-Reactive Protein 13.9 mg/L (0-4)
[2024-10-22 10:35] VITALS: BP 120/67; PULSE 61; RESP 18; O2SAT 98
[2024-10-22 10:40] VITALS: BP 83/47; PULSE 61; RESP 18; O2SAT 99
[2024-10-22] MEDS: 0.9 % SODIUM CHLORIDE 50 ML VIAL IV (10:42)
[2024-10-22] MEDS: IOPAMIDOL-370 (76%);100ML BOTTLE 85 ML IV (10:42)
[2024-10-22] MEDS: SODIUM CHLORIDE 0.9% 10ML SYR (RAD ONLY) 10 ML IV (10:42)
[2024-10-22 10:45] VITALS: BP 112/76; PULSE 60; RESP 18; O2SAT 99
--- NOTE | 2024-10-22 10:49 | CA_ITS ---
FINAL REPORT CLINICAL HISTORY: Bilateral lower extremity edema, back injury wheelchair dependent COMPARISON: None FINDINGS: Multiple transverse and longitudinal scans were performed of the femoral popliteal deep venous system, with augmentation and compression maneuvers. Normal phasic flow was noted in the visualized deep venous system. No intraluminal increased echogenicity is noted to suggest thrombus. There is normal compression and augmentation of the venous structures. No abnormal venous collaterals are seen. IMPRESSION: No evidence of deep venous thrombosis of the bilateral lower extremities. Reviewed, Interpreted and Dictated by Americo Schneider MD Transcribed by Jennifer Shultz Authenticated and [facility]
[2024-10-22 10:50] VITALS: BP 100/70; PULSE 66; RESP 18; O2SAT 95
[2024-10-23 15:12] LABS: Angiotensin Converting Enzyme 62 U/L (14-82)
[2024-10-26 15:26] LABS: Aspergillus flavus Negative (Neg:<1:1); Aspergillus fumigatus Negative (Neg:<1:1); Aspergillus niger Negative (Neg:<1:1); Blastomyces Antibody Negative (Neg:<1:1); Histoplasma Antibody Quant Negative (Neg:<1:1)
[2024-10-27 10:22] LABS: D001-IgE D pteronyssinus <0.10 kU/L (Class 0); D002-IgE D farinae <0.10 kU/L (Class 0); E001-IgE Cat Dander <0.10 kU/L (Class 0); E005-IgE Dog Dander <0.10 kU/L (Class 0); E072-IgE Mouse Urine <0.10 kU/L (Class 0); G002-IgE Bermuda Grass <0.10 kU/L (Class 0); G006-IgE Timothy Grass <0.10 kU/L (Class 0); I006-IgE Cockroach, German <0.10 kU/L (Class 0); Immunoglobulin E, Total 30 IU/mL (6-495); M001-IgE Penicillium chrysogen <0.10 kU/L (Class 0); M002-IgE Cladosporium herbarum <0.10 kU/L (Class 0); M003-IgE Aspergillus fumigatus <0.10 kU/L (Class 0); M006-IgE Alternaria alternata <0.10 kU/L (Class 0); T001-IgE Maple/Box Elder <0.10 kU/L (Class 0); T003-IgE Common Silver Birch <0.10 kU/L (Class 0); T006-IgE Cedar, Mountain <0.10 kU/L (Class 0); T007-IgE Oak, White <0.10 kU/L (Class 0); T008-IgE Elm, American <0.10 kU/L (Class 0); T010-IgE Walnut <0.10 kU/L (Class 0); T011-IgE Maple Leaf Sycamore <0.10 kU/L (Class 0); T014-IgE Cottonwood <0.10 kU/L (Class 0); T015-IgE Ash, White <0.10 kU/L (Class 0); T022-IgE Pecan, Hickory <0.10 kU/L (Class 0); T070-IgE White Mulberry <0.10 kU/L (Class 0); W001-IgE Ragweed, Short <0.10 kU/L (Class 0); W011-IgE Thistle, Russian <0.10 kU/L (Class 0); W014-IgE Pigweed, Common <0.10 kU/L (Class 0); W018-IgE Sheep Sorrel <0.10 kU/L (Class 0)
[2024-10-28 13:19] LABS: Aspergillus fumigatus IgG Negative (Negative); Pigeon Serum Abs Negative (Negative)
== END 2024-10-22 23:59 | disposition home or self-care (01) ==
PROVIDERS: Internal Medicine Pulmonary Disease; PCP Nurse Practitioner Family; Visit Provider Physician Assistant
DX: I20.89 Other forms of angina pectoris (principal); R06.09 Other forms of dyspnea; R91.1 Solitary pulmonary nodule; J84.10 Pulmonary fibrosis, unspecified; J84.9 Interstitial pulmonary disease, unspecified; J30.9 Allergic rhinitis, unspecified; R60.9 Edema, unspecified; M79.604 Pain in right leg; M79.605 Pain in left leg
CPT/HCPCS: 36415; 75574; 80048; 82164; 82785; 86003; 86140; 86331; 86602; 86606; 86609; 86612; 86698; 93970; Q9967

== ENCOUNTER → 2024-11-21 09:29 | Outpatient (CLI) | payer MEDICARE, MEDICAID, SELFPAY | LOC: SL 09:30 | PROVIDERS: PCP Physician Assistant; Visit Provider Physician Assistant | DX: G47.33 Obstructive sleep apnea (adult) (pediatric) (principal); G47.36 Sleep related hypoventilation in conditions classified elsewhere; R40.0 Somnolence | CPT/HCPCS: G0399 ==

== ENCOUNTER 2025-02-17 10:07 | Outpatient (CLI) | payer MEDICARE, MEDICAID, SELFPAY ==
--- NOTE | 2025-02-17 10:09 | XR_ITS ---
FINAL REPORT CLINICAL HISTORY: pain COMPARISON: None FINDINGS: Three views show no evidence of acute displaced fracture or dislocation of the visualized bony architecture. The joint spaces appear normal. IMPRESSION: Unremarkable exam. Reviewed, Interpreted and Dictated by Americo Schneider MD Transcribed by Jennifer Shultz Authenticated and [facility]
--- NOTE | 2025-02-17 10:09 | XR_ITS ---
FINAL REPORT CLINICAL HISTORY: pain COMPARISON: 12/01/2020 FINDINGS: Three views of the right hand show surgical resection of the trapezium. There is moderate subluxation of the 1st carpometacarpal joint laterally. Moderate degenerative changes are noted at the base of the 1st metacarpal joint. There is no evidence of fracture. Minimal degenerative changes are noted of the DIP joints. IMPRESSION: Postoperative changes 1st carpometacarpal joint associated with subluxation. Reviewed, Interpreted and Dictated by Americo Schneider MD Transcribed by Jennifer Shultz Authenticated and [facility]
--- NOTE | 2025-02-17 10:09 | XR_ITS ---
FINAL REPORT CLINICAL HISTORY: shoulder pain COMPARISON: None FINDINGS: Three views of the left shoulder show no evidence of acute displaced fracture or dislocation of the visualized bony architecture. The joint spaces appear normal. IMPRESSION: Unremarkable exam. Reviewed, Interpreted and Dictated by Americo Schneider MD Transcribed by Jennifer Shultz Authenticated and [facility]
--- NOTE | 2025-02-17 10:09 | XR_ITS ---
FINAL REPORT CLINICAL HISTORY: pain COMPARISON: 12/01/2020 FINDINGS: Three views of the left hand show surgical changes from resection of the trapezium. There is mild lateral subluxation of the 1st carpometacarpal joint. Mild degenerative change is noted of the 1st metacarpal base. Remaining joints are unremarkable. There is minimal cystic change of the distal scaphoid. IMPRESSION: Arthritic disease 1st carpometacarpal joint. Reviewed, Interpreted and Dictated by Americo Schneider MD Transcribed by Jennifer Shultz Authenticated and [facility]
--- OUTSIDE RECORDS SUMMARY | 2025-02-17 10:29 | XMS_ITS | Referral Summary ---
Author Organization [employer] Address [address] [place] [address] Care Team Providers Care Medical Sonographer Name Role Phone Ender Casas APRN Primary Care Provider [phone] Ender Casas APRN Unavailable [phone] Allergies Active Allergy Reactions Criticality Noted Date Comments Baclofen 01/31/2024 Flu like symptoms Sulfa (Sulfonamide Antibiotics) Rash Low 12/2023 Medications oxyCODONE-acet aminophen (PERCOCET) 10-325 mg per tablet Take 1 tablet by mouth every 6 (six) hours as needed for Pain Look-alike/Soun d-alike medication. Max Daily Amount: 4 tablets Active estradioL (ESTRACE) 1 MG tablet Take 1 tablet (1 mg total) by mouth daily. Active albuterol HFA (VENTOLIN HFA) 90 mcg/actuation inhaler Inhale 1 puff by mouth via inhaler every 6 (six) hours as needed for Wheezing. Active fluticasone propionate (FLONASE) 50 mcg/actuation nasal spray 1 spray by Nasal route daily. Active OXYGEN-AIR DELIVERY SYSTEMS MISC by Miscellaneous route 2 liters all the time . Active fluticasone/um eclidin/vilant er (TRELEGY ELLIPTA INHL) Inhale by mouth via inhaler. Active gabapentin (NEURONTIN) 300 MG capsule Take 3 capsules (900 mg total) by mouth 4 (four) times daily. Max Daily Amount: 3,600 mg Active cyclobenzaprin e (FLEXERIL) 10 MG tablet Take 1 tablet (10 mg total) by mouth 3 (three) times daily as needed for Muscle spasms. Active cetirizine (ZyrTEC) 10 MG tablet Take 1 tablet (10 mg total) by mouth daily. Active Social History Tobacco Use Types Packs/Day Years Used Date Smoking Tobacco: Former Cigarettes Passive Smoke Exposure: Never Smokeless Tobacco: Never Alcohol Use Standard Drinks/Week Comments Never 0 (1 standard drink = 0.6 oz pur e alcohol) Interpersonal Safety Answer Date Record ed Family or friends hurt you Not on file 01/28 Family or friends insult you Not on file 10/2023 Family or friends threaten you Not on file 0 01/29/2024 Family or friends scream or curse at you Not on file 01/29/2024 Food Insecurity Answer Date Recorded Food run out past 12 months Not on file 10/2023 Food did not last past 12 months Not on file 01/29/2024 Employment Answer Date Recorded Help finding and keeping a job Not on file 0 01/29/2024 Family and Community Support Answer Reyes e Recorded Help with Day to Day Activities Not on file 01/29/2024 Feeling Lonely or Isolated Not on file 01/28 Educational Attainment Answer Date Brad rded Speak language other than Malagasy at home Not on file 01/29/2024 Want help with school or training Not on file 01/29/2024 Depression Answer Date Recorded PHQ-2 Risk Not on file 01/29/2024 Disabilities Answer Date Recorded Difficulty concentrating Not on file 024 Difficulty doing errands alone Not on file 0 01/29/2024 Substance Use Answer Date Recorded Used prescription meds for non-medical reasons N ot on file 01/29/2024 Used illegal drugs past 12 months Not on file 01/29/2024 Comments Unknown Sex and Gender Information Value Date Recorded Sex Assigned at Not on file Legal Sex Female 7:56 PM CDT Gender Identity Not on file Sexual Orientation Not on file Last Filed Vital Signs Vital Sign Reading Time Taken Comments Blood Pressure 171/74 02/05/2024 12:27 PM EDT Pulse 67 02/05/2024 12:27 PM EDT Temperature 36.6 C (97.9 F) 02/05/2024 12:27 PM EDT Respiratory Rate 18 02/05/2024 12:19 PM EDT Oxygen Saturation 99% 02/05/2024 12:27 PM EDT Inhaled Oxygen Concentration - - Weight 94.8 kg (209 lb) 01/31/2024 11:00 AM EDT Height 160 cm (5' 3 ) 01/31/2024 11:00 AM EDT Body Mass Index 37.02 01/31/2024 11:00 AM EDT Plan of Treatment Not on file Insurance MEDICAID OF [place] Member Subscriber Plan / Payer (Ef fective 2023-Present) Name:GordilloOmar Relation to Subscriber:Self Name:Rand Omar Manjeet Payer ID:[id number] Group ID:Not on file Type:Not on file Address: [facility] [address] [facility]PLETE [facility] Care Teams Medical Sonographer Relationship Specialty Start Date End Date Ender Casas APRN [address] [place] [address] PCP - General Nurse Practitioner 08/04/23 Ender Casas APRN [address] [place] [address] Referring Physician Nurse Practitioner 08/04/23
--- OUTSIDE RECORDS SUMMARY | 2025-02-17 10:29 | XMS_ITS | Clinical Summary ---
Author Organization [facility] Address [address] [place] [address] Care Team Providers Care Digital Analyst Name Role Phone Darion Rehman MD Primary Care Provider [phone] Allergies Active Allergy Reactions Criticality Noted Date Comments Baclofen Other - please docum ent in the comment field Low 02/02/2021 Meloxicam Headache Low 07/06/2021 Sulfacetamide Hives,Rash,Swelling High 06/21/2011 Medications oxyCODONE (Roxicodone) 5 MG immediate release tablet Take 1 tab PO q4h prn pain Active gabapentin (Neurontin) 300 MG capsule Take 300 mg by mouth. Active cyclobenzaprine (Flexeril) 10 MG tablet Take 10 mg by mouth 3 (three) times a day if needed for muscle spasms. Active estradiol (Estrace) 1 MG tablet Take 1 mg by mouth 1 (one) time each day. Active albuterol 108 (90 Base) MCG/ACT inhaler Inhale 2 puffs every 6 (six) hours if needed for wheezing. Active fluticasone (Flonase) 50 MCG/ACT nasal spray Administer 1 spray into each nostril 1 (one) time each day. Shake gently. Before first use, prime pump. After use, clean tip and replace cap. Active loratadine (Claritin Reditabs) 10 MG disintegrating tablet Take 10 mg by mouth 1 (one) time each day. Active Active Problems Problem Noted Date Diagnosed Date Primary osteoarthritis of both first carpometaca rpal joints 02/19/2021 Carpal tunnel syndrome, bilateral 02/19/2021 Social History Tobacco Use Types Packs/Day Years Used Date Smoking Tobacco: Former Smokeless Tobacco: Never Alcohol Use Standard Drinks/Week Comments Never 0 (1 standard drink = 0.6 oz pur e alcohol) PHQ-2 Answer Date Recorded Patient Health Questionnaire-2 Score 1 04/27/2021 Comments Unknown Sex and Gender Information Value Date Recorded Sex Assigned at Not on file Legal Sex Female 8:00 PM EDT Gender Identity Not on file Sexual Orientation Not on file Last Filed Vital Signs Vital Sign Reading Time Taken Comments Blood Pressure 129/85 11/23/2021 10:15 AM EDT Pulse 86 11/23/2021 10:15 AM EDT Temperature 36.6 C (97.9 F) 11/23/2021 10:15 AM EDT Respiratory Rate - - Oxygen Saturation 92% 11/23/2021 10:15 AM EDT Inhaled Oxygen Concentration - - Weight 82.1 kg (181 lb) 11/23/2021 10:15 AM EDT Height 160 cm (5' 3 ) 11/23/2021 10:15 AM EDT Body Mass Index 32.06 11/23/2021 10:15 AM EDT Plan of Treatment Health Maintenance Due Date Last Done Comments [facility]-Depression Screening 1970 [facility]-Infant/Child/Adol SDOH Screenings 1970 [facility]- SDOH Screenings 01/27/1988 [facility]-Adult SDOH Screenings 01/27/1988 [facility]-DTaP,Tdap,and Td Vaccine s (1 - Tdap) 1989 [facility]-Hepatitis B Vaccines (1 of 3 - 19+ 3-dose series) 1989 [facility]-Pap Smear 1991 [facility]-Cervical Cancer Screening 01/27/2000 [facility]-HPV/Cotest 01/27/2000 CT Colonography 2015 Colonoscopy 2015 FIT-DNA 2015 FIT 2015 FOBT 2015 Sigmoidoscopy 2015 [facility]-Colorectal Cancer Screening 2015 [facility]-Pneumococcal Vaccine: 50 + Years (1 of 1 - PCV) 01/27/2020 [facility]-Zoster Vaccines (1 of 2) 01/27/2020 [id number] Vaccine (1 - season) 2024 [facility]-Influenza Vaccine (Seaso n Ended) 2025 07/16/2018, 07/15/2015 HPV Vaccines Aged Out No longer eligi ble based on patient's age to complete this topic [facility]-HIB Vaccines Aged Out No longer e ligible based on patient's age to complete this topic [facility]-Hepatitis A Vaccines Aged Out No longer eligible based on patient's age to complete this topic [facility]-IPV Vaccines Aged Out No longer e ligible based on patient's age to complete this topic [facility]-Rotavirus Vaccines Aged Out No lo nger eligible based on patient's age to complete this topic Goals Goal Patient Goal Type Associated Problems Recent Progress Patient-Stated? Author Patient will verbalize understanding of orthotic wear , care and precautions. Occupational Therapy No José Antonio Mccall Pain: Patient will report a pain score of 0/10 within 2 weeks. Occupational Therapy No José Antonio Mccall Patient will dmeonstrate correct performance of HEP within 2 weeks. Occupational Therapy No José Antonio Mccall ROM: Patient will demonstrate ability to perform composite fist to DPC within 2 weeks. 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 Occupational Therapy No José Antonio Mccall Insurance MEDICARE Care Teams Digital Analyst Relationship Specialty Start Date End Date Darion Rehman MD [address] [place] [address] PCP - General 01/08/21
--- OUTSIDE RECORDS SUMMARY | 2025-02-17 10:29 | XMS_ITS | Clinical Summary ---
Author Organization [employer] Address [address] [place] [address] Care Team Providers Care Agronomy Supervisor Name Role Phone Ender Casas APRN Primary Care Provider [phone] Ender Casas APRN Unavailable Allergies Active Allergy Reactions Criticality Noted Date [...] Date Brad rded Speak language other than Croatian at home Not on file 01/29/2024 Want [...] 01/31/2024 11:00 AM EDT Plan of Treatment Health Maintenance Due Date Last Done Comments CT Colonography 1970 Colonoscopy 1970 Colorectal Cancer Screening 1970 FOBT/FIT 1970 Fit-DNA (Cologuard) 1970 Sigmoidoscopy 1970 Depression Screening (12+) 1982 HIV Screening 1985 Hepatitis C Screening 01/27/1988 DTAP/TDAP/TD VACCINES (1 - Tdap) 1989 Pneumococcal 50+ years (1 of 2 - PCV) 1989 Pap Smear 1991 Breast Cancer Screening 2010 Lipid Panel 2015 Shingles Vaccine (Zoster) (1 of 2) 01/27/2020 COVID-19 VACCINE ( - season) 2024 Tobacco Cessation Counseling and Screening (12+) 02/0402/05/2024 Influenza Vaccine (Season Ended) 2025 Insurance [place]ICAID OF [place] Member Subscriber Plan / Payer (Ef fective 2023-Present) Name:Omar Gordillo Relation to Subscriber:Self Name:Omar Gordillo Payer ID:[id number] Group ID:Not on file Type:Not on file Address: [address] D[employer]PLETE [employer] Care Teams Agronomy Supervisor Relationship Specialty Start Date End Date Ender Casas APRN [address] [place] [address] PCP - General Nurse Practitioner 08/04/23 Ender Casas APRN [address] [place] [address] Referring Physician Nurse Practitioner 08/04/23"
== END 2025-02-17 23:59 | disposition home or self-care (01) ==
LOC: RAD 10:08
PROVIDERS: PCP Nurse Practitioner Family; Visit Provider Family Medicine
DX: S63.041A Subluxation of carpometacarpal joint of right thumb, initial encounter (principal); M18.9 Osteoarthritis of first carpometacarpal joint, unspecified; M25.519 Pain in unspecified shoulder
CPT/HCPCS: 73030; 73130

== ENCOUNTER 2025-03-25 09:51 | Outpatient (CLI) | payer MEDICARE, MEDICAID, SELFPAY ==
--- OUTSIDE RECORDS SUMMARY | 2025-03-25 09:54 | XMS_ITS | Clinical Summary ---
Author Organization [employer] ([place], [place], [place], [place]) Address [address] [place] [address] Care Team Providers Care Manager Deli Name Role Phone Ender Casas APRN Primary Care Provider Ender Casas APRN Unavailable [phone] Allergies Active Allergy Reactions Criticality Noted [...] drink = 0.6 oz pur e alcohol) Food Insecurity Answer Date Recorded Food run [...] Date Brad rded Speak language other than Argentine at home Not on file 01/29/2024 Want help with school or training Not on file 01/29/2024 Substance Use Answer Date Recorded Used [...] 01/27/1988 DTAP/TDAP/TD VACCINES (1 - Tdap) 1989 Pap Smear 1991 Breast Cancer Screening 2010 Lipid Panel 2015 Pneumococcal 50+ years (1 of 1 - PCV) 01/27/2020 Shingles Vaccine (Zoster) (1 of 2) 01/27/2020 COVID-19 VACCINE (1 - 2023- season) 2024 Tobacco Cessation Counseling and Screening (12+) 02/0402/05/2024 Influenza Vaccine (#1) 2025 Insurance [place]ID OF [place] Member Subscriber Plan / Payer (Ef fective 2023-Present) Name:Omar Gordillo Relation to Subscriber:Self Name:Omar Gordillo Payer ID:[id number] Group ID:Not on file Type:Not on file Address: [address] [employer]PLETE [facility] [facility] Care Teams Manager Deli Relationship Specialty Start Date End Date Ender Casas APRN [address] [place] [address] PCP - General Nurse Practitioner 08/04/23 Ender Casas, [place] [address] [place] [address] Referring Physician Nurse Practitioner 08/04/23
--- OUTSIDE RECORDS SUMMARY | 2025-03-25 09:54 | XMS_ITS | Referral Summary ---
Author Organization [employer] ([place], [place], [place], [place]) Address [address] [place] [address] Care Team Providers Care Supplier Quality Engineer Name Role Phone Ender Csaas APRN Primary Care Provider [phone] Ender Casas APRN Unavailable [phone] Allergies Active Allergy Reactions Criticality Noted [...] Treatment Not on file Insurance MEDICAID OF [place] D[employer]PLETE [facility] [facility] Care Teams Supplier Quality Engineer Relationship Specialty Start Date End Date Ender Casas APRN [address] [place] [address] PCP - General Nurse Practitioner 08/04/23 Ender Casas APRN [address] [place] [address] Referring Physician Nurse Practitioner 08/04/23
--- OUTSIDE RECORDS SUMMARY | 2025-03-25 09:54 | XMS_ITS | Clinical Summary ---
Author Organization [facility] Address [address] [place] [address] Care Team Providers Care Patient Ombudsperson Name Role Phone Darion Rehman MD Primary Care Provider [phone] Allergies Active Allergy Reactions Criticality Noted Date [...] 01/27/2020 [facility]-Zoster Vaccines (1 of 2) 01/27/2020 [id number] Vaccine (1 - season) 2024 [facility]-Influenza Vaccine (#1) 04/28/202507/16, 07/15/2015 HPV Vaccines Aged Out No longer [...] José Antonio Mccall ROM: Patient will demonstrate pipe buffer strength to 60% of norm for increased participation in ADL's. Occupational Therapy No José Antonio Mccall Insurance MEDICARE Care Teams Patient Ombudsperson Relationship Specialty Start Date End Date Darion Rehman MD [address] [place] [address] PCP - General 01/08/21
== END 2025-03-25 23:59 | disposition home or self-care (01) ==
LOC: RT 09:52
PROVIDERS: PCP Nurse Practitioner Family; Visit Provider Physician Assistant
DX: I49.1 Atrial premature depolarization (principal); I47.19 Other supraventricular tachycardia; I49.3 Ventricular premature depolarization; I25.10 Atherosclerotic heart disease of native coronary artery without angina pectoris
CPT/HCPCS: 93270

== ENCOUNTER 2025-04-16 11:50 | Emergency (ER) | payer MEDICARE, MEDICAID, SELFPAY ==
--- NOTE | 2025-04-16 11:57 | ECG_ITS ---
APPROVED REPORT Exam: Resting ECG HR:117 bpm ECG Measurements Heart Rate 117 AXES MD 138 P 70 QRSd 74 QRS -15 QT 315 T 63 QTc 385 Conclusion SINUS TACHYCARDIA ABNORMAL RHYTHM ECG UNCONFIRMED REPORT Electronically signed by : Ramon Steward, 04/16/2025 15:36:53
--- OUTSIDE RECORDS SUMMARY | 2025-04-16 12:02 | XMS_ITS | Clinical Summary ---
Author Organization 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 Occupational Therapy No José Antonio Mccall Insurance MEDICARE Care Teams Medical Clerk Relationship Specialty Start Date End Date Darion Rehman MD [address] [place] [address] PCP - General 01/08/21
[2025-04-16 12:07] VITALS: BP 163/109; PULSE 125; RESP 18; TEMP 36.8; O2SAT 94; BMI 35.4
[2025-04-16 12:11] VITALS: O2SAT 94
[2025-04-16 12:15] VITALS: BP 143/114; PULSE 108; RESP 18; O2SAT 96
[2025-04-16 12:29] LABS: Hematocrit 38.9 % (37.0-47.0); Hemoglobin 13.0 g/dL (12.2-16.2); Immature Granulocytes % 0.2 %; Mean Corpuscular HGB Conc 33.4 g/dL (31.8-35.4); Mean Corpuscular Hemoglobin 28.8 pg (27.0-31.2); Mean Corpuscular Volume 86.1 fl (81-99); Nucleated Red Blood Cells % 0 %; Platelet Count 263 K/mm3 (142-424); Red Blood Count 4.52 M/mm3 (4.20-5.40); Red Cell Distribution Width-SD 38.5 fL; White Blood Count 6.5 K/mm3 (4.8-10.8)
[2025-04-16 12:30] VITALS: BP 166/91; PULSE 102; RESP 16; O2SAT 95
[2025-04-16 12:31] LABS: Alanine Aminotransferase 38 U/L (12-78); Albumin Level 4.1 g/dl (3.5-5.0); Albumin/Globulin Ratio 1.5 (1.1-1.8); Alkaline Phosphatase 149 U/L (38-126); Anion Gap 12.1 mEq/L (5-15); Aspartate Amino Transferase 40 U/L (14-36); Bilirubin,Total 1.6 mg/dl (0.2-1.3); Blood Urea Nitrogen 9 mg/dl (7-17); Calcium 8.9 mg/dl (8.4-10.2); Carbon Dioxide 29 mmol/L (22.0-30.0); Chloride 99 mmol/L (98-107); Creatinine Clearance Estimated 114 mL/min (50-200); Creatinine,Serum 0.80 mg/dl (0.52-1.04); Estimated Glomerular Filt Rate 74 ml/min (>60); GFR (African American) 90 ML/MIN (>60); Globulin 2.8 g/dL (1.3-3.2); Glucose 184 mg/dl (74-100); Potassium 4.1 mmoL/L (3.5-5.1); Sodium 136 mmol/L (136-145); Total Protein,Serum 6.9 g/dl (6.3-8.2)
--- NOTE | 2025-04-16 12:31 | CT_ITS ---
FINAL REPORT TECHNIQUE: The patient was injected with IV contrast. Axial images were obtained through the chest in a PE protocol. 3-D reconstruction images were also performed. Individualized dose reduction techniques using automated exposure control or adjustment of the MA and/or KV according to patient's size were employed. CLINICAL HISTORY: dyspnea, h/o possible ILD COMPARISON: CT chest 06/2024 FINDINGS: There is streak artifact from cervical fusion hardware. Mediastinal vasculature is adequately opacified. No pulmonary artery filling defects are identified to suggest PE. There is no aortic dissection. There is a right paratracheal lymph node measuring up to 1.5 cm. The heart size is normal. There is no pericardial or pleural effusion. Limited images of the upper abdomen are unremarkable. There is biapical pleural parenchymal scarring, similar to the prior study. The lung bases are clear. There is a right upper lobe opacity which is less evident than on the previous exam and favored to be postinflammatory. IMPRESSION: No pulmonary embolus or dissection. Reviewed, Interpreted and Dictated by Jony Isaac MD Transcribed by Jennifer Shultz Authenticated and [facility]
--- NOTE | 2025-04-16 12:33 | HMH.EDGENADL ---
Discharge Plan Disposition Patient Disposition: Home, Self-Care Prescriptions Prescriptions: New benzonatate 100 mg capsule 100 mg PO TID PRN (Reason: cough) 5 Days Qty: 20 0RF albuterol sulfate 90 mcg/actuation HFA aerosol inhaler 4 inh inhalation Q4H PRN (Reason: shortness of breath or wheezing) Qty: 8.5 0RF Rx Instructions: 4 puffs every 4 hours for 48 hours then as needed for shortness of breath or wheezing following doxycycline hyclate 100 mg capsule 100 mg PO BID 10 Days Qty: 20 0RF prednisone 50 mg tablet 50 mg PO DAILY 5 Days Qty: 5 0RF Rx Instructions: Please begin 1 day after ED visit No Action Trelegy Ellipta 200-62.5-25 mcg blister with device 1 inh inhalation DAILY 90 Days Qty: 90 2RF montelukast 10 mg tablet 10 mg PO QPM 90 Days Qty: 90 2RF fluticasone propionate [Flonase Allergy Relief] 50 mcg/actuation spray,suspension 1 spray intranasal DAILY 90 Days Qty: 16 3RF Rx Instructions: administer into each nostril atorvastatin 40 mg tablet 80 mg PO HS Qty: 90 1RF diclofenac sodium 1 % gel 1 ea topical QID Qty: 100 1RF Rx Instructions: apply to single elbow, wrist or hand; for hand includes palm/fingers/back of hand oxycodone 10 mg tablet 10 mg PO QIDP PRN (Reason: Moderate Pain (Scale Score 5-6)) pantoprazole 40 mg tablet,delayed release (DR/EC) 40 mg PO DAILY Qty: 90 3RF (DME) blood pressure monitor Kit See Rx Instructions .Route Qty: 1 0RF Rx Instructions: As directed fluticasone propionate 50 mcg/actuation spray,suspension See Rx Instructions .ROUTE .COMPLEX Qty: 16 0RF Dose Instruction: USE 2 SPRAYS INTO EACH NOSTRIL ONCE A DAY NEEDED FOR ALLERGY SYMPTOMS Rx Instructions: USE 2 SPRAYS INTO EACH NOSTRIL ONCE A DAY NEEDED FOR ALLERGY SYMPTOMS estradiol 1 mg tablet See Rx Instructions .ROUTE .COMPLEX Qty: 90 2RF Dose Instruction: TAKE ONE TABLET BY MOUTH ONCE A DAY FOR HORMONE Rx Instructions: TAKE ONE TABLET BY MOUTH ONCE A DAY FOR HORMONE bisoprolol fumarate 5 mg tablet See Rx Instructions .ROUTE .COMPLEX Qty: 30 5RF Dose Instruction: TAKE ONE TABLET BY MOUTH ONCE A DAY Rx Instructions: TAKE ONE TABLET BY MOUTH ONCE A DAY albuterol sulfate 90 mcg/actuation HFA aerosol inhaler See Rx Instructions .ROUTE .COMPLEX Qty: 8.5 6RF Dose Instruction: inhale 2 puffs BY MOUTH EVERY 4 HOURS NEEDED FOR shortness of breath OR wheezing Rx Instructions: inhale 2 puffs BY MOUTH EVERY 4 HOURS NEEDED FOR shortness of breath OR wheezing ipratropium-albuterol 0.5 mg-3 mg(2.5 mg base)/3 mL solution for nebulization See Rx Instructions .ROUTE .COMPLEX Qty: 360 1RF Dose Instruction: INHALE CONTENTS OF 1 VIAL VIA NEBULIZER 4 TIMES A DAY NEEDED FOR SHORTNESS OF BREATH OR WHEEZING Rx Instructions: INHALE CONTENTS OF 1 VIAL VIA NEBULIZER 4 TIMES A DAY NEEDED FOR SHORTNESS OF BREATH OR WHEEZING cetirizine 10 mg tablet See Rx Instructions .ROUTE .COMPLEX Qty: 90 3RF Dose Instruction: TAKE ONE TABLET BY MOUTH ONCE A DAY NEEDED FOR ALLERGY SYMPTOMS Rx Instructions: TAKE ONE TABLET BY MOUTH ONCE A DAY NEEDED FOR ALLERGY SYMPTOMS gabapentin 300 capsule 900 mg PO QID Patient Comments: cyclobenzaprine 10 MG tablet 10 mg PO TIDP PRN (Reason: muscle spasms) aspirin 81 mg Tablet,Delayed Release (Dr/Ec) 81 mg PO DAILY Qty: 30 0RF Referrals Follow up/Referrals: Ender Casas APRN [Primary Care Provider, Family Practice] - See instructions Antoni Scruggs MD [Physician, Pulmonology] - See instructions Activity Restrictions/Add. 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 Clinical Impressions Clinical Impression: COPD exacerbation Print Language Print Language: Peruvian Discharge ED Provider: Sherry Steward General Adult HPI General Chief complaint: Shortness of Breath/Dyspnea Stated complaint: SOA, on O2, High BP, cough Time Seen by Provider: 04/16/25 12:04 Mode of Arrival: Ambulatory Source of Information: Patient Description of Symptoms (Recalled from ER Triage Doc. by RN): patient presents to the ED today for worsening SOA. Patient wears 2L NC at home for bad lungs . She noticed the worseingin shortness of air on Monday, and it has continues to get worse. PAtient also stated she has had a high heart rate for a few days now as well as hypertention at home. History of Present Illness HPI narrative: Patient is a 55-year-old female with a history of lung disease including fibrotic changes concerning for interstitial lung disease also COPD and also has had some groundglass opacities which were presumed pneumonia in the past she presents today with multiple days of increased shortness of breath wheezing and cough. No lower extremity swelling. No history of CHF etc. No fevers or chills recently. She wears 2 L nasal cannula at baseline. Related Data Home Medications ?Medication ?Instructions ?Recorded ?Confirmed gabapentin 300 mg capsule 900 mg PO QID 12/08/17 03/25/25 cyclobenzaprine 10 mg tablet 10 mg PO TIDP PRN muscle spasms 11/12/20 03/25/25 oxycodone 10 mg tablet 10 mg PO QIDP PRN Moderate Pain 12/28/23 03/25/25 (Scale Score 5-6) Previous Rx's ?Medication ?Instructions ?Recorded aspirin 81 mg tablet,delayed 81 mg PO DAILY #30 tabs 05/07/24 release fluticasone propionate 50 See Rx Instructions .Route 06/03/24 mcg/actuation nasal .COMPLEX #16 grams spray,suspension pantoprazole 40 mg tablet,delayed 40 mg PO DAILY #90 tabs 06/24/24 release estradiol 1 mg tablet See Rx Instructions .Route 11/15/24 .COMPLEX #90 tabs fluticasone fur. 200 mcg-umeclid 1 inh inhalation DAILY 90 days #90 12/17/24 62.5 mcg-vilant 25 mcg ea inhalat.powder (Trelegy Ellipta) fluticasone propionate 50 1 spray intranasal DAILY 90 days 12/17/24 mcg/actuation nasal #16 grams spray,suspension (Flonase Allergy Relief) montelukast 10 mg tablet 10 mg PO QPM 90 days #90 tabs 12/17/24 bisoprolol fumarate 5 mg tablet See Rx Instructions .Route 01/01/25 .COMPLEX #30 tabs albuterol sulfate 90 mcg/actuation See Rx Instructions .Route 01/08/25 aerosol inhaler .COMPLEX #8.5 grams atorvastatin 40 mg tablet 80 mg (2 x 40 mg) PO HS #90 tabs 02/06/25 diclofenac sodium 1 % topical gel 1 ea topical QID #100 grams 02/06/25 cetirizine 10 mg tablet See Rx Instructions .Route 02/07/25 .COMPLEX #90 tabs ipratropium 0.5 mg-albuterol 3 mg See Rx Instructions .Route 02/07/25 (2.5 mg base)/3 mL nebulization .COMPLEX #360 mL soln blood pressure monitor #1 ea 03/25/25 albuterol sulfate 90 mcg/actuation 4 inh inhalation Q4H PRN shortness 04/16/25 aerosol inhaler of breath or wheezing #8.5 grams benzonatate 100 mg capsule 100 mg PO TID PRN cough 5 days #20 04/16/25 caps doxycycline hyclate 100 mg capsule 100 mg PO BID 10 days #20 caps 04/16/25 prednisone 50 mg tablet 50 mg PO DAILY 5 days #5 tabs 04/16/25 Allergies Allergy/AdvReac Type Severity Reaction Status Date / Time baclofen Allergy Intermediate Rash Verified 03/25/25 09:26 mold Allergy Intermediate Rash Verified 03/25/25 09:26 Sulfa (Sulfonamide Allergy Unknown I-RASH Verified 03/25/25 09:26 Antibiotics) (SULFA (SULFONAMIDE ANTIBIOTICS)) sulfamethoxazole (From Allergy Rash Verified 03/25/25 09:26 Bactrim) trimethoprim (From Bactrim) Allergy Rash Verified 03/25/25 09:26 meloxicam AdvReac Unknown Rash Verified 03/25/25 09:26 heparin AdvReac Redness of Verified 03/25/25 09:26 Skin PFSH PFS Disclaimer: The information contained in this section may have been updated after the patient was seen, as this information can be updated by other users. Medical History (Updated 04/16/25 @ 12:32 by Sherry Stewadr MD) Other forms of dyspnea Swelling Palpitation CAD (coronary artery disease) Pain in both lower extremities Edema Dyspnea Atypical angina Chronic respiratory failure with hypoxia ILD (interstitial lung disease) Multiple lung nodules on CT Mediastinal lymphadenopathy Dizziness Family history of coronary artery disease Abnormal ECG Encounter for screening for malignant neoplasm of lung History of smoking 30 or more pack years COPD mixed type Surgical History History of cervical spinal surgery History of lumbar surgery History of cholecystectomy History of hysterectomy History of tonsillectomy Family History Other Asthma Cancer Diabetes Heart attack Stroke Social History Smoking Status: Former smoker tobacco type: cigarettes packs per day: 0 smoking status stop date: 01/26/2019 second hand exposure: No alcohol intake: former substance use type: denies use current occupational status: disabled Travel in the last 8 weeks?: None household members: none housing: house current occupational exposures/hazards: No caffeine: No Have you lived/traveled outside US in past 30 days?: No Contact w/someone who lives/traveled outside US past 30 days?: No Exposure to someone with infectious disease in past 14 days?: No Do you have a fever (greater than 100.4 F or 38 C)?: No Have you tested positive for COVID-19?: No Exposed to someone with COVID-19 in past 14 days?: No Do you have a sore throat?: No Do you have a cough?: No Do you have any weakness?: No Do you have any diarrhea?: No Are you experiencing any unusual bleeding?: No Do you have any muscle aches/pain?: No Do you have any abdominal pain?: No Are you experiencing loss of taste or smell?: No Other Medical History Have you received the Flu Vaccine for this season: No Have you received the Pneumonia Vaccine: No ROS Obtained: Yes All systems reviewed & no additional complaints except as documented Physical Exam General General appearance: alert Respiratory Respiratory exam: Present normal lung sounds bilaterally and other (Oxygen saturations upper 90s on 2 L nasal cannula no respiratory distress); Absent respiratory distress Cardiovascular Cardiovascular exam: Present tachycardia Neurological Exam Neurological exam: Present alert and oriented X3 Medical Decision Making Medical Records Screening: Per USPSTF and CDC recommendations, given the prevalence of disease in our region, it is our hospital?s policy to screen for HIV and viral Hepatitis for all patients aged 18 and over and those with ongoing risk factors. Jose Inquiry Pt receiving controlled substance: No Vital Signs: 04/16/25 12:07 04/16/25 12:11 04/16/25 12:15 Temperature 98.2 F Temperature Source Oral Pulse Rate 108 H Pulse Rate [Left Radial] 125 H Respiratory Rate 18 18 Blood Pressure 143/114 H Blood Pressure [Right Arm] 163/109 H Blood Pressure Mean Blood Pressure Mean [Right Arm] 127 Blood Pressure Source [Right Arm] Automatic Cuff Blood Pressure Position [Right Arm] Sitting 02 Sat by Pulse Oximetry 94 L 94 L 96 Oxygen Delivery Method Nasal Cannula Nasal Cannula Oxygen Flow Rate (LPM) 2 2 04/16/25 12:30 04/16/25 13:00 Temperature Temperature Source Pulse Rate 102 H 91 H Pulse Rate [Left Radial] Respiratory Rate 16 9 L Blood Pressure 166/91 H 171/85 H Blood Pressure [Right Arm] Blood Pressure Mean 143 Blood Pressure Mean [Right Arm] Blood Pressure Source [Right Arm] Blood Pressure Position [Right Arm] 02 Sat by Pulse Oximetry 95 98 Oxygen Delivery Method Oxygen Flow Rate (LPM) Lab Data Lab results reviewed: Yes I reviewed the patient's lab results. Lab Results 04/16/25 11:58: SARS-CoV-2 (PCR) Not detected, Influenza A Untype (PCR) Not detected, Influenza Type B (PCR) Not detected 04/16/25 12:12: WBC 6.5, RBC 4.52, Hgb 13.0, Hct 38.9, MCV 86.1, MCH 28.8, MCHC 33.4, RDW 12.3, Plt Count 263, MPV 10.3, Neut % (Auto) 58.9, Lymph % (Auto) 27.6, [place] % (Auto) 8.1, Eos % (Auto) 4.6, Baso % (Auto) 0.6, Neut # (Auto) 3.9, Lymph # (Auto) 1.8, [place] # (Auto) 0.5, Eos # (Auto) 0.3, Baso # (Auto) 0.0, Sodium 136, Potassium 4.1, Chloride 99, Carbon Dioxide 29, Anion Gap 12.1, BUN 9, Creatinine 0.80, Estimated Creat Clear 114, Estimated GFR 74, Est GFR ( Amer) 90, Glucose 184 H, Lactate 2.1, Calcium 8.9, Total Bilirubin 1.6 H, AST 40 H, ALT 38, Alkaline Phosphatase 149 H, Total Protein 6.9, Albumin 4.1, Globulin 2.8, Albumin/Globulin Ratio 1.5 04/16/25 : Troponin I < 0.01, NT-Pro-B Natriuret Pep 22.5 04/16/25 12:12 04/16/25 12:12 Orders (Tests/Meds): ED MEDICATIONS Discontinued Medications Generic Name Dose Route Start Last Admin Trade Name César PRN Reason Stop Dose Admin Albuterol/Ipratropium 3 ml 04/16/25 12:31 04/16/25 12:43 Ipratropium/Albuterol 3 Ml Neb IH 04/16/25 12:32 3 ml ONCE ONE Administration Lactated Ringer's 1,000 mls @ 999 mls/hr 04/16/25 12:45 04/16/25 12:42 Lactated Ringer's 1000 Ml Bag IV 04/16/25 13:45 999 mls/hr .Q1H1M JODIE Administration Magnesium Sulfate 2 gm in 50 mls @ 50 mls/hr 04/16/25 12:31 04/16/25 14:34 Magnesium Sulfate 2gm/50ml Premix IV 04/16/25 13:30 Infused ONCE ONE Infusion Iopamidol 85 ml 04/16/25 13:51 04/16/25 13:52 Iopamidol-370 (76%);100ml Bottle IV 04/16/25 13:52 85 ml ONCE ONE Administration Methylprednisolone Sodium Succinate 125 mg 04/16/25 12:31 04/16/25 12:43 Methylprednisolone Sod Succ 125mg Vial IV 04/16/25 12:32 125 mg ONCE ONE Administration Sodium Chloride 50 ml 04/16/25 13:51 04/16/25 13:52 0.9 % Sodium Chloride 50 Ml Vial IV 04/16/25 13:52 50 ml ONCE ONE Administration Sodium Chloride 10 ml 04/16/25 13:51 04/16/25 13:52 Sodium Chloride 0.9% 10ml Syr (Rad Only) IV 04/16/25 13:52 10 ml ONCE ONE Administration ORDERS Category Date Time Status CT angio chest PE protocol Stat Cat Scan 04/16/25 12:31 Completed BNP [NT Pro Brain Natriuretic Pep.] Stat Lab 04/16/25 Completed Complete Blood Count Auto Diff Stat Lab 04/16/25 12:12 Completed Comprehensive Metabolic Panel Stat Lab 04/16/25 12:12 Completed Lactic Acid Stat Lab 04/16/25 12:12 Completed Rapid PCR Covid and Flu A/B Stat Lab 04/16/25 11:58 Completed Trop I [Troponin I] Stat Lab 08/20/25 Completed Troponin I Q3H Lab 04/16/25 15:45 Ordered Troponin I Q3H Lab 04/16/25 18:45 Ordered Medical Decision Narrative: 55-year-old with above history and physical she is very stable from my perspective but has several days of increased cough shortness of breath wheezing most likely COPD exacerbation. Could be a flare of her possible interstitial lung disease it seems like there remains some diagnostic uncertainty and she is having extensive workup with Dr. Scruggs. She is scheduled to have a June repeat CT scan that she has had multiple pulmonary nodules in the past. Given the fact that she has had interstitial pneumonitis pulmonary fibrosis multiple nodules pneumonia from historical standpoint we will proceed with a CT PE which will give significant diagnostic information today. This will be done in addition to laboratory workup and EKG at [facility]. In the meantime I will treat this as a COPD exacerbation until an alternative diagnosis is made. Reassessment 3:[address] scans performed I personally interpreted shows no acute abnormalities there is some improvement in the chronic inflammatory and scarring changes in one of the lymph nodes is also smaller than it was previously. Certainly no dense consolidation. Labs otherwise unremarkable patient better from my reassessment and very stable clinically. 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 Critical Care Critical Care Time Critical Care Time: No
[2025-04-16 12:37] LABS: Coronavirus 19, PCR Not Detected (NotDetected); Influenza A, PCR Not Detected (NotDetected); Influenza B, PCR Not Detected (NotDetected)
[2025-04-16] MEDS: LACTATED RINGERS 1000ML 1,000 ML 999 ML IV (12:42)
[2025-04-16] MEDS: MAGNESIUM SULFATE IN WATER 2 GM/50 ML PIGGYBACK IV (12:42)
[2025-04-16] MEDS: METHYLPREDNISOLONE SOD SUCC 125MG VIAL 125 MG IV (12:43)
[2025-04-16] MEDS: IPRATROPIUM/ALBUTEROL 3 ML NEB IH (12:43)
[2025-04-16 12:56] LABS: NT Pro Brain Natriuretic Pep. 22.5 pg/mL (0-125)
[2025-04-16 13:00] VITALS: BP 171/85; PULSE 91; RESP 9; O2SAT 98
[2025-04-16 13:02] LABS: Troponin I < 0.01 ng/ml (0.00-0.034)
[2025-04-16] MEDS: IOPAMIDOL-370 (76%);100ML BOTTLE 85 ML IV (13:52)
[2025-04-16] MEDS: SODIUM CHLORIDE 0.9% 10ML SYR (RAD ONLY) 10 ML IV (13:52)
[2025-04-16] MEDS: 0.9 % SODIUM CHLORIDE 50 ML VIAL IV (13:52)
[2025-04-16 15:29] VITALS: BP 121/66; PULSE 88; RESP 18; TEMP 36.3; O2SAT 95
[2025-04-16 16:21] LABS: Reflex Lactic Add Lactic Reflex
== END 2025-04-16 15:31 | disposition home or self-care (01) ==
PROVIDERS: Emergency Provider Student in an Organized Health Care Education/Training Program; PCP Nurse Practitioner Family
DX: J44.1 Chronic obstructive pulmonary disease with (acute) exacerbation (principal); Z87.891 Personal history of nicotine dependence; Z99.81 Dependence on supplemental oxygen
CPT/HCPCS: 71275; 80053; 83605; 83880; 84484; 85025; 87636; 93005; 96361; 96365; 96375; 99285; J2919; J3475; J7120; Q9967

== ENCOUNTER 2025-05-20 12:32 | Outpatient (CLI) | payer MEDICARE, MEDICAID, SELFPAY ==
--- OUTSIDE RECORDS SUMMARY | 2025-05-20 12:34 | XMS_ITS | Clinical Summary ---
Author Organization [facility] Address [address] [place] [address] Care Team Providers Care Staker Surveying Name Role Phone Darion Rehman MD Primary Care Provider + [phone] Allergies Active Allergy Reactions Criticality Noted Date [...] 01/27/2020 UKY-Zoster Vaccines (1 of 2) 01/27/2020 [id number] Vaccine (1 - season) 2025 [facility]Y-Influenza Vaccine (#1) 04/28/202507/16, 07/15/2015 HPV Vaccines [...] José Antonio Mccall ROM: Patient will demonstrate rn oncology strength to 60% of norm for increased participation in ADL's. Occupational Therapy No José Antonio [place]cc[place] [address] Care Teams Staker Surveying Relationship Specialty Start Date End Date Darion Rehman MD [address] [place] [address] PCP - General 01/08/21
--- NOTE | 2025-05-20 13:00 | CA_ITS ---
APPROVED REPORT EXAM: Comprehensive 2D, Doppler, and color-flow Echocardiogram Engineering Technologist: Suzanne Shannon CRT Ht: 5 ft 3 in Wt: 200lbs BSA: 1.93 BP: 155/85 mmHg Indications: Chest Pain, COPD, Dyspnea, Hypertension/HDD 2D Dimensions LA Volume 24.20 mL LA Volume Index 12.20 mL/m2 (M/F) 16-34 M-Mode Dimensions RVDd 2.00 cm (0.9-2.6) LA Diam 3.22 cm (1.9-4.0) LVDd 3.99 cm (3.5-5.7) LVDs 2.68 cm (3.5-5.7) IVSd 1.19 cm (0.6-1.1) PWd 0.87 cm (0.6-1.1) EF (Teich) 61.90% FS 32.80% EDV (Teich) 69.60 mL TAPSE 2.29 (<1.7) ESV (Teich) 26.50 mL LV Diastology E Decel Time 237 (160-240 msec) E/A Ratio 1.09 MED A' 10.80 cm/s LAT A' 12.70 cm/s Aortic Valve AO Peak GR. 9.00 mmHg Mitral Valve MV A Velocity 79.0 (40-130 cm/s) E/A Ratio 1.09 Pulmonary Valve PV Peak Velocity 82.0 (50-150 cm/s) Tricuspid Valve TR P. Velocity 123.00 cm/s RAP Estimate 10.00 mmHg RVSP 16.10 mmHg Left Ventricle The left ventricle is normal size. Left ventricular systolic function is normal. The left ventricular ejection fraction is within the normal range. There is normal left ventricular wall thickness. There is normal LV segmental wall motion. The left ventricular diastolic function is normal. LVEF is 55%. Right Ventricle The right ventricle is normal size. The right ventricular systolic function is normal. Atria The left atrium size is normal. The right atrium size is normal. There is no color Doppler evidence of interatrial shunt. Aortic Valve The aortic valve opens well. There is no hemodynamically significant aortic valvular stenosis. No aortic regurgitation is present. Mitral Valve The mitral valve is normal in structure. No evidence of mitral valve stenosis. Trace mitral regurgitation is present. Tricuspid Valve The tricuspid valve leaflets are thin and pliable. Trace tricuspid regurgitation. There is insufficient TR jet to estimate RVSP. Pulmonic Valve The pulmonary valve is grossly normal in structure. Trace pulmonic valve regurgitation is present. Great Vessels The aortic root is normal in size. IVC is normal in size and collapses >50% with inspiration. Pericardium There is no pericardial effusion. Other Information Study Quality: Fair Conclusion Normal biventricular systolic function. No significant valvular stenosis or regurgitation. Electronically signed by : Gabriella Machado MD 05/21/2025 12:05:33
== END 2025-05-20 23:59 | disposition home or self-care (01) ==
LOC: RT 12:33
PROVIDERS: PCP Nurse Practitioner Family; Visit Provider Physician Assistant
DX: I25.10 Atherosclerotic heart disease of native coronary artery without angina pectoris (principal); R42 Dizziness and giddiness; R00.2 Palpitations; R60.9 Edema, unspecified; J44.9 Chronic obstructive pulmonary disease, unspecified; I10 Essential (primary) hypertension
CPT/HCPCS: 93306

== ENCOUNTER 2025-06-11 10:28 | Emergency (ER) | payer MEDICARE, MEDICAID, SELFPAY ==
--- NOTE | 2025-06-11 10:37 | ECG_ITS ---
APPROVED REPORT Exam: Resting ECG HR:112 bpm ECG Measurements Heart Rate 112 AXES IL 126 P 70 QRSd 72 QRS 62 QT 320 T 70 QTc 386 Conclusion SINUS TACHYCARDIA ABNORMAL RHYTHM ECG Electronically signed by : MATTY CASTANEDA, 06/12/2025 06:34:23
[2025-06-11 10:38] VITALS: BP 179/93; PULSE 122; RESP 19; TEMP 36.8; O2SAT 92; BMI 35.7
--- OUTSIDE RECORDS SUMMARY | 2025-06-11 10:41 | XMS_ITS | Clinical Summary ---
Author Organization [facility] Address [address] [place] [address] Care Team Providers Care Sheep Or Calf Grader Name Role Phone Darion Rehman MD Primary Care Provider + [phone] Allergies Active Allergy Reactions Criticality Noted Date [...] 01/27/2020 UKY-Zoster Vaccines (1 of 2) 01/27/2020 [id number] Vaccine (1 - season) 2025 UKY-Influenza Vaccine [...] José Antonio Mccall ROM: Patient will demonstrate certified cytotechnologist strength to 60% of norm for increased participation in ADL's. Occupational Therapy No José Antonio Mccall Insurance MEDICARE Care Teams Sheep Or Calf Grader Relationship Specialty Start Date End Date Darion Rehman MD [address] [place] [address] PCP - General 01/08/21
--- OUTSIDE RECORDS SUMMARY | 2025-06-11 10:41 | XMS_ITS | Referral Summary ---
Author Organization [facility] ([place], [place], [place], [place]) Address [address] [place] [address] Care Team Providers Care Paster Hat Lining Name Role Phone Ender Casas APRN Primary Care Provider [phone] Ender Casas APRN Unavailable [phone] Allergies Active Allergy Reactions Criticality Noted [...] Date Brad rded Speak language other than Khmer at home Not on file 01/29/2024 Want [...] Treatment Not on file Insurance MEDICAID OF [place] DUAL COMPLETE MCR ADV Care Teams Paster Hat Lining Relationship Specialty Start Date End Date Ender Casas APRN [address] [place] [address] PCP - General Nurse Practitioner 08/04/23 Ender Caass APRN [address] [place] [address] Referring Physician Nurse Practitioner 08/04/23
--- OUTSIDE RECORDS SUMMARY | 2025-06-11 10:41 | XMS_ITS | Clinical Summary ---
Author Organization [facility] ([place], [place], [place], [place]) Address [address] [place] [address] Care Team Providers Care Certified Maintenance Welder Name Role Phone Ender Casas APRN Primary Care Provider [phone] Ender Casas APRN Unavailable [phone] Allergies Active Allergy Reactions Criticality Noted [...] Date Brad rded Speak language other than Persian at home Not on file 01/29/2024 Want [...] Shingles Vaccine (Zoster) (1 of 2) 01/27/2020 Tobacco Cessation Counseling and Screening (12+) 02/0402/05/2024 COVID-19 VACCINE ( - 2023- season) 2025 Influenza Vaccine (#1) 2025 Insurance MEDICAID OF [place] Member Subscriber Plan / Payer (Ef fective 2023-Present) Name:Omar Gordillo Relation to Subscriber:Self Name:Omar Gordillo Payer ID:[id number] Group ID:Not on file Type:Not on file Address: [address] DUAL COMPLETE MCR ADV Care Teams Certified Maintenance Welder Relationship Specialty Start Date End Date Ender Casas APRN [address] [place] [address] PCP - General Nurse Practitioner 08/04/23 Ender Casas, [place] [address] [place] [address] Referring Physician Nurse Practitioner 08/04/23
--- NOTE | 2025-06-11 10:44 | CT_ITS ---
FINAL REPORT TECHNIQUE: Axial imaging of the chest is obtained after the administration of contrast. 3-D MIP reformatted images were also obtained and reviewed per PE protocol. CLINICAL HISTORY: Shortness of breath and shortness of breath on exertion COMPARISON: 03/2025 FINDINGS: The pulmonary arteries are well filled. There is no evidence of pulmonary embolus. There is no aortic dissection. Heart size is normal. There is no axillary lymphadenopathy. There has been no change of the mildly prominent right paratracheal lymph nodes. A lower right paratracheal node measuring 17 mm previously measured 15 mm. There is no hilar lymphadenopathy. A subcarinal lymph node measuring 20 mm previously measured 15 mm.. Linear opacities in both lung apices are unchanged. There has been slight worsening of subtle ground-glass opacities in the lower lungs which could represent mild edema. Bilateral bronchial wall thickening is unchanged.. There is no pleural or pericardial effusion. Limited evaluation of the upper abdomen demonstrates no acute findings. There is diffuse fatty infiltration of the liver.. No acute osseous abnormality. IMPRESSION: No evidence of pulmonary embolism or aortic dissection. Worsening subtle ground-glass opacities in the lower lungs, favor mild pulmonary edema. Slight increase in size of subcarinal lymph node favored to be reactive. Reviewed, Interpreted and Dictated by Antonietta Schaffer MD Transcribed by Jennifer Shultz Authenticated and [facility]
--- NOTE | 2025-06-11 10:44 | XR_ITS ---
FINAL REPORT CLINICAL HISTORY: Shortness of breath, cough FINDINGS: A portable view of the chest is obtained. There is no prior exam for comparison. Cardiac and mediastinal silhouettes are normal. There are increased interstitial markings favored to be chronic. Otherwise, the lungs are clear. There is no pleural effusion or pneumothorax. IMPRESSION: No acute process on this portable exam. Likely chronic increased interstitial markings. Reviewed, Interpreted and Dictated by Anotnietta Schaffer MD Transcribed by Jennifer Shultz Authenticated and [facility]
--- NOTE | 2025-06-11 10:45 | ED_ITS ---
<Statement entered by Mary Ann Robles DO - 06/11/25 15:17> I was consulted by the LILIANA, and we discussed the complexity of problems being addressed. I approved the treatment plan and management plan of this patient's care in the emergency department, thus performing a substantive portion of medical decision making. Mary Ann Robles DO Discharge Plan Disposition Patient Disposition: Home, Self-Care Condition: Good Prescriptions Prescriptions: New doxycycline hyclate 100 mg capsule 100 mg PO BID 7 Days Qty: 14 0RF No Action montelukast 10 mg tablet 10 mg PO QPM 90 Days Qty: 90 2RF atorvastatin 40 mg tablet 80 mg PO HS Qty: 90 1RF diclofenac sodium 1 % gel 1 ea topical QID Qty: 100 1RF Rx Instructions: apply to single elbow, wrist or hand; for hand includes palm/fingers/back of hand prednisone 50 mg tablet 40 mg PO DAILY Qty: 20 0RF Rx Instructions: 40 mg once daily x 5 days azithromycin 250 mg tablet 250 mg PO DAILY 5 Days Qty: 6 0RF Rx Instructions: 500mg first day then 250mg daily azelastine 137 mcg (0.1 %) spray,non-aerosol 2 spray intranasal HS 90 Days Qty: 30 2RF Rx Instructions: administer into each nostril fluticasone propionate 50 mcg/actuation spray,suspension 2 spray intranasal DAILY Qty: 16 3RF oxycodone 10 mg tablet 10 mg PO QIDP PRN (Reason: Moderate Pain (Scale Score 5-6)) (DME) blood pressure monitor Kit See Rx Instructions .Route Qty: 1 0RF Rx Instructions: As directed valsartan 40 mg tablet 40 mg PO DAILY Qty: 30 5RF hydralazine 25 mg tablet 25 mg PO TID PRN (Reason: hypertension) Qty: 90 2RF estradiol 1 mg tablet See Rx Instructions .ROUTE .COMPLEX Qty: 90 2RF Dose Instruction: TAKE ONE TABLET BY MOUTH ONCE A DAY FOR HORMONE Rx Instructions: TAKE ONE TABLET BY MOUTH ONCE A DAY FOR HORMONE bisoprolol fumarate 5 mg tablet See Rx Instructions .ROUTE .COMPLEX Qty: 30 5RF Dose Instruction: TAKE ONE TABLET BY MOUTH ONCE A DAY Rx Instructions: TAKE ONE TABLET BY MOUTH ONCE A DAY albuterol sulfate 90 mcg/actuation HFA aerosol inhaler See Rx Instructions .ROUTE .COMPLEX Qty: 8.5 6RF Dose Instruction: inhale 2 puffs BY MOUTH EVERY 4 HOURS NEEDED FOR shortness of breath OR wheezing Rx Instructions: inhale 2 puffs BY MOUTH EVERY 4 HOURS NEEDED FOR shortness of breath OR wheezing ipratropium-albuterol 0.5 mg-3 mg(2.5 mg base)/3 mL solution for nebulization See Rx Instructions .ROUTE .COMPLEX Qty: 360 1RF Dose Instruction: INHALE CONTENTS OF 1 VIAL VIA NEBULIZER 4 TIMES A DAY NEEDED FOR SHORTNESS OF BREATH OR WHEEZING Rx Instructions: INHALE CONTENTS OF 1 VIAL VIA NEBULIZER 4 TIMES A DAY NEEDED FOR SHORTNESS OF BREATH OR WHEEZING cetirizine 10 mg tablet See Rx Instructions .ROUTE .COMPLEX Qty: 90 3RF Dose Instruction: TAKE ONE TABLET BY MOUTH ONCE A DAY NEEDED FOR ALLERGY SYMPTOMS Rx Instructions: TAKE ONE TABLET BY MOUTH ONCE A DAY NEEDED FOR ALLERGY SYMPTOMS Trelegy Ellipta 200-62.5-25 mcg blister with device See Rx Instructions .ROUTE .COMPLEX Qty: 90 2RF Dose Instruction: INHALE 1 PUFF BY MOUTH ONCE A DAY Rx Instructions: INHALE 1 PUFF BY MOUTH ONCE A DAY pantoprazole 40 mg tablet,delayed release (DR/EC) See Rx Instructions .ROUTE .COMPLEX Qty: 30 5RF Dose Instruction: TAKE ONE TABLET BY MOUTH ONCE A DAY Rx Instructions: TAKE ONE TABLET BY MOUTH ONCE A DAY gabapentin 300 capsule 900 mg PO QID Patient Comments: cyclobenzaprine 10 MG tablet 10 mg PO TIDP PRN (Reason: muscle spasms) aspirin 81 mg Tablet,Delayed Release (Dr/Ec) 81 mg PO DAILY Qty: 30 0RF benzonatate 100 mg capsule 100 mg PO TID PRN (Reason: cough) 5 Days Qty: 20 0RF albuterol sulfate 90 mcg/actuation HFA aerosol inhaler 4 inh inhalation Q4H PRN (Reason: shortness of breath or wheezing) Qty: 8.5 0RF Rx Instructions: 4 puffs every 4 hours for 48 hours then as needed for shortness of breath or wheezing following prednisone 50 mg tablet 50 mg PO DAILY 5 Days Qty: 5 0RF Rx Instructions: Please begin 1 day after ED visit Referrals Follow up/Referrals: Ender Casas APRN [Primary Care Provider, Family Practice] - See instructions Antoni Scruggs MD [Physician, Pulmonology] - See instructions Activity Restrictions/Add. Instructions Additional Instructions/Restrictions: Please return to the emergency department with any worsening signs or symptoms, please increase your nebulizer treatments at home if needed, please follow-up with your microsoft solutions architect next week in clinic. Please take your antibiotic as prescribed with food twice daily for 7 days. Clinical Impressions Clinical Impression: COPD exacerbation Instructions Patient Instructions: DI for Chronic Obstructive Pulmonary Disease Print Language Print Language: Yoruba Discharge ED Provider: Mary Ann Robles HPI <RAHEEM Morrison - Last Filed: 06/11/25 14:35> General Chief Complaint: Shortness of Breath/Dyspnea Stated Complaint: SOA, wheezing, Time Seen by Provider: 06/11/25 10:39 Mode of Arrival: Wheelchair Source of Information: Patient Description of Symptoms (Recalled from ER Triage Doc. by RN): patient states she has been short of breath cough dizzy headache and nausea for one week. was prescribed a zpak last week and is no better. History of Present Illness HPI narrative: 55-year-old female presents the emergency department with dyspnea for the last 2 weeks, worse with exertion, gradually worsened over the last 1 week, patient saw her microsoft solutions architect 1 week ago, was prescribed what sounds like Z-Samuel antibiotic, as well as steroids, with some relief initially, but her symptoms continue to worsen after finishing medication. Patient denies any fever chills, admits to productive cough, denies any chest pain, denies any abdominal pain, does admit to nausea, no vomiting, no constipation no diarrhea no melena no medic easy no hematemesis, no urinary type symptomatology, patient is a former smoker, denies any alcohol or drug use, other past medical history is consistent with CAD, obesity, venous insufficiency, GERD, hyperlipidemia. Initial triage vitals are notable for tachycardia, no tachypnea, afebrile, SpO2 is 92 to 93% 2 L nasal cannula which the patient's baseline. Please note that above description of symptoms, in this electronic medical record under categorization of recalled from ER triage doctor by RN are reflective of an initial nursing assessment, however, is not reflective of my full history and physical exam that was personally taken and clarified. Consequentially, this preceding description of symptoms, which may include the patient's categorized chief complaint in the EMR, do not reflect my personal clinical impression, and the ultimate description of history of present illness and patient stated complaints should be deferred to this section of the note. Unless stated otherwise or congruent with this section of the note, additional signs, symptoms, or incongruence should be interpreted as inaccurate with my clinical impression. MD complaint: other Related Data Home Medications ?Medication ?Instructions ?Recorded ?Confirmed gabapentin 300 mg capsule 900 mg PO QID 12/08/1706/03 cyclobenzaprine 10 mg tablet 10 mg PO TIDP PRN muscle spasms 11/12/20 06/03/25 oxycodone 10 mg tablet 10 mg PO QIDP PRN Moderate P ain 12/28/23 06/03/25 (Scale Score 5-6) Previous Rx's ?Medication ?Instructions ?Recorded aspirin 81 mg tablet,delayed 81 mg PO DAILY #30 tabs 0 05/07/24 release estradiol 1 mg tablet See Rx Instructions .Route 0 11/15/24 .COMPLEX #90 tabs montelukast 10 mg tablet 10 mg PO QPM 90 days #90 tab s 12/17/24 bisoprolol fumarate 5 mg tablet See Rx Instructions .R oute 01/01/25 .COMPLEX #30 tabs albuterol sulfate 90 mcg/actuation See Rx Instructions .Route 01/08/25 aerosol inhaler .COMPLEX #8.5 grams atorvastatin 40 mg tablet 80 mg (2 x 40 mg) PO HS #90 tabs 02/06/25 diclofenac sodium 1 % topical gel 1 ea topical QID #10 0 grams 02/06/25 cetirizine 10 mg tablet See Rx Instructions .Route 0 02/07/25 .COMPLEX #90 tabs ipratropium 0.5 mg-albuterol 3 mg See Rx Instructions .Route 02/07/25 (2.5 mg base)/3 mL nebulization .COMPLEX #360 mL soln blood pressure monitor #1 ea 03/25/25 albuterol sulfate 90 mcg/actuation 4 inh inhalation Q4 H PRN shortness 04/16/25 aerosol inhaler of breath or wheezing #8.5 g jermaine benzonatate 100 mg capsule 100 mg PO TID PRN cough 5 d ays #20 04/16/25 caps prednisone 50 mg tablet 50 mg PO DAILY 5 days #5 tab s 04/16/25 fluticasone fur. 200 mcg-umeclid See Rx Instructions . Route 04/24/25 62.5 mcg-vilant 25 mcg .COMPLEX #90 blisters inhalat.powder (Trelegy Ellipta) hydralazine 25 mg tablet 25 mg PO TID PRN hypertensio n #90 05/05/25 tabs valsartan 40 mg tablet 40 mg PO DAILY #30 tabs 04/21 azelastine 137 mcg (0.1 %) nasal 2 spray intranasal HS 90 days #30 06/03/25 spray mL azithromycin 250 mg tablet 250 mg PO DAILY 5 days #6 t abs 06/03/25 fluticasone propionate 50 2 spray intranasal DAILY #16 grams 06/03/25 mcg/actuation nasal spray,suspension prednisone 50 mg tablet 40 mg (0.8 x 50 mg) PO DAILY #20 06/03/25 tabs pantoprazole 40 mg tablet,delayed See Rx Instructions .Route 06/04/25 release .COMPLEX #30 tabs doxycycline hyclate 100 mg capsule 100 mg PO BID 7 day s #14 caps 06/11/25 Allergies Allergy/AdvReac Type Severity Reaction Status Date / Time baclofen Allergy Intermediate Rash Verified 06/03/25 11:43 mold Allergy Intermediate Rash Verified 06/03/25 11:43 Sulfa (Sulfonamide Allergy Unknown I-RASH Verified 06/03/25 11:43 Antibiotics) (SULFA (SULFONAMIDE ANTIBIOTICS)) sulfamethoxazole (From Allergy Rash Verified 06/03/25 11:43 Bactrim) trimethoprim (From Bactrim) Allergy Rash Verified 06/03/25 11:43 meloxicam AdvReac Unknown Rash Verified 06/03/25 11:43 heparin AdvReac Redness of Verified 06/03/25 11:43 Skin [facility] <RAHEEM Morrison - Last Filed: 06/11/25 14:35> [facility] Disclaimer: The information contained in this section may have been updated after the patient was seen, as this information can be updated by other users. Medical History (Updated 06/11/25 @ 14:33 by RAHEEM Morrison) Allergic rhinitis Other forms of dyspnea Swelling Palpitation CAD (coronary artery disease) Pain in both lower extremities Edema Dyspnea Atypical angina Chronic respiratory failure with hypoxia ILD (interstitial lung disease) Multiple lung nodules on CT Mediastinal lymphadenopathy Dizziness Family history of coronary artery disease Abnormal ECG Encounter for screening for malignant neoplasm of lung History of smoking 30 or more pack years COPD mixed type Surgical History History of cervical spinal surgery History of lumbar surgery History of cholecystectomy History of hysterectomy History of tonsillectomy Family History Other Asthma Cancer Diabetes Heart attack Stroke Social History Smoking Status: Never smoker smoking status stop date: 01/26/2019 second hand exposure: No alcohol intake: former substance use type: denies use current occupational status: disabled Travel in the last 8 weeks?: None household members: none housing: house current occupational exposures/hazards: No caffeine: No Have you lived/traveled outside [place] in past 30 days?: No Contact w/someone who lives/traveled outside [place] past 30 days?: No Exposure to someone with infectious disease in past 14 days?: No Do you have a fever (greater than 100.4 F or 38 C)?: No Have you tested positive for COVID-19?: No Exposed to someone with COVID-19 in past 14 days?: No Do you have a sore throat?: No Do you have a cough?: No Do you have any weakness?: No Do you have any diarrhea?: No Are you experiencing any unusual bleeding?: No Do you have any muscle aches/pain?: No Do you have any abdominal pain?: No Are you experiencing loss of taste or smell?: No Other Medical History Have you received the Flu Vaccine for this season: No Have you received the Pneumonia Vaccine: No <RAHEEM Morrison - Last Filed: 06/11/25 14:35> ROS Obtained: Yes All systems reviewed & no additional complaints except as documented Physical Exam <RAHEEM Morrison - Last Filed: 06/11/25 14:35> General General appearance: alert and in no apparent distress Head Head exam: atraumatic and normocephalic Eye Eye exam: Present PERRL and EOMI ENT ENT exam: Present mucous membranes moist Neck Neck exam: Present normal inspection Chest Chest inspection: Present normal inspection and symmetric chest wall rise Respiratory Respiratory exam: Present wheezes and other (Mild wheezes heard throughout bilateral lung pardo); Absent normal lung sounds bilaterally or respiratory distress Cardiovascular Cardiovascular exam: Present normal rhythm and tachycardia Abdominal Exam Abdominal exam: Present soft; Absent tenderness, guarding, rebound or rigidity Extremities Exam Extremities exam: Present normal inspection Neurological Exam Neurological exam: Present alert and oriented X3 Psychiatric Psychiatric exam: Present normal affect Skin Skin exam: Present warm and dry HEART Score <RAHEEM Morrison - Last Filed: 06/11/25 14:35> HEART Score HEART Score assessment performed?: No Critical Care <RAHEEM Morrison - Last Filed: 06/11/25 14:35> Critical Care Time Critical Care Time: No Medical Decision Making <RAHEEM Morrison - Last Filed: 06/11/25 14:35> Medical Records Medical records reviewed: Yes I reviewed the patient's medical records. Jose Inquiry Pt receiving controlled substance: No Jose was queried for this patient: No Vital Signs Vital Signs: 06/11/25 10:38 06/11/25 12:00 06/11/25 12:30 Temperature 98.3 F Temperature Source Oral Pulse Rate 103 H 102 H Pulse Rate [Right Radial] 122 H Respiratory Rate 19 18 18 Blood Pressure 102/79 L 96/72 L Blood Pressure [Right Arm] 179/93 H Blood Pressure Mean 76 Blood Pressure Mean [Right Arm] 121 Blood Pressure Source [Right Arm] Automatic Cuff Blood Pressure Position [Right Arm] Supine 02 Sat by Pulse Oximetry 92 L 93 L 96 Oxygen Delivery Method Nasal Cannula Nasal Cannula Nasal Cannula Oxygen Flow Rate (LPM) 2 2 2 06/11/25 13:08 06/11/25 13:30 Temperature Temperature Source Pulse Rate 121 H 105 H Pulse Rate [Right Radial] Respiratory Rate 23 20 Blood Pressure 131/75 146/83 H Blood Pressure [Right Arm] Blood Pressure Mean 104 Blood Pressure Mean [Right Arm] Blood Pressure Source [Right Arm] Blood Pressure Position [Right Arm] 02 Sat by Pulse Oximetry 92 L 96 Oxygen Delivery Method Nasal Cannula Oxygen Flow Rate (LPM) 2 Lab Data Lab results reviewed: Yes I reviewed the patient's lab results. Labs: Lab Results 06/11/25 10:45: WBC 7.7, RBC 4.27, Hgb 12.1 L, Hct 36.4 L, MCV 85.2, MCH 28.3, MCHC 33.2, RDW 12.7, Plt Count 238, MPV 9.6, Neut % (Auto) 65.7, Lymph % (Auto) 14.9, [place] % (Auto) 9.9 H, Eos % (Auto) 8.7, Baso % (Auto) 0.3, Neut # (Auto) 5.1, Lymph # (Auto) 1.2, [place] # (Auto) 0.8, Eos # (Auto) 0.7 H, Baso # (Auto) 0.0, PT 10.9, INR 0.98, Sodium 133 L, Potassium 4.0, Chloride 92 L, Carbon Dioxide 33 H, Anion Gap 12.0, BUN 6 L, Creatinine 0.60, Estimated Creat Clear 153, Estimated GFR 104, Est GFR ( Amer) 126, Glucose 192 H, Calcium 8.5, Magnesium 1.8, Total Bilirubin 1.5 H, AST 25, ALT 31, Alkaline Phosphatase 135 H , Troponin I < 0.01, NT-Pro-B Natriuret Pep 104, Total Protein 6.7, Albumin 3.7, Globulin 3.0, Albumin/Globulin Ratio 1.2, Lipase 66 06/11/25 10:50: Chlamy pneumoniae PCR Not detected, Adenovirus (PCR) Not detected, B. pertussis DNA (PCR) Not detected, Coronavirus OC43 (PCR) Not detected, Coronavirus HKU1 (PCR) Not detected, Coronavirus 229E (PCR) Not detected, SARS-CoV-2 (PCR) Not detected, Coronavirus NL63 (PCR) Not detected, Human Metapneumovir PCR Not detected, Influenza A (H1) PCR Not detected, Influ A (H1N1/09) PCR Not detected, Influenza A (H3) PCR Not detected, Influenza Type A (PCR) Not detected, Influenza Type B (PCR) Not detected, M. pneumoniae (PCR) Not detected, Parainfluenza 1 (PCR) Not detected, Parainfluenza 2 (PCR) Not detected, Parainfluenza 3 (PCR) Not detected, Parainfluenza 4 (PCR) Not detected, RSV (PCR) Not detected, Entero/Rhino (PCR) Not detected 06/11/25 10:54: VBG pH 7.42 H, VBG pCO2 47.2, VBG pO2 92.3 H, VBG HCO3 29.7, VBG Total CO2 31.1 H, VBG O2 Saturation 97.1 H, VBG Base Excess 5.1 H, VBG Lactic Acid 1.8 06/11/25 13:21: Troponin I < 0.01 06/11/25 10:45 06/11/25 10:45 Response Orders (Tests/Meds): ED MEDICATIONS Discontinued Medications Generic Name Dose Route Start Last Admin Trade Name Freq PRN Reason Stop Dose Admin Albuterol/Ipratropium 6 ml 06/11/25 12:38 06/11/25 12:47 Ipratropium/Albuterol 3 Ml Neb IH 06/11/25 12:39 6 ml ONCE ONE Administration Iopamidol 85 ml 06/11/25 11:50 06/11/25 11:51 Iopamidol-370 (76%);100ml Bottle IV 06/11/25 11:51 85 ml ONCE ONE Administration Methylprednisolone Sodium Succinate 125 mg 06/11/25 12:39 06/11/25 12:47 Methylprednisolone Sod Succ 125mg Vial IV 06/11/25 12:40 125 mg ONCE ONE Administration Ondansetron HCl 4 mg 06/11/25 10:46 06/11/25 10:53 Ondansetron 4mg/2ml Vial IV 06/11/25 10:47 4 mg ONCE ONE Administration Sodium Chloride 50 ml 06/11/25 11:50 06/11/25 11:51 0.9 % Sodium Chloride 50 Ml Vial IV 06/11/25 11:51 50 ml ONCE ONE Administration Sodium Chloride 10 ml 06/11/25 11:50 06/11/25 11:51 Sodium Chloride 0.9% 10ml Syr (Rad Only) IV 06/11/25 11:51 10 ml ONCE ONE Administration ORDERS Category Date Time Status CT angio chest PE protocol Stat Cat Scan 06/11/25 10:44 Completed XR chest portable Stat Exams 06/11/25 10:44 Completed Complete Blood Count Auto Diff Stat Lab 06/11/25 10:45 Completed Comprehensive Metabolic Panel Stat Lab 06/11/25 10:45 Completed Full Resp Panel w/COVID ([facility]) Routine Lab 06/11/25 10:50 Completed Lipase Stat Lab 06/11/25 10:45 Completed Magnesium Stat Lab 06/11/25 10:45 Completed NT Pro Brain Natriuretic Pep. Stat Lab 06/11/25 10:45 Completed PT INR [Prothrombin Time INR] Stat Lab 06/11/25 10:45 Completed Troponin I Q3H Lab 06/11/25 13:21 Completed Troponin I Q3H Lab 06/11/25 16:45 Ordered Troponin I Stat Lab 06/11/25 10:45 Completed Blood Culture Stat Micro 06/11/25 10:58 Received VBG [Venous Blood Gas] Stat RT 06/11/25 10:54 Completed MDM Narrative Medical Decision Narrative: 55-year-old female presents emergency department with dyspnea, worse with exertion for the last 2 weeks, differential diagnose include but not limited to acute on chronic hypoxemic respiratory failure, COPD exacerbation, new onset/CHF/exacerbation, pleural effusion, PE, cardiac arrhythmia, electrolyte service, pneumonia, acute bronchitis, viral URI, pulmonary edema, among others. I discussed this patient's case with the attending physician Dr. Robles saw and examined the patient as well. Will obtain basic laboratory studies, EKG, lipase magnesium level proBNP, coags, troponin, full respiratory panel, blood cultures, VBG, CXR, CTA chest with without contrast PE protocol, will give 4 mg IV Zofran for nausea. VBG is notable for pH 7.42, pCO2 is bicarb within normal limits lactic acid level within normal limits. CBC unremarkable Coags within normal limits. CMP is notable for mild hyponatremia at 133, total bilirubin is minimally elevated at 1.5 hypochloremia at 92, hypercapnia at 33. Troponin is less than 0.01 proBNP within normal limits. Full respiratory panel is unremarkable Will give 6 mm DuoNeb and 125 mg IV Solu-Medrol for COPD exacerbation. I reviewed the patient's chest x-ray along the corresponding radiologic report, no acute process on portable exam likely chronic increased interstitial markings. Repeat troponin is less than 0.01. I reviewed the patient's CTA chest with and without contrast PE protocol, there is no evidence of pulmonary embolism or dissection, worsening subtle ground glass opacities in lower lungs favor mild pulmonary edema, slight increase in size of subcarinal lymph node favored to be reactive. Discussed this patient's case with the patient's microsoft solutions architect/on-call microsoft solutions architect Dr. Scruggs at approximately 2:15 PM, he is aware of the patient, she has interstitial lung disease/COPD, he recommended patient is cleared to be discharged home sending her home on p.o. doxycycline for COPD exacerbation. Plus minus trial of diuresis for concerning findings on CTA of pulmonary edema. He will follow-up with the patient in 1 week in clinic if the patient is discharged home to self-care today. After reexamination of the patient, discussed all results with the patient at bedside, patient's tachycardia has improved, SpO2 has improved, does have some decrease when up ambulating, however patient is in a motorized wheelchair/does not ambulate much at her baseline, will send the patient home 100 mg p.o. doxycycline twice daily for 7 days, patient will follow-up with microsoft solutions architect next week. Patient was given strict ED return precautions. Patient voiced understanding and agreement with current treatment plan/discharge plan. Will also recommend increasing the patient's nebulizer treatments at home as needed for dyspnea. <Mary Ann Robles, DO - Last Filed: 06/11/25 10:50> Vital Signs Vital Signs: 06/11/25 10:38 06/11/25 12:00 06/11/25 12:30 Temperature 98.3 F Temperature Source Oral Pulse Rate 103 H 102 H Pulse Rate [Right Radial] 122 H Respiratory Rate 19 18 18 Blood Pressure 102/79 L 96/72 L Blood Pressure [Right Arm] 179/93 H Blood Pressure Mean 76 Blood Pressure Mean [Right Arm] 121 Blood Pressure Source [Right Arm] Automatic Cuff Blood Pressure Position [Right Arm] Supine 02 Sat by Pulse Oximetry 92 L 93 L 96 Oxygen Delivery Method Nasal Cannula Nasal Cannula Nasal Cannula Oxygen Flow Rate (LPM) 2 2 2 06/11/25 13:08 06/11/25 13:30 Temperature Temperature Source Pulse Rate 121 H 105 H Pulse Rate [Right Radial] Respiratory Rate 23 20 Blood Pressure 131/75 146/83 H Blood Pressure [Right Arm] Blood Pressure Mean 104 Blood Pressure Mean [Right Arm] Blood Pressure Source [Right Arm] Blood Pressure Position [Right Arm] 02 Sat by Pulse Oximetry 92 L 96 Oxygen Delivery Method Nasal Cannula Oxygen Flow Rate (LPM) 2 Lab Data Labs: Lab Results 06/11/25 10:45: WBC 7.7, RBC 4.27, Hgb 12.1 L, Hct 36.4 L, MCV 85.2, MCH 28.3, MCHC 33.2, RDW 12.7, Plt Count 238, MPV 9.6, Neut % (Auto) 65.7, Lymph % (Auto) 14.9, [place] % (Auto) 9.9 H, Eos % (Auto) 8.7, Baso % (Auto) 0.3, Neut # (Auto) 5.1, Lymph # (Auto) 1.2, [place] # (Auto) 0.8, Eos # (Auto) 0.7 H, Baso # (Auto) 0.0, PT 10.9, INR 0.98, Sodium 133 L, Potassium 4.0, Chloride 92 L, Carbon Dioxide 33 H, Anion Gap 12.0, BUN 6 L, Creatinine 0.60, Estimated Creat Clear 153, Estimated GFR 104, Est GFR ( Amer) 126, Glucose 192 H, Calcium 8.5, Magnesium 1.8, Total Bilirubin 1.5 H, AST 25, ALT 31, Alkaline Phosphatase 135 H , Troponin I < 0.01, NT-Pro-B Natriuret Pep 104, Total Protein 6.7, Albumin 3.7, Globulin 3.0, Albumin/Globulin Ratio 1.2, Lipase 66 06/11/25 10:50: Chlamy pneumoniae PCR Not detected, Adenovirus (PCR) Not detected, B. pertussis DNA (PCR) Not detected, Coronavirus OC43 (PCR) Not detected, Coronavirus HKU1 (PCR) Not detected, Coronavirus 229E (PCR) Not detected, SARS-CoV-2 (PCR) Not detected, Coronavirus NL63 (PCR) Not detected, Human Metapneumovir PCR Not detected, Influenza A (H1) PCR Not detected, Influ A (H1N1/09) PCR Not detected, Influenza A (H3) PCR Not detected, Influenza Type A (PCR) Not detected, Influenza Type B (PCR) Not detected, M. pneumoniae (PCR) Not detected, Parainfluenza 1 (PCR) Not detected, Parainfluenza 2 (PCR) Not detected, Parainfluenza 3 (PCR) Not detected, Parainfluenza 4 (PCR) Not detected, RSV (PCR) Not detected, Entero/Rhino (PCR) Not detected 06/11/25 10:54: VBG pH 7.42 H, VBG pCO2 47.2, VBG pO2 92.3 H, VBG HCO3 29.7, VBG Total CO2 31.1 H, VBG O2 Saturation 97.1 H, VBG Base Excess 5.1 H, VBG Lactic Acid 1.8 06/11/25 13:21: Troponin I < 0.01 Response Orders (Tests/Meds): ED MEDICATIONS Discontinued Medications Generic Name Dose Route Start Last Admin Trade Name Everardoq PRN Reason Stop Dose Admin Albuterol/Ipratropium 6 ml 06/11/25 12:38 06/11/25 12:47 Ipratropium/Albuterol 3 Ml Neb IH 06/11/25 12:39 6 ml ONCE ONE Administration Iopamidol 85 ml 06/11/25 11:50 06/11/25 11:51 Iopamidol-370 (76%);100ml Bottle IV 06/11/25 11:51 85 ml ONCE ONE Administration Methylprednisolone Sodium Succinate 125 mg 06/11/25 12:39 06/11/25 12:47 Methylprednisolone Sod Succ 125mg Vial IV 06/11/25 12:40 125 mg ONCE ONE Administration Ondansetron HCl 4 mg 06/11/25 10:46 06/11/25 10:53 Ondansetron 4mg/2ml Vial IV 06/11/25 10:47 4 mg ONCE ONE Administration Sodium Chloride 50 ml 06/11/25 11:50 06/11/25 11:51 0.9 % Sodium Chloride 50 Ml Vial IV 06/11/25 11:51 50 ml ONCE ONE Administration Sodium Chloride 10 ml 06/11/25 11:50 06/11/25 11:51 Sodium Chloride 0.9% 10ml Syr (Rad Only) IV 06/11/25 11:51 10 ml ONCE ONE Administration ORDERS Category Date Time Status CT angio chest PE protocol Stat Cat Scan 06/11/25 10:44 Completed XR chest portable Stat Exams 06/11/25 10:44 Completed Complete Blood Count Auto Diff Stat Lab 06/11/25 10:45 Completed Comprehensive Metabolic Panel Stat Lab 06/11/25 10:45 Completed Full Resp Panel w/COVID ([facility]) Routine Lab 06/11/25 10:50 Completed Lipase Stat Lab 06/11/25 10:45 Completed Magnesium Stat Lab 06/11/25 10:45 Completed NT Pro Brain Natriuretic Pep. Stat Lab 06/11/25 10:45 Completed PT INR [Prothrombin Time INR] Stat Lab 06/11/25 10:45 Completed Troponin I Q3H Lab 06/11/25 13:21 Completed Troponin I Q3H Lab 06/11/25 16:45 Ordered Troponin I Stat Lab 06/11/25 10:45 Completed Blood Culture Stat Micro 06/11/25 10:58 Received VBG [Venous Blood Gas] Stat RT 06/11/25 10:54 Completed ECG Data Tracing #1: Attestation: I reviewed this ECG and interpreted as documented below: ECG Narrative: EKG shows sinus tachycardia at a rate of 112. Normal [place], QRS, and QTc intervals. Normal axis. No acute ST elevations or signs of acute subendocardial or transmural ischemia. Interpreted by Mary Ann Fisher DO
[2025-06-11] MEDS: ONDANSETRON 4MG/2ML VIAL 4 MG IV (10:53)
[2025-06-11 10:55] LABS: Adenovirus,PCR Not Detected (NotDetected); Chlamydophila Pneumoniae, PCR Not Detected (NotDetected); Coronavirus 19, PCR Not Detected (NotDetected); Coronovirus HKU1,PCR Not Detected (NotDetected); Influenza A, PCR Not Detected (NotDetected); Influenza AH1, 2009 Not Detected (NotDetected); Influenza AH1, PCR Not Detected (NotDetected); Influenza AH3,PCR Not Detected (NotDetected); Influenza B, PCR Not Detected (NotDetected); Mycoplasma Pneumoniae, PCR Not Detected (NotDetected); Parainfluenza 1, PCR Not Detected (NotDetected); Parainfluenza 2, PCR Not Detected (NotDetected); Parainfluenza 3, PCR Not Detected (NotDetected); Parainfluenza 4, PCR Not Detected (NotDetected)
[2025-06-11 10:58] LABS: Lactate Venous 1.8 mmol/L (0.4-2.0); VBG HCO3 29.7 mmol/L (23-30); VBG PCO2 47.2 mmol/L (35-51); VBG PH 7.42 mmol/L (7.31-7.41); VBG PO2 92.3 mmol/L (28-40)
[2025-06-11 10:59] LABS: Hematocrit 36.4 % (37.0-47.0); Hemoglobin 12.1 g/dL (12.2-16.2); Immature Granulocytes % 0.5 %; Mean Corpuscular HGB Conc 33.2 g/dL (31.8-35.4); Mean Corpuscular Hemoglobin 28.3 pg (27.0-31.2); Mean Corpuscular Volume 85.2 fl (81-99); Nucleated Red Blood Cells % 0 %; Platelet Count 238 K/mm3 (142-424); Red Blood Count 4.27 M/mm3 (4.20-5.40); Red Cell Distribution Width-SD 38.4 fL; White Blood Count 7.7 K/mm3 (4.8-10.8)
[2025-06-11 11:16] LABS: INR 0.98 (0.9-1.1); Prothrombin Time 10.9 seconds (10.1-12.5)
[2025-06-11 11:20] LABS: Albumin Level 3.7 g/dl (3.5-5.0); Chloride 92 mmol/L (98-107); Potassium 4.0 mmoL/L (3.5-5.1); Sodium 133 mmol/L (136-145)
[2025-06-11 11:22] LABS: Alanine Aminotransferase 31 U/L (12-78); Aspartate Amino Transferase 25 U/L (14-36); Blood Urea Nitrogen 6 mg/dl (7-17); Creatinine Clearance Estimated 153 mL/min (50-200); Creatinine,Serum 0.60 mg/dl (0.52-1.04); Estimated Glomerular Filt Rate 104 ml/min (>60); GFR (African American) 126 ML/MIN (>60)
[2025-06-11 11:23] LABS: Albumin/Globulin Ratio 1.2 (1.1-1.8); Alkaline Phosphatase 135 U/L (38-126); Anion Gap 12.0 mEq/L (5-15); Bilirubin,Total 1.5 mg/dl (0.2-1.3); Calcium 8.5 mg/dl (8.4-10.2); Carbon Dioxide 33 mmol/L (22.0-30.0); Globulin 3.0 g/dL (1.3-3.2); Glucose 192 mg/dl (74-100); Lipase 66 U/L (23-300); Magnesium 1.8 mg/dl (1.6-2.3); Total Protein,Serum 6.7 g/dl (6.3-8.2)
[2025-06-11 11:35] LABS: NT Pro Brain Natriuretic Pep. 104 pg/mL (0-125)
[2025-06-11 11:42] LABS: Troponin I < 0.01 ng/ml (0.00-0.034)
[2025-06-11] MEDS: SODIUM CHLORIDE 0.9% 10ML SYR (RAD ONLY) 10 ML IV (11:51)
[2025-06-11] MEDS: 0.9 % SODIUM CHLORIDE 50 ML VIAL IV (11:51)
[2025-06-11] MEDS: IOPAMIDOL-370 (76%);100ML BOTTLE 85 ML IV (11:51)
[2025-06-11 12:00] VITALS: BP 102/79; PULSE 103; RESP 18; O2SAT 93
[2025-06-11 12:30] VITALS: BP 96/72; PULSE 102; RESP 18; O2SAT 96
[2025-06-11] MEDS: IPRATROPIUM/ALBUTEROL 3 ML NEB 6 ML IH (12:47)
[2025-06-11] MEDS: METHYLPREDNISOLONE SOD SUCC 125MG VIAL 125 MG IV (12:47)
[2025-06-11 13:08] VITALS: BP 131/75; PULSE 121; RESP 23; O2SAT 92
[2025-06-11 13:30] VITALS: BP 146/83; PULSE 105; RESP 20; O2SAT 96
[2025-06-11 13:57] LABS: Troponin I < 0.01 ng/ml (0.00-0.034)
[2025-06-11 14:45] VITALS: BP 151/84; PULSE 108; RESP 20; TEMP 36.8; O2SAT 91
== END 2025-06-11 14:47 | disposition home or self-care (01) ==
PROVIDERS: Physician Assistant; Emergency Provider Student in an Organized Health Care Education/Training Program; PCP Nurse Practitioner Family
DX: J44.1 Chronic obstructive pulmonary disease with (acute) exacerbation (principal); R00.0 Tachycardia, unspecified; I87.2 Venous insufficiency (chronic) (peripheral); I25.10 Atherosclerotic heart disease of native coronary artery without angina pectoris; E78.5 Hyperlipidemia, unspecified; Z87.891 Personal history of nicotine dependence
CPT/HCPCS: 0223U; 71045; 71275; 80053; 82803; 83690; 83735; 83880; 84484; 85025; 85610; 87040; 93005; 96374; 96375; 99285; J2405; J2919; Q9967

== ENCOUNTER 2025-06-16 13:48 | Observation (INO) | payer MEDICARE, MEDICAID, SELFPAY ==
[2025-06-16 13:50] VITALS: BP 154/82; PULSE 125; RESP 22; TEMP 36.6; O2SAT 92; BMI 35.4
--- NOTE | 2025-06-16 14:12 | ECG_ITS ---
APPROVED REPORT Exam: Resting ECG HR:105 bpm ECG Measurements Heart Rate 105 AXES TN 136 P 70 QRSd 78 QRS 62 QT 327 T 55 QTc 388 Conclusion SINUS TACHYCARDIA WITH OCCASIONAL VENTRICULAR PREMATURE COMPLEXES ABNORMAL RHYTHM ECG UNCONFIRMED REPORT Electronically signed by : PAOLA MCCARTY, 06/17/2025 02:48:27
[2025-06-16 14:16] VITALS: PULSE 106; RESP 19; O2SAT 97
--- NOTE | 2025-06-16 14:21 | CT_ITS ---
FINAL REPORT TECHNIQUE: Thin section axial CT with contrast with multiplanar reconstruction This study was performed with techniques to keep radiation doses as low as reasonably achievable, (ALARA). Individualized dose reduction techniques using automated exposure control or adjustment of mA and/or kV according to the patient''s size were employed. CLINICAL HISTORY: short of breath COMPARISON: 06/11/2025 FINDINGS: Pulmonary vessels enhance in normal fashion without evidence of embolism. Thoracic aorta shows no dissection or aneurysm. Coarse linear densities in the upper lobes compatible with scar. Mosaic perfusion pattern may be seen with air trapping. There is no significant pleural effusion. There is no significant pericardial effusion. There is mild right paratracheal, prevascular, and subcarinal adenopathy favored to be reactive. Limited images of the upper abdomen demonstrate fatty change of the liver. IMPRESSION: No evidence of pulmonary embolism. Stable pulmonary findings. Mild adenopathy, probably reactive. Reviewed, Interpreted and Dictated by Americo Schneider MD Transcribed by Jennifer Shultz Authenticated and [facility]
--- OUTSIDE RECORDS SUMMARY | 2025-06-16 14:24 | XMS_ITS | Referral Summary ---
Author Organization [employer] ([place], [place], [place], [place]) Address [address] [place] [address] Care Team Providers Care Industrial Hygienist Name Role Phone Ender Casas APRN Primary Care Provider [phone] Ender Casas APRN Unavailable [phone] Allergies Active Allergy Reactions Criticality Noted [...] Treatment Not on file Insurance [place] DUAL COMPLETE MCR ADV Care Teams Industrial Hygienist Relationship Specialty Start Date End Date Ender Casas APRN [address] [place] [address] PCP - General Nurse Practitioner 08/04/23 Ender Casas APRN [address] [place] [address] Referring Physician Nurse Practitioner 08/04/23
--- OUTSIDE RECORDS SUMMARY | 2025-06-16 14:24 | XMS_ITS | Clinical Summary ---
Author Organization [facility] Address [address] [place] [address] Care Team Providers Care Felt Strip Finisher Name Role Phone Darion Rehman MD Primary Care Provider [phone] Allergies Active Allergy Reactions Criticality Noted Date [...] 01/27/2020 [facility]-Zoster Vaccines (1 of 2) 01/27/2020 [id number] Vaccine (1 - season) 2025 [facility]-Influenza Vaccine [...] José Antonio Mccall ROM: Patient will demonstrate research investigator strength to 60% of norm for increased participation in ADL's. Occupational Therapy No José Antonio Mccall Insurance MEDICARE Care Teams Felt Strip Finisher Relationship Specialty Start Date End Date Darion Rehman MD [address] [place] [address] PCP - General 01/08/21
--- NOTE | 2025-06-16 14:39 | ED_ITS ---
<Statement entered by Sherry Steward MD - 06/18/25 23:03> I was consulted by the LILIANA, and we discussed the complexity of the problems being addressed. I approved the treatment and management plan for this patient's care in the emergency department, thus performing a substantive portion of the medical decision making. Sherry Steward MD, MARY, FACEP Discharge Plan Disposition Patient Disposition: Admitted Clinical Impressions Clinical Impression: COPD exacerbation Discharge ED Provider: Sherry Steward HPI General Chief Complaint: Shortness of Breath/Dyspnea Stated Complaint: SOA, cough Time Seen by Provider: 06/16/25 14:13 Mode of Arrival: Wheelchair Source of Information: Patient Description of Symptoms (Recalled from ER Triage Doc. by RN): Pt presents with c/o shortness of breath for around 2 weeks, pt was seen 5 days ago in the ED for similar symptoms. Pt has been on multiple steroids and antibiotics since being seen. Pt has a strong dry cough History of Present Illness HPI narrative: 55-year-old female presents to the ED today with complaint of shortness of breath for the past 2 weeks. Patient was seen 5 days ago for similar symptoms. She was seen by and he gave her 5 days of prednisone and doxycycline. She has been taking this and just does not feel better. She says her cough is worse and she wears O2 at 2 L at home but walking drops her oxygen to the 70s. She has been feeling more dizzy and nauseated and having headaches. She has no vomiting. She has had nausea and diarrhea. Today upon arrival to the ED she is tachycardic at 125 and her O2 was 92% on 3 L. Related Data Home Medications ?Medication ?Instructions ?Recorded ?Confirmed gabapentin 300 mg capsule 900 mg PO QID 12/08/1706/16 cyclobenzaprine 10 mg tablet 10 mg PO TIDP PRN muscle spasms 11/12/20 06/16/25 oxycodone 10 mg tablet 10 mg PO QIDP PRN Moderate P ain 12/28/23 06/16/25 (Scale Score 5-6) Previous Rx's ?Medication ?Instructions ?Recorded aspirin 81 mg tablet,delayed 81 mg PO DAILY #30 tabs 0 05/07/24 release estradiol 1 mg tablet See Rx Instructions .Route 0 11/15/24 .COMPLEX #90 tabs montelukast 10 mg tablet 10 mg PO QPM 90 days #90 tab s 12/17/24 bisoprolol fumarate 5 mg tablet See Rx Instructions .R oute 01/01/25 .COMPLEX #30 tabs albuterol sulfate 90 mcg/actuation See Rx Instructions .Route 01/08/25 aerosol inhaler .COMPLEX #8.5 grams atorvastatin 40 mg tablet 80 mg (2 x 40 mg) PO HS #90 tabs 02/06/25 diclofenac sodium 1 % topical gel 1 ea topical QID #10 0 grams 02/06/25 cetirizine 10 mg tablet See Rx Instructions .Route 0 02/07/25 .COMPLEX #90 tabs ipratropium 0.5 mg-albuterol 3 mg See Rx Instructions .Route 02/07/25 (2.5 mg base)/3 mL nebulization .COMPLEX #360 mL soln blood pressure monitor #1 ea 03/25/25 albuterol sulfate 90 mcg/actuation 4 inh inhalation Q4 H PRN shortness 04/16/25 aerosol inhaler of breath or wheezing #8.5 g jermaine benzonatate 100 mg capsule 100 mg PO TID PRN cough 5 d ays #20 04/16/25 caps prednisone 50 mg tablet 50 mg PO DAILY 5 days #5 tab s 04/16/25 fluticasone fur. 200 mcg-umeclid See Rx Instructions . Route 04/24/25 62.5 mcg-vilant 25 mcg .COMPLEX #90 blisters inhalat.powder (Trelegy Ellipta) hydralazine 25 mg tablet 25 mg PO TID PRN hypertensio n #90 05/05/25 tabs valsartan 40 mg tablet 40 mg PO DAILY #30 tabs 04/21 azelastine 137 mcg (0.1 %) nasal 2 spray intranasal HS 90 days #30 06/03/25 spray mL azithromycin 250 mg tablet 250 mg PO DAILY 5 days #6 t abs 06/03/25 fluticasone propionate 50 2 spray intranasal DAILY #16 grams 06/03/25 mcg/actuation nasal spray,suspension prednisone 50 mg tablet 40 mg (0.8 x 50 mg) PO DAILY #20 06/03/25 tabs pantoprazole 40 mg tablet,delayed See Rx Instructions .Route 06/04/25 release .COMPLEX #30 tabs doxycycline hyclate 100 mg capsule 100 mg PO BID 7 day s #14 caps 06/11/25 Allergies Allergy/AdvReac Type Severity Reaction Status Date / Time baclofen Allergy Intermediate Rash Verified 06/16/25 18:00 mold Allergy Intermediate Rash Verified 06/16/25 18:00 Sulfa (Sulfonamide Allergy Unknown I-RASH Verified 06/16/25 18:00 Antibiotics) (SULFA (SULFONAMIDE ANTIBIOTICS)) sulfamethoxazole (From Allergy Rash Verified 06/16/25 18:00 Bactrim) trimethoprim (From Bactrim) Allergy Rash Verified 06/16/25 18:00 meloxicam AdvReac Unknown Rash Verified 06/16/25 18:00 heparin AdvReac Redness of Verified 06/16/25 18:00 Skin PFSH PFS Disclaimer: The information contained in this section may have been updated after the patient was seen, as this information can be updated by other users. Medical History (Updated 06/16/25 @ 17:50 by Sujatha Wellington (ED), COMPUTER OPERATIONS ANALYST) Allergic rhinitis Other forms of dyspnea Swelling Palpitation CAD (coronary artery disease) Pain in both lower extremities Edema Dyspnea Atypical angina Chronic respiratory failure with hypoxia ILD (interstitial lung disease) Multiple lung nodules on CT Mediastinal lymphadenopathy Dizziness Family history of coronary artery disease Abnormal ECG Encounter for screening for malignant neoplasm of lung History of smoking 30 or more pack years COPD mixed type Surgical History History of cervical spinal surgery History of lumbar surgery History of cholecystectomy History of hysterectomy History of tonsillectomy Family History Other Asthma Cancer Diabetes Heart attack Stroke Social History Smoking Status: Never smoker smoking status stop date: 01/26/2019 second hand exposure: No alcohol intake: former substance use type: denies use current occupational status: disabled Travel in the last 8 weeks?: None household members: none housing: house current occupational exposures/hazards: No caffeine: No Have you lived/traveled outside US in past 30 days?: No Contact w/someone who lives/traveled outside US past 30 days?: No Exposure to someone with infectious disease in past 14 days?: No Do you have a fever (greater than 100.4 F or 38 C)?: No Have you tested positive for COVID-19?: No Exposed to someone with COVID-19 in past 14 days?: No Do you have a sore throat?: No Do you have a cough?: No Do you have any weakness?: No Do you have any diarrhea?: No Are you experiencing any unusual bleeding?: No Do you have any muscle aches/pain?: No Do you have any abdominal pain?: No Are you experiencing loss of taste or smell?: No Other Medical History Have you received the Flu Vaccine for this season: No Have you received the Pneumonia Vaccine: No ROS Obtained: Yes Systems reviewed as appropriate & no additional complaints except as documented Constitutional Constitutional: Reports as per HPI Physical Exam General General appearance: alert and in distress (Coughing and shortness of breath) Head Head exam: normocephalic Eye Eye exam: Present PERRL and EOMI ENT ENT exam: Present normal oropharynx and mucous membranes moist Neck Neck exam: Present full ROM and trachea midline Respiratory Respiratory exam: Present wheezes Cardiovascular Cardiovascular exam: Present normal rhythm, tachycardia, normal heart sounds, +S1 and +S2 Abdominal Exam Abdominal exam: Present soft and normal bowel sounds Extremities Exam Extremities exam: Present normal inspection, full ROM and normal capillary refill Neurological Exam Neurological exam: Present alert and oriented X3 Skin Skin exam: Present warm, dry and intact HEART Score HEART Score HEART Score assessment performed?: Yes History (anamnesis): Slightly suspicious ECG: Normal Age: 45-65 years Risk factors: 1-2 risk factors Troponin: </= normal limit HEART Score: 2 Critical Care Critical Care Time Critical Care Time: No Medical Decision Making Jose Inquiry Pt receiving controlled substance: No Jose was queried for this patient: No Vital Signs Vital Signs: 06/16/25 13:50 06/16/25 14:16 06/16/25 14:45 Temperature 97.8 F Temperature Source Oral Pulse Rate 106 H 104 H Pulse Rate [Right] 125 H Respiratory Rate 22 19 20 Blood Pressure Blood Pressure [Right Arm] 154/82 H Blood Pressure Mean [Right Arm] 106 Blood Pressure Source Blood Pressure Source [Right Arm] Automatic Cuff Blood Pressure Position Blood Pressure Position [Right Arm] Sitting 02 Sat by Pulse Oximetry 92 L 97 98 Oxygen Delivery Method Nasal Cannula Oxygen Flow Rate (LPM) 2 06/16/25 15:30 06/16/25 18:09 Temperature 97.9 F Temperature Source Oral Pulse Rate 109 H 105 H Pulse Rate [Right] Respiratory Rate 14 18 Blood Pressure 138/74 Blood Pressure [Right Arm] Blood Pressure Mean [Right Arm] Blood Pressure Source Automatic Cuff Blood Pressure Source [Right Arm] Blood Pressure Position Sitting Blood Pressure Position [Right Arm] 02 Sat by Pulse Oximetry 96 Oxygen Delivery Method Nasal Cannula Oxygen Flow Rate (LPM) 3 Lab Data Labs: Lab Results 06/16/25 14:22: SARS-CoV-2 (PCR) Not detected, Influenza A Untype (PCR) Not detected, Influenza Type B (PCR) Not detected 06/16/25 14:31: WBC 9.8, RBC 4.48, Hgb 12.7, Hct 38.9, MCV 86.8, MCH 28.3, MCHC 32.6, RDW 12.7, Plt Count 234, MPV 10.0, Neut % (Auto) 70.7, Lymph % (Auto) 11.8, [place] % (Auto) 9.7 H, Eos % (Auto) 6.9, Baso % (Auto) 0.5, Neut # (Auto) 6.9, Lymph # (Auto) 1.2, [place] # (Auto) 1.0, Eos # (Auto) 0.7 H, Baso # (Auto) 0.1, PT 10.8, INR 0.97, APTT 26.5, D-Dimer 0.50, VBG pH 7.44 H, VBG pCO2 39.9, V BG pO2 85.3 H, VBG HCO3 26.7, VBG Total CO2 28.0 H, VBG O2 Saturation 97.0 H, V BG Base Excess 2.6 H, VBG Lactic Acid 1.9, Sodium 132 L, Potassium 4.0, Chloride 98, Carbon Dioxide 27, Anion Gap 11.0, BUN 7, Creatinine 0.60, Estimated Creat Clear 152, Estimated GFR 104, Est GFR ( Amer) 126, Glucose 165 H, Calcium 7.7 L, Total Bilirubin 1.9 H, AST 26, ALT 28, Alkaline Phosphatase 114, Total Creatine Kinase < 20 L, C-Reactive Protein 52.9 H, NT-Pro-B Natriuret Pep < 20.0, Total Protein 6.2 L, Albumin 3.4 L, Globulin 2.8, Albumin/Globulin Ratio 1.2 06/16/25 16:05: Urine Color Yellow, Urine Appearance Clear, Urine pH 6.5, Ur Specific [place] <= 1.005, Urine Protein Negative, Urine Glucose (UA) Negative, Urine Ketones Negative, Urine Blood Negative, Urine Nitrate Negative, Urine Bilirubin Negative, Urine Urobilinogen 0.2, Ur Leukocyte Esterase Negative, Urine RBC None, Urine WBC Occasional, Ur Squamous Epith Cells 3-5, Urine Bacteria Trace 06/16/25 14:31 06/16/25 14:31 Response Orders (Tests/Meds): ED MEDICATIONS Generic Name Dose Route Start Last Admin Trade Name Freq PRN Reason Stop Dose Admin Enoxaparin Sodium 40 mg 06/17/25 09:00 Enoxaparin 40mg/0.4ml Syringe SUBCUT 07/17/25 08:59 DAILY JODIE Nicotine 21 mg 06/16/25 17:47 Nicotine 21mg/24hr Patch TD 07/16/25 17:46 DAILYP PRN Nicotine Cravings Sodium Chloride 10 ml 06/16/25 15:07 06/16/25 15:08 Sodium Chloride 0.9% 10ml Syr (Rad Only) IV 07/16/25 15:06 10 ml NEEDED PRN Administration Maintain IV Site Discontinued Medications Generic Name Dose Route Start Last Admin Trade Name Freq PRN Reason Stop Dose Admin Albuterol/Ipratropium 9 ml 06/16/25 14:26 06/16/25 14:50 Ipratropium/Albuterol 3 Ml Neb IH 06/16/25 14:27 9 ml ONCE ONE Administration Magnesium Sulfate 2 gm in 50 mls @ 50 mls/hr 06/16/25 14:26 06/16/25 15:56 Magnesium Sulfate 2gm/50ml Premix IV 06/16/25 15:25 Infused ONCE ONE Infusion Calcium Gluconate/Sodium Chloride 2 gm in 100 mls @ 50 mls/hr 06/16/25 15:42 06/16/25 18:02 Calcium Gluconate 2,000mg/100ml Nacl Premix IV 06/16/25 17:41 Infused ONCE ONE Infusion Iopamidol 70 ml 06/16/25 15:07 06/16/25 15:08 Iopamidol-370 (76%);100ml Bottle IV 06/16/25 15:08 70 ml ONCE ONE Administration Methylprednisolone Sodium Succinate 125 mg 06/16/25 14:26 06/16/25 14:50 Methylprednisolone Sod Succ 125mg Vial IV 06/16/25 14:27 125 mg ONCE ONE Administration Sodium Chloride 50 ml 06/16/25 15:07 06/16/25 15:08 0.9 % Sodium Chloride 50 Ml Vial IV 06/16/25 15:08 50 ml ONCE ONE Administration ORDERS Category Date Time Status CTA Chest [CT angio chest PE protocol] Stat Cat Scan 06/16/25 14:21 Completed Pulmonology Consult [Consult to Pulmonology] [CONS] Cons 06/16/25 17:47 Active Routine Activated Partial Thrombo Time Stat Lab 06/16/25 14:31 Completed BNP [NT Pro Brain Natriuretic Pep.] Stat Lab 06/16/25 14:31 Completed C-Reactive Protein Stat Lab 06/16/25 14:31 Completed Complete Blood Count Auto Diff AMLAB Lab 06/17/25 06:00 Ordered Complete Blood Count Auto Diff Stat Lab 06/16/25 14:31 Completed Comprehensive Metabolic Panel AMLAB Lab 06/17/25 06:00 Ordered Comprehensive Metabolic Panel Stat Lab 06/16/25 14:31 Completed Creatine Kinase Stat Lab 06/16/25 14:31 Completed D-Dimer Stat Lab 06/16/25 14:31 Completed Magnesium AMLAB Lab 06/17/25 06:00 Ordered Prothrombin Time INR Stat Lab 06/16/25 14:31 Completed Rapid PCR Covid and Flu A/B Stat Lab 06/16/25 14:22 Completed Urinalysis and Microscopic Stat Lab 06/16/25 16:05 Completed Blood Culture Stat Micro 06/16/25 14:21 Received Venous Blood Gas Stat RT 06/16/25 14:31 Completed MDM Narrative Medical Decision Narrative: patient is a 55-year-old female presenting to the emergency department for evaluation of cough, shortness of breath, walking drops her O2 to the 70s. Patient is tachycardic with a low oxygen saturation despite O2 being on 2 L, her O2 dropped to the 70s at home. Differential diagnosis includes pneumonia, COPD exacerbation, CAD, sepsis, among others. Workup will be conducted with hematologic labs, specific imaging. Initial inventions include crystalloid bolus, analgesics, antibiotics. Initial workup reviewed by [facility] hematologic labs are remarkable for White count of 9.8, pH was 7.44, pCO2 of 85.3 CO2 of 28, sodium of 132 calcium was 7.7 which we replaced here in the ED urine showed a trace of bacteria,. I did do a CTA of her chest which showed no evidence of a PE but did show coarse linear densities in the upper lobes compatible with scarring and a mosaic perfusion pattern which may be seen with air trapping. Patient does have COPD and has been on both Doxy and prednisone which is send she got off the prednisone started having increased shortness of air. Patient states that she has been dropping to the 70s when she is wearing her oxygen at home. She did drop to the 70s and her heart rate went to 138 when she went to the bathroom here. I did talk to about this and he said to admit patient based on this information. Discussed this with Dr. Lozano who agrees to admit patient. Patient stable at this time.
[2025-06-16 14:40] LABS: Hematocrit 38.9 % (37.0-47.0); Hemoglobin 12.7 g/dL (12.2-16.2); Immature Granulocytes % 0.4 %; Mean Corpuscular HGB Conc 32.6 g/dL (31.8-35.4); Mean Corpuscular Hemoglobin 28.3 pg (27.0-31.2); Mean Corpuscular Volume 86.8 fl (81-99); Nucleated Red Blood Cells % 0 %; Platelet Count 234 K/mm3 (142-424); Red Blood Count 4.48 M/mm3 (4.20-5.40); Red Cell Distribution Width-SD 40.2 fL; White Blood Count 9.8 K/mm3 (4.8-10.8)
[2025-06-16 14:43] LABS: Lactate Venous 1.9 mmol/L (0.4-2.0); VBG HCO3 26.7 mmol/L (23-30); VBG PCO2 39.9 mmol/L (35-51); VBG PH 7.44 mmol/L (7.31-7.41); VBG PO2 85.3 mmol/L (28-40)
[2025-06-16 14:45] VITALS: PULSE 104; RESP 20; O2SAT 98
[2025-06-16 14:46] LABS: Coronavirus 19, PCR Not Detected (NotDetected); Influenza A, PCR Not Detected (NotDetected); Influenza B, PCR Not Detected (NotDetected)
[2025-06-16 14:50] LABS: Albumin Level 3.4 g/dl (3.5-5.0); Chloride 98 mmol/L (98-107); Potassium 4.0 mmoL/L (3.5-5.1); Sodium 132 mmol/L (136-145)
[2025-06-16] MEDS: MAGNESIUM SULFATE IN WATER 2 GM/50 ML PIGGYBACK IV (14:50)
[2025-06-16] MEDS: METHYLPREDNISOLONE SOD SUCC 125MG VIAL 125 MG IV (14:50)
[2025-06-16] MEDS: IPRATROPIUM/ALBUTEROL 3 ML NEB 9 ML IH (14:50)
[2025-06-16 14:51] LABS: Activated Partial Thrombo Time 26.5 seconds (22.8-30.6); INR 0.97 (0.9-1.1); Prothrombin Time 10.8 seconds (10.1-12.5)
[2025-06-16 14:52] LABS: Alanine Aminotransferase 28 U/L (12-78); Albumin/Globulin Ratio 1.2 (1.1-1.8); Alkaline Phosphatase 114 U/L (38-126); Anion Gap 11.0 mEq/L (5-15); Aspartate Amino Transferase 26 U/L (14-36); Bilirubin,Total 1.9 mg/dl (0.2-1.3); Blood Urea Nitrogen 7 mg/dl (7-17); Carbon Dioxide 27 mmol/L (22.0-30.0); Creatinine Clearance Estimated 152 mL/min (50-200); Creatinine,Serum 0.60 mg/dl (0.52-1.04); Estimated Glomerular Filt Rate 104 ml/min (>60); GFR (African American) 126 ML/MIN (>60); Globulin 2.8 g/dL (1.3-3.2); Total Protein,Serum 6.2 g/dl (6.3-8.2)
[2025-06-16 14:53] LABS: Calcium 7.7 mg/dl (8.4-10.2); Glucose 165 mg/dl (74-100)
[2025-06-16 14:56] LABS: Creatine Kinase < 20 U/L (30-135)
[2025-06-16 15:04] LABS: D-Dimer 0.50 ug/mL (0.0-0.5)
--- NOTE | 2025-06-16 15:04 | PC.NURSE ---
PT TO CT
[2025-06-16] MEDS: SODIUM CHLORIDE 0.9% 10ML SYR (RAD ONLY) 10 ML IV (15:08)
[2025-06-16] MEDS: 0.9 % SODIUM CHLORIDE 50 ML VIAL IV (15:08)
[2025-06-16] MEDS: IOPAMIDOL-370 (76%);100ML BOTTLE 70 ML IV (15:08)
[2025-06-16 15:30] VITALS: PULSE 109; RESP 14; O2SAT 96
[2025-06-16] MEDS: CALCIUM GLUC IN NACL, ISO-OSM 2 GM/100 ML BAG IV (15:50)
[2025-06-16 16:12] LABS: Microscopic, Urine URINE MICROSCOPIC (MICROSCOPIC)
[2025-06-16 16:12] LABS: NT Pro Brain Natriuretic Pep. < 20.0 pg/mL (0-125)
[2025-06-16 16:35] LABS: Bilirubin,Urine Negative (Negative); Color,Urine YELLOW (Yellow); Glucose,Urine (UA) Negative (Negative); Ketones,Urine Negative (Negative); Leukocyte Esterase,Urine Negative (Negative); PH,Urine 6.5 (5.0-8.5); Protein,Urine Negative (Negative); Specific Gravity, Urine <= 1.005 (1.005-1.030); Urobilinogen,Urine 0.2 EU/dl (0.2)
[2025-06-16 16:56] LABS: C-Reactive Protein 52.9 mg/L (0-4)
[2025-06-16 17:09] LABS: Bacteria,Urine Trace /lpf; WBC,Urine Occasional #/hpf (0-3)
--- NOTE | 2025-06-16 17:50 | PC.NURSE ---
I notified [facility] of the need for a bed to admit the pt for COPD exacerbation.
[2025-06-16 18:09] VITALS: BP 138/74; PULSE 105; RESP 18; TEMP 36.6; O2SAT 98
--- NOTE | 2025-06-16 18:09 | PC.NURSE ---
REPORT GIVEN TO PILAR BEY
--- NOTE | 2025-06-16 18:25 | PC.NURSE ---
arrived by personal scooter chair
--- NOTE | 2025-06-16 19:01 | P.HP_ITS ---
History of Present Illness *Admission Date: 06/16/25 *Reason for visit:: dyspnea *History of present illness: Ms. Gordillo is a 55-year-old female who has had worsening shortness of breath over the past several weeks. She initially saw pulmonology on 06/03 with what was thought to be allergic rhinitis and cough. Treated with a course of steroids and got better but since the steroids finished she says she got short of breath again. She presented to the ER on 06/11 where she was treated for a COPD exacerbation with doxycycline and steroids. Her symptoms never really improved and she has persistent shortness of breath. Denies fever, nausea, vomiting. Does complain of sweating at night and feeling short of breath with exertion. Has been worked up by pulmonology and cardiology. Cardiology to [place] her heart is fine. She has been wearing 2 L oxygen continuous for about a year. Gets around with a wheelchair due to significant back problems including slipping vertebrae at risk for nerve impingement and paralysis, and severe SI pain. She has had multiple surgeries on her back. Is able to walk short distances around her house without much difficulty. She states even this is causing her to get more short of breath with exertion. When she goes out of the house or for long distances, she must use a power chair. Has not smoked in about 6 years. Uses her inhalers as prescribed. Denies any significant increase in weight. Just feels more short of breath, has a harsh cough that is nonproductive, and would like to feel better. Workup in the ER, her white count is 9.8. Required 3 L to sat above 90%. Kidney function and electrolytes normal. Had an echo on 05/20 per chart review with normal EF. CT of chest did not show significant focal consolidation. Medicine consulted due to progressing symptoms, increased oxygen requirement, and failure of improvement in symptoms with outpatient COPD management. On arrival to the floor, patient is able to speak in complete sentences. Is sweaty with exertion. Pleasant on interview. Appears somewhat frustrated about her condition however. States she is only 55 years old and should not be this disabled. Is just looking for some help and would like to breathe better. [facility] Disclaimer: The information contained in this section may have been updated after the patient was seen, as this information can be updated by other users. Medical History (Updated 06/16/25 @ 21:50 by Ramon Lozano MD) Allergic rhinitis Other forms of dyspnea Swelling Palpitation CAD (coronary artery disease) Pain in both lower extremities Edema Dyspnea Atypical angina Chronic respiratory failure with hypoxia ILD (interstitial lung disease) Multiple lung nodules on CT Mediastinal lymphadenopathy Dizziness Family history of coronary artery disease Abnormal ECG Encounter for screening for malignant neoplasm of lung History of smoking 30 or more pack years COPD mixed type Surgical History History of cervical spinal surgery History of lumbar surgery History of cholecystectomy History of hysterectomy History of tonsillectomy Family History Diabetes Heart attack Cancer Stroke Asthma Social History (Updated 06/16/25 @ 19:09 by Nathalia Canseco RN) Smoking Status: Former smoker tobacco type: cigarettes packs per day: 0 smoking status stop date: 01/26/2019 second hand exposure: No alcohol intake: never substance use type: denies use current occupational status: disabled Travel in the last 8 weeks?: None household members: none housing: house current occupational exposures/hazards: No caffeine: No Have you lived/traveled outside [place] in past 30 days?: No Contact w/someone who lives/traveled outside [place] past 30 days?: No Exposure to someone with infectious disease in past 14 days?: No Do you have a fever (greater than 100.4 F or 38 C)?: No Have you tested positive for COVID-19?: No Exposed to someone with COVID-19 in past 14 days?: No Do you have a sore throat?: No Do you have a cough?: No Do you have any weakness?: No Are you experiencing any nausea/vomitting?: No Do you have any diarrhea?: No Are you experiencing any unusual bleeding?: No Do you have any muscle aches/pain?: No Do you have any abdominal pain?: No Are you experiencing loss of taste or smell?: No Other Medical History Have you received the Flu Vaccine for this season: No Have you received the Pneumonia Vaccine: No Review of Systems Review of Systems Review of systems (narrative): 14 point review of systems performed, pertinent positives and negatives as per HPI Meds Home Medications and Allergies Home Medications ?Medication ?Instructions ?Recorded ?Confirmed ?Type gabapentin 300 mg capsule 900 mg PO QID 12/08/1706/16 History cyclobenzaprine 10 mg tablet 10 mg PO TIDP PRN muscle spasms 11/12/20 06/16/25 History oxycodone 10 mg tablet 10 mg PO QIDP PRN Moderate P ain 12/28/23 06/16/25 History (Scale Score 5-6) aspirin 81 mg tablet,delayed 81 mg PO DAILY #30 tabs 0 05/07/24 06/16/25 Rx release estradiol 1 mg tablet See Rx Instructions .Route 0 11/15/24 06/16/25 Rx .COMPLEX #90 tabs montelukast 10 mg tablet 10 mg PO QPM 90 days #90 tab s 12/17/24 06/16/25 Rx albuterol sulfate 90 mcg/actuation See Rx Instructions .Route 01/08/25 06/16/25 Rx aerosol inhaler .COMPLEX #8.5 grams atorvastatin 40 mg tablet 80 mg (2 x 40 mg) PO HS #90 tabs 02/06/25 06/16/25 Rx diclofenac sodium 1 % topical gel 1 ea topical QID #10 0 grams 02/06/25 06/16/25 Rx cetirizine 10 mg tablet See Rx Instructions .Route 0 02/07/25 06/16/25 Rx .COMPLEX #90 tabs ipratropium 0.5 mg-albuterol 3 mg See Rx Instructions .Route 02/07/25 06/16/25 Rx (2.5 mg base)/3 mL nebulization .COMPLEX #360 mL soln blood pressure monitor #1 ea 03/25/25 06/16/25 Rx albuterol sulfate 90 mcg/actuation 4 inh inhalation Q4 H PRN shortness 04/16/25 06/16/25 Rx aerosol inhaler of breath or wheezing #8.5 g jermaine benzonatate 100 mg capsule 100 mg PO TID PRN cough 5 d ays #20 04/16/25 06/16/25 Rx caps prednisone 50 mg tablet 50 mg PO DAILY 5 days #5 tab s 04/16/25 06/16/25 Rx fluticasone fur. 200 mcg-umeclid See Rx Instructions . Route 04/24/25 06/16/25 Rx 62.5 mcg-vilant 25 mcg .COMPLEX #90 blisters inhalat.powder (Trelegy Ellipta) azelastine 137 mcg (0.1 %) nasal 2 spray intranasal HS 90 days #30 06/03/25 06/16/25 Rx spray mL azithromycin 250 mg tablet 250 mg PO DAILY 5 days #6 t abs 06/03/25 06/16/25 Rx fluticasone propionate 50 2 spray intranasal DAILY #16 grams 06/03/25 06/16/25 Rx mcg/actuation nasal spray,suspension prednisone 50 mg tablet 40 mg (0.8 x 50 mg) PO DAILY #20 06/03/25 06/16/25 Rx tabs pantoprazole 40 mg tablet,delayed See Rx Instructions .Route 06/04/25 06/16/25 Rx release .COMPLEX #30 tabs doxycycline hyclate 100 mg capsule 100 mg PO BID 7 day s #14 caps 06/11/25 06/16/25 Rx New Prescriptions to Start Prescriptions: Allergies Allergy/AdvReac Type Severity Reaction Status Date / Time baclofen Allergy Intermediate Rash Verified 06/16/25 18:00 mold Allergy Intermediate Rash Verified 06/16/25 18:00 Sulfa (Sulfonamide Allergy Unknown I-RASH Verified 06/16/25 18:00 Antibiotics) (SULFA (SULFONAMIDE ANTIBIOTICS)) sulfamethoxazole (From Allergy Rash Verified 06/16/25 18:00 Bactrim) trimethoprim (From Bactrim) Allergy Rash Verified 06/16/25 18:00 meloxicam AdvReac Unknown Rash Verified 06/16/25 18:00 heparin AdvReac Redness of Verified 06/16/25 18:00 Skin Exam Data for Last 24 hours Vital signs and Labs for Last 24 Hours: Temp Pulse Resp BP Pulse Ox O2 Del Method O2 Flow Rate 97.9 F 105 H 18 138/74 96 Nasal Cannula 3 06/16/25 18:09 06/16/25 18:09 06/16/25 18:09 06/16/25 18:09 06/16/25 15:30 06/16/25 18:51 06/16/25 18:51 Laboratory Results - last 24 hr 06/16/25 14:22: SARS-CoV-2 (PCR) Not detected, Influenza A Untype (PCR) Not detected, Influenza Type B (PCR) Not detected 06/16/25 14:31: WBC 9.8, RBC 4.48, Hgb 12.7, Hct 38.9, MCV 86.8, MCH 28.3, MCHC 32.6, RDW 12.7, Plt Count 234, MPV 10.0, Neut % (Auto) 70.7, Lymph % (Auto) 11.8, [place] % (Auto) 9.7 H, Eos % (Auto) 6.9, Baso % (Auto) 0.5, Neut # (Auto) 6.9, Lymph # (Auto) 1.2, [place] # (Auto) 1.0, Eos # (Auto) 0.7 H, Baso # (Auto) 0.1, PT 10.8, INR 0.97, APTT 26.5, D-Dimer 0.50, VBG pH 7.44 H, VBG pCO2 39.9, VBG pO2 85.3 H, VBG HCO3 26.7, VBG Total CO2 28.0 H, VBG O2 Saturation 97.0 H, VBG Base Excess 2.6 H, VBG Lactic Acid 1.9, Sodium 132 L, Potassium 4.0, Chloride 98, Carbon Dioxide 27, Anion Gap 11.0, BUN 7, Creatinine 0.60, Estimated Creat Clear 152, Estimated GFR 104, Est GFR ( Amer) 126, Glucose 165 H, Calcium 7.7 L, Total Bilirubin 1.9 H, AST 26, ALT 28, Alkaline Phosphatase 114, Total Creatine Kinase < 20 L, C-Reactive Protein 52.9 H, NT-Pro-B Natriuret Pep < 20.0, Total Protein 6.2 L, Albumin 3.4 L, Globulin 2.8, Albumin/Globulin Ratio 1.2 06/16/25 16:05: Urine Color Yellow, Urine Appearance Clear, Urine pH 6.5, Ur Specific [place] <= 1.005, Urine Protein Negative, Urine Glucose (UA) Negative, Urine Ketones Negative, Urine Blood Negative, Urine Nitrate Negative, Urine Bilirubin Negative, Urine Urobilinogen 0.2, Ur Leukocyte Esterase Negative, Urine RBC None, Urine WBC Occasional, Ur Squamous Epith Cells 3-5, Urine Bacteria Trace I & O for Last 24 hours: Intake & Output 06/13/25 06/14/25 06/15/25 06/16/25 23:59 23:59 23:59 23:59 Intake Total 150 / 150 Balance 150 / 150 Weight 90.718 kg Constitutional Constitutional: no acute distress, morbidly obese, chronically ill appearing, disheveled and cooperative *Routine HEENT Exam Head: Present normocephalic and atraumatic Eye: Present EOMI and PERRL ENT: Present mucous membranes moist *Routine Neck Exam Neck: Present trachea midline; Absent JVD or lymphadenopathy *Routine Respiratory Exam Respiratory: Present rhonchi, wheezes, crackles, normal respiratory effort and symmetric chest movement; Absent respiratory distress *Routine Cardiovascular Exam Cardiovascular: Present tachycardia *Routine Abdominal Exam Abdominal: Present soft and normoactive bowel sounds; Absent tenderness *Routine Rectal Exam Rectal:: deferred *Routine Genitalia Exam Genitalia:: deferred *Routine Extremities Exam Extremities: Present full ROM, pulses intact and normal capillary refill; Absent edema *Routine Skin Exam Skin: Present warm; Absent rash *Routine Neurological Exam Neurological: Present alert, oriented X3, moving all extremities, vision grossly intact, hearing grossly intact and normal speech; Absent sensory deficit or motor deficit Routine Psychiatric Exam Psychiatric: Present normal affect, normal thought process and cooperative Assessment and Plan *Assessment and plan (1) COPD exacerbation: Status: Acute Category: Medical Code(s): J44.1 - Chronic obstructive pulmonary disease with (acute) exacerbation (2) BMI 35.0-35.9,adult: Status: Acute Category: Medical Code(s): Z68.35 - Body mass index [BMI] 35.0-35.9, adult (3) CAD (coronary artery disease): Status: Chronic Qualifiers: Associated angina: with other forms of angina Coronary Disease- Associated Artery/Lesion type: [place] artery [place] vs. transplanted heart: [place] heart Qualified Code(s): I25.118 - Atherosclerotic heart disease of [place] coronary artery with other forms of angina pectoris Category: Medical Code(s): I25.10 - Atherosclerotic heart disease of [place] coronary artery without angina pectoris (4) Chronic respiratory failure with hypoxia: Status: Chronic Category: Medical Code(s): J96.11 - Chronic respiratory failure with hypoxia (5) Neuropathy: Status: Acute Category: Medical Code(s): G62.9 - Polyneuropathy, unspecified (6) Degenerative disc disease: Status: Chronic Category: Medical (7) Debility: Status: Acute Category: Medical Code(s): R53.81 - Other malaise Plan 55-year-old female with interstitial lung disease, chronic respiratory failure on 2 L oxygen at baseline. Presents with worsening shortness of breath and failure of outpatient treatment for COPD exacerbation. Discussed case with ER provider, request admission for further management and pulmonology consult. I decided to admit for further treatment. Patient having significant exertional dyspnea. Problems addressed as follows: COPD exacerbation Chronic hypoxic respiratory failure -O2 sats below 90 on arrival to the ER. Required increased to 3 L for sats above 90%. Goal sat greater than 90, wean as tolerated. Baseline oxygen 2 L - Initiate budesonide twice daily, DuoNebs every 4 hours scheduled. Just finished essentially 2 weeks of oral steroids. Will hold on steroids at this time. Given normal white count of 9.8 and negative focal consolidation on chest CT per my review, will hold on antibiotics pending pulmonology consult evaluation -Repeat CBC, CMP, magnesium ordered for the morning. Kidney function normal with BUN 7, creatinine 0.6. Sodium 132, potassium 4.0 - Differential includes atypical infection, persistent viral infection, deconditioning, component of volume overload (has lower extremity edema). - Will administer 40 mg IV Lasix once, monitor for improvement with diuresis - Resume Singulair 10 mg nightly - Continue Flonase for allergic rhinitis component - Continue benzonatate 100 mg 3 times a day as needed for cough - Continue Zyrtec 10 mg daily for allergies CAD - Continue aspirin 81 mg daily, Lipitor 80 mg nightly, Chronic back pain/degenerative disc disease - Continue Flexeril 10 mg 3 times a day as needed, gabapentin 900 mg 4 times a day, oxycodone 10 mg 4 times a day as needed GERD: Continue pantoprazole 40 mg nightly DNI Lovenox 40 mg subcu daily Regular diet
--- NOTE | 2025-06-16 19:03 | PC.NURSE ---
PT STATED A PERSON BY THE NAME OF ASHIA DAIGLE WAS ON HER WAY TO THE HOSPITAL TO TAKE PT'S PRESCRIPTION OXYCODONE AND GABAPENTIN HOME. PT STATED WHEN ASHIA ARRIVES SHE WOULD LET THE [facility] NURSE KNOW.
[2025-06-16 20:00] VITALS: BP 144/98; BP 165/83; PULSE 100; PULSE 110; PULSE 114; RESP 14; TEMP 36.6; O2SAT 95; O2SAT 96
[2025-06-16] MEDS: FUROSEMIDE 40MG/4ML VIAL 40 MG IV (20:35)
--- NOTE | 2025-06-16 22:07 | PC.NURSE ---
Addendum entered by Carolyn Hebert 06/16/25 22:59: Patient left floor with staff for home at 22:07. Original Note: Patient left floor with staff for home at 23:07.
[2025-06-16 22:11] LABS: POC Glucose,Bedside 390 gm/dL (70-110)
--- NOTE | 2025-06-16 22:24 | EXP.DC.SUM ---
General Admission date:: 06/16/25 HPI HPI HPI: Ms. Gordillo is a 55-year-old female who has had worsening shortness of breath over the past several weeks. She initially saw pulmonology on 06/03 with what was thought to be allergic rhinitis and cough. Treated with a course of steroids and got better but since the steroids finished she says she got short of breath again. She presented to the ER on 06/11 where she was treated for a COPD exacerbation with doxycycline and steroids. Her symptoms never really improved and she has persistent shortness of breath. Denies fever, nausea, vomiting. Does complain of sweating at night and feeling short of breath with exertion. Has been worked up by pulmonology and cardiology. Cardiology to [place] her heart is fine. She has been wearing 2 L oxygen continuous for about a year. Gets around with a wheelchair due to significant back problems including slipping vertebrae at risk for nerve impingement and paralysis, and severe SI pain. She has had multiple surgeries on her back. Is able to walk short distances around her house without much difficulty. She states even this is causing her to get more short of breath with exertion. When she goes out of the house or for long distances, she must use a power chair. Has not smoked in about 6 years. Uses her inhalers as prescribed. Denies any significant increase in weight. Just feels more short of breath, has a harsh cough that is nonproductive, and would like to feel better. Workup in the ER, her white count is 9.8. Required 3 L to sat above 90%. Kidney function and electrolytes normal. Had an echo on 05/20 per chart review with normal EF. CT of chest did not show significant focal consolidation. Medicine consulted due to progressing symptoms, increased oxygen requirement, and failure of improvement in symptoms with outpatient COPD management. On arrival to the floor, patient is able to speak in complete sentences. Is sweaty with exertion. Pleasant on interview. Appears somewhat frustrated about her condition however. States she is only 55 years old and should not be this disabled. Is just looking for some help and would like to breathe better. Hospital Course Hospital Course Hospital Course: Omar Gordillo is a 55-year-old female with interstitial lung disease, chronic respiratory failure on 2 L oxygen at baseline. Presents with worsening shortness of breath and failure of outpatient treatment for COPD exacerbation. Discussed case with ER provider, request admission for further management and pulmonology consult. #COPD exacerbation #Chronic hypoxic respiratory failure ? Presented with dyspnea on exertion, failed outpatient treatment with antibiotics, steroids. On 2.5 L at admission, 2 L baseline. ? Patient's dyspnea slightly improved with DuoNebs, Pulmicort, Solu-Medrol. However, continues to have obvious dyspnea on exertion without significant lung exam findings. ? CTA chest not show acute findings and mild adenopathy. Negative for influenza, COVID-19. ? ECHO 05/20/2025 without remarkable findings. ? Ultimately, patient requested to leave AGAINST MEDICAL ADVICE as she preferred to sleep in her own bed tonight and believes she can do the same treatments at home. She is currently on 2.5 L nasal cannula, refuses a walk test to assess for desaturations during exertion. She states she feels well enough to go home, but I recommended that she stay overnight to be treated with breathing treatments and for a pulmonology evaluation in the morning and possibly a CCTA. After extensive conversation, patient understood the risk of going home including sudden respiratory arrest and even and requested to leave AGAINST MEDICAL ADVICE, she was alert and oriented x 3. She states she will follow-up with pulmonology within 1 week. CAD - Continue aspirin 81 mg daily, Lipitor 80 mg nightly, Chronic back pain/degenerative disc disease - Continue Flexeril 10 mg 3 times a day as needed, gabapentin 900 mg 4 times a day, oxycodone 10 mg 4 times a day as needed GERD: Continue pantoprazole 40 mg nightly Exam Data for Last 24 hours Vital signs and Labs for Last 24 Hours: Temp Pulse Resp BP Pulse Ox O2 Del Method O2 Flow Rate 97.8 F 114 H 14 165/83 H 96 Nasal Cannula 2 06/16/25 20:00 06/16/25 20:00 06/16/25 20:00 06/16/25 20:00 06/16/25 20:00 06/16/25 20:00 06/16/25 20:00 Laboratory Results - last 24 hr 06/16/25 14:22: SARS-CoV-2 (PCR) Not detected, Influenza A Untype (PCR) Not detected, Influenza Type B (PCR) Not detected 06/16/25 14:31: WBC 9.8, RBC 4.48, Hgb 12.7, Hct 38.9, MCV 86.8, MCH 28.3, MCHC 32.6, RDW 12.7, Plt Count 234, MPV 10.0, Neut % (Auto) 70.7, Lymph % (Auto) 11.8, [place] % (Auto) 9.7 H, Eos % (Auto) 6.9, Baso % (Auto) 0.5, Neut # (Auto) 6.9, Lymph # (Auto) 1.2, [place] # (Auto) 1.0, Eos # (Auto) 0.7 H, Baso # (Auto) 0.1, PT 10.8, INR 0.97, APTT 26.5, D-Dimer 0.50, VBG pH 7.44 H, VBG pCO2 39.9, VBG pO2 85.3 H, VBG HCO3 26.7, VBG Total CO2 28.0 H, VBG O2 Saturation 97.0 H, VBG Base Excess 2.6 H, VBG Lactic Acid 1.9, Sodium 132 L, Potassium 4.0, Chloride 98, Carbon Dioxide 27, Anion Gap 11.0, BUN 7, Creatinine 0.60, Estimated Creat Clear 152, Estimated GFR 104, Est GFR ( Amer) 126, Glucose 165 H, Calcium 7.7 L, Total Bilirubin 1.9 H, AST 26, ALT 28, Alkaline Phosphatase 114, Total Creatine Kinase < 20 L, C-Reactive Protein 52.9 H, NT-Pro-B Natriuret Pep < 20.0, Total Protein 6.2 L, Albumin 3.4 L, Globulin 2.8, Albumin/Globulin Ratio 1.2 06/16/25 16:05: Urine Color Yellow, Urine Appearance Clear, Urine pH 6.5, Ur Specific [place] <= 1.005, Urine Protein Negative, Urine Glucose (UA) Negative, Urine Ketones Negative, Urine Blood Negative, Urine Nitrate Negative, Urine Bilirubin Negative, Urine Urobilinogen 0.2, Ur Leukocyte Esterase Negative, Urine RBC None, Urine WBC Occasional, Ur Squamous Epith Cells 3-5, Urine Bacteria Trace 06/16/25 21:43: POC Glucose 390 H* I & O for Last 24 hours: Intake & Output 06/13/25 06/14/25 06/15/25 06/16/25 23:59 23:59 23:59 23:59 Intake Total 150 / 150 Balance 150 / 150 Weight 90.718 kg Constitutional Constitutional: mild distress, obese and chronically ill appearing *Routine HEENT Exam Head: Present normocephalic Eye: Present EOMI and PERRL ENT: Present mucous membranes moist *Routine Neck Exam Neck: Present supple; Absent lymphadenopathy *Routine Respiratory Exam Respiratory: Present CTA bilaterally *Routine Cardiovascular Exam Cardiovascular: Present RRR *Routine Abdominal Exam Abdominal: Present soft and normoactive bowel sounds; Absent tenderness *Routine Extremities Exam Extremities: Absent cyanosis, clubbing or edema *Routine Skin Exam Skin: Present warm; Absent rash *Routine Neurological Exam Neurological: Present alert and oriented X3 Results Data Completed and Pending Labs on day of discharge: Labs from last 24 hours 06/16/25 06/16/25 06/16/25 21:43 16:05 14:31 WBC 9.8 RBC 4.48 Hgb 12.7 Hct 38.9 MCV 86.8 MCH 28.3 MCHC 32.6 RDW 12.7 Plt Count 234 MPV 10.0 Neut % (Auto) 70.7 Lymph % (Auto) 11.8 [place] % (Auto) 9.7 H Eos % (Auto) 6.9 Baso % (Auto) 0.5 Neut # (Auto) 6.9 Lymph # (Auto) 1.2 [place] # (Auto) 1.0 Eos # (Auto) 0.7 H Baso # (Auto) 0.1 PT 10.8 INR 0.97 APTT 26.5 D-Dimer 0.50 VBG pH 7.44 H VBG pCO2 39.9 VBG pO2 85.3 H VBG HCO3 26.7 VBG Total CO2 28.0 H VBG O2 Saturation 97.0 H VBG Base Excess 2.6 H VBG Lactic Acid 1.9 Sodium 132 L Potassium 4.0 Chloride 98 Carbon Dioxide 27 Anion Gap 11.0 BUN 7 Creatinine 0.60 Estimated Creat Clear 152 Estimated GFR 104 Est GFR ( Amer) 126 Glucose 165 H POC Glucose 390 H* Calcium 7.7 L Total Bilirubin 1.9 H AST 26 ALT 28 Alkaline Phosphatase 114 Total Creatine Kinase < 20 L C-Reactive Protein 52.9 H NT-Pro-B Natriuret Pep < 20.0 Total Protein 6.2 L Albumin 3.4 L Globulin 2.8 Albumin/Globulin Ratio 1.2 Urine Color Yellow Urine Appearance Clear Urine pH 6.5 Ur Specific [place] <= 1.005 Urine Protein Negative Urine Glucose (UA) Negative Urine Ketones Negative Urine Blood Negative Urine Nitrate Negative Urine Bilirubin Negative Urine Urobilinogen 0.2 Ur Leukocyte Esterase Negative Urine RBC None Urine WBC Occasional Ur Squamous Epith Cells 3-5 Urine Bacteria Trace SARS-CoV-2 (PCR) Influenza A Untype (PCR) Influenza Type B (PCR) 06/16/25 14:22 WBC RBC Hgb Hct MCV MCH MCHC RDW Plt Count MPV Neut % (Auto) Lymph % (Auto) [place] % (Auto) Eos % (Auto) Baso % (Auto) Neut # (Auto) Lymph # (Auto) [place] # (Auto) Eos # (Auto) Baso # (Auto) PT INR APTT D-Dimer VBG pH VBG pCO2 VBG pO2 VBG HCO3 VBG Total CO2 VBG O2 Saturation VBG Base Excess VBG Lactic Acid Sodium Potassium Chloride Carbon Dioxide Anion Gap BUN Creatinine Estimated Creat Clear Estimated GFR Est GFR ( Amer) Glucose POC Glucose Calcium Total Bilirubin AST ALT Alkaline Phosphatase Total Creatine Kinase C-Reactive Protein NT-Pro-B Natriuret Pep Total Protein Albumin Globulin Albumin/Globulin Ratio Urine Color Urine Appearance Urine pH Ur Specific [place] Urine Protein Urine Glucose (UA) Urine Ketones Urine Blood Urine Nitrate Urine Bilirubin Urine Urobilinogen Ur Leukocyte Esterase Urine RBC Urine WBC Ur Squamous Epith Cells Urine Bacteria SARS-CoV-2 (PCR) Not detected Influenza A Untype (PCR) Not detected Influenza Type B (PCR) Not detected DS: Diagnosis Discharge Diagnosis (1) COPD exacerbation: Status: Acute Code(s): J44.1 - Chronic obstructive pulmonary disease with (acute) exacerbation (2) BMI 35.0-35.9,adult: Status: Acute Code(s): Z68.35 - Body mass index [BMI] 35.0-35.9, adult (3) CAD (coronary artery disease): Status: Chronic Code(s): I25.10 - Atherosclerotic heart disease of [place] coronary artery without angina pectoris Qualifiers: Associated angina: with other forms of angina Coronary Disease-Associated Artery/Lesion type: [place] artery [place] vs. transplanted heart: [place] heart Qualified Code(s): I25.118 - Atherosclerotic heart disease of [place] coronary artery with other forms of angina pectoris (4) Chronic respiratory failure with hypoxia: Status: Chronic Code(s): J96.11 - Chronic respiratory failure with hypoxia (5) Neuropathy: Status: Acute Code(s): G62.9 - Polyneuropathy, unspecified (6) Degenerative disc disease: Status: Chronic (7) Debility: Status: Acute Code(s): R53.81 - Other malaise Meds Home Medications and Allergies Home Medications ?Medication ?Instructions ?Recorded ?Confirmed ?Type gabapentin 300 mg capsule 900 mg PO QID 12/08/17 06/16/25 History cyclobenzaprine 10 mg tablet 10 mg PO TIDP PRN muscle spasms 11/12/20 06/16/25 History oxycodone 10 mg tablet 10 mg PO QIDP PRN Moderate Pain 12/28/23 06/16/25 History (Scale Score 5-6) aspirin 81 mg tablet,delayed 81 mg PO DAILY #30 tabs 05/07/24 06/16/25 Rx release estradiol 1 mg tablet See Rx Instructions .Route 11/15/24 06/16/25 Rx .COMPLEX #90 tabs montelukast 10 mg tablet 10 mg PO QPM 90 days #90 tabs 12/17/24 06/16/25 Rx albuterol sulfate 90 mcg/actuation See Rx Instructions .Route 01/08/25 06/16/25 Rx aerosol inhaler .COMPLEX #8.5 grams atorvastatin 40 mg tablet 80 mg (2 x 40 mg) PO HS #90 tabs 02/06/25 06/16/25 Rx diclofenac sodium 1 % topical gel 1 ea topical QID #100 grams 02/06/25 06/16/25 Rx cetirizine 10 mg tablet See Rx Instructions .Route 02/07/25 06/16/25 Rx .COMPLEX #90 tabs ipratropium 0.5 mg-albuterol 3 mg See Rx Instructions .Route 02/07/25 06/16/25 Rx (2.5 mg base)/3 mL nebulization .COMPLEX #360 mL soln blood pressure monitor #1 ea 03/25/25 06/16/25 Rx albuterol sulfate 90 mcg/actuation 4 inh inhalation Q4H PRN shortness 04/16/25 06/16/25 Rx aerosol inhaler of breath or wheezing #8.5 grams benzonatate 100 mg capsule 100 mg PO TID PRN cough 5 days #20 04/16/25 06/16/25 Rx caps prednisone 50 mg tablet 50 mg PO DAILY 5 days #5 tabs 04/16/25 06/16/25 Rx fluticasone fur. 200 mcg-umeclid See Rx Instructions .Route 04/24/25 06/16/25 Rx 62.5 mcg-vilant 25 mcg .COMPLEX #90 blisters inhalat.powder (Trelegy Ellipta) azelastine 137 mcg (0.1 %) nasal 2 spray intranasal HS 90 days #30 06/03/25 06/16/25 Rx spray mL azithromycin 250 mg tablet 250 mg PO DAILY 5 days #6 tabs 06/03/25 06/16/25 Rx fluticasone propionate 50 2 spray intranasal DAILY #16 grams 06/03/25 06/16/25 Rx mcg/actuation nasal spray,suspension prednisone 50 mg tablet 40 mg (0.8 x 50 mg) PO DAILY #20 06/03/25 06/16/25 Rx tabs pantoprazole 40 mg tablet,delayed See Rx Instructions .Route 06/04/25 06/16/25 Rx release .COMPLEX #30 tabs doxycycline hyclate 100 mg capsule 100 mg PO BID 7 days #14 caps 06/11/25 06/16/25 Rx New Prescriptions to Start Prescriptions: Allergies Allergy/AdvReac Type Severity Reaction Status Date / Time baclofen Allergy Intermediate Rash Verified 06/16/25 18:00 mold Allergy Intermediate Rash Verified 06/16/25 18:00 Sulfa (Sulfonamide Allergy Unknown I-RASH Verified 06/16/25 18:00 Antibiotics) (SULFA (SULFONAMIDE ANTIBIOTICS)) sulfamethoxazole (From Allergy Rash Verified 06/16/25 18:00 Bactrim) trimethoprim (From Bactrim) Allergy Rash Verified 06/16/25 18:00 meloxicam AdvReac Unknown Rash Verified 06/16/25 18:00 heparin AdvReac Redness of Verified 06/16/25 18:00 Skin Discharge Plan Disposition Patient Disposition: Left Against Medical Advice Patient Discharge Instructions Print Language: Turkmen Providers Admit Provider: Ramon Lozano Attending Provider: Ramon Lozano
--- NOTE | 2025-06-17 02:48 | PC.NURSE ---
06/16/25 1950: Pt's friend Sukhjinder Polk arrived to patients room. Pt. gave Sukhjinder Polk the Gabapentin and Oxycodone bottles to take home with her. This RN witnessed the exchange. 2014 Pt's friend left with the pill bottles in her possession.
--- NOTE | 2025-06-17 02:53 | INFXCTL.NOTE ---
06/16/25 2100 Pt. c/o she want s to go home. Pt. states she is not comfortable here and wants to go ;home. Pt. packed up her stuff. Eloy Ga MD and Yusuf Dobson RN at bedside to talk to patient. Pt. wants to leave AMA. She declined to stay. her tonight.
--- NOTE | 2025-06-17 02:56 | PC.NURSE ---
06/16/25 2207: Pt. signed the AMA forms. Pt. left via motorized scooter. Left with her belongings. Blood sugar was checked prior to discharge. BS 390. Pt. still declined to stay.
== END 2025-06-16 22:07 | disposition left against medical advice (07) ==
LOC: ER 17:50 → 2ND 17:55
PROVIDERS: Nurse Practitioner; Admitting Provider Internal Medicine Adolescent Medicine; Emergency Provider Student in an Organized Health Care Education/Training Program; PCP Nurse Practitioner Family; Visit Provider Internal Medicine Adolescent Medicine
DX: J44.1 Chronic obstructive pulmonary disease with (acute) exacerbation (principal); I25.118 Atherosclerotic heart disease of native coronary artery with other forms of angina pectoris; J96.11 Chronic respiratory failure with hypoxia; G62.9 Polyneuropathy, unspecified; E66.01 Morbid (severe) obesity due to excess calories; G89.29 Other chronic pain; K21.9 Gastro-esophageal reflux disease without esophagitis; J84.9 Interstitial pulmonary disease, unspecified; M51.369 Other intervertebral disc degeneration, lumbar region without mention of lumbar back pain or lower extremity pain; R91.8 Other nonspecific abnormal finding of lung field; R53.81 Other malaise; R00.0 Tachycardia, unspecified; Z68.35 Body mass index [BMI] 35.0-35.9, adult; Z87.891 Personal history of nicotine dependence; Z83.6 Family history of other diseases of the respiratory system; Z99.81 Dependence on supplemental oxygen; Z88.8 Allergy status to other drugs, medicaments and biological substances; Z88.3 Allergy status to other anti-infective agents; Z88.2 Allergy status to sulfonamides; Z88.1 Allergy status to other antibiotic agents; Z88.6 Allergy status to analgesic agent
CPT/HCPCS: 71275; 80053; 81001; 82550; 82803; 82962; 83880; 85025; 85378; 85610; 85730; 86140; 87040; 87636; 93005; 96365; 96366; 96367; 96375; 99285; G0378; J0612; J1938; J2919; J3475; Q9967

== ENCOUNTER 2025-07-29 13:45 | Outpatient (CLI) | payer MEDICARE, MEDICAID, SELFPAY ==
--- OUTSIDE RECORDS SUMMARY | 2025-07-29 13:47 | XMS_ITS | Clinical Summary ---
Author Organization [employer] ([place], [place], [place], [place], [place]) Address [address] [place] [address] Care Team Providers Care Pin Cleaner Name Role Phone Ender Casas APRN Primary Care Provider [phone] Ender Casas APRN Unavailable [phone] Allergies Active Allergy Reactions Criticality Noted [...] Date Brad rded Speak language other than Maltese at home Not on file 01/29/2024 Want [...] Counseling and Screening (12+) 02/0402/05/2024 COVID-19 VACCINE (1 - 2023- season) 2025 Influenza Vaccine (#1) 2025 Insurance MEDICAID OF [place] Member Subscriber Plan / Payer (Ef fective 2023-Present) Name:Omar Gordillo Relation to Subscriber:Self Name:Omar Gordillo Payer ID:[id number] Group ID:Not on file Type:Not on file Address: [address] DUAL [employer]PLETE [employer] ADV Care Teams Pin Cleaner Relationship Specialty Start Date End Date Ender Casas APRN [address] [place] [address] PCP - General Nurse Practitioner 08/04/23 Ender Casas, [place] [address] [place] [address] Referring Physician Nurse Practitioner 08/04/23
--- OUTSIDE RECORDS SUMMARY | 2025-07-29 13:48 | XMS_ITS | Clinical Summary ---
Author Organization [facility] Address [address] [place] [address] Care Team Providers Care Immigration Investigator Name Role Phone Darion Rehman MD Primary Care Provider [phone] Allergies Active Allergy Reactions Criticality Noted Date [...] 01/27/2020 [facility]-Zoster Vaccines (1 of 2) 01/27/2020 [id number] Vaccine (1 - season) 2025 [facility]-Influenza Vaccine [...] José Antonio Mccall ROM: Patient will demonstrate ski topper strength to 60% of norm for increased participation in ADL's. Occupational Therapy No José Antonio Mccall [place] [address] Care Teams Immigration Investigator Relationship Specialty Start Date End Date Darion Rehman MD [address] [place] [address] PCP - General 01/08/21
--- OUTSIDE RECORDS SUMMARY | 2025-07-29 13:48 | XMS_ITS | Referral Summary ---
Author Organization [employer] ([place], [place], [place], [place], [place]) Address [address] [place] [address] Care Team Providers Care Apprentice Cook Name Role Phone Ender Casas APRN Primary Care Provider [phone] Ender Casas APRN Unavailable [phone] Allergies Active Allergy Reactions Criticality Noted [...] Date Brad rded Speak language other than Sinhala at home Not on file 01/29/2024 Want [...] Treatment Not on file Insurance MEDICAID OF [place] [facility] DUAL COMPLETE MCR ADV Care Teams Apprentice Cook Relationship Specialty Start Date End Date Ender Casas APRN [address] [place] [address] PCP - General Nurse Practitioner 08/04/23 Ender Casas APRN [address] [place] [address] Referring Physician Nurse Practitioner 08/04/23
--- NOTE | 2025-07-29 14:00 | CT_ITS ---
FINAL REPORT TECHNIQUE: Thin section axial images were obtained through the lungs using a low-dose technique per lung cancer screening protocol. Reconstruction images were obtained using the axial data. Exam was performed using dose reduction technique. CLINICAL HISTORY: lung cancer screening former smoker , quit 6 years ago. smoked 1 ppd x 35 COMPARISON: CTA of the chest 06/16/2025, LDCT 08/04/2023 FINDINGS: CTDLvol: 2.90 DLP: 4.46 Former smoker who quit 6 years ago 35 pack year history Lungs: No acute pulmonary abnormality. There is a 4 mm nodule along the right minor fissure, likely an intrafissural node, stable. There are bilateral linear opacities in the upper lobes, stable. There are mild subpleural interstitial opacities which are stable. Lymph nodes: There are mildly prominent paratracheal nodes which are stable. No hilar adenopathy is noted. Mediastinum: Heart size is normal. Pleura/pericardium: No pleural or pericardial effusion. Other: Fatty infiltration of the liver is present. IMPRESSION: No new suspicious pulmonary nodule or mass. Lung RADS: 2S, the S designation for possible interstitial lung disease. Recommendation: 12-month follow-up LDCT Reviewed, Interpreted and Dictated by Antonietta Schaffer MD Transcribed by Rachelle Lind Authenticated and . [facility]
== END 2025-07-29 23:59 | disposition home or self-care (01) ==
LOC: RAD 13:46
PROVIDERS: PCP Nurse Practitioner Family; Visit Provider Internal Medicine Pulmonary Disease
DX: Z12.2 Encounter for screening for malignant neoplasm of respiratory organs (principal); Z87.891 Personal history of nicotine dependence; R91.1 Solitary pulmonary nodule; K76.0 Fatty (change of) liver, not elsewhere classified; R59.0 Localized enlarged lymph nodes
CPT/HCPCS: 71271